=== PATIENT | male | born 1935 | race Caucasian/White ===

== ENCOUNTER 2016-05-30 09:29 | Inpatient (IN) ==
--- NOTE | 2016-05-30 09:39 | Emergency Department Note ---
Disposition Clinical Impression: Elevated troponin Chest pain Qualifiers: Chest pain type: unspecified Qualified Code(s): R07.9 - Chest pain, unspecified Disposition: Admitted As Inpatient Condition: Fair Referrals: NO,PCP [Non-Partnered Physician] - Forms: ED Satisfaction Letter Chest Pain HPI - General Chief Complaint: ED Chest Pain Stated Complaint: supriya/chest pain Time Seen by Provider: 05/30/16 09:34 Source: patient, EMS Mode of arrival: EMS Limitations: no limitations Vital Signs Reviewed: Yes Nursing Notes Reviewed: Yes - History of Present Illness Pt complaint: chest pain Onset (ago): day(s) (1) Duration: intermittent Onset: during rest Pain Location: substernal Severity: moderate Quality: heaviness Improves with: nothing Worsens with: nothing Associated symptoms: Reports: cough. Denies: nausea, vomiting Treatments prior to arrival chest pain: aspirin - Related Data Home Medications Medication Instructions Recorded Confirmed Amlodipine [Norvasc] 5 mg PO DAILY 01/18/16 01/18/16 Aspirin Enteric Coated [Aspirin EC] 81 mg PO DAILY 01/18/16 01/18/16 Atorvastatin [Lipitor] 20 mg PO HS 01/18/16 01/18/16 Cinnamon Bark [Cinnamon] 1,000 mg PO DAILY 01/18/16 01/18/16 Finasteride [Proscar] 5 mg PO DAILY 01/18/16 01/18/16 Furosemide [Lasix] 40 mg PO DAILY 01/18/16 01/18/16 Gabapentin [Neurontin] 800 mg PO TID 01/18/16 01/18/16 Guaifenesin 200 mg PO TID 01/18/16 01/18/16 Hydrochlorothiazide [Microzide] 12.5 mg PO DAILY 01/18/16 01/18/16 Losartan [Cozaar] 25 mg PO DAILY 01/18/16 01/18/16 Omeprazole [PriLOSEC] 40 mg PO DAILY 01/18/16 01/18/16 Potassium Chloride [K-Tab ER] 20 meq PO DAILY 01/18/16 01/18/16 Tamsulosin [Flomax] 0.4 mg PO DAILY 01/18/16 01/18/16 Warfarin [Coumadin] 2.5 mg PO 1800 01/18/16 01/18/16 Allergies Allergy/AdvReac Type Severity Reaction Status Date / Time No Known Allergies Allergy Verified 05/18/15 07:46 All systems ED: reviewed and negative except as stated. Constitutional: Denies: fever, chills, weakness Respiratory: Reports: cough Chest Pain PMH - Past Medical History Medical history: Reports: atrial fibrillation, diabetes, hyperlipidemia, hypertension Surgical history: Reports: LE Bypass, pacemaker/AICD Psychiatric history: Reports: no psych history - Social History Smoking Status: Former smoker Alcohol use: Reports: none Drug use: Reports: none Physical Exam - General Limitations: no limitations General appearance: alert, in no apparent distress - Head Head exam: atraumatic, normocephalic, normal inspection - Eye Eye exam: Present: normal appearance, PERRL, EOMI - Expanded Eye Exam Pupils: Left: reactive - ENT ENT exam: normal exam, normal oropharynx, mucous membranes moist - Expanded ENT Exam External ear exam: Present: normal external inspection Mouth exam: Present: normal external inspection Teeth exam: Present: normal inspection Throat exam: Present: normal inspection - Neck Neck exam: Present: normal inspection, full ROM, trachea midline - Chest Chest inspection: Present: normal inspection, symmetric chest wall rise - Respiratory Respiratory exam: Present: normal lung sounds bilaterally - Cardiovascular Cardiovascular exam: Present: regular rate, irregular rhythm - Abdominal Exam Abdominal exam: Present: soft, Non-Tender. Absent: tenderness, distention, guarding, rebound, rigidity - Extremities Exam Extremities exam: Present: normal inspection, full ROM. Absent: tenderness, pedal edema - Expanded Upper Extremity Exam Shoulder exam: Present: normal inspection, full ROM Arm exam: Present: normal inspection, full ROM Elbow exam: Present: normal inspection, full ROM Forearm/Wrist exam: Present: normal inspection, full ROM Hand exam: Present: normal inspection, full ROM Vascular exam: Normal: capillary refill, radial pulse - Expanded Lower Extremity Exam Hip/Pelvis exam: Present: normal inspection, full ROM Upper leg exam: Present: normal inspection, full ROM Knee exam: Present: normal inspection, full ROM Lower leg exam: Present: normal inspection, full ROM, other (bilat mild pitting edema) Ankle exam: Present: normal inspection, full ROM Foot/toe exam: Present: normal inspection, full ROM Neurovascular/Tendon exam: Absent: motor deficit, sensory deficit, tendon deficit - Back Exam Back exam: Present: normal inspection, full ROM. Absent: tenderness - Neurological Exam Neurological exam: Present: alert, oriented X3 - Expanded Neurological Exam Patient oriented to: Present: person, place, time Coma Scale Eye Opening: Spontaneous Coma Scale Motor Response: Obeys Commands Coma Scale Verbal Response: Oriented Coma Scale Total: 15 - Psychiatric Psychiatric exam: Present: normal affect, normal mood - Skin Skin exam: Present: warm, dry, intact, normal color Course Vital Signs Temperature 99 F 05/30/16 09:30 Pulse Rate 59 05/30/16 09:30 Respiratory Rate 20 05/30/16 09:30 Blood Pressure 131/76 05/30/16 09:30 O2 Sat by Pulse Oximetry 95 05/30/16 09:30 Temperature 99 F 05/30/16 09:30 Pulse Rate 60 05/30/16 11:30 Respiratory Rate 18 05/30/16 11:30 Blood Pressure 140/68 05/30/16 11:30 O2 Sat by Pulse Oximetry 96 05/30/16 11:30 Oxygen Delivery Oxygen Delivery Nasal Cannula Chest Pain - MDM Narrative Medical decision making narrative: dr. rao wants cardiology consulted, dr. treadwell recommends against heparin gtt. - Differential Diagnosis Likely: fracture of rib, stable angina, unstable angina pectoris, atypical chest pain, st elevation myocardial infraction, chest pain - Medical Records Medical records reviewed: Yes I reviewed the patient's medical records. - Lab Data Lab results reviewed: Yes I reviewed the patient's lab results. Result diagrams: 05/30/16 09:46 05/30/16 09:46 Lab Results 05/30/16 05/30/16 05/30/16 Range/Units 09:46 09:46 09:46 WBC (4.3-11.1) K/mcL RBC (4.19-5.50) M/mcL Hgb (12.9-16.9) g/dL Hct (37.5-50.1) % MCV (83.0-100.0) fL MCH (28.0-33.3) pg MCHC (31.6-35.5) g/dL RDW (11.5-14.5) % Plt Count (140-400) K/mcL MPV (9.4-12.4) fL Immature Gran % (0-4) % Seg Neutrophils % % Lymphocytes % % Monocytes % % Eosinophils % % Basophils % % Neutrophils # (1.6-8.9) K/mcL Lymphocytes # (0.6-4.6) K/mcL Monocytes # (0.0-1.3) K/mcL Eosinophils # (0.0-0.6) K/mcL Basophils # (0.0-0.2) K/mcL PT 38.0 H (9.4-12.1) Seconds INR 3.4 APTT 38.2 H (26.0-36.0) Seconds Sodium 134 L (136-145) mEq/L Potassium 3.9 (3.5-4.5) mEq/L Chloride 100 (98-109) mEq/L Carbon Dioxide 25 (19-29) mEq/L BUN 26 (8-26) mg/dL Creatinine 1.54 H (0.72-1.25) mg/dL Est GFR ( Amer) 53 L (> 60) Est GFR (Non-Af Amer) 44 L (> 60) BUN/Creatinine Ratio 17 (6-26) Glucose 121 H (70-99) mg/dL Calculated Osmolality 284 (280-300) Calcium 9.1 (8.6-10.8) mg/dL Total Bilirubin 1.4 H (0.2-1.2) mg/dL Direct Bilirubin 0.5 (0.0-0.5) mg/dL Indirect Bilirubin 0.9 (0.0-1.2) mg/dL AST 18 (5-34) Units/L ALT 18 (0-55) Units/L Alkaline Phosphatase 69 (38-126) Units/L Troponin I (0-0.03) ng/mL B-Natriuretic Peptide 260 H (0-100) pg/mL Serum Total Protein 6.9 (6.0-8.3) g/dL Albumin 3.6 (3.5-5.0) g/dL Globulin 3.3 (2.4-3.5) g/dL Albumin/Globulin Ratio 1.1 (1.1-2.2) 05/30/16 05/30/16 Range/Units 09:46 09:46 WBC 15.7 H (4.3-11.1) K/mcL RBC 4.98 (4.19-5.50) M/mcL Hgb 14.9 (12.9-16.9) g/dL Hct 45.0 (37.5-50.1) % MCV 90.4 (83.0-100.0) fL MCH 29.9 (28.0-33.3) pg MCHC 33.1 (31.6-35.5) g/dL RDW 14.6 H (11.5-14.5) % Plt Count 123 L (140-400) K/mcL MPV 9.3 L (9.4-12.4) fL Immature Gran % 0.4 (0-4) % Seg Neutrophils % 82.4 % Lymphocytes % 9.1 % Monocytes % 7.4 % Eosinophils % 0.4 % Basophils % 0.3 % Neutrophils # 13.0 H (1.6-8.9) K/mcL Lymphocytes # 1.4 (0.6-4.6) K/mcL Monocytes # 1.2 (0.0-1.3) K/mcL Eosinophils # 0.1 (0.0-0.6) K/mcL Basophils # 0.0 (0.0-0.2) K/mcL PT (9.4-12.1) Seconds INR APTT (26.0-36.0) Seconds Sodium (136-145) mEq/L Potassium (3.5-4.5) mEq/L Chloride (98-109) mEq/L Carbon Dioxide (19-29) mEq/L BUN (8-26) mg/dL Creatinine (0.72-1.25) mg/dL Est GFR ( Amer) (> 60) Est GFR (Non-Af Amer) (> 60) BUN/Creatinine Ratio (6-26) Glucose (70-99) mg/dL Calculated Osmolality (280-300) Calcium (8.6-10.8) mg/dL Total Bilirubin (0.2-1.2) mg/dL Direct Bilirubin (0.0-0.5) mg/dL Indirect Bilirubin (0.0-1.2) mg/dL AST (5-34) Units/L ALT (0-55) Units/L Alkaline Phosphatase (38-126) Units/L Troponin I 0.04 H* (0-0.03) ng/mL B-Natriuretic Peptide (0-100) pg/mL Serum Total Protein (6.0-8.3) g/dL Albumin (3.5-5.0) g/dL Globulin (2.4-3.5) g/dL Albumin/Globulin Ratio (1.1-2.2) - Radiology Data Radiology results reviewed: Yes I reviewed the patient's radiology results. - EKG Data EKG attestation: Yes I reviewed and interpreted this EKG. Rate: normal (59) Rhythm: other (ventricular paced)
[2016-05-30 09:53] LABS: Basophils % 0.3 %; Eosinophils # 0.1 K/mcL (0.0-0.6); Eosinophils % 0.4 %; Hemoglobin 14.9 g/dL (12.9-16.9); Immature Granulocytes % 0.4 % (0-4); Lymphocytes # 1.4 K/mcL (0.6-4.6); Lymphocytes % 9.1 %; Mean Corpuscular HGB Conc 33.1 g/dL (31.6-35.5); Mean Corpuscular Hemoglobin 29.9 pg (28.0-33.3); Mean Corpuscular Volume 90.4 fL (83.0-100.0); Mean Platelet Volume 9.3 fL (9.4-12.4); Monocytes # 1.2 K/mcL (0.0-1.3); Monocytes % 7.4 %; Platelet Count 123 K/mcL (140-400); Red Blood Count 4.98 M/mcL (4.19-5.50); Red Cell Distribution Width 14.6 % (11.5-14.5); Segmented Neutrophils % 82.4 %
[2016-05-30 09:59] LABS: INR 3.4
[2016-05-30 10:01] LABS: Activated Partial Thrombo Time 38.2 Seconds (26.0-36.0)
[2016-05-30 10:08] LABS: Albumin 3.6 g/dL (3.5-5.0); Albumin/Globulin Ratio 1.1 (1.1-2.2); Bilirubin,Direct 0.5 mg/dL (0.0-0.5); Bilirubin,Indirect 0.9 mg/dL (0.0-1.2); Bilirubin,Total 1.4 mg/dL (0.2-1.2); Calcium 9.1 mg/dL (8.6-10.8); Globulin 3.3 g/dL (2.4-3.5); Potassium 3.9 mEq/L (3.5-4.5); Total Protein 6.9 g/dL (6.0-8.3)
--- NOTE | 2016-05-30 14:26 | Cardiology Consult Note ---
Date of Encounter: 05/30/16 Time of Encounter: 14:30 Assessment and Plan (1) Chest pain Current Visit: Yes Status: Acute Per Cardiology: I suspect patient has underlying anatomical CAD, however he presents with atypical symptoms. Reproducible today with deep inspiration and coughing. Initial troponin 0.04. Recommend continue to cycle troponins. Check echo. Consider further ischemic evaluation tomorrow based on troponins and echo results. We'll consider cardiac rehabilitation consult if deemed appropriate. Demand ischemia (WBC 15 and MEL?) vs NSTEMI. Qualifiers: Chest pain type: unspecified Qualified Code(s): R07.9 - Chest pain, unspecified (2) Elevated troponin Current Visit: Yes Status: Acute Per Cardiology: Initial trop 0.04. Continue to cycle. (3) MEL (acute kidney injury) Current Visit: Yes Status: Acute Per Cardiology: Appears to have CKD, unsure of this is MEL or CKD. Monitor closely. (4) PAD (peripheral artery disease) Current Visit: Yes Status: Chronic Per Cardiology: History of aorto bifemoral bypass. Also, last carotid duplex September 2015 showed right proximal ICA 60-79% and left proximal ICA 40-59% stenosis. (5) Afib Current Visit: Yes Status: Chronic Per Cardiology: Apparent hx of afib. [facility] Current [facility] 3.4-- hold Coumadin for now in case needs [facility]. Monitor tele. Pace rhythm on ECG. Qualifiers: Atrial fibrillation type: unspecified Qualified Code(s): I48.91 - Unspecified atrial fibrillation (6) Sick sinus syndrome Current Visit: Yes Status: Chronic Per Cardiology: Has Pacer [facility]. (7) Decubitus ulcer of right buttock, stage 3 Current Visit: No Status: Acute Per Cardiology: Follows with Dr. Evangelista. Discussion w patient/family: The assessment and plan as outlined above was discussed with the patient who expressed understanding and agreement. All questions were answered. Thank you for involving us in the care of your patient. Please call with any questions. Discussed and reviewed with Dr. Johnson. History of Present Illness Consult date: 05/30/16 Requesting physician: Nabeel Galarza Consult reason: Elevated Trop Chief complaint: CP History of present illness: Mr. Briceno is a 81 year old male with a relevant past history diabetes mellitus type 2, HLD, HTN, pacemaker-- for apparent sick sinus syndrome, afib on coumadin , peripheral artery disease with aorto bifemoral bypass. Follows with vascular surgery for right buttock ulceration and wound clinic. Patient follows with cardiology at [facility]. He reports came [place] from [place] yesterday morning was sitting down and watch possible games developed midsternal chest pressure with coughing. Reports some mild productive sputum pale yellow. He denies any fever, chills, nausea, vomiting, diarrhea. He does report some intermittent chest pressure prior to this event, however is nonspecific and frequency. Patient is somewhat a poor historian. He believes he is taking Coumadin because of his heart. Denies any known history of DVT or PE. Patient unsure why he has a pacemaker. Denies ever having heart catheterization, however reports he believes he had a stress test [facility] over the past few years. Chest pain reproducible today upon exam with deep inspiration and coughing. Past Med Surg Social Fam HX - Past Medical History Attestation: Yes The following information was validated with the patient. Source: patient, old records reviewed Medical history: atrial fibrillation, diabetes, hyperlipidemia, hypertension, peripheral artery disease Psychiatric history: no psych history - Past Surgical History Surgical History: LE Bypass, pacemaker/AICD - Social History Smoking Status: Former smoker Smokeless Tobacco Status: No Alcohol use: none Drug use: none - Family History Mother Living Status: Hx Family Cardiac Disorders: Yes Medications and Allergies Amlodipine [Norvasc] 5 mg PO DAILY 01/18/16 [History] Aspirin Enteric Coated [Aspirin EC] 81 mg PO DAILY 01/18/16 [History] Atorvastatin [Lipitor] 20 mg PO HS 01/18/16 [History] Cinnamon Bark [Cinnamon] 1,000 mg PO DAILY 01/18/16 [History] Finasteride [Proscar] 5 mg PO DAILY 01/18/16 [History] Furosemide [Lasix] 40 mg PO DAILY 01/18/16 [History] Gabapentin [Neurontin] 800 mg PO TID 01/18/16 [History] Guaifenesin 200 mg PO TID 01/18/16 [History] Hydrochlorothiazide [Microzide] 12.5 mg PO DAILY 01/18/16 [History] Losartan [Cozaar] 25 mg PO DAILY 01/18/16 [History] Omeprazole [PriLOSEC] 40 mg PO DAILY 01/18/16 [History] Potassium Chloride [K-Tab ER] 20 meq PO DAILY 01/18/16 [History] Tamsulosin [Flomax] 0.4 mg PO DAILY 01/18/16 [History] Warfarin [Coumadin] 2.5 mg PO 1800 01/18/16 [History] Allergies No Known Allergies Allergy (Verified 05/18/15 07:46) All Systems Review: A 10-system review of systems was performed and is negative for pertinent findings except as documented above in the HPI. - Constitutional Constitutional: fatigue - Cardiovascular Cardiovascular: as per HPI, chest pain at rest, dyspnea at rest Physical Examination Vital Signs, Last 4 Hours Resp BP 05/30/16 13:32 18 141/73 General: Conversant, No Apparent Distress HEENT: Atraumatic, Normocephaly, Mucus Membranes Moist Neck: No JVD, Normal carotid pulses Cardiac: Reg Rate and Rhythm, Normal S1 and S2, No Murmur Lungs: Normal Breath Sounds, No Wheeze, Rales, Rhonchi, Other (lightly diminshed to basess) Neuro: Alert and responsive, No focal deficits noted Abdomen: Soft, Non-Tender, Other (obese) Skin: No rashes noted on visualized skin Musculoskeletal: No Chest Wall Tenderness Extremities: Other (+ 1 nonpitting bilateral LE edema, dusky colored) Results 05/30/16 09:46 05/30/16 09:46 Laboratory Tests 05/30/16 05/30/16 05/30/16 09:46 09:46 09:46 WBC Hgb Hct Plt Count INR 3.4 Creatinine 1.54 H Est GFR (Non-Af Amer) 44 L AST 18 ALT 18 Troponin I B-Natriuretic Peptide 260 H Albumin 3.6 05/30/16 05/30/16 09:46 09:46 WBC 15.7 H Hgb 14.9 Hct 45.0 Plt Count 123 L INR Creatinine Est GFR (Non-Af Amer) AST ALT Troponin I 0.04 H* B-Natriuretic Peptide Albumin ITS Impressions Chest X-Ray 05/30/16 09:35 IMPRESSION: 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 No acute pneumonia or overt congestive heart failure. D/ / 05/30/2016 12:03:22 Jimbo Rojas MD / janie Interpreting Provider: Jimbo Rojas MD Intake & Output 05/27/16 05/28/16 05/29/16 05/30/16 23:59 23:59 23:59 23:59 Weight 111.13 kg - Imaging and Cardiology Chest Xray: report reviewed Echo: pending - EKG Interpretation EKG results cardiology: personally reviewed, ventricular paced rhythm Consult Discharge Plan - Plan [facility]errals: [facility] [Primary Care Provider] -
--- NOTE | 2016-05-30 14:38 | Internal Med History&Physical ---
Date of Encounter: 05/30/16 Time of Encounter: 14:37 Assessment and Plan (1) Chest pain Current visit: Yes Status: Acute Pressure, associated with coughing. Although this pressure could be secondary to cough with small troponin leak, patient does have significant risk factors for CAD and has not had LHC in the past. Appreciate cardiology recommendations. - Trend troponin - Keep patient chest pain free with nitro/morphine PRN - Monitor on telemetry - ASA daily - INR therapeutic at 3.4, will hold tonight in case LHC planned in AM - Cardiology consult appreciated Qualifiers: Chest pain type: unspecified Qualified Code(s): R07.9 - Chest pain, unspecified (2) Cough Current visit: Yes Status: Acute Likely represents URI, patient denies history of COPD but [facility] indicate [facility] of [facility]. Physical exam without wheezing, not currently coughing. - Duonebs PRN cough/wheezing - Consider steroid if patient with further symptoms - Check influenza swab (3) CKD (chronic kidney disease) Current visit: Yes Status: Acute Unknown baseline creatinine, will attempt to obtain further records from the [place] to determine baseline creatinine - Avoid nephrotoxins - Monitor creatinine Qualifiers: Chronic kidney disease stage: unspecified stage Qualified Code(s): N18.9 - Chronic kidney disease, unspecified (4) Elevated troponin Current visit: Yes Status: Acute Trop 0.04, [facility]. Patient chest pain free. - Trend troponin (5) Afib Current visit: Yes Status: Chronic Rate controlled, mostly paced rhythm on telemetry - INR 3.4 - Continue home meds Qualifiers: Atrial fibrillation type: unspecified Qualified Code(s): I48.91 - Unspecified atrial fibrillation Internal Medicine - H&P: HPI Chief complaint: Shortness of breath, chest pressure Admitted From: Emergency Dept Plans for Post Hospital Care: Home History of present illness: Mr. Briceno is a 81 year old male with history of peripheral artery disease (s/p bilateral fem-pop bypass), CHF, atrial fibrillation and SSS with pacer in place , who presented to the [place] this morning because of chest pressure and cough which developed yesterday. He states that he was resting in his chair yesterday when he developed shortness of breath and cough. He felt as if he needed to cough up phlegm but was unable to. He was wheezing, and while he was coughing he developed chest pressure. The pressure was located substernally and did not radiate. The pain resolved when he stopped coughing. He continued to cough intermittently throughout the night and each time it was associated with the chest pressure. He denies history of known CAD and states he has never had a cardiac catheterization. He currently is chest pain free and his breathing feels approximately at baseline. He does admit to feeling chilled overnight but is unsure if he had a fever. In the ER at the [place] he was found to have troponin of 0.00 with EKG showing ventricular paced rhythm, so he was sent to [facility] for further evaluation. In the [facility] ER he was found to have troponin of 0.04. INR is 3.4. Past Med Surg Social Fam HX - Past Medical History Medical history: atrial fibrillation, CHF, COPD, diabetes, GERD, glaucoma, hyperlipidemia, hypertension, renal disease (CKD), other (Sick sinus syndrome, BPH, SAWYER, gout) Psychiatric history: no psych history - Past Surgical History Surgical History: LE Bypass, pacemaker/AICD - Social History Smoking Status: Former smoker Smokeless Tobacco Status: No Alcohol use: none Drug use: none - Family History Mother Living Status: Hx Family Cardiac Disorders: Yes Internal Medicine - H&P: Meds Aspirin Enteric Coated [Aspirin EC] 81 mg PO DAILY 01/18/16 [History] Finasteride [Proscar] 5 mg PO DAILY 01/18/16 [History] Gabapentin [Neurontin] 800 mg PO TID 01/18/16 [History] Tamsulosin [Flomax] 0.4 mg PO DAILY 01/18/16 [History] Atorvastatin Calcium [Lipitor] 20 mg PO HS 05/30/16 [History] Collagenase Oint [Santyl] 1 appl TP DAILY 05/30/16 [History] Dorzolamide/Timolol [Cosopt] 2 drop BOTH EYES BID 05/30/16 [History] Furosemide [Lasix] 30 mg PO DAILY 05/30/16 [History] Gentamicin Oint [Garamycin] 1 appl TP DAILY 05/30/16 [History] Guaifenesin [Mucus Relief] 400 mg PO TID PRN 05/30/16 [History] HYDROcodone/Acet 5/325 mg [Everton 5-325 mg] 1 tab PO TID PRN 05/30/16 [History] Hydrochlorothiazide 25 mg PO DAILY 05/30/16 [History] Latanoprost [Xalatan] 1 drop BOTH EYES HS 05/30/16 [History] Lidocaine 4% CRM (LMX) [Lmx 4] 1 appl TP TID 05/30/16 [History] Losartan Potassium [Cozaar] 50 mg PO DAILY 05/30/16 [History] Mupirocin [Bactroban Oint] 1 appl TP DAILY 05/30/16 [History] Omeprazole [PriLOSEC] 20 mg PO BIDAC 05/30/16 [History] Potassium Chloride [Klor-Con 10] 10 meq PO DAILY 05/30/16 [History] Warfarin [Coumadin] 2 mg PO SUMOWEFR 05/30/16 [History] Warfarin [Coumadin] 3 mg PO TUTHSA 05/30/16 [History] Allergies etodolac Adverse Reaction (Verified 05/30/16 15:54) See Comments [facility] list pregabalin [From Lyrica] Adverse Reaction (Verified 05/30/16 15:54) See Comments Per [facility] list All Systems PM: A 10-system review of systems was performed and is negative for pertinent findings except as documented above in the HPI. - Constitutional Vitals: Temp Pulse Resp BP Pulse Ox 99 F 60 18 141/73 96 05/30/16 09:30 05/30/16 11:30 05/30/16 13:32 05/30/16 13:32 05/30/16 11:30 General appearance: Present: A&O X 3 Exam: Patient in no acute distress, resting comfortably in bed - Head Head exam: Present: atraumatic - Eye Eye exam: Present: EOMI, sclera anicteric - ENT ENT exam: Present: mucous membranes moist - Neck Neck exam general surgery: Present: supple - Respiratory Respiratory exam: Present: CTAB. Absent: wheezes - Cardiovascular Cardiovascular exam: Present: RRR. Absent: distant heart sounds, gallop, rubs, systolic murmur, tachycardia - GI/Abdominal GI/Abdominal exam: Present: normal bowel sounds, soft. Absent: distended, tenderness - Extremities Exam Extremities exam: Present: pedal edema (trace lower extremity edema bilateral lower extremities) - Neurological Exam Neurological exam: Present: no focal deficits - Skin Skin exam: Absent: rash Internal Med - H&P Results - Labs CBC & Chem 7: 03/20/17 09:46 05/30/16 09:46
[2016-05-30] MEDS ORDERED: Naloxone 0.4 MG/ML INJ IVP PRN (15:13)
[2016-05-30] MEDS ORDERED: Ondansetron 4 MG/2 ML VIAL IVP PRN (15:13)
[2016-05-30] MEDS ORDERED: Nitroglycerin 0.4 MG TAB.SUBL SL PRN (15:16)
[2016-05-30] MEDS ORDERED: Ipratropium/Albuterol Neb 3 ML IH PRN (15:17)
[2016-05-30] MEDS ORDERED: *HR* HYDROcodone/Acet 5/325 mg TABLET PO PRN (17:28)
[2016-05-30] MEDS ORDERED: GuaiFENesin Liq 200 MG/10 ML UDC PO PRN (17:28)
[2016-05-30] MEDS: Gabapentin 400 MG CAPSULE PO SCH (20:39)
[2016-05-30] MEDS: Dorzolamide/Timolol OPTH 10 ML BOTTLE BOTH EYES SCH (20:40)
[2016-05-30] MEDS ORDERED: Latanoprost 2.5 ML BOTTLE BOTH EYES SCH (21:00)
[2016-05-30] MEDS: Lidocaine 4% CREAM (LMX) 5 GM TP SCH (22:21)
[2016-05-31] MEDS: *HR* Morphine 2 MG/ML SYRINGE IVP PRN ×2 (01:30→05:26)
[2016-05-31 04:14] LABS: Basophils % 0.3 %; Eosinophils # 0.2 K/mcL (0.0-0.6); Eosinophils % 2.1 %; Hemoglobin 14.6 g/dL (12.9-16.9); Immature Granulocytes % 0.2 % (0-4); Lymphocytes % 19.7 %; Mean Corpuscular HGB Conc 32.4 g/dL (31.6-35.5); Mean Corpuscular Hemoglobin 29.5 pg (28.0-33.3); Mean Corpuscular Volume 90.9 fL (83.0-100.0); Mean Platelet Volume 10.3 fL (9.4-12.4); Monocytes % 9.7 %; Neutrophils # 6.7 K/mcL (1.6-8.9); Platelet Count 124 K/mcL (140-400); Red Blood Count 4.95 M/mcL (4.19-5.50); Red Cell Distribution Width 14.6 % (11.5-14.5)
[2016-05-31 04:24] LABS: Potassium 3.7 mEq/L (3.5-4.5)
[2016-05-31 04:25] LABS: Calcium 9.1 mg/dL (8.6-10.8); Chol/HDL Ratio 4.2 (0-4.9)
--- NOTE | 2016-05-31 08:09 | Cardiology Progress Note ---
Date of Encounter: 05/31/16 Time of Encounter: 08:10 Assessment and Plan (1) Chest pain Current Visit: Yes Status: Acute Per Cardiology: Atypical symptoms-- reproducible with deep inspiration and coughing. [facility], then 0.04 and then 0.03 x 3. Echo pending. Further recs after echo. Suspect demand ischemia in setting of MEL vs CKD. No cardiac rehab consult warranted for now. Qualifiers: Chest pain type: unspecified Qualified Code(s): R07.9 - Chest pain, unspecified (2) Elevated troponin Current Visit: Yes Status: Acute Per Cardiology: As above. On asa and statin. Will add BB. (3) MEL (acute kidney injury) Current Visit: Yes Status: Acute Per Cardiology: Appears to have CKD, unsure of this is MEL or CKD. Monitor closely-- on HCTZ and ARB. Will stop HCTZ for now, adding BB. (4) PAD (peripheral artery disease) Current Visit: Yes Status: Chronic Per Cardiology: History of aortobifemoral bypass. Also, last carotid duplex September 2015 showed right proximal ICA 60-79% and left proximal ICA 40-59% stenosis. (5) Afib Current Visit: Yes Status: Chronic Per Cardiology: Rate controlled. Hx of afib. On Coumadin managed by [facility]-- currently on hold. Qualifiers: Atrial fibrillation type: unspecified Qualified Code(s): I48.91 - Unspecified atrial fibrillation (6) Sick sinus syndrome Current Visit: Yes Status: Chronic Per Cardiology: [facility] (7) Decubitus ulcer of right buttock, stage 3 Current Visit: No Status: Acute Per Cardiology: Follows with Dr. Evangelista. Discussion w patient/family: The assessment and plan as outlined above was discussed with the patient who expressed understanding and agreement. All questions were answered. Thank you for involving us in the care of your patient. Please call with any questions. Subjective Principal diagnosis: CP Interval history: Patient seen with at bedside. He reports continues to have chest pain with coughing. Denies any other concerns or complaints. Objective Vital Signs, Last 4 Hours Temp Pulse Resp BP Pulse Ox 05/31/16 04:42 97.7 F 77 16 133/79 93 L General: Conversant, No Apparent Distress HEENT: Atraumatic, Normocephaly Cardiac: Reg Rate and Rhythm, Normal S1 and S2, No Murmur Lungs: Normal Breath Sounds, No Wheeze, Rales, Rhonchi Neuro: Alert and responsive, No focal deficits noted Musculoskeletal: Other (Midsternal chest pain with deep inspiration and coughing ) Extremities: Other (+1 nonpitting bilateral LE edema, dusky colored) Results 05/31/16 03:55 05/31/16 03:55 Lab Results Laboratory Tests 05/30/16 05/30/16 05/30/16 09:46 09:46 09:46 AST 18 ALT 18 Troponin I 0.04 H* B-Natriuretic Peptide 260 H LDL Cholesterol, Calc 05/30/16 05/30/16 05/31/16 16:34 22:59 03:55 AST ALT Troponin I 0.03 0.03 0.03 B-Natriuretic Peptide LDL Cholesterol, Calc 05/31/16 03:55 AST ALT Troponin I B-Natriuretic Peptide LDL Cholesterol, Calc 84 Impressions Chest X-Ray 05/30/16 09:35 IMPRESSION: 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 No acute pneumonia or overt congestive heart failure. D/ / 05/30/2016 12:03:22 Jimbo Rojas MD / janie Interpreting Provider: Jimbo Rojas MD Active Medications Acetaminophen/Hydrocodone Bitart ([place] 5-325 Mg) 1 tab PO TID PRN PRN Reason: Pain Stop: 11/29/16 17:29 Last Admin: 05/30/16 22:20 Dose: 1 tab Albuterol/Ipratropium (Duoneb) 3 ml IH [id number] PRN; Protocol PRN Reason: Shortness Of Breath/Wheezing Stop: 11/29/16 15:18 Aspirin (Aspirin Ec) 81 mg PO DAILY [facility]ANCO Stop: 11/30/16 09:01 Atorvastatin Calcium (Lipitor) 20 mg PO HS [facility] Stop: 11/29/16 21:01 Last Admin: 05/30/16 20:40 Dose: 20 mg Collagenase (Santyl) 1 appl TP DAILY [facility] PRN Reason: Protocol Stop: 11/30/16 09:01 Dorzolamide/Timolol (Cosopt) 2 drop BOTH EYES BID [facility] Stop: 11/29/16 21:01 Last Admin: 05/30/16 20:40 Dose: 2 drop Finasteride (Proscar) 5 mg PO DAILY [facility] PRN Reason: Protocol Stop: 11/30/16 09:01 Gabapentin (Neurontin) 800 mg PO TID [facility] Stop: 11/29/16 21:01 Last Admin: 05/30/16 20:39 Dose: 800 mg Gentamicin Sulfate (Garamycin) 1 appl TP DAILY [facility] Stop: 11/30/16 09:01 Guaifenesin (Robitussin Liq) 400 mg PO TID PRN PRN Reason: Congestion Hydrochlorothiazide (Hydrochlorothiazide) 25 mg PO DAILY [facility] PRN Reason: Protocol Stop: 11/30/16 09:01 Latanoprost (Xalatan) 1 drop BOTH EYES HS [facility] PRN Reason: Protocol Stop: 11/29/16 21:01 Last Admin: 05/30/16 20:40 Dose: 1 drop Lidocaine HCl (Lmx 4) 1 gm TP TID [facility] Stop: 11/29/16 21:01 Last Admin: 05/30/16 22:21 Dose: 1 gm Losartan Potassium (Cozaar) 50 mg PO DAILY [facility] Stop: 11/30/16 09:01 Morphine Sulfate (Morphine Sulfate) 2 mg IVP Q4HR PRN PRN Reason: Severe Pain (7-10) Stop: 11/29/16 15:14 Last Admin: 05/31/16 05:26 Dose: 2 mg Mupirocin (Bactroban Oint) 1 appl TP DAILY [facility] Stop: 11/30/16 09:01 Naloxone HCl (Narcan) 0.4 mg IVP Q2MIN PRN PRN Reason: Opioid Reversal Stop: 11/29/16 15:14 Nitroglycerin (Nitroglycerin) 0.4 mg SL Q5MIN PRN PRN Reason: Chest Pain Stop: 11/29/16 15:17 Omeprazole (Prilosec) 20 mg PO BIDAC [facility] PRN Reason: Protocol Stop: 11/30/16 07:31 Last Admin: 05/31/16 05:57 Dose: 20 mg Ondansetron HCl (Zofran) 4 mg IVP Q8HR PRN PRN Reason: Nausea And Vomiting Stop: 11/29/16 15:14 Tamsulosin HCl (Flomax) 0.4 mg PO DAILY [facility] PRN Reason: Protocol Stop: 11/30/16 09:01 - Imaging and Cardiology Chest Xray: report reviewed Echo: pending - EKG Interpretation EKG results cardiology: other (24 hr tele shows avg HR 69, V paced) Consult Discharge Plan - Plan [facility]: [facility] Provider[facility] -
[2016-05-31] MEDS ORDERED: hydroCHLOROthiazide 25 MG TABLET PO SCH (09:00)
[2016-05-31] MEDS ORDERED: Finasteride 5 MG TABLET PO SCH (09:00)
[2016-05-31] MEDS ORDERED: Gentamicin Oint 15 GM TUBE TP SCH (09:00)
[2016-05-31] MEDS ORDERED: Aspirin Enteric Coated 81 MG Tablet PO SCH (09:00)
[2016-05-31] MEDS: Gabapentin 400 MG CAPSULE PO SCH ×2 (09:47→15:36)
[2016-05-31] MEDS: Dorzolamide/Timolol OPTH 10 ML BOTTLE BOTH EYES SCH (09:48)
--- NOTE | 2016-05-31 10:13 | ECHO - Doppler Report ---
Echocardiogram Name: Kenia Briceno Date of Study: 05/31/2016 Date: 1935 Ht: 70.0 in Medical Record#: [id number] Age: 81 Wt: 247.0 lb Gender: Male BSA: 2.28 Order #: [id number] Location: [facility] Room #: 3B12 Reading Physician: Lorelei Melton DO [id number] Administrator: Bekah Mustafa Ordering Physician: Jesus Toussaint CNP Primary Physician: [facility] Indications: Elevated troponin Impressions: LVEF 55%. Normal LV wall motion. Normal left ventricular size and systolic function. Indeterminate left venticular diastolic function Dilated RV with normal function. Mild-moderate mitral regurgitation. Mild tricuspid regurgitation. Mild pulmonary hypertension. Left Ventricular Wall Motion: Rest Echo Findings All wall segments showed normal motion. Findings: Study Quality * Technically adequate exam. ECG Findings * Atrial fibrillation. Occasionally paced. Left Ventricle * Indeterminate diastolic function. * LVEF 55%. * Normal LV size and wall thickness. Mitral Valve * Normal mitral valve structure. * No mitral stenosis. * Mild-moderate mitral regurgitation. Aortic Valve * Aortic valve not well visualized. * Mildly calcified aortic valve leaflets. * No aortic stenosis. * Trace aortic regurgitation. Tricuspid Valve * Tricuspid valve not well visualized. * Mild tricuspid regurgitation. * Estimated RA pressure is 3 mmHg. * Estimated RVSP is 36 mmHg. * Mild pulmonary hypertension. Pulmonic Valve * Pulmonic valve is not well visualized. * No pulmonic stenosis. * No pulmonic regurgitation. Pulmonary Artery * Pulmonary artery not well visualized. Right Ventricle * Dilated RV with normal function. Right Atrium * Mildly dilated right atrium. Left Atrium * Severely dilated left atrium. Interatrial Septum * No evidence of PFO by color Doppler. IVC * Normal IVC dimensions and inspiratory collapse. Pericardium * There is no pericardial effusion present. Aorta * Not well visualized. History Hypertension Diabetes Hypercholesteremia Family History of CAD Congestive Heart Failure Pacer/ICD Implant Measurements: BP: 133/ 79 2D Normal Values IVSd: 1.20 cm 0.6 - 1.0 cm LVIDd: 5.00 cm 3.7 - 5.6 cm LVPWd: 1.00 cm 0.6 - 1.1 cm LVIDs: 2.90 cm 1.5 - 3.6 cm AO: 2.70 cm < 4.0 cm %FS: 42.00 cm >25 % LVOT Diam: 2.00 cm LA volume: Mitral Valve Peak E:.81 m/sec Peak E' Lat Homer:10.5 cm/s Peak E' Med Homer:9.65 cm/s E/E' Lat Ratio:7.7 E/E' Med Ratio:8.3 Aortic Valve AI pressure Half-time: 766.00 msec Tricuspid Valve TV Regurg Peak Grad: 33.00mmHg TV Regurg Peak Homer: 2.87m/sec Updated by Lorelei Melton on 05/31/2016 10:09:51 AM electronically signed on 05/31/2016 10:10:54 AM with status of Final Wall Motion Crump: 1=Normal, 2=Hypokinesis, 3=Akinesis, 4=Dyskinesis, 5=Aneurysmal, 6=Hyperkinetic, X=Not Visualized (Blank)=Missing
[2016-05-31] MEDS: Lidocaine 4% CREAM (LMX) 5 GM TP SCH ×2 (10:26→15:34)
--- NOTE | 2016-05-31 12:20 | Electrocardiograph Report ---
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
[2016-05-31] MEDS ORDERED: Regadenoson 0.4 MG/5 ML SYRINGE IVP ONE (12:54)
--- NOTE | 2016-05-31 15:07 | Nuclear Medicine Stress Report ---
Regadenoson Nuclear Stress Name: Kenia Briceno Date of Study: 05/31/2016 Date: 1935 Ht: 69.0 in Medical Record#: [id number] Age: 81 Wt: 245.0 lb Gender: Male Order #: [id number] Location: [facility] Room: [facility] Supervising Provider: Mitra Martínez CNP Reading Physician: Lorelei Melton DO Ordering Physician: Patricia Hector CNP Primary Care Physician: [facility] Stress Technologist: Efrain Schaeffer, INJECTION MOLDING OPERATOR, CPFT Silk Washing Machine Operator: Clarisa Sylvester Indications: Chest Pain Impression: Perfusion imaging was negative for ischemia or infarct. Pharmacologic ECG was non diagnostic for ischemia due to V-pacing. Occasional single PVCs and PVCs in a bigeminy pattern. Underlying [place] conduction demonstrates atrial fibrillation. Gated EF = 53%. History: Hypertension Diabetes Hypercholesteremia Stress Test Summary: Stress Test Type: Pharmacologic Baseline Information: Initial Heart Rate: 90 Blood Pressure: 124/48 Stress Information: Test Terminated Due to (primary): As per protocol Maximum Blood Pressure: 108/62 Maximum Heart Rate: 64 Percent Maximum Heart Rate Achieved: 48 Double Product: 7236 METS Reached: 1 Symptoms: No chest symptoms Nuclear Summary: SPECT myocardial perfusion imaging using Tc99m Sestamibi given intravenously was performed at rest and following cardiac stress testing. The resting images were obtained following initial dose of 11.5 mCi. Following stress an additional dose of 34.6 mCi was given at peak exercise or 30 seconds post regadenoson infusion. Medication Given: Time Medication Dose Units Route Findings: Stress Note * Baseline ECG demonstrates a V-paced rhythm. Also observed are PVCs in a bigeminy pattern. * There is intermittent [place] conduction with underlying atrial fibrillation. * Patient had no chest pain during stress. * Pharmacologic stress ECG is non diagnostic for ischemia due to baseline paced rhythm. Hemodynamic responses * Normal hemodynamic responses to pharmacologic stress. Study Quality * Study quality was fair with limitation from ectopy and patient motion. Left Ventricle * The left ventricle is not dilated. TID * No evidence of transient ischemic dilatation. Lung Uptake * There is no evidence of increase lung uptake. Gated EF % * Gated EF = 53%. NORMALS * Normal wall motion. PERFUSION * There is bowel wall uptake obscuring the inferior wall. Other areas demonstrate normal rest and stress perfusion. Updated by Lorelei Melton on 05/31/2016 3:01:24 PM electronically signed on 05/31/2016 3:03:05 PM with status of Final
[2016-05-31 15:27] VITALS: BP 128/63
--- NOTE | 2016-05-31 16:15 | Discharge Summary ---
Date of Encounter: 05/31/16 Time of Encounter: 15:30 - Discharge Diagnosis (1) Chest pain Priority: Primary Status: Acute Comments: Patient has denied chest pain or shortness of breath above his norm since admission. Chest x-ray negative. Echocardiogram unremarkable. Stress test negative. Patient tolerated a regular diet while admitted. Qualifiers: Chest pain type: unspecified Qualified Code(s): R07.9 - Chest pain, unspecified (2) Cough Priority: Primary Status: Acute (3) Decubitus ulcer of right buttock, stage 3 Priority: Secondary Status: Chronic Comments: Follow-up outpatient (4) Elevated troponin Priority: Primary Status: Resolved Comments: Initial troponin 0.04, then 0.033. Stress test negative, echocardiogram unremarkable. Cardiology evaluated him and have cleared him for outpatient follow-up (5) MEL (acute kidney injury) Priority: Primary Status: Acute Comments: No prior readings to determine whether or not the patient has chronic kidney disease, remained stable throughout this admission, recommend follow-up outpatient (6) Afib Priority: Secondary Status: Chronic Comments: Rate controlled, INR slightly supratherapeutic at 3.4, patient stating he is going to the [facility] tomorrow for follow-up Qualifiers: Atrial fibrillation type: unspecified Qualified Code(s): I48.91 - Unspecified atrial fibrillation (7) Sick sinus syndrome Priority: Secondary Status: Chronic (8) PAD (peripheral artery disease) Priority: Secondary Status: Chronic - Discharge Medications Home Medications: Aspirin Enteric Coated [Aspirin EC] 81 mg PO DAILY 01/18/16 [History] Finasteride [Proscar] 5 mg PO DAILY 01/18/16 [History] Gabapentin [Neurontin] 800 mg PO TID 01/18/16 [History] Tamsulosin [Flomax] 0.4 mg PO DAILY 01/18/16 [History] Atorvastatin Calcium [Lipitor] 20 mg PO HS 05/30/16 [History] Collagenase Oint [Santyl] 1 appl TP DAILY 05/30/16 [History] Dorzolamide/Timolol [Cosopt] 2 drop BOTH EYES BID 05/30/16 [History] Furosemide [Lasix] 30 mg PO DAILY 05/30/16 [History] Gentamicin Oint [Garamycin] 1 appl TP DAILY 05/30/16 [History] Guaifenesin [Mucus Relief] 400 mg PO TID PRN 05/30/16 [History] HYDROcodone/Acet 5/325 mg [[place] 5-325 mg] 1 tab PO TID PRN 05/30/16 [History] Hydrochlorothiazide 25 mg PO DAILY 05/30/16 [History] Latanoprost [Xalatan] 1 drop BOTH EYES HS 05/30/16 [History] Lidocaine 4% CRM (LMX) [Lmx 4] 1 appl TP TID 05/30/16 [History] Losartan Potassium [Cozaar] 50 mg PO DAILY 05/30/16 [History] Mupirocin [Bactroban Oint] 1 appl TP DAILY 05/30/16 [History] Omeprazole [PriLOSEC] 20 mg PO BIDAC 05/30/16 [History] Potassium Chloride [Klor-Con 10] 10 meq PO DAILY 05/30/16 [History] Warfarin [Coumadin] 2 mg PO SUMOWEFR 05/30/16 [History] Warfarin [Coumadin] 3 mg PO TUTHSA 05/30/16 [History] Allergies/Adverse Reactions: Allergies etodolac Adverse Reaction (Verified 05/30/16 15:54) See Comments [facility] list pregabalin [From Lyrica] Adverse Reaction (Verified 05/30/16 15:54) See Comments Per [facility] list Date of admission: 05/31/16 15:53 Primary care physician: [facility] Consults: 05/30/16 12:00 Consult to Cardiology [CONS] Routine Comment: Consulting Provider: Cardiology Jyothi Reason for Consult: elevated troponin Call Completed: Yes Discharging clinician: Patricia Hector Anticipated date of discharge: 05/31/16 - Patient Status Disposition: Home, Self-Care Condition: Fair Functional capacity at discharge: independent ambulation Overall status at discharge: patient is back to baseline - Discharge Instructions Instructions: Chest Pain (DC) Follow Up With: [facility] [Primary Care Provider] - Additional Instructions: Follow up with your primary care provider tomorrow as scheduled, check INR tomorrow - Diet and Activity Activity: increase activity as tolerated Diet: low fat, low cholesterol, low salt diet Hospital course: Mr. Briceno is a 81 year old male with past medical history is POD status post femoropopliteal bypass, CHF-diastolic on Lasix, atrial fibrillation on Coumadin , SSS with pacemaker in place. Patient presented to the [facility] chief complaint chest pressure and cough developed on the day prior to presentation. Patient stating he was resting in his chair when he began to experience chest pressure and a cough associated with shortness of breath. Patient stating he felt as if he needed to cough up phlegm but was unable to do so. Patient stating that while he was coughing he developed chest pressure in the chest pressure was located substernally and did not radiate. Patient stating the chest pressure and pain resolved when he stopped coughing. Workup in the emergency department notable for borderline elevated troponin of 0.04. Chest x-ray unremarkable. Patient was admitted to the hospitalist service for further evaluation and management. Repeat troponins 3 all negative. Patient had an echocardiogram with ejection fraction of 55%, mild to moderate mitral regurgitation, mild tricuspid regurgitation, and mild pulmonary hypertension. Cardiology was brought on board and proceed with a nuclear stress test that was negative for ischemia or infarct. Acute coronary syndrome ruled out. Patient denied chest pain or shortness of breath above his norm throughout this admission. He tolerated room air while admitted. Mild leukocytosis resolved. He was discharged home in stable condition with close outpatient follow-up with the [facility] the following day after discharge. Of note, his INR was slightly supratherapeutic at 3.4, and he was set to follow-up with his primary care provider at the [facility] the next day after discharge. No signs of active bleeding. His home in stable condition. ITS Impressions Chest X-Ray 05/30/16 09:35 IMPRESSION: 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 No acute pneumonia or overt congestive heart failure. D/ / 05/30/2016 12:03:22 Jimbo Rojas MD / janie Interpreting Provider: Jimbo Rojas MD Echocardiogram impressions: LVEF 55%. Normal LV wall motion. Normal left ventricular size and systolic function. Indeterminate left ventricular diastolic function. Dilated RV with normal function. Mild-moderate mitral regurgitation. Mild tricuspid regurgitation. Mild pulmonary hypertension. Regadenoson nuclear stress test impression: Perfusion imaging was negative for ischemia or infarct. Pharmacologic ECG was nondiagnostic for ischemia due to V- pacing. Occasional single PVCs and PVCs in a bigeminy pattern. Underlying [place] conduction demonstrates atrial fibrillation. Gated ejection fraction equal 53%. - Time Spent with Patient Total time spent providing and/or coordinating discharge services: - Constitutional Vitals: Temp Pulse Resp BP Pulse Ox 97.7 F 60 17 128/63 94 L 05/31/16 15:27 05/31/16 15:27 05/31/16 15:27 05/31/16 15:27 05/31/16 15:27 General appearance: Present: A&O X 3, pleasant, no acute distress, answers questions appropriately - Head Head exam: Present: atraumatic, normocephalic - Eye Eye exam: Present: PERRL, conjuntiva pink, sclera anicteric Pupils: Present: PERRL - Neck Neck exam general surgery: Present: supple, trachea midline. Absent: lymphadenopathy - Respiratory Respiratory exam: Present: CTAB. Absent: accessory muscle use, decreased breath sounds, rales, respiratory distress, rhonchi, wheezes - Cardiovascular Cardiovascular exam: Present: RRR, +S1, +S2. Absent: diastolic murmur, gallop, rubs, systolic murmur - GI/Abdominal GI/Abdominal exam: Present: normal bowel sounds, soft, no peritoneal signs. Absent: distended, tenderness - Extremities Exam Extremities exam: Present: warm, radial pulses palpable and symetrical. Absent : calf tenderness, cyanotic, pedal edema - Neurological Exam Neurological exam: Present: alert, CN II-XII intact, normal gait, oriented X3, no focal deficits, strengths equal and symetr throughout. Absent: pronater drift, facial droop, speech deficit - Skin Skin exam: Present: dry, intact, normal color, warm
[2016-05-31] MEDS ORDERED: *HR* Heparin 5,000 UNIT/ML VIAL SQ SCH (18:00)
[2016-05-31] MEDS ORDERED: Warfarin perPT PO PRN (18:00)
== END 2016-05-31 16:57 | disposition home or self-care (01) | DRG 313 ==
LOC: EMEROO 09:29 → 3BNU 09:29 → SUATTDRO 13:20 → 3BNU 13:38
PROVIDERS: ADMIT Registered Nurse; ATTEND Nurse Practitioner Family

== ENCOUNTER 2017-06-06 16:26 | Inpatient (IN) ==
--- NOTE | 2017-06-06 16:43 | Emergency Department Note ---
Disposition Clinical Impression: Exertional dyspnea, Cardiac enzymes elevated Disposition: Admitted As Inpatient Condition: Fair [facility] Provider[facility] - Forms: ED Satisfaction Letter Time of Disposition: 16:46 General Adult HPI - General Chief complaint: ED Recheck/Abnormal Lab/Rx Stated complaint: Trop 1.1 sent [address] [facility] to be admitted Time Seen by Provider: 06/06/17 16:33 Source: patient Mode of arrival: wheelchair Limitations: no limitations Nursing Notes Reviewed: Yes Vital Signs Reviewed: Yes - History of Present Illness HPI Narrative: 82-year-old male who smelled couple weeks ago for chest pain. Has had exertional dyspnea since that time it seems to be getting worse. Seen by cardiology and labs were done he was found to have a troponin of 1.1. He was sent here for admission. Pt Subjective Complaint: Dyspnea Onset (ago): day(s) Pain Scale: 0 Consistency: intermittent Improves with: nothing Worsens with: other (Exertion) - Related Data Home Medications Medication Instructions Recorded Confirmed Aspirin Enteric Coated [Aspirin EC] 81 mg PO DAILY 01/18/16 07/18/16 Finasteride [Proscar] 5 mg PO DAILY 01/18/16 07/18/16 Gabapentin [Neurontin] 800 mg PO TID 01/18/16 07/18/16 Tamsulosin [Flomax] 0.4 mg PO DAILY 01/18/16 07/18/16 Atorvastatin Calcium [Lipitor] 20 mg PO HS 05/30/16 07/18/16 Dorzolamide/Timolol [Cosopt] 2 drop BOTH EYES BID 05/30/16 07/18/16 Furosemide [Lasix] 30 mg PO DAILY 05/30/16 07/18/16 Gentamicin Oint [Garamycin] 1 appl TP DAILY 05/30/16 07/18/16 Guaifenesin [Mucus Relief] 400 mg PO TID PRN 05/30/16 07/18/16 HYDROcodone/Acet 5/325 mg [[place] 1 tab PO TID PRN 05/30/16 07/18/16 5-325 mg] Latanoprost [Xalatan] 1 drop BOTH EYES HS 05/30/16 07/18/16 Losartan Potassium [Cozaar] 50 mg PO DAILY 05/30/16 07/18/16 Omeprazole [PriLOSEC] 20 mg PO BIDAC 05/30/16 07/18/16 Potassium Chloride [Klor-Con 10] 10 meq PO DAILY 05/30/16 07/18/16 Warfarin [Coumadin] 2 mg PO SUMOWEFR 05/30/16 07/18/16 Warfarin [Coumadin] 3 mg PO TUTHSA 05/30/16 07/18/16 hydroCHLOROthiazide 25 mg PO DAILY 05/30/16 07/18/16 [Hydrochlorothiazide] Allergies Allergy/AdvReac Type Severity Reaction Status Date / Time etodolac AdvReac See Verified 06/06/17 16:32 Comments pregabalin [From Lyrica] AdvReac See Verified 06/06/17 16:32 Comments All systems ED: reviewed and negative except as stated. Constitutional: Denies: fever, chills, weakness, weight change Eyes: Denies: eye pain, eye discharge, vision change ENT ED: Denies: ear pain, throat pain, dental pain, hearing loss, epistaxis, congestion, dysphagia Cardiovascular: Reports: dyspnea on exertion. Denies: chest pain, palpitations , edema, syncope Respiratory: Reports: dyspnea. Denies: cough, wheezes, hemoptysis, stridor Gastrointestinal: Denies: abdominal pain, nausea, vomiting, diarrhea, constipation, hematemesis, melena, hematochezia Genitourinary: Denies: urgency, dysuria, frequency, hematuria Musculoskeletal: Denies: back pain, neck pain, arthralgia, myalgia Integumentary: Denies: rash, abrasion, lesions Neurological: Denies: headache, weakness, numbness, paresthesias, confusion, abnormal gait, vertigo Psychiatric: Denies: anxiety, depression, suicidal thoughts, homicidal thoughts , auditory hallucinations, visual hallucinations Endocrine: Denies: fatigue Hematological/Lymphatic: Denies: easy bleeding, easy bruising Allergic/Immunologic: Denies: facial swelling, urticaria Past Medical History - Past Medical History Medical history: Reports: atrial fibrillation, CHF, COPD, diabetes, GERD, glaucoma, hyperlipidemia, hypertension, renal disease, other Surgical history: Reports: LE Bypass, pacemaker/AICD Psychiatric history: Reports: no psych history - Social History Smoking Status: Former smoker Smokeless Tobacco Status: No Alcohol use: Reports: none Drug use: Reports: none Physical Exam - General General appearance: alert, in no apparent distress - Head Head exam: atraumatic, normocephalic, normal inspection - Eye Eye exam: Present: normal appearance, PERRL, EOMI - ENT ENT exam: normal exam, normal oropharynx, mucous membranes moist - Neck Neck exam: Present: normal inspection, full ROM, trachea midline - Chest Chest inspection: Present: normal inspection, symmetric chest wall rise - Respiratory Respiratory exam: Present: normal lung sounds bilaterally - Cardiovascular Cardiovascular exam: Present: regular rate, normal rhythm, normal heart sounds - Extremities Exam Extremities exam: Present: normal inspection, full ROM. Absent: tenderness, pedal edema - Expanded Lower Extremity Exam Neurovascular/Tendon exam: Absent: motor deficit, sensory deficit, tendon deficit Gait: observed and normal - Back Exam Back exam: Present: normal inspection, full ROM. Absent: tenderness - Neurological Exam Neurological exam: Present: alert, oriented X3 - Psychiatric Psychiatric exam: Present: normal affect, normal mood - Skin Skin exam: Present: warm, dry, intact, normal color Course - Reevaluation(s) Reevaluation #1: 82-year-old male with a history of heart disease he has had increasingly worse exertional dyspnea saw his box strapper today to the lab work found to have an elevated troponin 1.1. He does have some renal insufficiency however the box strapper WAS more than can be accounted for by the renal insufficiency. Time: 16:45 - Consultations Consultation #1: Discussed with Dr. Giron, admit. Time: 17:40 Vital Signs Temperature 98.1 F 06/06/17 16:29 Pulse Rate 61 06/06/17 16:29 Respiratory Rate 16 06/06/17 16:29 Blood Pressure 150/81 06/06/17 16:29 O2 Sat by Pulse Oximetry 96 06/06/17 16:29 Temperature 98.1 F 06/06/17 16:29 Pulse Rate 57 06/06/17 16:41 Respiratory Rate 12 06/06/17 16:41 Blood Pressure 150/86 06/06/17 16:41 O2 Sat by Pulse Oximetry 98 06/06/17 16:41 Oxygen Delivery Oxygen Delivery Room Air Medical Decision Making - Lab Data Result diagrams: 06/06/17 16:48 06/06/17 16:48 Lab Results 06/06/17 06/06/17 06/06/17 Range/Units 16:48 16:48 17:03 WBC 8.6 (4.3-11.1) K/mcL RBC 5.25 (4.19-5.50) M/mcL Hgb 16.0 (12.9-16.9) g/dL Hct 47.4 (37.5-50.1) % MCV 90.3 (83.0-100.0) fL MCH 30.5 (28.0-33.3) pg MCHC 33.8 (31.6-35.5) g/dL RDW 14.6 H (11.5-14.5) % Plt Count 157 (140-400) K/mcL MPV 10.0 (9.4-12.4) fL Immature Gran % 0.1 (0-4) % Seg Neutrophils % 63.5 % Lymphocytes % 23.6 % Monocytes % 9.3 % Eosinophils % 2.9 % Basophils % 0.6 % Neutrophils # 5.5 (1.6-8.9) K/mcL Lymphocytes # 2.0 (0.6-4.6) K/mcL Monocytes # 0.8 (0.0-1.3) K/mcL Eosinophils # 0.3 (0.0-0.6) K/mcL Basophils # 0.1 (0.0-0.2) K/mcL Sodium 138 (136-145) mEq/L Potassium 3.4 L (3.5-5.1) mEq/L Chloride 100 (98-107) mEq/L Carbon Dioxide 28 (23-29) mEq/L BUN 45 H (8-23) mg/dL Creatinine 1.85 H (0.70-1.30) mg/dL Est GFR ( Amer) 43 L (> 60) Est GFR (Non-Af Amer) 35 L (> 60) BUN/Creatinine Ratio 24 (6-26) Glucose 144 H (70-105) mg/dL Calculated Osmolality 300 (280-300) Calcium 10.1 (8.6-10.3) mg/dL Troponin I 0.05 H* (< 0.04) ng/mL B-Natriuretic Peptide 107 H (Less than 100) pg/mL - EKG Data EKG #1 EKG results narrative: Electronic ventricular pacemaker.
[2017-06-06 17:15] LABS: Basophils # 0.1 K/mcL (0.0-0.2); Basophils % 0.6 %; Eosinophils # 0.3 K/mcL (0.0-0.6); Eosinophils % 2.9 %; Hematocrit 47.4 % (37.5-50.1); Immature Granulocytes % 0.1 % (0-4); Lymphocytes % 23.6 %; Mean Corpuscular HGB Conc 33.8 g/dL (31.6-35.5); Mean Corpuscular Hemoglobin 30.5 pg (28.0-33.3); Mean Corpuscular Volume 90.3 fL (83.0-100.0); Monocytes # 0.8 K/mcL (0.0-1.3); Monocytes % 9.3 %; Neutrophils # 5.5 K/mcL (1.6-8.9); Platelet Count 157 K/mcL (140-400); Red Blood Count 5.25 M/mcL (4.19-5.50); Red Cell Distribution Width 14.6 % (11.5-14.5); Segmented Neutrophils % 63.5 %
[2017-06-06 17:34] LABS: Calcium 10.1 mg/dL (8.6-10.3); Potassium 3.4 mEq/L (3.5-5.1)
[2017-06-06 17:40] LABS: Troponin I 0.05 ng/mL (< 0.04)
[2017-06-06] MEDS ORDERED: Naloxone 0.4 MG/ML INJ IVP PRN (18:27)
--- NOTE | 2017-06-06 18:47 | Internal Med History&Physical ---
Date of Encounter: 06/06/17 Time of Encounter: 17:30 Assessment and Plan (1) Elevated troponin Current visit: Yes Status: Acute Acutely elevated troponin of 1.1 in replanting machine crewman's office and 0.05 on second draw. Pt. reports CP 2-3 weeks ago that was intermittent and worsened w/ exertion. Denies CP currently. Reports SOB/dyspnea and weakness/fatigue for past 2-3 weeks as well. Will continue to trend troponin. Continuous cardiac telemetry. Nitro PRN. Aspirin. Cardiology consult ordered in ED and I appreciate the consult. Will keep pt. NPO at midnight for possible cardiology intervention tomorrow based on troponins and echocardiogram results. Pt. discussed w/Dr. Giron who agrees w/plan of care. Pt. is high risk for further cardiac event and further morbidity d/t currently elevated troponin, CP within past 2-3 weeks, hx of bypass, pacemaker/AICD and hx of atrial fibrillation on Coumadin, hx, and risk factors. Observation. (2) Exertional dyspnea Current visit: Yes Status: Acute Acute dyspnea and SOB w/exertion. Pt. has hx of COPD and CHF, both currently stable. SOB for past 2-3 weeks coinciding w/CP. Denies current CP but troponin 1.1 in cardiology office and 0.05 on second draw in ED. Echocardiogram ordered. Supplemental O2 w/titration and SpO2 monitoring. Falls/safety precautions. (3) Hypokalemia Current visit: Yes Status: Acute Acute hypokalemia w/potassium of 3.4 on admission. Will add PO potassium 20 mEq now and re-check potassium at 0400. (4) Unsteadiness on feet Current visit: Yes Status: Acute Acute on chronic unsteadiness on feet. Pt. reports dizziness and unsteadiness w/ ambulation or positional changes. PT/OT consults ordered to assess ambulation. Orthostatic BPs and VS. Falls/safety precautions, up with assist, bed rest w/ bathroom privileges w/assist only. Bilateral carotid Dopplers ordered. (5) On antiviral therapy Current visit: Yes Status: Acute Pt. placed on Valcyclovir 500 mg BID on [facility]/17 by [facility] but pt. is unsure why. Pt. denies current shingles, herpes, or other known viral dx. Will hold Valcyclovir overnight until reasoning behind medication administration can be confirmed by [facility]. (6) CKD (chronic kidney disease) Current visit: Yes Status: Chronic Hx of CKD. Creatinine 1.85 and GFR 35 on admission. Will use IV fluids judiciously and avoid nephrotoxins. Monitor I&O and daily weight. Qualifiers: Chronic kidney disease stage: stage 3 (moderate) Qualified Code(s): N18.3 - Chronic kidney disease, stage 3 (moderate) (7) Afib Current visit: Yes Status: Chronic Hx of chronic atrial fibrillation. Continuous cardiac telemetry. Continue pts. Coumadin w/pharmacy dosing. Qualifiers: Atrial fibrillation type: paroxysmal Qualified Code(s): I48.0 - Paroxysmal atrial fibrillation (8) PAD (peripheral artery disease) Current visit: Yes Status: Chronic Hx of chronic PAD. Monitor. (9) CHF (congestive heart failure) Current visit: Yes Status: Chronic Hx of chronic CHF. Stable. Continue pts. Lasix and hydrochlorothiazide. Monitor I&O and daily weight. Qualifiers: Heart failure type: diastolic Heart failure chronicity: chronic Qualified Code(s): I50.32 - Chronic diastolic (congestive) heart failure (10) COPD (chronic obstructive pulmonary disease) Current visit: Yes Status: Chronic Hx of chronic COPD. Stable. Supplemental O2 w/titration and SpO2 monitoring. Qualifiers: COPD type: unspecified COPD Qualified Code(s): J44.9 - Chronic obstructive pulmonary disease, unspecified (11) Diabetes Current visit: Yes Status: Chronic Hx of chronic diabetes that pt. reports he controls w/diet. BG 144 on admission. BG checks ACHS. A1c in a.m. labs. Will monitor pts. BG for hyperglycemia. 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 Zofran IVP 4 mg. Q6HR PRN. Continue pts. Prilosec. Qualifiers: Esophagitis presence: esophagitis presence not specified Qualified Code(s) : K21.9 - Gastro-esophageal reflux disease without esophagitis (13) HLD (hyperlipidemia) Current visit: Yes Status: Chronic Hx of chronic HLD. Lipid panel in a.m. labs. Continue pts. Lipitor. Qualifiers: Hyperlipidemia type: pure hypercholesterolemia Qualified Code(s): E78.00 - Pure hypercholesterolemia, unspecified; E78.0 - Pure hypercholesterolemia (14) HTN (hypertension) Current visit: Yes Status: Chronic Hx of chronic HTN. Monitor pt. and VS. Continue pts. Cozaar, Imdur, and Metoprolol. Qualifiers: Hypertension type: essential hypertension Qualified Code(s): I10 - Essential (primary) hypertension (15) Urinary retention due to benign prostatic hyperplasia Current visit: Yes Status: Chronic Hx of chronic urinary retention d/t BPH. Continue pts. Proscar and Flomax. (16) DVT prophylaxis Current visit: Yes Status: Acute Continue pts. Coumadin w/pharmacy dosing for DVT prophylaxis. Monitor pt. for signs of bleeding. Internal Medicine - H&P: HPI Chief complaint: Elevated troponin Admitted From: Emergency Dept Plans for Post Hospital Care: Home History of present illness: Mr. Briceno is a 82 year old male w/PMH of atrial fibrillation, CHF, COPD, diabetes, GERD, PAD, glaucoma, HLD, HTN, and CKD presents from the ED with chief complaint of elevated troponin of 1.1 at replanting machine crewman's office today. Patient reports chest pain 2-3 weeks ago that was intermittent but denies chest pain today. Patient does report generalized weakness and fatigue for the past 2 -3 weeks which is worsening as well as SOB with exertion. Sx improve w/rest. Sx worsen w/exertion. Patient reports occasional edema in LEs, constipation, dizziness, and unsteadiness on his feet but denies recent illness, fever, chills , nausea, vomiting, headache, changes in vision, unusual bleeding, chest pain, palpitations, abdominal pain, diarrhea, numbness, tingling, pre-syncope, or syncope. Past Med Surg Social Fam HX - Past Medical History Source: patient, old records reviewed Medical history: atrial fibrillation, CHF, COPD, diabetes, GERD, glaucoma, hyperlipidemia, hypertension, renal disease, other Psychiatric history: no psych history - Past Surgical History Surgical History: LE Bypass, pacemaker/AICD - Social History Smoking Status: Former smoker Packs per day: 1 PPD - Reports quitting years ago Smokeless Tobacco Status: No Alcohol use: none Drug use: none Current living situation: Home, With Family Activity Level: Uses cane/walker Recent Out of Country Travel Within the Last 8 Weeks: No Exposure or Possible Exposure to Illness During Travel: No - Family History Mother Race: Family Member Ethnicity: Non- Living Status: Age at : 70 Cause of : HF Hx Family Cardiac Disorders: Yes (HD, HF, HLD, HTN) Father Race: Family Member Ethnicity: Non- Living Status: Age at : 70 Cause of : CVA Hx Family Cardiac Disorders: Yes (CVA) Hx Family Neurologic Disorders: Yes (CVA) Brother History Unknown: Yes Race: Family Member Ethnicity: Non- Living Status: Age at : 81 Cause of : Unknown Sister Race: Family Member Ethnicity: Non- Living Status: Age at : 80 Cause of : Old age Hx Family Medical Disorders: No Internal Medicine - H&P: Meds Aspirin Enteric Coated [Aspirin EC] 81 mg PO DAILY 01/18/16 [History] Finasteride [Proscar] 5 mg PO QPM 01/18/16 [History] Gabapentin [Neurontin] 800 mg PO BID 01/18/16 [History] Tamsulosin [Flomax] 0.4 mg PO DAILY 01/18/16 [History] Atorvastatin Calcium [Lipitor] 20 mg PO HS 05/30/16 [History] Dorzolamide/Timolol [Cosopt] 2 drop BOTH EYES BID 05/30/16 [History] Furosemide [Lasix] 30 mg PO DAILY 05/30/16 [History] Guaifenesin [Mucus Relief] 400 mg PO TID PRN 05/30/16 [History] HYDROcodone/Acet 5/325 mg [[place] 5-325 mg] 1 tab PO QID PRN 05/30/16 [History] Latanoprost [Xalatan] 1 drop BOTH EYES HS 05/30/16 [History] Losartan Potassium [Cozaar] 50 mg PO DAILY 05/30/16 [History] Omeprazole [PriLOSEC] 20 mg PO BIDAC 05/30/16 [History] Potassium Chloride [Klor-Con 10] 10 meq PO DAILY 05/30/16 [History] Warfarin [Coumadin] 2 mg PO SUMOWEFR 05/30/16 [History] Warfarin [Coumadin] 3 mg PO TUTHSA 05/30/16 [History] hydroCHLOROthiazide [Hydrochlorothiazide] 25 mg PO DAILY 05/30/16 [History] Isosorbide MONOnitrate (24 HR) [Imdur] 30 mg PO DAILY 06/06/17 [History] Lidocaine 4% CRM (LMX) [Lmx 4] 1 appl TP TID 06/06/17 [History] Metoprolol XL (24 HR) Succ [Toprol XL] 12.5 mg PO DAILY 06/06/17 [History] Polyvinyl Alcohol [Artificial Tears] 1 drop BOTH EYES QID PRN 06/06/17 [History] valACYclovir [Valtrex] 500 mg PO BID 06/06/17 [History] 3 Allergy/AdvReac Type Severity Reaction Status Date / Time etodolac AdvReac See Verified 06/06/17 16:32 Comments pregabalin [From Lyrica] AdvReac See Verified 06/06/17 16:32 Comments All Systems PM: A 10-system review of systems was performed and is negative for pertinent findings except as documented above in the HPI. - Constitutional Constitutional: as per HPI, fatigue, weakness, no chills, no fever(s), no night sweats - EENT Eyes: no change in vision, no discharge, no pain, no photophobia Ears: no ear discharge, no ear pain, no tinnitus Nose, mouth and throat: no dysphagia, no nasal discharge, no neck pain, no sore throat - Breasts Breasts: as per HPI - Cardiovascular Cardiovascular ROS IM: as per HPI, dyspnea, dyspnea on exertion, lightheadedness , no chest pain, no diaphoresis, no palpitations, no syncope - Respiratory Respiratory: as per HPI, dyspnea, dyspnea on exertion, no cough, no wheezing, no excessive phlegm production - Gastrointestinal Gastrointestinal: as per HPI, constipation, no abdominal pain, no diarrhea, no hematemesis, no hematochezia, no melena, no nausea, no vomiting - Genitourinary Genitourinary ROS male: as per HPI - Musculoskeletal Musculoskeletal ROS IM: no numbness, no tingling - Integumentary Integumentary IM: no rash, no unusual bruising - Neurological Neurological ROS: as per HPI, disequilibrium, dizziness, weakness, no confusion , no convulsions, no focal weakness, no numbness, no tingling, no tremor(s) - Psychiatric Psychiatric: as per HPI - Endocrine Endocrine IM: as per HPI - Hematologic/Lymphatic Hematologic/Lymphatic: no easy bruising - Allergic/Immunologic Allergic/Immunologic: as per HPI - Constitutional Vitals: Temp Pulse Resp BP Pulse Ox 98.1 F 62 16 141/80 96 06/06/17 16:29 06/06/17 18:16 06/06/17 18:16 06/06/17 18:16 06/06/17 18:16 General appearance: Present: cooperative, A&O X 3, pleasant, obese, answers questions appropriately - Head Head exam: Present: atraumatic, normocephalic - Eye Eye exam: Present: PERRL, conjuntiva pink, sclera anicteric Pupils: Present: PERRL - ENT ENT exam: Present: normal exam - Neck Neck exam general surgery: Present: normal inspection, supple, trachea midline. Absent: lymphadenopathy - Respiratory Respiratory exam: Present: CTAB. Absent: accessory muscle use, rales, rhonchi, wheezes - Cardiovascular Cardiovascular exam: Present: irregular rhythm (Electronic ventricular pacemaker ) - GI/Abdominal GI/Abdominal exam: Present: normal bowel sounds, soft, no peritoneal signs. Absent: distended, tenderness - Rectal Rectal exam: Present: deferred - Additional comments: exam deferred. - Extremities Exam Extremities exam: Present: pedal edema (Non-pitting bilaterally w/darkened skin d/t PAD), warm, radial pulses palpable and symmetrical. Absent: calf tenderness , cyanotic - Back Exam Back exam: Present: normal inspection - Neurological Exam Neurological exam: Present: CN II-XII intact, oriented X3, no focal deficits. Absent: pronater drift, facial droop, speech deficit - Psychiatric Psychiatric exam: Present: normal affect, normal mood - Skin Skin exam: Present: dry, erythema (Bilateral LEs d/t PAD), intact Internal Med - H&P Results - Labs CBC & Chem 7: 06/06/17 16:48 06/06/17 16:48 Labs: Short CBC 06/06/17 Range/Units 16:48 WBC 8.6 (4.3-11.1) K/mcL Hgb 16.0 (12.9-16.9) g/dL Hct 47.4 (37.5-50.1) % Plt Count 157 (140-400) K/mcL Neutrophils # 5.5 (1.6-8.9) K/mcL BMP 06/06/17 16:48 Sodium 138 Potassium 3.4 L Chloride 100 Carbon Dioxide 28 BUN 45 H Creatinine 1.85 H Glucose 144 H Calcium 10.1 Cardiac Enzymes 06/06/17 Range/Units 16:48 Troponin I 0.05 H* (< 0.04) ng/mL - EKG Data Prior EKG available for review: yes EKG comments: 06/06/17 18:57 EKG dated 05/30/16 shows electronic ventricular pacemaker and abnormal rhythm ECG. EKG dated 06/06/17 shows electronic ventricular pacemaker and abnormal rhythm ECG. - Impressions ITS Impressions Chest X-Ray 06/06/17 16:32 IMPRESSION: No evidence of acute disease. D/ / Irlanda Armstrong MD / Irlanda Armstrong MD Interpreting Provider: Irlanda Armstrong MD - Diagnostic Studies Chest x-ray Additional comments: Impressions Chest X-Ray 06/06/17 16:32
[2017-06-06] MEDS ORDERED: Ondansetron 4 MG/2 ML VIAL IVP PRN (19:13)
[2017-06-06] MEDS ORDERED: Artificial Tears SOLN 15 ML BOTTLE BOTH EYES PRN (19:35)
[2017-06-06] MEDS ORDERED: GuaiFENesin Liq 200 MG/10 ML UDC PO PRN (19:35)
[2017-06-06] MEDS ORDERED: Nitroglycerin 0.4 MG TAB.SUBL SL PRN (19:37)
[2017-06-06 19:40] LABS: INR 2.1; Prothrombin Time 22.8 Seconds (9.4-12.1)
[2017-06-06] MEDS ORDERED: *HR* Warfarin 3 MG TABLET PO ONE (21:21)
[2017-06-06] MEDS: Levalbuterol Neb 1.25 MG/3 ML IH SCH (21:57)
[2017-06-06] MEDS: *HR* HYDROcodone/Acet 5/325 mg TABLET PO PRN (23:39)
[2017-06-06] MEDS: Latanoprost 2.5 ML BOTTLE BOTH EYES SCH (23:40)
[2017-06-06] MEDS: Lidocaine 4% CREAM (LMX) 5 GM TP SCH (23:40)
[2017-06-06] MEDS: Dorzolamide/Timolol OPTH 10 ML BOTTLE BOTH EYES SCH (23:41)
[2017-06-06] MEDS: Gabapentin 400 MG CAPSULE PO SCH (23:41)
[2017-06-07] MEDS: Levalbuterol Neb 1.25 MG/3 ML IH SCH ×2 (04:06→10:50)
[2017-06-07] MEDS: *HR* HYDROcodone/Acet 5/325 mg TABLET PO PRN ×4 (05:36→22:21)
[2017-06-07 06:05] LABS: Basophils # 0.1 K/mcL (0.0-0.2); Basophils % 0.6 %; Eosinophils # 0.3 K/mcL (0.0-0.6); Eosinophils % 3.1 %; Hematocrit 43.7 % (37.5-50.1); Hemoglobin 14.9 g/dL (12.9-16.9); Immature Granulocytes % 0.2 % (0-4); Lymphocytes # 2.2 K/mcL (0.6-4.6); Lymphocytes % 27.3 %; Mean Corpuscular HGB Conc 34.1 g/dL (31.6-35.5); Mean Corpuscular Hemoglobin 30.8 pg (28.0-33.3); Mean Corpuscular Volume 90.3 fL (83.0-100.0); Mean Platelet Volume 9.7 fL (9.4-12.4); Monocytes # 0.9 K/mcL (0.0-1.3); Monocytes % 11.2 %; Neutrophils # 4.7 K/mcL (1.6-8.9); Platelet Count 136 K/mcL (140-400); Red Blood Count 4.84 M/mcL (4.19-5.50); Red Cell Distribution Width 14.6 % (11.5-14.5); Segmented Neutrophils % 57.6 %
[2017-06-07 06:19] LABS: INR 2.3; Prothrombin Time 25.7 Seconds (9.4-12.1)
[2017-06-07 06:31] LABS: Albumin 3.9 g/dL (3.5-5.7); Albumin/Globulin Ratio 1.4 (1.1-2.2); Bilirubin,Total 0.6 mg/dL (0.3-1.0); Calcium 9.6 mg/dL (8.6-10.3); Chol/HDL Ratio 5.1 (0-4.9); Globulin 2.7 g/dL (2.4-3.5); Magnesium 2.1 mg/dL (1.6-2.6); Potassium 3.5 mEq/L (3.5-5.1); Total Protein 6.6 g/dL (6.4-8.9)
--- NOTE | 2017-06-07 08:16 | Internal Med Progress Note ---
<Zackary Cooper - Last Filed: 06/07/17 11:45> Date of Encounter: 06/07/17 Time of Encounter: 11:45 - Assessment and plan (1) Elevated troponin Current Visit: Yes Status: Acute Assessment and plan: Elevated troponin in office, 1.1 Remained elevated throughout stay, however 0.06 and adynamic The patient is no longer having active chest pain Vitals remain stable otherwise Cardiology consult is pending, awaiting recommendation Prior CV testing: TTE 06/07/17: LVEF 55%. Mild MR, mild AR, mild-moderate TR, mild phtn. TTE 05/10/17 at [place]: EF 30-35%. Moderate global hypokinesis. Mild MR. TTE 05/31/16: EF 55%, dilated RV with normal function. Mild-moderate MR, mild TR , mild phtn. Nuclear stress test 05/31/16: Perfusion imaging negative for ischemia or infarct. (2) MEL (acute kidney injury) Current Visit: No Status: Resolved Assessment and plan: MEL on arrival, resolved to [facility] Patient does have CKD for which he is seen by nephrology We will avoid nephrotoxic agents, defer to cardiology for contrast associated with LHC if pursued (3) Afib Current Visit: Yes Status: Chronic Assessment and plan: Rate controlled, on Warfarin Qualifiers: Atrial fibrillation type: paroxysmal Qualified Code(s): I48.0 - Paroxysmal atrial fibrillation (4) Sick sinus syndrome Current Visit: No Status: Chronic Assessment and plan: s/p pacemaker (5) PAD (peripheral artery disease) Current Visit: Yes Status: Chronic Assessment and plan: Chronic, stable (6) DVT prophylaxis Current Visit: Yes Status: Acute Assessment and plan: Patient is on warfarin (7) Diabetes Current Visit: Yes Status: Chronic Assessment and plan: Discontinue oral meds Insulin sliding scale Qualifiers: Diabetes mellitus type: type 2 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 He does say that the shortness of breath of has resolved and he is no longer having any chest pains. He does say that he wants to consult with his city superintendent of schools prior to undergoing any test that may require the use of IV dye because he does not want his kidneys to fail. He has no other acute complaints. - Constitutional Vitals: Temp Pulse Resp BP Pulse Ox 98.1 F 68 16 153/77 97 06/07/17 07:40 06/07/17 07:40 06/07/17 07:40 06/07/17 07:40 06/07/17 07:40 General appearance: Present: cooperative, A&O X 3, pleasant, obese, answers questions appropriately Exam: Gen: Vitals noted. No acute distress. AAOx3 HEENT: PERRL/EOMI, oropharynx clear, Normocephalic, atraumatic Neck: Supple. No adenopathy. Cardiac: RRR, no murmur, +S1/S2 Pulmonary: CTA bilaterally, no wheezes, rales or rhonchi, equal chest expansion Abdomen: soft, nontender, BS noted, no guarding Back: Nontender throughout. MSK: ROM intact, no joint swelling noted Extremities: no BLE edema, nontender calf, no cyanosis or clubbing. There is evidence of venous stasis with keratinized skin and healing wounds Neuro: A&Ox3, moves all extremities, no focal deficits Psych: Appropriate mood and behavior Internal Medicine: Result - Labs CBC & Chem 7: 06/07/17 05:50 06/07/17 05:50 Labs: Short CBC 06/07/17 Range/Units 05:50 WBC 8.1 (4.3-11.1) K/mcL Hgb 14.9 (12.9-16.9) g/dL Hct 43.7 (37.5-50.1) % Plt Count 136 L (140-400) K/mcL Neutrophils # 4.7 (1.6-8.9) K/mcL BMP 06/07/17 05:50 Sodium 141 Potassium 3.5 Chloride 104 Carbon Dioxide 29 BUN 40 H Creatinine 1.68 H Glucose 118 H Calcium 9.6 Cardiac Enzymes 06/07/17 06/07/17 Range/Units 00:11 05:50 Troponin I 0.06 H* 0.06 H* (< 0.04) ng/mL Liver Function 06/07/17 Range/Units 05:50 Total Bilirubin 0.6 (0.3-1.0) mg/dL AST 18 (13-39) Units/L ALT 15 (7-52) Units/L Alkaline Phosphatase 57 (34-104) Units/L Albumin 3.9 (3.5-5.7) g/dL - ABG Interpretation ABG results: PT/INR, D-dimer PT 25.7 Seconds (9.4-12.1) H 06/07/17 05:50 Consult Discharge Plan - Plan [facility]errals: [facility] Care Provider[facility] - <Chepe Armenta H - Last Filed: 06/07/17 14:43> Date of Encounter: 06/07/17 - Constitutional Vitals: Temp Pulse Resp BP Pulse Ox 97.5 F L 63 16 155/78 96 06/07/17 11:15 06/07/17 11:15 06/07/17 11:15 06/07/17 11:15 06/07/17 11:15 Internal Medicine: Result - Labs CBC & Chem 7: 06/07/17 05:50 06/07/17 05:50 Labs: Short CBC 06/07/17 Range/Units 05:50 WBC 8.1 (4.3-11.1) K/mcL Hgb 14.9 (12.9-16.9) g/dL Hct 43.7 (37.5-50.1) % Plt Count 136 L (140-400) K/mcL Neutrophils # 4.7 (1.6-8.9) K/mcL BMP 06/07/17 05:50 Sodium 141 Potassium 3.5 Chloride 104 Carbon Dioxide 29 BUN 40 H Creatinine 1.68 H Glucose 118 H Calcium 9.6 Cardiac Enzymes 06/07/17 06/07/17 Range/Units 00:11 05:50 Troponin I 0.06 H* 0.06 H* (< 0.04) ng/mL Liver Function 06/07/17 Range/Units 05:50 Total Bilirubin 0.6 (0.3-1.0) mg/dL AST 18 (13-39) Units/L ALT 15 (7-52) Units/L Alkaline Phosphatase 57 (34-104) Units/L Albumin 3.9 (3.5-5.7) g/dL - ABG Interpretation ABG results: PT/INR, D-dimer PT 25.7 Seconds (9.4-12.1) H 06/07/17 05:50 - Impressions Impressions Echocardiogram 06/07/17 18:34 Impressions: LVEF 55%. Indeterminate diastolic function. Normal right ventricular structure and function. Mild mitral regurgitation. Mild aortic regurgitation. Mild-moderate tricuspid regurgitation. Mild pulmonary hypertension. Left Ventricular Wall Motion: Rest Echo Findings All wall segments showed normal motion. Findings: Study Quality * Technically adequate exam. ECG Findings * Paced rhythm. Left Ventricle * LVEF 55%. * Normal LV chamber size, wall thickness and function. * Indeterminate diastolic function. Right Ventricle * Normal right ventricular structure and function. Left Atrium * Severely dilated left atrium. Right Atrium * Mildly dilated right atrium. Mitral Valve * Normal mitral valve structure. * No mitral stenosis. * Mild mitral regurgitation. Aortic Valve * Trileaflet aortic valve. * Mild-moderately thickened aortic valve leaflets. * No aortic stenosis. * Mild aortic regurgitation. Tricuspid Valve * Tricuspid valve not well visualized. * Mild-moderate tricuspid regurgitation. * Estimated RA pressure is 8 mmHg. * Estimated RVSP is 37 mmHg. * Mild pulmonary hypertension. Pulmonic Valve * Pulmonic valve is not well visualized. * No pulmonic stenosis. * No pulmonic regurgitation. Pulmonary Artery * Pulmonary artery not well visualized. Aorta * Normally sized aortic root. Pericardium * There is no pericardial effusion present. Device lead * A device lead was visualized in the right atrium and right ventricle. Interatrial Septum * No evidence of PFO by color Doppler. IVC * The IVC is dilated. * > 50% respiratory change - Attending Attestation Cardiology considering [facility] Nephrology consulted per cardiology I examined this patient and my medical decision-making was reviewed with the Resident Physician. I agree with the documented findings, disposition and treatment plan as described except to the extent set forth below.
[2017-06-07 08:26] LABS: Estimated Average Glucose 143 mg/dl; Hemoglobin A1C 6.6 %
[2017-06-07] MEDS: hydroCHLOROthiazide 25 MG TABLET PO SCH (10:26)
[2017-06-07] MEDS: Gabapentin 400 MG CAPSULE PO SCH ×2 (10:26→21:30)
[2017-06-07] MEDS: Isosorbide MONOnitrate (24 HR) 30 MG TAB.ER.24H PO SCH (10:26)
[2017-06-07] MEDS: Aspirin Enteric Coated 81 MG Tablet PO SCH (10:26)
[2017-06-07] MEDS: Furosemide 20 MG TABLET PO SCH (10:27)
[2017-06-07] MEDS: Metoprolol XL (24 HR) Succ 25 MG TAB.ER.24H PO SCH (10:27)
[2017-06-07] MEDS: Dorzolamide/Timolol OPTH 10 ML BOTTLE BOTH EYES SCH ×2 (10:28→21:29)
[2017-06-07] MEDS: Lidocaine 4% CREAM (LMX) 5 GM TP SCH ×3 (10:28→21:31)
--- NOTE | 2017-06-07 11:29 | Cardiology Consult Note ---
Date of Encounter: 06/07/17 Time of Encounter: 11:24 Assessment and Plan (1) Elevated troponin Current Visit: Yes Status: Acute Reported troponin 0.11 at [place], only borderline 0.05 and 0.06 x 2 here at [facility] in setting of CKD. Demand ischemia vs NSTEMI. INR therapeutic 2.2. Not on heparin given therapeutic INR. TTE at [place] 04/2017 EF newly reduced 30-35%. Repeated here this AM and EF has normalized 55%. Pt does endorse significant worsening in fatigue in recent weeks, one episode of chest pain, intermittent dyspnea. Currently chest pain free and resting comfortably. Negative stress test 05/31/16. Risk factors for CAD include HTN, HLD, DM, PAD and carotid disease. Reports never having a LHC. Discussed option of LHC given symptoms and troponins. R/B/A discussed. Pt is hesitant given his CKD and risk of contrast induced nephropathy. Continue medical management for now--ASA, Statin, BB. Consult nephrology for their input as well. (2) Afib Current Visit: Yes Status: Chronic Known hx of A-Fib. Currently paced. Continue BB. Anticoagulated on Coumadin, INR 2.2. Hold Coumadin in event that pt elects to proceed with LHC. Start heparin gtt once INR <2. Qualifiers: Atrial fibrillation type: paroxysmal Qualified Code(s): I48.0 - Paroxysmal atrial fibrillation (3) CKD (chronic kidney disease) Current Visit: Yes Status: Chronic Unclear baseline, creatinine 1.68 today. Last prior record in our system was 2016 and creatinine was ~1.5 at that time. Follows with Dr. David as outpt. Will consult. Qualifiers: Chronic kidney disease stage: stage 3 (moderate) Qualified Code(s): N18.3 - Chronic kidney disease, stage 3 (moderate) (4) HTN (hypertension) Current Visit: Yes Status: Chronic Continue current antihypertensives and adjust as necessary. Qualifiers: Hypertension type: essential hypertension Qualified Code(s): I10 - Essential (primary) hypertension Discussion w patient/family: The assessment and plan as outlined above was discussed with the patient and/or family members who expressed understanding and agreement. All questions were answered. Thank you for involving us in the care of your patient. Please call with any questions. I will discuss all the above with Dr. Easton and make changes as necessary. History of Present Illness Consult date: 06/07/17 Requesting physician: Colby Carter Consult reason: elevated troponin, CHF Chief complaint: fatigue History of present illness: Mr. Briceno is a 82 year old male w/PMH of atrial fibrillation on Coumadin, newly diagnosed systolic CHF/CMP, COPD, diabetes, GERD, PAD, glaucoma, HLD, HTN , SSS s/p PPM, and CKD presented to ED yesterday after an outpt troponin came back at 0.11. Pt was seen by outpt cardiology yesterday, EF on TTE 05/08/17 was found to be reduced 30-35% (previously 55% 05/2016). Pt reports he had one episode of chest pain 2-3 weeks ago and he was hospitalized overnight at the [place] per pt. Outpt troponin and stress test was ordered by Dr. Montgomery yesterday. Advised to come to ED once troponin was found to be positive. Patient does report generalized weakness and fatigue for the past 2-3 weeks which is worsening as well as intermittent dypsnea. Currently chest pain free. Troponins at [facility] 0.05, 0.06 x 2. Cardiology consulted for further recommendations. Echo was repeated-EF normalized. LVEF 55%. Mild MR, mild AR, mild-moderate TR, mild phtn. Prior CV testing: TTE 06/07/17: LVEF 55%. Mild MR, mild AR, mild-moderate TR, mild phtn. TTE 05/10/17 at [place]: EF 30-35%. Moderate global hypokinesis. Mild MR. TTE 05/31/16: EF 55%, dilated RV with normal function. Mild-moderate MR, mild TR , mild phtn. Nuclear stress test 05/31/16: Perfusion imaging negative for ischemia or infarct. Past Med Surg Social Fam HX - Past Medical History Medical history: atrial fibrillation, CHF, COPD, diabetes, GERD, glaucoma, hyperlipidemia, hypertension, renal disease Psychiatric history: no psych history - Past Surgical History Surgical History: angioplasty/stent, LE Bypass, pacemaker/AICD - Social History Smoking Status: Former smoker Packs per day: 1 PPD - Reports quitting years ago Smokeless Tobacco Status: No Alcohol use: none Drug use: none - Family History Father Race: Family Member Ethnicity: Non- Living Status: Age at : 70 Cause of : CVA Hx Family Cardiac Disorders: Yes (CVA) Hx Family Neurologic Disorders: Yes (CVA) Brother History Unknown: Yes Race: Family Member Ethnicity: Non- Living Status: Age at : 81 Cause of : Unknown Sister Race: Family Member Ethnicity: Non- Living Status: Age at : 80 Cause of : Old age Hx Family Medical Disorders: No Mother Race: Family Member Ethnicity: Non- Living Status: Age at : 70 Cause of : HF Hx Family Cardiac Disorders: Yes (HD, HF, HLD, HTN) Medications and Allergies Aspirin Enteric Coated [Aspirin EC] 81 mg PO DAILY 01/18/16 [History] Finasteride [Proscar] 5 mg PO QPM 01/18/16 [History] Gabapentin [Neurontin] 800 mg PO BID 01/18/16 [History] Tamsulosin [Flomax] 0.4 mg PO DAILY 01/18/16 [History] Atorvastatin Calcium [Lipitor] 20 mg PO HS 05/30/16 [History] Dorzolamide/Timolol [Cosopt] 2 drop BOTH EYES BID 05/30/16 [History] Furosemide [Lasix] 30 mg PO DAILY 05/30/16 [History] Guaifenesin [Mucus Relief] 400 mg PO TID PRN 05/30/16 [History] HYDROcodone/Acet 5/325 mg [Midway 5-325 mg] 1 tab PO QID PRN 05/30/16 [History] Latanoprost [Xalatan] 1 drop BOTH EYES HS 05/30/16 [History] Losartan Potassium [Cozaar] 50 mg PO DAILY 05/30/16 [History] Omeprazole [PriLOSEC] 20 mg PO BIDAC 05/30/16 [History] Potassium Chloride [Klor-Con 10] 10 meq PO DAILY 05/30/16 [History] Warfarin [Coumadin] 2 mg PO SUMOWEFR 05/30/16 [History] Warfarin [Coumadin] 3 mg PO TUTHSA 05/30/16 [History] hydroCHLOROthiazide [Hydrochlorothiazide] 25 mg PO DAILY 05/30/16 [History] Isosorbide MONOnitrate (24 HR) [Imdur] 30 mg PO DAILY 06/06/17 [History] Lidocaine 4% CRM (LMX) [Lmx 4] 1 appl TP TID 06/06/17 [History] Metoprolol XL (24 HR) Succ [Toprol XL] 12.5 mg PO DAILY 06/06/17 [History] Polyvinyl Alcohol [Artificial Tears] 1 drop BOTH EYES QID PRN 06/06/17 [History] valACYclovir [Valtrex] 500 mg PO BID 06/06/17 [History] 3 Allergy/AdvReac Type Severity Reaction Status Date / Time etodolac AdvReac See Verified 06/06/17 16:32 Comments pregabalin [From Lyrica] AdvReac See Verified 06/06/17 16:32 Comments All Systems Review: The remainder of the systems were reviewed and are negative - Constitutional Constitutional: fatigue, weakness - Cardiovascular Cardiovascular: as per HPI, chest pain at rest, dyspnea on exertion - Respiratory Respiratory: dyspnea Physical Examination Vital Signs, Last 4 Hours Temp Pulse Resp BP Pulse Ox 06/07/17 11:15 97.5 F L 63 16 171/100 96 06/07/17 10:50 16 94 06/07/17 07:40 98.1 F 68 16 153/77 97 Vital Signs Temp Pulse Resp BP Pulse Ox 06/07/17 11:15 97.5 F L 63 16 171/100 96 06/07/17 10:50 16 94 06/07/17 07:40 98.1 F 68 16 153/77 97 06/07/17 00:14 97.7 F 73 18 157/82 94 06/06/17 21:57 18 97 06/06/17 21:00 97.7 F 60 18 153/91 96 06/06/17 20:38 20 119/87 06/06/17 20:00 62 110/72 95 06/06/17 19:19 60 16 137/65 95 06/06/17 18:16 62 16 141/80 96 06/06/17 16:41 57 12 150/86 98 06/06/17 16:29 98.1 F 61 16 150/81 96 Intake and Output 06/06/17 06/07/17 06/07/17 23:59 07:59 15:59 Intake Total 360 / 360 0 / 0 Balance 360 / 360 0 / 0 Intake: Oral 360 / 360 0 / 0 Other: # Voids 1 0 1 Weight 113.9 kg Blood Glucose* 148 121 164 General: Conversant, No Apparent Distress HEENT: Atraumatic, Normocephaly, Mucus Membranes Moist Neck: Normal carotid pulses Cardiac: Other (irregularly irregular) Lungs: Other (diminished) Neuro: Alert and responsive, No focal deficits noted Abdomen: Soft, Non-Tender Skin: No rashes noted on visualized skin Musculoskeletal: No Chest Wall Tenderness Extremities: No Clubbing, No Cyanosis, No Edema, Normal Pulses Results 06/07/17 05:50 06/07/17 05:50 Lab Results 06/07/17 06/07/17 06/07/17 00:11 05:50 05:50 WBC 8.1 Hgb 14.9 Hct 43.7 Plt Count 136 L INR Sodium 141 Potassium 3.5 Chloride 104 Carbon Dioxide 29 BUN 40 H Creatinine 1.68 H Glucose 118 H Calcium 9.6 Magnesium 2.1 Total Bilirubin 0.6 AST 18 ALT 15 Alkaline Phosphatase 57 Troponin I 0.06 H* 06/07/17 06/07/17 05:50 05:50 WBC Hgb Hct Plt Count INR 2.3 Sodium Potassium Chloride Carbon Dioxide BUN Creatinine Glucose Calcium Magnesium Total Bilirubin AST ALT Alkaline Phosphatase Troponin I 0.06 H* Short CBC 06/07/17 06/06/17 Range/Units 05:50 16:48 WBC 8.1 8.6 (4.3-11.1) K/mcL Hgb 14.9 16.0 (12.9-16.9) g/dL Hct 43.7 47.4 (37.5-50.1) % Plt Count 136 L 157 (140-400) K/mcL Neutrophils # 4.7 5.5 (1.6-8.9) K/mcL BMP 06/07/17 06/06/17 Range/Units 05:50 16:48 Sodium 141 138 (136-145) mEq/L Potassium 3.5 3.4 L (3.5-5.1) mEq/L Chloride 104 100 (98-107) mEq/L Carbon Dioxide 29 28 (23-29) mEq/L BUN 40 H 45 H (8-23) mg/dL Creatinine 1.68 H 1.85 H (0.70-1.30) mg/dL Glucose 118 H 144 H (70-105) mg/dL Calcium 9.6 10.1 (8.6-10.3) mg/dL Cardiac Enzymes 06/07/17 06/07/17 06/06/17 Range/Units 05:50 00:11 16:48 Troponin I 0.06 H* 0.06 H* 0.05 H* (< 0.04) ng/mL Liver Function 06/07/17 Range/Units 05:50 Total Bilirubin 0.6 (0.3-1.0) mg/dL AST 18 (13-39) Units/L ALT 15 (7-52) Units/L Alkaline Phosphatase 57 (34-104) Units/L Albumin 3.9 (3.5-5.7) g/dL Impressions Chest X-Ray 06/06/17 16:32 IMPRESSION: No evidence of acute disease. D/ / Irlanda Armstrong MD / Irlanda Armstrong MD Interpreting Provider: Irlanda Armstrong MD Echocardiogram 06/07/17 18:34 Impressions: LVEF 55%. Indeterminate diastolic function. Normal right ventricular structure and function. Mild mitral regurgitation. Mild aortic regurgitation. Mild-moderate tricuspid regurgitation. Mild pulmonary hypertension. Left Ventricular Wall Motion: Rest Echo Findings All wall segments showed normal motion. Findings: Study Quality * Technically adequate exam. ECG Findings * Paced rhythm. Left Ventricle * LVEF 55%. * Normal LV chamber size, wall thickness and function. * Indeterminate diastolic function. Right Ventricle * Normal right ventricular structure and function. Left Atrium * Severely dilated left atrium. Right Atrium * Mildly dilated right atrium. Mitral Valve * Normal mitral valve structure. * No mitral stenosis. * Mild mitral regurgitation. Aortic Valve * Trileaflet aortic valve. * Mild-moderately thickened aortic valve leaflets. * No aortic stenosis. * Mild aortic regurgitation. Tricuspid Valve * Tricuspid valve not well visualized. * Mild-moderate tricuspid regurgitation. * Estimated RA pressure is 8 mmHg. * Estimated RVSP is 37 mmHg. * Mild pulmonary hypertension. Pulmonic Valve * Pulmonic valve is not well visualized. * No pulmonic stenosis. * No pulmonic regurgitation. Pulmonary Artery * Pulmonary artery not well visualized. Aorta * Normally sized aortic root. Pericardium * There is no pericardial effusion present. Device lead * A device lead was visualized in the right atrium and right ventricle. Interatrial Septum * No evidence of PFO by color Doppler. IVC * The IVC is dilated. * > 50% respiratory change Active Medications Acetaminophen (Tylenol) 650 mg PO Q6HR PRN PRN Reason: Mild Pain/Fever Stop: 12/06/17 18:28 Hydrocodone Bitart/Acetaminophen (Midway 5-325 Mg) 1 tab PO QID PRN PRN Reason: Severe Pain Stop: 12/06/17 19:36 Last Admin: 06/07/17 05:36 Dose: 1 tab Artificial Tears (Akwa Tears) 1 drop BOTH EYES QID PRN; Protocol PRN Reason: Dry Eyes Stop: 12/06/17 19:36 Aspirin (Aspirin Ec) 81 mg PO DAILY [facility] Stop: 12/07/17 09:01 Last Admin: 06/07/17 10:26 Dose: 81 mg Atorvastatin Calcium (Lipitor) 20 mg PO HS [facility] Stop: 12/06/17 21:01 Last Admin: 06/06/17 23:40 Dose: 20 mg Docusate Sodium (Colace) 100 mg PO BID [facility] PRN Reason: Protocol Stop: 12/07/17 09:01 Last Admin: 06/07/17 10:27 Dose: 100 mg Dorzolamide/Timolol (Cosopt) 2 drop BOTH EYES BID [facility] Stop: 12/06/17 21:01 Last Admin: 06/07/17 10:28 Dose: 2 drop Finasteride (Proscar) 5 mg PO QPM [facility] PRN Reason: Protocol Stop: 12/07/17 18:01 Furosemide (Lasix) 30 mg PO DAILY [facility] Stop: 12/07/17 09:01 Last Admin: 06/07/17 10:27 Dose: 30 mg Gabapentin (Neurontin) 800 mg PO BID [facility] Stop: 12/06/17 21:01 Last Admin: 06/07/17 10:26 Dose: 800 mg Guaifenesin (Robitussin Liq) 400 mg PO TID PRN PRN Reason: Congestion Hydrochlorothiazide (Hydrochlorothiazide) 25 mg PO DAILY [facility] PRN Reason: Protocol Stop: 12/07/17 09:01 Last Admin: 06/07/17 10:26 Dose: 25 mg Isosorbide Mononitrate (Imdur) 30 mg PO DAILY [facility] Stop: 12/07/17 09:01 Last Admin: 06/07/17 10:26 Dose: 30 mg Latanoprost (Xalatan) 1 drop BOTH EYES HS [facility] PRN Reason: Protocol Stop: 12/06/17 21:01 Last Admin: 06/06/17 23:40 Dose: 1 drop Levalbuterol HCl (Xopenex) 1.25 mg IH [id number] [facility] Stop: 12/06/17 22:01 Last Admin: 06/07/17 10:50 Dose: 1.25 mg Lidocaine HCl (Lmx 4) 1 gm TP TID [facility] Stop: 12/06/17 21:01 Last Admin: 06/07/17 10:28 Dose: 1 gm Losartan Potassium (Cozaar) 50 mg PO DAILY [facility] Stop: 12/07/17 09:01 Last Admin: 06/07/17 10:27 Dose: 50 mg Metoprolol Succinate (Toprol Xl) 12.5 mg PO DAILY [facility] Stop: 12/07/17 09:01 Last Admin: 06/07/17 10:27 Dose: 12.5 mg Naloxone HCl (Narcan) 0.4 mg IVP Q2MIN PRN PRN Reason: SEE COMMENTS Stop: 12/06/17 18:28 Nitroglycerin (Nitroglycerin) 0.4 mg SL Q5MIN PRN PRN Reason: Chest Pain Stop: 12/06/17 19:38 Omeprazole (Prilosec) 20 mg PO BIDAC [facility] PRN Reason: Protocol Stop: 12/07/17 07:31 Last Admin: 06/07/17 10:26 Dose: 20 mg Ondansetron HCl (Zofran) 4 mg IVP Q6HR PRN; Protocol PRN Reason: Nausea And Vomiting Stop: 12/06/17 19:14 Potassium Chloride (Potassium Chloride) 10 meq PO DAILY [facility] Stop: 12/07/17 09:01 Last Admin: 06/07/17 10:26 Dose: 10 meq Tamsulosin HCl (Flomax) 0.4 mg PO DAILY [facility] PRN Reason: Protocol Stop: 12/07/17 09:01 Last Admin: 06/07/17 10:28 Dose: 0.4 mg Valacyclovir HCl (Valtrex) 500 mg PO BID [facility] Stop: 12/06/17 21:01 Warfarin Sodium (Coumadin Perpt) 1 each PO DAILY@1800 PRN PRN Reason: SEE COMMENTS Stop: 12/07/17 18:01 - Imaging and Cardiology Echo: report reviewed - EKG Interpretation EKG results cardiology: personally reviewed (Paced), other (12 hr tele AVG HR 61 , paced) Consult Discharge Plan - Plan [facility]errals: [facility] [Primary Care Provider] -
[2017-06-07] MEDS ORDERED: Levalbuterol Neb 1.25 MG/3 ML IH PRN (14:30)
[2017-06-07] MEDS: Finasteride 5 MG TABLET PO SCH (17:18)
[2017-06-07] MEDS ORDERED: Warfarin perPT PO PRN (18:00)
[2017-06-07] MEDS ORDERED: *HR* Warfarin 2 MG TABLET PO ONE (18:00)
[2017-06-07] MEDS: Latanoprost 2.5 ML BOTTLE BOTH EYES SCH (21:31)
[2017-06-08 06:07] LABS: Basophils % 0.4 %; Eosinophils # 0.2 K/mcL (0.0-0.6); Eosinophils % 2.8 %; Hematocrit 44.4 % (37.5-50.1); Hemoglobin 14.9 g/dL (12.9-16.9); Immature Granulocytes % 0.4 % (0-4); Lymphocytes # 2.1 K/mcL (0.6-4.6); Lymphocytes % 26.4 %; Mean Corpuscular HGB Conc 33.6 g/dL (31.6-35.5); Mean Corpuscular Volume 89.3 fL (83.0-100.0); Mean Platelet Volume 9.9 fL (9.4-12.4); Monocytes # 0.8 K/mcL (0.0-1.3); Monocytes % 10.5 %; Neutrophils # 4.7 K/mcL (1.6-8.9); Platelet Count 135 K/mcL (140-400); Red Blood Count 4.97 M/mcL (4.19-5.50); Red Cell Distribution Width 14.9 % (11.5-14.5); Segmented Neutrophils % 59.5 %
[2017-06-08 06:17] LABS: INR 2.2; Prothrombin Time 24.4 Seconds (9.4-12.1)
[2017-06-08 06:25] LABS: Albumin/Globulin Ratio 1.4 (1.1-2.2); Bilirubin,Total 0.8 mg/dL (0.3-1.0); Calcium 9.8 mg/dL (8.6-10.3); Globulin 2.8 g/dL (2.4-3.5); Potassium 3.4 mEq/L (3.5-5.1); Total Protein 6.8 g/dL (6.4-8.9)
--- NOTE | 2017-06-08 06:31 | Electrocardiograph Report ---
[address] [address] Test Date: 2017-06-06 Pat Name: Kenia Briceno Department: 103 Room: [facility] Gender: M [employer] Equipment [employer]: AM : 1935 Requested By: Primitivo Gaston Order Number: [id number] Reading MD: Mumtaz Finley Measurements Intervals [place] Rate: 60 P: AL: 0 QRS: -71 QRSD: 137 T: 90 QT: 435 QTc: 435 Interpretive Statements ELECTRONIC VENTRICULAR PACEMAKER ABNORMAL RHYTHM ECG Electronically Signed On 06-08-2017 6:29:45 EDT by Mumtaz Finley
[2017-06-08] MEDS: Gabapentin 400 MG CAPSULE PO SCH ×2 (07:57→22:20)
[2017-06-08] MEDS: Metoprolol XL (24 HR) Succ 25 MG TAB.ER.24H PO SCH (07:57)
[2017-06-08] MEDS: Aspirin Enteric Coated 81 MG Tablet PO SCH (07:57)
[2017-06-08] MEDS: hydroCHLOROthiazide 25 MG TABLET PO SCH (07:57)
[2017-06-08] MEDS: Furosemide 20 MG TABLET PO SCH (07:57)
[2017-06-08] MEDS: valACYclovir 500 MG TABLET PO SCH ×2 (07:57→22:20)
[2017-06-08] MEDS: Isosorbide MONOnitrate (24 HR) 30 MG TAB.ER.24H PO SCH (07:57)
[2017-06-08] MEDS: Lidocaine 4% CREAM (LMX) 5 GM TP SCH ×3 (08:02→22:42)
[2017-06-08] MEDS: Dorzolamide/Timolol OPTH 10 ML BOTTLE BOTH EYES SCH ×2 (08:02→22:19)
--- NOTE | 2017-06-08 09:33 | Internal Med Progress Note ---
<Zackary Cooper - Last Filed: 06/08/17 14:44> Date of Encounter: 06/08/17 Time of Encounter: 09:45 - Assessment and plan (1) Elevated troponin Current Visit: Yes Status: Acute Assessment and plan: Elevated troponin in office, 1.1 Remained elevated throughout stay, however 0.06 and adynamic The patient is no longer having active chest pain Vitals remain stable otherwise Cardiology consult is pending, awaiting recommendation Prior CV testing: TTE 06/07/17: LVEF 55%. Mild MR, mild AR, mild-moderate TR, mild phtn. TTE 05/10/17 at [place]: EF 30-35%. Moderate global hypokinesis. Mild MR. TTE 05/31/16: EF 55%, dilated RV with normal function. Mild-moderate MR, mild TR , mild phtn. Nuclear stress test 05/31/16: Perfusion imaging negative for ischemia or infarct. 06/08 [facility] Scheduled for tomorrow per cardiology and nephrology (2) CKD (chronic kidney disease) Current Visit: Yes Status: Chronic Assessment and plan: CKD stage 3, stable Patient will require contrast with [facility] Nephrology is on board, recommends IV fluids and mucamyst for 24 hours Qualifiers: Chronic kidney disease stage: stage 3 (moderate) Qualified Code(s): N18.3 - Chronic kidney disease, stage 3 (moderate) (3) Afib Current Visit: Yes Status: Chronic Assessment and plan: Rate controlled, on Warfarin Hold warfarin for [facility] tomorrow Qualifiers: Atrial fibrillation type: paroxysmal Qualified Code(s): I48.0 - Paroxysmal atrial fibrillation (4) Sick sinus syndrome Current Visit: No Status: Chronic Assessment and plan: s/p pacemaker (5) PAD (peripheral artery disease) Current Visit: Yes Status: Chronic Assessment and plan: Chronic, stable (6) DVT prophylaxis Current Visit: Yes Status: Acute Assessment and plan: Patient is on warfarin (7) Diabetes Current Visit: Yes Status: Chronic Assessment and plan: Discontinue oral meds Insulin sliding scale Qualifiers: Diabetes mellitus type: type 2 Diabetes mellitus senior care insulin use: without buttermaker continuous churn use Diabetes mellitus complication status: with neurologic complications Diabetes mellitus complication detail: with unspecified neuropathy Qualified Code(s): E11.40 - Type 2 diabetes mellitus with diabetic neuropathy, unspecified (8) HTN (hypertension) Current Visit: Yes Status: Chronic Assessment and plan: Controlled Qualifiers: Hypertension type: essential hypertension Qualified Code(s): I10 - Essential (primary) hypertension (9) MEL (acute kidney injury) Current Visit: No Status: Resolved - Subjective Interval history: The patient is resting at bedside at time of examination. He says that overall he is feeling very well, he denies any continued chest pain at this time. He did not have any trouble breathing overnight. He is nervous about returning to the [place] for treatment. - Constitutional Vitals: Temp Pulse Resp BP Pulse Ox 97.3 F L 60 17 128/71 99 06/08/17 07:36 06/08/17 07:36 06/08/17 07:36 06/08/17 07:36 06/08/17 07:36 General appearance: Present: cooperative, A&O X 3, pleasant, obese, answers questions appropriately Exam: Gen: Vitals noted. No acute distress. AAOx3 HEENT: PERRL/EOMI, oropharynx clear, Normocephalic, atraumatic Neck: Supple. No adenopathy. Cardiac: RRR, no murmur, +S1/S2 Pulmonary: CTA bilaterally, no wheezes, rales or rhonchi, equal chest expansion Abdomen: soft, nontender, BS noted, no guarding Back: Nontender throughout. MSK: ROM intact, no joint swelling noted Extremities: no BLE edema, nontender calf, no cyanosis or clubbing. There is evidence of venous stasis with keratinized skin and healing wounds Neuro: A&Ox3, moves all extremities, no focal deficits Psych: Appropriate mood and behavior Internal Medicine: Result - Labs CBC & Chem 7: 06/08/17 05:42 06/08/17 05:42 Labs: Short CBC 06/08/17 Range/Units 05:42 WBC 7.9 (4.3-11.1) K/mcL Hgb 14.9 (12.9-16.9) g/dL Hct 44.4 (37.5-50.1) % Plt Count 135 L (140-400) K/mcL Neutrophils # 4.7 (1.6-8.9) K/mcL BMP 06/08/17 05:42 Sodium 139 Potassium 3.4 L Chloride 102 Carbon Dioxide 30 H BUN 34 H Creatinine 1.61 H Glucose 116 H Calcium 9.8 Liver Function 06/08/17 Range/Units 05:42 Total Bilirubin 0.8 (0.3-1.0) mg/dL AST 22 (13-39) Units/L ALT 17 (7-52) Units/L Alkaline Phosphatase 60 (34-104) Units/L Albumin 4.0 (3.5-5.7) g/dL - ABG Interpretation ABG results: PT/INR, D-dimer PT 24.4 Seconds (9.4-12.1) H 06/08/17 05:42 - Impressions Impressions Echocardiogram 06/07/17 18:34 Impressions: LVEF 55%. Indeterminate diastolic function. Normal right ventricular structure and function. Mild mitral regurgitation. Mild aortic regurgitation. Mild-moderate tricuspid regurgitation. Mild pulmonary hypertension. Left Ventricular Wall Motion: Rest Echo Findings All wall segments showed normal motion. Findings: Study Quality * Technically adequate exam. ECG Findings * Paced rhythm. Left Ventricle * LVEF 55%. * Normal LV chamber size, wall thickness and function. * Indeterminate diastolic function. Right Ventricle * Normal right ventricular structure and function. Left Atrium * Severely dilated left atrium. Right Atrium * Mildly dilated right atrium. Mitral Valve * Normal mitral valve structure. * No mitral stenosis. * Mild mitral regurgitation. Aortic Valve * Trileaflet aortic valve. * Mild-moderately thickened aortic valve leaflets. * No aortic stenosis. * Mild aortic regurgitation. Tricuspid Valve * Tricuspid valve not well visualized. * Mild-moderate tricuspid regurgitation. * Estimated RA pressure is 8 mmHg. * Estimated RVSP is 37 mmHg. * Mild pulmonary hypertension. Pulmonic Valve * Pulmonic valve is not well visualized. * No pulmonic stenosis. * No pulmonic regurgitation. Pulmonary Artery * Pulmonary artery not well visualized. Aorta * Normally sized aortic root. Pericardium * There is no pericardial effusion present. Device lead * A device lead was visualized in the right atrium and right ventricle. Interatrial Septum * No evidence of PFO by color Doppler. IVC * The IVC is dilated. * > 50% respiratory change Consult Discharge Plan - Plan [facility]errals: [facility] [Primary Care Provider[facility] - <Chepe Armenta H - Last Filed: 06/08/17 15:17> Date of Encounter: 06/08/17 - Constitutional Vitals: Temp Pulse Resp BP Pulse Ox 97.3 F L 60 17 128/71 99 03/29/18 07:36 06/08/17 07:36 06/08/17 07:36 06/08/17 07:36 06/08/17 07:36 Internal Medicine: Result - Labs CBC & Chem 7: 06/08/17 05:42 06/08/17 05:42 Labs: Short CBC 06/08/17 Range/Units 05:42 WBC 7.9 (4.3-11.1) K/mcL Hgb 14.9 (12.9-16.9) g/dL Hct 44.4 (37.5-50.1) % Plt Count 135 L (140-400) K/mcL Neutrophils # 4.7 (1.6-8.9) K/mcL BMP 06/08/17 05:42 Sodium 139 Potassium 3.4 L Chloride 102 Carbon Dioxide 30 H BUN 34 H Creatinine 1.61 H Glucose 116 H Calcium 9.8 Liver Function 06/08/17 Range/Units 05:42 Total Bilirubin 0.8 (0.3-1.0) mg/dL AST 22 (13-39) Units/L ALT 17 (7-52) Units/L Alkaline Phosphatase 60 (34-104) Units/L Albumin 4.0 (3.5-5.7) g/dL - ABG Interpretation ABG results: PT/INR, D-dimer PT 24.4 Seconds (9.4-12.1) H 06/08/17 05:42 - Attending Attestation Cardiology recommending [facility] Nephrology consulted per cardiology, IVF and mucomyst given I examined this patient and my medical decision-making was reviewed with the Resident Physician. I agree with the documented findings, disposition and treatment plan as described except to the extent set forth below.
--- NOTE | 2017-06-08 09:56 | Nephrology Consult Note ---
Date of Encounter: 06/08/17 Time of Encounter: 09:10 Assessment and Plan (1) MEL (acute kidney injury) Current Visit: No Status: Resolved MEL superimposed on CKD most likely in setting of diuretics r/t CHF. Renal fct at patients baseline today. Recommend Pre LHC IV hydration and Mucomyst 400mg BID x 4 doses. Avoid nephrotoxins, I&O. Will continue to monitor. History of Present Illness - Reason for Consult Acute Kidney Injury - History of Present Illness Mr. Briceno is an 82 year old male, known to practice with CKD 3 in setting of diabetic nephropathy. Baseline creat 1.5-1.7. Other PMH-hx of CHF, COPD, CABG, pacemaker/AICD and atrial fibrillation on Coumadin. He presented on June 06 from cardiologists office with dyspnea, weakness and fatigue for the past 2-3 weeks. Troponin 1.1. CXR-no acute process. Creat on admission above baseline 1.85, gfr 35. Home meds list Lasix and HCTZ. Today renal fct at baseline, creat 1.61, gfr 41. ECHO-LVEF 55%, indeterminate DD. Cardiology consult would like to do LHC given patients recurrent symptoms. Risks, benefits discussed. Patient wanted nephrology input. Again risks discussed even with pre treatment of IV hydration and Mucomyst prior to LHC. Patient states will most likely have LHC done. Past Med Surg Social Fam HX - Past Medical History Medical history: atrial fibrillation, CHF, COPD, diabetes, GERD, glaucoma, hyperlipidemia, hypertension, renal disease Psychiatric history: no psych history - Past Surgical History Surgical History: angioplasty/stent, LE Bypass, pacemaker/AICD - Social History Smoking Status: Former smoker Packs per day: 1 PPD - Reports quitting years ago Smokeless Tobacco Status: No Alcohol use: none Drug use: none - Family History Father Race: Family Member Ethnicity: Non- Living Status: Age at : 70 Cause of : CVA Hx Family Cardiac Disorders: Yes (CVA) Hx Family Neurologic Disorders: Yes (CVA) Brother History Unknown: Yes Race: Family Member Ethnicity: Non- Living Status: Age at : 81 Cause of : Unknown Sister Race: Family Member Ethnicity: Non- Living Status: Age at : 80 Cause of : Old age Hx Family Medical Disorders: No Mother Race: Family Member Ethnicity: Non- Living Status: Age at : 70 Cause of : HF Hx Family Cardiac Disorders: Yes (HD, HF, HLD, HTN) Medications and Allergies Aspirin Enteric Coated [Aspirin EC] 81 mg PO DAILY 01/18/16 [History] Finasteride [Proscar] 5 mg PO QPM 01/18/16 [History] Gabapentin [Neurontin] 800 mg PO BID 01/18/16 [History] Tamsulosin [Flomax] 0.4 mg PO DAILY 01/18/16 [History] Atorvastatin Calcium [Lipitor] 20 mg PO HS 05/30/16 [History] Dorzolamide/Timolol [Cosopt] 2 drop BOTH EYES BID 05/30/16 [History] Furosemide [Lasix] 30 mg PO DAILY 05/30/16 [History] Guaifenesin [Mucus Relief] 400 mg PO TID PRN 05/30/16 [History] HYDROcodone/Acet 5/325 mg [[place] 5-325 mg] 1 tab PO QID PRN 05/30/16 [History] Latanoprost [Xalatan] 1 drop BOTH EYES HS 05/30/16 [History] Losartan Potassium [Cozaar] 50 mg PO DAILY 05/30/16 [History] Omeprazole [PriLOSEC] 20 mg PO BIDAC 05/30/16 [History] Potassium Chloride [Klor-Con 10] 10 meq PO DAILY 05/30/16 [History] Warfarin [Coumadin] 2 mg PO SUMOWEFR 05/30/16 [History] Warfarin [Coumadin] 3 mg PO TUTHSA 05/30/16 [History] hydroCHLOROthiazide [Hydrochlorothiazide] 25 mg PO DAILY 05/30/16 [History] Isosorbide MONOnitrate (24 HR) [Imdur] 30 mg PO DAILY 06/06/17 [History] Lidocaine 4% CRM (LMX) [Lmx 4] 1 appl TP TID 06/06/17 [History] Metoprolol XL (24 HR) Succ [Toprol XL] 12.5 mg PO DAILY 06/06/17 [History] Polyvinyl Alcohol [Artificial Tears] 1 drop BOTH EYES QID PRN 06/06/17 [History] valACYclovir [Valtrex] 500 mg PO BID 06/06/17 [History] 3 Allergy/AdvReac Type Severity Reaction Status Date / Time etodolac AdvReac See Verified 06/06/17 16:32 Comments pregabalin [From Lyrica] AdvReac See Verified 06/06/17 16:32 Comments Review of Systems All Systems: reviewed and no additional remarkable complaints except as stated Exam - Vital Signs Vital signs: Initial Vital Signs Temp Pulse Resp BP Pulse Ox 98.1 F 61 16 150/81 96 06/06/17 16:29 06/06/17 16:29 06/06/17 16:29 06/06/17 16:29 06/06/17 16:29 Vital Signs - Last 8 Hours Temp Pulse Resp BP Pulse Ox 06/08/17 07:36 97.3 F L 60 17 128/71 99 06/08/17 05:14 97.7 F 86 18 152/87 93 Intake and Output 06/07/17 06/08/17 06/08/17 23:59 07:59 15:59 Intake Total 0 / 0 0 / 0 Output Total 0 / 0 Balance 0 / 0 0 / 0 Intake: Oral 0 / 0 0 / 0 Output: Urine 0 / 0 Other: # Voids 1 1 Weight 109.5 kg Blood Glucose* 183 122 Patient Weight 06/08/17 23:59 Weight 109.5 kg - General Appearance General appearance: well-developed, well-nourished, appears started age EENT: mucous membranes moist Neck: no JVD, no carotid bruit Respiratory: clear Cardiology: edema, regular rate, regular rhythm Additional Comments: mild pitting LE, chronic vascular skin changes Gastrointestinal: normoactive bowel sounds, no tenderness Integumentary: warm and dry Neurologic: alert and oriented x3 Results - Lab Results 06/08/17 05:42 06/08/17 05:42 Most recent lab results Calcium 9.8 mg/dL (8.6-10.3) 06/08/17 05:42 Magnesium 2.1 mg/dL (1.6-2.6) 06/07/17 05:50 Consult Discharge Plan - Plan [facility]errals: [facility] [Primary Care Provider] -
--- NOTE | 2017-06-08 10:37 | Cardiology Progress Note ---
Date of Encounter: 06/08/17 Time of Encounter: 10:30 Assessment and Plan (1) Elevated troponin Current Visit: Yes Status: Acute Reported troponin 0.11 at [place], only borderline 0.05 and 0.06 x 2 here at [facility] in setting of CKD. Demand ischemia vs NSTEMI. INR therapeutic 2.2. Not on heparin given therapeutic INR. TTE at [place] 04/2017 EF newly reduced 30-35%. Repeated here this AM and EF has normalized 55%. Pt does endorse significant worsening in fatigue in recent weeks, one episode of chest pain, intermittent dyspnea. Currently chest pain free and resting comfortably. Negative stress test 05/31/16. Risk factors for CAD include HTN, HLD, DM, PAD and carotid disease. Reports never having a LHC. Discussed option of LHC given symptoms and troponins. R/B/A discussed. Seen by nephrology--renal function currently at baseline. Pt would like to procced with LHC. Aware of risk of JORGE. Per nephrology recommendations, will start mucomyst and pre hydrate with IV fluids. LHC tomorrow if INR allows. Continue to hold Coumadin. (2) Afib Current Visit: Yes Status: Chronic Known hx of A-Fib. Currently paced. Continue BB. Anticoagulated on Coumadin, INR 2.2. Hold Coumadin in anticipation of LHC. Start heparin gtt once INR <2. Qualifiers: Atrial fibrillation type: paroxysmal Qualified Code(s): I48.0 - Paroxysmal atrial fibrillation (3) CKD (chronic kidney disease) Current Visit: Yes Status: Chronic Nephrology following. At baseline. Will pre hydrate and start mucomyst in anticipation for LHC. Qualifiers: Chronic kidney disease stage: stage 3 (moderate) Qualified Code(s): N18.3 - Chronic kidney disease, stage 3 (moderate) (4) HTN (hypertension) Current Visit: Yes Status: Chronic Continue current antihypertensives and adjust as necessary. Qualifiers: Hypertension type: essential hypertension Qualified Code(s): I10 - Essential (primary) hypertension Discussion w patient/family: The assessment and plan as outlined above was discussed with the patient and/or family members who expressed understanding and agreement. All questions were answered. Thank you for involving us in the care of your patient. Please call with any questions. I will discuss all the above with Dr. Melton and make changes as necessary. Subjective Principal diagnosis: fatigue, elevated troponin Interval history: Pt denies chest pain overnight. Dyspnea at baseline. Evaluated by nephrology-- creatinine currently at baseline. Objective Vital Signs, Last 4 Hours Temp Pulse Resp BP Pulse Ox 06/08/17 07:36 97.3 F L 60 17 128/71 99 Vital Signs Temp Pulse Resp BP Pulse Ox 06/08/17 07:36 97.3 F L 60 17 128/71 99 06/08/17 05:14 97.7 F 86 18 152/87 93 06/07/17 19:39 97.3 F L 66 18 130/70 92 06/07/17 15:38 97.8 F 61 16 126/65 93 06/07/17 11:15 97.5 F L 63 16 155/78 96 06/07/17 10:50 16 94 Intake and Output 06/07/17 06/08/17 06/08/17 23:59 07:59 15:59 Intake Total 0 / 0 0 / 0 Output Total 0 / 0 Balance 0 / 0 0 / 0 Intake: Oral 0 / 0 0 / 0 Output: Urine 0 / 0 Other: # Voids 1 1 Weight 109.5 kg Blood Glucose* 183 122 Patient Weight 06/08/17 23:59 Weight 109.5 kg General: Conversant, No Apparent Distress HEENT: Atraumatic, Normocephaly, Mucus Membranes Moist Neck: No JVD, Normal carotid pulses Cardiac: Other (paced) Lungs: Other (diminished) Neuro: Alert and responsive, No focal deficits noted Abdomen: Soft, Non-Tender Skin: No rashes noted on visualized skin Musculoskeletal: No Chest Wall Tenderness Extremities: Other (venous stasis) Results 06/08/17 05:42 06/08/17 05:42 Lab Results 06/08/17 06/08/17 06/08/17 05:42 05:42 05:42 WBC 7.9 Hgb 14.9 Hct 44.4 Plt Count 135 L INR 2.2 Sodium 139 Potassium 3.4 L Chloride 102 Carbon Dioxide 30 H BUN 34 H Creatinine 1.61 H Glucose 116 H Calcium 9.8 Total Bilirubin 0.8 AST 22 ALT 17 Alkaline Phosphatase 60 Short CBC 06/08/17 Range/Units 05:42 WBC 7.9 (4.3-11.1) K/mcL Hgb 14.9 (12.9-16.9) g/dL Hct 44.4 (37.5-50.1) % Plt Count 135 L (140-400) K/mcL Neutrophils # 4.7 (1.6-8.9) K/mcL BMP 06/08/17 Range/Units 05:42 Sodium 139 (136-145) mEq/L Potassium 3.4 L (3.5-5.1) mEq/L Chloride 102 (98-107) mEq/L Carbon Dioxide 30 H (23-29) mEq/L BUN 34 H (8-23) mg/dL Creatinine 1.61 H (0.70-1.30) mg/dL Glucose 116 H (70-105) mg/dL Calcium 9.8 (8.6-10.3) mg/dL Liver Function 06/08/17 Range/Units 05:42 Total Bilirubin 0.8 (0.3-1.0) mg/dL AST 22 (13-39) Units/L ALT 17 (7-52) Units/L Alkaline Phosphatase 60 (34-104) Units/L Albumin 4.0 (3.5-5.7) g/dL Impressions Echocardiogram 06/07/17 18:34 Impressions: LVEF 55%. Indeterminate diastolic function. Normal right ventricular structure and function. Mild mitral regurgitation. Mild aortic regurgitation. Mild-moderate tricuspid regurgitation. Mild pulmonary hypertension. Left Ventricular Wall Motion: Rest Echo Findings All wall segments showed normal motion. Findings: Study Quality * Technically adequate exam. ECG Findings * Paced rhythm. Left Ventricle * LVEF 55%. * Normal LV chamber size, wall thickness and function. * Indeterminate diastolic function. Right Ventricle * Normal right ventricular structure and function. Left Atrium * Severely dilated left atrium. Right Atrium * Mildly dilated right atrium. Mitral Valve * Normal mitral valve structure. * No mitral stenosis. * Mild mitral regurgitation. Aortic Valve * Trileaflet aortic valve. * Mild-moderately thickened aortic valve leaflets. * No aortic stenosis. * Mild aortic regurgitation. Tricuspid Valve * Tricuspid valve not well visualized. * Mild-moderate tricuspid regurgitation. * Estimated RA pressure is 8 mmHg. * Estimated RVSP is 37 mmHg. * Mild pulmonary hypertension. Pulmonic Valve * Pulmonic valve is not well visualized. * No pulmonic stenosis. * No pulmonic regurgitation. Pulmonary Artery * Pulmonary artery not well visualized. Aorta * Normally sized aortic root. Pericardium * There is no pericardial effusion present. Device lead * A device lead was visualized in the right atrium and right ventricle. Interatrial Septum * No evidence of PFO by color Doppler. IVC * The IVC is dilated. * > 50% respiratory change Active Medications Acetaminophen (Tylenol) 650 mg PO Q6HR PRN PRN Reason: Mild Pain/Fever Stop: 12/06/17 18:28 Hydrocodone Bitart/Acetaminophen ([place] 5-325 Mg) 1 tab PO QID PRN PRN Reason: Severe Pain Stop: 12/06/17 19:36 Last Admin: 06/07/17 22:21 Dose: 1 tab Artificial Tears ([place] Tears) 1 drop BOTH EYES QID PRN; Protocol PRN Reason: Dry Eyes Stop: 12/06/17 19:36 Aspirin (Aspirin Ec) 81 mg PO DAILY [facility] [place] Stop: 12/07/17 09:01 Last Admin: 06/08/17 07:57 Dose: 81 mg Atorvastatin Calcium (Lipitor) 20 mg PO HS [facility] Stop: 12/06/17 21:01 Last Admin: 06/07/17 21:31 Dose: 20 mg Docusate Sodium (Colace) 100 mg PO BID [place] PRN Reason: Protocol Stop: 12/07/17 09:01 Last Admin: 06/08/17 07:57 Dose: 100 mg Dorzolamide/Timolol (Cosopt) 2 drop BOTH EYES BID [place] Stop: 12/06/17 21:01 Last Admin: 06/08/17 08:02 Dose: 2 drop Finasteride (Proscar) 5 mg PO QPM [place] PRN Reason: Protocol Stop: 12/07/17 18:01 Last Admin: 06/07/17 17:18 Dose: 5 mg Furosemide (Lasix) 30 mg PO DAILY [facility] Stop: 12/07/17 09:01 Last Admin: 06/08/17 07:57 Dose: 30 mg Gabapentin (Neurontin) 800 mg PO BID [facility] Stop: 12/06/17 21:01 Last Admin: 06/08/17 07:57 Dose: 800 mg Guaifenesin (Robitussin Liq) 400 mg PO TID PRN PRN Reason: Congestion Hydrochlorothiazide (Hydrochlorothiazide) 25 mg PO DAILY [place] PRN Reason: Protocol Stop: 12/07/17 09:01 Last Admin: 06/08/17 07:57 Dose: 25 mg Isosorbide Mononitrate (Imdur) 30 mg PO DAILY [facility] [place] Stop: 12/07/17 09:01 Last Admin: 06/08/17 07:57 Dose: 30 mg Latanoprost (Xalatan) 1 drop BOTH EYES HS [place] PRN Reason: Protocol Stop: 12/06/17 21:01 Last Admin: 06/07/17 21:31 Dose: 1 drop Levalbuterol HCl (Xopenex) 1.25 mg IH [id number] PRN PRN Reason: SHORTNESS OF BREATH Stop: 12/06/17 22:01 Lidocaine HCl (Lmx 4) 1 gm TP TID [facility] Stop: 12/06/17 21:01 Last Admin: 06/08/17 08:02 Dose: 1 gm Losartan Potassium (Cozaar) 50 mg PO DAILY [facility] Stop: 12/07/17 09:01 Last Admin: 06/08/17 07:57 Dose: 50 mg Metoprolol Succinate (Toprol Xl) 12.5 mg PO DAILY [facility] [place] Stop: 12/07/17 09:01 Last Admin: 06/08/17 07:57 Dose: 12.5 mg Naloxone HCl (Narcan) 0.4 mg IVP Q2MIN PRN PRN Reason: SEE COMMENTS Stop: 12/06/17 18:28 Nitroglycerin (Nitroglycerin) 0.4 mg SL Q5MIN PRN PRN Reason: Chest Pain Stop: 12/06/17 19:38 Omeprazole (Prilosec) 20 mg PO BIDAC [place] PRN Reason: Protocol Stop: 12/07/17 07:31 Last Admin: 06/08/17 07:56 Dose: 20 mg Ondansetron HCl (Zofran) 4 mg IVP Q6HR PRN; Protocol PRN Reason: Nausea And Vomiting Stop: 12/06/17 19:14 Potassium Chloride (Potassium Chloride) 10 meq PO DAILY [facility] Stop: 12/07/17 09:01 Last Admin: 06/08/17 07:57 Dose: 10 meq Tamsulosin HCl (Flomax) 0.4 mg PO DAILY [facility] PRN Reason: Protocol Stop: 12/07/17 09:01 Last Admin: 06/08/17 07:57 Dose: 0.4 mg Valacyclovir HCl (Valtrex) 500 mg PO BID [facility] Stop: 12/06/17 21:01 Last Admin: 06/08/17 07:57 Dose: 500 mg - Imaging and Cardiology Echo: report reviewed - EKG Interpretation EKG results cardiology: other (12 hr tele AVG HR 62, paced) Consult Discharge Plan - Plan [facility]errals: [facility] [Primary Care Provider] -
[2017-06-08] MEDS: *HR* Acetylcysteine 20% 600 MG/3 ML ORAL SYRINGE PO SCH ×2 (11:22→22:21)
[2017-06-08] MEDS: *HR* HYDROcodone/Acet 5/325 mg TABLET PO PRN ×3 (13:44→22:21)
[2017-06-08] MEDS: Finasteride 5 MG TABLET PO SCH (16:44)
[2017-06-08] MEDS: Latanoprost 2.5 ML BOTTLE BOTH EYES SCH (22:20)
[2017-06-09 05:48] LABS: Basophils % 0.5 %; Eosinophils # 0.2 K/mcL (0.0-0.6); Eosinophils % 3.1 %; Hematocrit 42.4 % (37.5-50.1); Hemoglobin 14.3 g/dL (12.9-16.9); Immature Granulocytes % 0.1 % (0-4); Lymphocytes # 2.1 K/mcL (0.6-4.6); Lymphocytes % 27.2 %; Mean Corpuscular HGB Conc 33.7 g/dL (31.6-35.5); Mean Corpuscular Hemoglobin 30.1 pg (28.0-33.3); Mean Corpuscular Volume 89.3 fL (83.0-100.0); Mean Platelet Volume 10.2 fL (9.4-12.4); Monocytes # 0.9 K/mcL (0.0-1.3); Monocytes % 11.3 %; Neutrophils # 4.5 K/mcL (1.6-8.9); Platelet Count 124 K/mcL (140-400); Red Blood Count 4.75 M/mcL (4.19-5.50); Red Cell Distribution Width 14.9 % (11.5-14.5); Segmented Neutrophils % 57.8 %
[2017-06-09 05:51] LABS: Prothrombin Time 21.3 Seconds (9.4-12.1)
[2017-06-09 06:48] LABS: Calcium 9.3 mg/dL (8.6-10.3); Potassium 3.5 mEq/L (3.5-5.1)
--- NOTE | 2017-06-09 07:08 | Internal Med Progress Note ---
<Zackary Cooper - Last Filed: 06/09/17 11:11> Date of Encounter: 06/09/17 Time of Encounter: 10:30 - Assessment and plan (1) Elevated troponin Current Visit: Yes Status: Acute Assessment and plan: Elevated troponin in office, 1.1 Remained elevated throughout stay, however 0.06 and adynamic The patient is no longer having active chest pain Vitals remain stable otherwise Cardiology consult is pending, awaiting recommendation Prior CV testing: TTE 06/07/17: LVEF 55%. Mild MR, mild AR, mild-moderate TR, mild phtn. TTE 05/10/17 at [place]: EF 30-35%. Moderate global hypokinesis. Mild MR. TTE 05/31/16: EF 55%, dilated RV with normal function. Mild-moderate MR, mild TR , mild phtn. Nuclear stress test 05/31/16: Perfusion imaging negative for ischemia or infarct. 06/08 [facility] Scheduled for tomorrow per cardiology and nephrology 06/09 [facility] Scheduled for today (2) CKD (chronic kidney disease) Current Visit: Yes Status: Chronic Assessment and plan: CKD stage 3, stable Patient will require contrast with [facility] Nephrology is on board, recommends IV fluids and mucamyst for 24 hours 06/09 Patient received mucamyst, did not receive IV fluids Renal status is at baseline Start IVF prior to [facility] Qualifiers: Chronic kidney disease stage: stage 4 (severe) Qualified Code(s): N18.4 - Chronic kidney disease, stage 4 (severe) (3) Afib Current Visit: Yes Status: Chronic Assessment and plan: Rate controlled, on Warfarin Hold warfarin for [facility] today Qualifiers: Atrial fibrillation type: paroxysmal Qualified Code(s): I48.0 - Paroxysmal atrial fibrillation (4) Sick sinus syndrome Current Visit: No Status: Chronic Assessment and plan: s/p pacemaker (5) PAD (peripheral artery disease) Current Visit: Yes Status: Chronic Assessment and plan: Chronic, stable (6) DVT prophylaxis Current Visit: Yes Status: Acute Assessment and plan: Patient is on warfarin (7) Diabetes Current Visit: Yes Status: Chronic Assessment and plan: Discontinue oral meds Insulin sliding scale Qualifiers: Diabetes mellitus type: type 2 Diabetes mellitus finish remover insulin use: without shelter use Diabetes mellitus complication status: with neurologic complications Diabetes mellitus complication detail: with unspecified neuropathy Qualified Code(s): E11.40 - Type 2 diabetes mellitus with diabetic neuropathy, unspecified (8) HTN (hypertension) Current Visit: Yes Status: Chronic Assessment and plan: Controlled Qualifiers: Hypertension type: essential hypertension Qualified Code(s): I10 - Essential (primary) hypertension (9) MEL (acute kidney injury) Current Visit: No Status: Resolved - Subjective Interval history: The patient is resting at bedside at time of examination. He says that overall he is feeling very well, he denies any continued chest pain at this time. He did not have any trouble breathing overnight. He has no acute complaints at this time. - Constitutional Vitals: Temp Pulse Resp BP Pulse Ox 97.3 F L 67 18 151/81 94 06/09/17 05:41 06/09/17 05:41 06/09/17 05:41 06/09/17 05:41 06/09/17 05:41 General appearance: Present: cooperative, A&O X 3, pleasant, obese, answers questions appropriately Exam: Gen: Vitals noted. No acute distress. AAOx3 HEENT: PERRL/EOMI, oropharynx clear, Normocephalic, atraumatic Neck: Supple. No adenopathy. Cardiac: RRR, no murmur, +S1/S2 Pulmonary: CTA bilaterally, no wheezes, rales or rhonchi, equal chest expansion Abdomen: soft, nontender, BS noted, no guarding Back: Nontender throughout. MSK: ROM intact, no joint swelling noted Extremities: no BLE edema, nontender calf, no cyanosis or clubbing. There is evidence of venous stasis with keratinized skin and healing wounds Neuro: A&Ox3, moves all extremities, no focal deficits Psych: Appropriate mood and behavior Internal Medicine: Result - Labs CBC & Chem 7: 06/09/17 05:08 06/09/17 05:08 Labs: Short CBC 06/09/17 Range/Units 05:08 WBC 7.8 (4.3-11.1) K/mcL Hgb 14.3 (12.9-16.9) g/dL Hct 42.4 (37.5-50.1) % Plt Count 124 L (140-400) K/mcL Neutrophils # 4.5 (1.6-8.9) K/mcL BMP 06/09/17 05:08 Sodium 141 Potassium 3.5 Chloride 104 Carbon Dioxide 26 BUN 34 H Creatinine 1.70 H Glucose 111 H Calcium 9.3 - ABG Interpretation ABG results: PT/INR, D-dimer PT 21.3 Seconds (9.4-12.1) H 06/09/17 05:08 Consult Discharge Plan - Plan [facility]errals: [facility] [Primary Care Provider] - <Chepe Armenta H - Last Filed: 06/09/17 16:03> Date of Encounter: 06/09/17 - Constitutional Vitals: Temp Pulse Resp BP Pulse Ox 97.8 F 61 17 120/68 96 06/09/17 11:00 06/09/17 11:00 06/09/17 11:00 06/09/17 11:00 06/09/17 11:00 Internal Medicine: Result - Labs CBC & Chem 7: 06/09/17 05:08 06/09/17 05:08 Labs: Short CBC 06/09/17 Range/Units 05:08 WBC 7.8 (4.3-11.1) K/mcL Hgb 14.3 (12.9-16.9) g/dL Hct 42.4 (37.5-50.1) % Plt Count 124 L (140-400) K/mcL Neutrophils # 4.5 (1.6-8.9) K/mcL [facility] 06/09/17 05:08 Sodium 141 Potassium 3.5 Chloride 104 Carbon Dioxide 26 BUN 34 H Creatinine 1.70 H Glucose 111 H Calcium 9.3 - ABG Interpretation ABG results: PT/INR, D-dimer PT 21.3 Seconds (9.4-12.1) H 06/09/17 05:08 - Attending Attestation Cardiology recommending LHC , may happen in am Nephrology consulted per cardiology, IVF and mucomyst recommended I examined this patient and my medical decision-making was reviewed with the Resident Physician. I agree with the documented findings, disposition and treatment plan as described except to the extent set forth below.
[2017-06-09] MEDS: Aspirin Enteric Coated 81 MG Tablet PO SCH (07:39)
[2017-06-09] MEDS: valACYclovir 500 MG TABLET PO SCH ×2 (07:39→21:09)
[2017-06-09] MEDS: Metoprolol XL (24 HR) Succ 25 MG TAB.ER.24H PO SCH (07:39)
[2017-06-09] MEDS: hydroCHLOROthiazide 25 MG TABLET PO SCH (07:39)
[2017-06-09] MEDS: Furosemide 20 MG TABLET PO SCH (07:41)
[2017-06-09] MEDS: Isosorbide MONOnitrate (24 HR) 30 MG TAB.ER.24H PO SCH (07:41)
[2017-06-09] MEDS: Dorzolamide/Timolol OPTH 10 ML BOTTLE BOTH EYES SCH ×2 (07:42→21:11)
[2017-06-09] MEDS: Lidocaine 4% CREAM (LMX) 5 GM TP SCH ×4 (07:42→22:41)
[2017-06-09] MEDS: *HR* Acetylcysteine 20% 600 MG/3 ML ORAL SYRINGE PO SCH ×2 (07:42→22:28)
[2017-06-09] MEDS: Gabapentin 400 MG CAPSULE PO SCH ×2 (07:42→21:09)
--- NOTE | 2017-06-09 10:33 | Nephrology Progress Note ---
Date of Encounter: 06/09/17 Time of Encounter: 10:05 - Assessment and Plan (1) CKD (chronic kidney disease) Current Visit: Yes Status: Chronic Pre [facility] IV hydration, Mucomyst. Renal fct stable. Creat 1.79. Avoid nephrotoxins. I&O's. Will continue to monitor. Qualifiers: Chronic kidney disease stage: stage 4 (severe) Qualified Code(s): N18.4 - Chronic kidney disease, stage 4 (severe) Subjective Principal diagnosis: fatigue, elevated troponin Interval history: Sitting up in chair. at bedside. NPO for [facility] today. Risks/benifits discussed. Verbalized understanding. Objective - Vital Signs Vital signs: Vital Signs Temp Pulse Resp BP Pulse Ox 06/09/17 07:00 98.1 F 63 18 128/66 98 06/09/17 05:41 97.3 F L 67 18 151/81 94 06/08/17 21:11 98.5 F 67 18 118/70 97 06/08/17 15:32 97.9 F 60 17 106/64 95 Intake and Output 06/08/17 06/09/17 06/09/17 23:59 07:59 15:59 Intake Total 240 / 240 0 / 0 Balance 240 / 240 0 / 0 Intake: Oral 240 / 240 0 / 0 Other: Meal Dinner Percent of Meal Consumed 95% # Voids 0 0 Weight 108.3 kg Blood Glucose* 146 126 Patient Weight 06/09/17 23:59 Weight 108.3 kg - General Appearance General appearance: Present: well-developed, well-nourished, appears started age EENT: Present: mucous membranes moist Neck: Present: no JVD Respiratory: Present: clear Cardiology: Present: edema, regular rate, regular rhythm Additional Comments: mild Gastrointestinal: Present: normoactive bowel sounds, no tenderness Integumentary: Present: warm and dry Neurologic: Present: alert and oriented x3 - Lab 06/09/17 05:08 06/09/17 05:08 Most recent lab results Calcium 9.3 mg/dL (8.6-10.3) 06/09/17 05:08 Magnesium 2.1 mg/dL (1.6-2.6) 06/07/17 05:50 Consult Discharge Plan - Plan [facility]errals: [facility] [Primary Care Provider] -
[2017-06-09] MEDS: 0.9 % Sodium Chloride 1,000 ML IVC SCH (11:09)
--- NOTE | 2017-06-09 13:01 | Cardiology Progress Note ---
Date of Encounter: 06/09/17 Time of Encounter: 12:59 Assessment and Plan (1) Elevated troponin Current Visit: Yes Status: Acute Reported troponin 0.11 at [place], only borderline 0.05 and 0.06 x 2 here at [facility] in setting of CKD. Demand ischemia vs NSTEMI. INR therapeutic 2.0. Not on heparin given therapeutic INR. TTE at [facility] 04/2017 EF newly reduced 30-35%. Repeated here this AM and EF has normalized 55%. Pt does endorse significant worsening in fatigue in recent weeks, one episode of chest pain, intermittent dyspnea. Currently chest pain free and resting comfortably. Negative stress test 05/31/16. Risk factors for CAD include HTN, HLD, DM, PAD and carotid disease. Reports never having a LHC. Discussed option of LHC given symptoms and troponins. R/B/A discussed. Seen by nephrology--renal function currently at baseline. Pt would like to procced with LHC. Aware of risk of OJRGE. INR is still too high for LHC, and have not received approval from [facility] to proceed with LHC. Discussed with utilization review, who will contact [facility]. Possible LHC tomorrow or Monday pending INR, renal function, and approval from [facility]. (2) Afib Current Visit: Yes Status: Chronic Known hx of A-Fib. Currently paced. Continue BB. Anticoagulated on Coumadin, INR 2.0. Hold Coumadin in anticipation of LHC. Start heparin gtt once INR <2. Qualifiers: Atrial fibrillation type: paroxysmal Qualified Code(s): I48.0 - Paroxysmal atrial fibrillation (3) CKD (chronic kidney disease) Current Visit: Yes Status: Chronic Nephrology following. Near baseline. Gave mucomyst in anticipation for LHC. INR 2.0 today, unable to proceed with LHC today as above. Qualifiers: Chronic kidney disease stage: stage 4 (severe) Qualified Code(s): N18.4 - Chronic kidney disease, stage 4 (severe) (4) HTN (hypertension) Current Visit: Yes Status: Chronic Continue current antihypertensives and adjust as necessary. Qualifiers: Hypertension type: essential hypertension Qualified Code(s): I10 - Essential (primary) hypertension Discussion w patient/family: The assessment and plan as outlined above was discussed with the patient and/or family members who expressed understanding and agreement. All questions were answered. Thank you for involving us in the care of your patient. Please call with any questions. I will discuss all the above with Dr. Melton and make changes as necessary. Subjective Principal diagnosis: fatigue, elevated troponin Interval history: Pt denies chest pain overnight. Dyspnea at baseline. INR 2.0 this AM. Objective Vital Signs, Last 4 Hours Temp Pulse Resp BP Pulse Ox 06/09/17 11:00 97.8 F 61 17 120/68 96 Vital Signs Temp Pulse Resp BP Pulse Ox 06/09/17 11:00 97.8 F 61 17 120/68 96 06/09/17 07:00 98.1 F 63 18 128/66 98 06/09/17 05:41 97.3 F L 67 18 151/81 94 06/08/17 21:11 98.5 F 67 18 118/70 97 06/08/17 15:32 97.9 F 60 17 106/64 95 Intake and Output 06/08/17 06/09/17 06/09/17 23:59 07:59 15:59 Intake Total 240 / 240 0 / 0 Balance 240 / 240 0 / 0 Intake: Oral 240 / 240 0 / 0 Other: Meal Dinner Percent of Meal Consumed 95% # Voids 0 0 Weight 108.3 kg Blood Glucose* 146 126 120 Patient Weight 06/09/17 23:59 Weight 108.3 kg General: Conversant, No Apparent Distress HEENT: Atraumatic, Normocephaly, Mucus Membranes Moist Neck: No JVD, Normal carotid pulses Cardiac: Other (paced) Lungs: Normal Breath Sounds, No Wheeze, Rales, Rhonchi Neuro: Alert and responsive, No focal deficits noted Abdomen: Soft, Non-Tender Skin: No rashes noted on visualized skin Musculoskeletal: No Chest Wall Tenderness Extremities: Other (mild LE edema) Results 06/09/17 05:08 06/09/17 05:08 Lab Results 06/09/17 06/09/17 06/09/17 05:08 05:08 05:08 WBC 7.8 Hgb 14.3 Hct 42.4 Plt Count 124 L INR 2.0 Sodium 141 Potassium 3.5 Chloride 104 Carbon Dioxide 26 BUN 34 H Creatinine 1.70 H Glucose 111 H Calcium 9.3 Short CBC 06/09/17 Range/Units 05:08 WBC 7.8 (4.3-11.1) K/mcL Hgb 14.3 (12.9-16.9) g/dL Hct 42.4 (37.5-50.1) % Plt Count 124 L (140-400) K/mcL Neutrophils # 4.5 (1.6-8.9) K/mcL BMP 06/09/17 Range/Units 05:08 Sodium 141 (136-145) mEq/L Potassium 3.5 (3.5-5.1) mEq/L Chloride 104 (98-107) mEq/L Carbon Dioxide 26 (23-29) mEq/L BUN 34 H (8-23) mg/dL Creatinine 1.70 H (0.70-1.30) mg/dL Glucose 111 H (70-105) mg/dL Calcium 9.3 (8.6-10.3) mg/dL Active Medications Acetaminophen (Tylenol) 650 mg PO Q6HR PRN PRN Reason: Mild Pain/Fever Stop: 12/06/17 18:28 Hydrocodone Bitart/Acetaminophen (Ruby 5-325 Mg) 1 tab PO QID PRN PRN Reason: Severe Pain Stop: 12/06/17 19:36 Last Admin: 06/08/17 22:21 Dose: 1 tab Acetylcysteine (Acetylcysteine 20%) 600 mg PO BID [facility]CO Stop: 06/09/17 21:01 Last Admin: 06/09/17 07:42 Dose: 600 mg Artificial Tears (Akwa Tears) 1 drop BOTH EYES QID PRN; Protocol PRN Reason: Dry Eyes Stop: 12/06/17 19:36 Aspirin (Aspirin Ec) 81 mg PO DAILY [facility] Stop: 12/07/17 09:01 Last Admin: 06/09/17 07:39 Dose: 81 mg Atorvastatin Calcium (Lipitor) 20 mg PO HS [facility] Stop: 12/06/17 21:01 Last Admin: 06/08/17 22:19 Dose: 20 mg Docusate Sodium (Colace) 100 mg PO BID [facility] PRN Reason: Protocol Stop: 12/07/17 09:01 Last Admin: 06/09/17 07:41 Dose: 100 mg Dorzolamide/Timolol (Cosopt) 2 drop BOTH EYES BID [facility] Stop: 12/06/17 21:01 Last Admin: 06/09/17 07:42 Dose: 2 drop Finasteride (Proscar) 5 mg PO QPM [facility] PRN Reason: Protocol Stop: 12/07/17 18:01 Last Admin: 06/08/17 16:44 Dose: 5 mg Furosemide (Lasix) 30 mg PO DAILY [facility] Stop: 12/07/17 09:01 Last Admin: 06/09/17 07:41 Dose: 30 mg Gabapentin (Neurontin) 800 mg PO BID [facility] Stop: 12/06/17 21:01 Last Admin: 06/09/17 07:42 Dose: 800 mg Guaifenesin (Robitussin Liq) 400 mg PO TID PRN PRN Reason: Congestion Hydrochlorothiazide (Hydrochlorothiazide) 25 mg PO DAILY [facility] PRN Reason: Protocol Stop: 12/07/17 09:01 Last Admin: 06/09/17 07:39 Dose: 25 mg Sodium Chloride (0.9 % Sodium Chloride) 1,000 mls @ 75 mls/hr IVC .[id number] [facility] Stop: 12/09/17 10:16 Last Admin: 06/09/17 11:09 Dose: 75 mls/hr Isosorbide Mononitrate (Imdur) 30 mg PO DAILY [facility] Stop: 12/07/17 09:01 Last Admin: 06/09/17 07:41 Dose: 30 mg Latanoprost (Xalatan) 1 drop BOTH EYES HS [facility] PRN Reason: Protocol Stop: 12/06/17 21:01 Last Admin: 06/08/17 22:20 Dose: 1 drop Levalbuterol HCl (Xopenex) 1.25 mg IH [id number] PRN PRN Reason: SHORTNESS OF BREATH Stop: 12/06/17 22:01 Lidocaine HCl (Lmx 4) 1 gm TP TID [facility] Stop: 12/06/17 21:01 Last Admin: 06/09/17 07:42 Dose: 1 gm Losartan Potassium (Cozaar) 50 mg PO DAILY [facility] Stop: 12/07/17 09:01 Last Admin: 06/09/17 07:39 Dose: 50 mg Metoprolol Succinate (Toprol Xl) 12.5 mg PO DAILY [facility] Stop: 12/07/17 09:01 Last Admin: 06/09/17 07:39 Dose: 12.5 mg Naloxone HCl (Narcan) 0.4 mg IVP Q2MIN PRN PRN Reason: SEE COMMENTS Stop: 12/06/17 18:28 Nitroglycerin (Nitroglycerin) 0.4 mg SL Q5MIN PRN PRN Reason: Chest Pain Stop: 12/06/17 19:38 Omeprazole (Prilosec) 20 mg PO BIDAC [facility] PRN Reason: Protocol Stop: 12/07/17 07:31 Last Admin: 06/09/17 07:39 Dose: 20 mg Ondansetron HCl (Zofran) 4 mg IVP Q6HR PRN; Protocol PRN Reason: Nausea And Vomiting Stop: 12/06/17 19:14 Potassium Chloride (Potassium Chloride) 10 meq PO DAILY [facility] Stop: 12/07/17 09:01 Last Admin: 06/09/17 07:39 Dose: 10 meq Tamsulosin HCl (Flomax) 0.4 mg PO DAILY [facility] PRN Reason: Protocol Stop: 12/07/17 09:01 Last Admin: 06/09/17 07:41 Dose: 0.4 mg Valacyclovir HCl (Valtrex) 500 mg PO BID [facility] Stop: 12/06/17 21:01 Last Admin: 06/09/17 07:39 Dose: 500 mg - Imaging and Cardiology Echo: report reviewed - EKG Interpretation EKG results cardiology: other (12 hr tele AVG HR 62, paced) Consult Discharge Plan - Plan [facility]errals: [facility] [Primary Care Provider] -
--- NOTE | 2017-06-09 15:07 | Event Note ---
Date of Encounter: 06/09/17 Time of Encounter: 15:06 - Cardiology Event Note [facility] approval [facility]. Plan for LHC tomorrow. Check INR and BMP in AM. NPO after midnight. R/B/A discussed.
[2017-06-09] MEDS ORDERED: *HR* Phytonadione 5 MG TABLET PO ONE (16:04)
[2017-06-09] MEDS: Finasteride 5 MG TABLET PO SCH (17:32)
[2017-06-09 20:57] LABS: Hematocrit 44.9 % (37.5-50.1); Hemoglobin 15.1 g/dL (12.9-16.9); Mean Corpuscular HGB Conc 33.6 g/dL (31.6-35.5); Mean Corpuscular Hemoglobin 30.3 pg (28.0-33.3); Platelet Count 147 K/mcL (140-400); Red Blood Count 4.99 M/mcL (4.19-5.50); Red Cell Distribution Width 14.7 % (11.5-14.5)
[2017-06-09] MEDS ORDERED: *HR* Heparin 5,000 UNIT/ML VIAL IVP ONE (21:00)
[2017-06-09] MEDS ORDERED: *HR* Heparin 5,000 UNIT/ML VIAL IVP PRN ×2 (21:00)
[2017-06-09 21:03] LABS: INR 1.7; Prothrombin Time 18.2 Seconds (9.4-12.1)
[2017-06-09 21:05] LABS: Activated Partial Thrombo Time 30.9 Seconds (26.0-36.0)
[2017-06-09] MEDS: Latanoprost 2.5 ML BOTTLE BOTH EYES SCH (21:11)
[2017-06-09] MEDS: *HR* HYDROcodone/Acet 5/325 mg TABLET PO PRN (22:27)
[2017-06-09] MEDS: Heparin 25,000 UNIT/500 ML D5W 25,000 UNIT/500 ML BAG IVC SCH (22:29)
[2017-06-10] MEDS: Acetaminophen 325 MG TABLET PO PRN (00:44)
[2017-06-10 04:13] LABS: Basophils # 0.1 K/mcL (0.0-0.2); Basophils % 0.6 %; Eosinophils # 0.3 K/mcL (0.0-0.6); Eosinophils % 2.9 %; Hematocrit 41.3 % (37.5-50.1); Hemoglobin 13.8 g/dL (12.9-16.9); Immature Granulocytes % 0.2 % (0-4); Lymphocytes % 30.7 %; Mean Corpuscular HGB Conc 33.4 g/dL (31.6-35.5); Mean Corpuscular Hemoglobin 30.3 pg (28.0-33.3); Mean Corpuscular Volume 90.6 fL (83.0-100.0); Mean Platelet Volume 9.9 fL (9.4-12.4); Monocytes % 9.9 %; Neutrophils # 5.4 K/mcL (1.6-8.9); Platelet Count 122 K/mcL (140-400); Red Blood Count 4.56 M/mcL (4.19-5.50); Red Cell Distribution Width 14.8 % (11.5-14.5); Segmented Neutrophils % 55.7 %
[2017-06-10 04:20] LABS: Calcium 9.2 mg/dL (8.6-10.3); Potassium 3.2 mEq/L (3.5-5.1)
[2017-06-10 04:34] LABS: Activated Partial Thrombo Time > 360.0 Seconds (26.0-36.0)
[2017-06-10 04:43] LABS: Heparin anti-factor XA UFH 1.38 IU/mL (0.30-0.70)
[2017-06-10] MEDS: 0.9 % Sodium Chloride 1,000 ML IVC SCH ×2 (06:39→18:44)
[2017-06-10] MEDS ORDERED: Potassium Chloride 40 MEQ, Lidocaine 1% 2 ML in D5% in Water 500 ML IVPB ONE (06:46)
[2017-06-10] MEDS: Heparin 25,000 UNIT/500 ML D5W 25,000 UNIT/500 ML BAG IVC SCH (07:49)
[2017-06-10] MEDS: Dorzolamide/Timolol OPTH 10 ML BOTTLE BOTH EYES SCH ×2 (07:59→20:43)
[2017-06-10] MEDS: Isosorbide MONOnitrate (24 HR) 30 MG TAB.ER.24H PO SCH (08:00)
[2017-06-10] MEDS: Aspirin Enteric Coated 81 MG Tablet PO SCH (08:00)
[2017-06-10] MEDS: Gabapentin 400 MG CAPSULE PO SCH ×2 (08:00→20:42)
[2017-06-10] MEDS: valACYclovir 500 MG TABLET PO SCH ×2 (08:01→20:42)
[2017-06-10] MEDS: Metoprolol XL (24 HR) Succ 25 MG TAB.ER.24H PO SCH (08:01)
[2017-06-10] MEDS: hydroCHLOROthiazide 25 MG TABLET PO SCH (08:02)
[2017-06-10] MEDS: Lidocaine 4% CREAM (LMX) 5 GM TP SCH ×3 (08:03→20:43)
[2017-06-10] MEDS: Furosemide 20 MG TABLET PO SCH (08:03)
--- NOTE | 2017-06-10 08:40 | Nephrology Progress Note ---
Date of Encounter: 06/10/17 Time of Encounter: 08:15 - Assessment and Plan (1) CKD (chronic kidney disease) Current Visit: Yes Status: Chronic Pre [facility] IV hydration, Mucomyst. Renal fct stable. Creat 1.76. K+ 3.2, ordered K rider. Avoid nephrotoxins. I&O's. Will continue to monitor. Qualifiers: Chronic kidney disease stage: stage 4 (severe) Qualified Code(s): N18.4 - Chronic kidney disease, stage 4 (severe) Subjective Principal diagnosis: fatigue, elevated troponin Interval history: Sitting up in chair. at bedside. NPO for [facility] today. Risks/benifits discussed. Verbalized understanding. Objective - Vital Signs Vital signs: Vital Signs Temp Pulse Resp BP Pulse Ox 06/10/17 07:18 97.4 F L 60 16 149/84 95 06/10/17 04:00 97.9 F 73 16 133/89 97 06/10/17 00:14 97.8 F 68 16 123/70 96 06/09/17 19:00 97.4 F L 59 16 140/76 93 06/09/17 16:15 63 20 111/64 98 Intake and Output 06/09/17 06/10/17 06/10/17 23:59 07:59 15:59 Intake Total 600 / 600 600 / 600 Output Total 200 / 200 Balance 600 / 600 400 / 400 Intake: IV Fluids 600 / 600 0.9 % Sodium Chloride 1,000 ML 100 / 100 @ 75 mls/hr IVC .[id number] [facility] Rx #:[id number] Heparin 25,000 UNIT/500 ML D5W 500 / 500 25,000 unit In 500 ml @ 14 UNIT /KG/HR 30.324 mls/hr IVC . [id number] [facility] Rx#:[id number] Oral 600 / 600 0 / 0 Output: Urine 200 / 200 Other: Meal Breakfast Percent of Meal Consumed 100% # Voids 1 1 Weight 108.5 kg Blood Glucose* 99 121 Patient Weight 06/10/17 23:59 Weight 108.5 kg - General Appearance General appearance: Present: well-developed, well-nourished, appears started age EENT: Present: mucous membranes moist Neck: Present: no JVD Respiratory: Present: clear Cardiology: Present: regular rate, regular rhythm Additional Comments: mild Gastrointestinal: Present: normoactive bowel sounds, no tenderness Integumentary: Present: warm and dry Neurologic: Present: alert and oriented x3 - Lab 06/10/17 03:51 06/10/17 03:51 Most recent lab results Calcium 9.2 mg/dL (8.6-10.3) 06/10/17 03:51 Magnesium 2.1 mg/dL (1.6-2.6) 06/07/17 05:50 Consult Discharge Plan - Plan [facility]errals: [facility] [Primary Care Provider] -
[2017-06-10] MEDS ORDERED: 0.9 % Sodium Chloride 1,000 ML ONE (11:15)
[2017-06-10] MEDS ORDERED: Nitroglycerin 1,000 MCG/10 ML VIAL IV ONE (11:15)
[2017-06-10] MEDS ORDERED: *HR* Heparin 10,000 UNIT/10 ML VIAL ONE (11:15)
[2017-06-10] MEDS ORDERED: ISOVUE-370 200 ML INFUS..BTL IV ONE (11:15)
[2017-06-10] MEDS ORDERED: Heparin 1,000 UNITS/500 mL 500 ML ONE (11:15)
[2017-06-10 13:17] LABS: INR 1.5; Prothrombin Time 16.6 Seconds (9.4-12.1)
--- NOTE | 2017-06-10 13:51 | Internal Med Progress Note ---
Date of Encounter: 06/10/17 Time of Encounter: 13:49 - Assessment and plan (1) Elevated troponin Current Visit: Yes Status: Acute Assessment and plan: Elevated troponin in office, 1.1 Remained mildly elevated throughout stay 0.06 and adynamic no longer having active chest pain Cardiology consulted, awaiting recommendation Prior CV testing: TTE 06/07/17: LVEF 55%. Mild MR, mild AR, mild-moderate TR, mild phtn. TTE 05/10/17 at [place]: EF 30-35%. Moderate global hypokinesis. Mild MR. TTE 05/31/16: EF 55%, dilated RV with normal function. Mild-moderate MR, mild TR , mild phtn. Nuclear stress test 05/31/16: Perfusion imaging negative for ischemia or infarct. [facility] possibly Scheduled for today (2) CKD (chronic kidney disease) Current Visit: Yes Status: Chronic Assessment and plan: CKD stage 3, stable Patient will require contrast with [facility] Nephrology is on board, recommended IV fluids and mucamyst for 24 hours received mucomyst, did not receive IV fluids Renal status is at baseline IVF prior to [facility] Qualifiers: Chronic kidney disease stage: stage 4 (severe) Qualified Code(s): N18.4 - Chronic kidney disease, stage 4 (severe) (3) Afib Current Visit: Yes Status: Chronic Assessment and plan: Rate controlled, on Warfarin Hold warfarin for [facility] Qualifiers: Atrial fibrillation type: paroxysmal Qualified Code(s): I48.0 - Paroxysmal atrial fibrillation (4) Sick sinus syndrome Current Visit: No Status: Chronic Assessment and plan: s/p pacemaker (5) PAD (peripheral artery disease) Current Visit: Yes Status: Chronic Assessment and plan: Chronic, stable (6) DVT prophylaxis Current Visit: Yes Status: Acute Assessment and plan: Patient is on warfarin (7) Diabetes Current Visit: Yes Status: Chronic Assessment and plan: Discontinue oral meds Insulin sliding scale Qualifiers: Diabetes mellitus type: type 2 Diabetes mellitus terminal gauger supervisor insulin use: without terminal gauger supervisor use Diabetes mellitus complication status: with neurologic complications Diabetes mellitus complication detail: with unspecified neuropathy Qualified Code(s): E11.40 - Type 2 diabetes mellitus with diabetic neuropathy, unspecified (8) HTN (hypertension) Current Visit: Yes Status: Chronic Assessment and plan: Controlled Qualifiers: Hypertension type: essential hypertension Qualified Code(s): I10 - Essential (primary) hypertension (9) MEL (acute kidney injury) Current Visit: No Status: Resolved - Subjective Interval history: Denies any shortness of breath, no chest pain, no abdominal pain, no dysuria, no diarrhea, no fevers - Constitutional Vitals: Temp Pulse Resp BP Pulse Ox 97.6 F 60 16 127/81 94 06/10/17 11:30 06/10/17 11:30 06/10/17 11:30 06/10/17 11:30 06/10/17 11:30 General appearance: Present: cooperative, A&O X 3, pleasant, obese, answers questions appropriately - Head Head exam: Present: atraumatic, normocephalic - Eye Eye exam: Present: PERRL, conjuntiva pink, sclera anicteric Pupils: Present: PERRL - Neck Neck exam general surgery: Present: supple, trachea midline. Absent: lymphadenopathy - Respiratory Respiratory exam: Present: CTAB. Absent: accessory muscle use, rales, rhonchi, wheezes - Cardiovascular Cardiovascular exam: Present: RRR, +S1, +S2. Absent: diastolic murmur, gallop, rubs, systolic murmur - GI/Abdominal GI/Abdominal exam: Present: normal bowel sounds, soft, no peritoneal signs. Absent: distended, tenderness - Extremities Exam Extremities exam: Present: warm, radial pulses palpable and symmetrical. Absent : calf tenderness, cyanotic, pedal edema - Neurological Exam Neurological exam: Present: CN II-XII intact, oriented X3, no focal deficits. Absent: pronater drift, facial droop, speech deficit - Skin Skin exam: Present: dry, intact Internal Medicine: Result - Labs CBC & Chem 7: 06/10/17 03:51 06/10/17 03:51 Labs: Short CBC 06/09/17 06/10/17 Range/Units 20:42 03:51 WBC 9.2 9.7 (4.3-11.1) K/mcL Hgb 15.1 13.8 (12.9-16.9) g/dL Hct 44.9 41.3 (37.5-50.1) % Plt Count 147 122 L (140-400) K/mcL Neutrophils # 5.4 (1.6-8.9) K/mcL BMP 06/10/17 03:51 Sodium 138 Potassium 3.2 L Chloride 102 Carbon Dioxide 27 BUN 36 H Creatinine 1.76 H Glucose 132 H Calcium 9.2 - ABG Interpretation ABG results: PT/INR, D-dimer PT 16.6 Seconds (9.4-12.1) H 06/10/17 12:56 Consult Discharge Plan - Plan [facility]errals: [facility] [Primary Care Provider] -
[2017-06-10] MEDS ORDERED: *HR* Midazolam HCl 2 MG/2 ML VIAL ONE (16:47)
--- NOTE | 2017-06-10 16:58 | Pre-Sedation Evaluation ---
Pre-sedation evaluation - Pre-sedation checklist Date of procedure: 06/10/17 Procedure: [facility] Recent Vitals: Last Vital Signs Temp 97.4 F L 06/10/17 15:21 Pulse 61 06/10/17 15:21 Resp 16 06/10/17 15:21 BP 162/79 06/10/17 15:21 Pulse Ox 98 06/10/17 15:21 H&P (including ROS) documented in medical record: Yes Previous reaction to sedatives/anesthetics: No Dietary Status: NPO after Midnight Airway Assessment: Patient can open mouth completely, TMJ function normal Dentition: No loose teeth or bridges, poor dentition Possible difficult airway: No ASA Classification *see protocol: CLASS III-Severe systemic disease Plan of Care: Pt appropriate candidate for procedure/moderate/conscious sedation , Risks/benefits of procedure/sedation discussed w/ patient/family, If not NPO; Risk of intake outweiged by necessity to perform procedure
--- NOTE | 2017-06-10 18:08 | Invasive Diagnostic Lab Proc ---
Name: Kenia Briceno Date of Study: 06/10/2017 Date: 1935 Ht: 70.9in Medical Record#: [id number] Age: 82 Wt: 238.10lb Gender: Male BSA: 2.27 Order #: [id number] BMI: 33.33 Physicians Procedure Physician: Jose Angel Rutherford DO Referring MD: [facility] Referring MD: Staff Name Position Time In Sites, [facility] RT (R) Monitor 05:03 PM Rachel Barros RT Scrub 05:03 PM Kenny Swanson RN Ballet Master/Mistress 05:03 PM Ton Weinberg RN Monitor 05:03 PM Indications Indication Non-Stemi Procedures Performed Procedure L HRT ARTERY/VENTRICLE ANGIO Pre-Procedure Checklist Informed consent is complete signed and on chart. H&P is on chart. ID band is on and ID verified with patient. Patient NPO for procedure The procedure was described for the patient and questions were answered. Blood Pressure: 128/66 ECG is on chart. Rhythm: NSR Plan of Care Patient will tolerate the procedure without complications. Adequate level of comfort will be maintained. Hemodynamics will remain stable Patient will recover from procedure without complications. Respiratory function will be maintained. Cardiac rhythm will remain stable. Patient temperature will be maintained. Patient and/or family have verbalized understanding of the procedure. Patient Education Intravenous Access Time IV Size Location DC'd Fluid/Drip Rate Units RN 04:20 PM 20g 1 1/" Patent On Arrival Rt Wrist 0.9NaCl 25 ml/hr Kenny Swanson RN Allergies etodolac pregabalin Vital Signs Time BP (mmHg) HR (bpm) O2 Sat. RR (bpm) LOC 04:20 PM 128 / 66 63 98 % 18 5 = Fully awake and oriented or at pre-proc level 05:17 PM 144 / 78 59 94 % 05:22 PM 146 / 81 60 95 % 05:29 PM 158 / 106 62 92 % 04:48 PM 168 / 84 66 97 % 04:52 PM 143 / 73 60 96 % 04:57 PM 136 / 74 60 96 % 05:02 PM 137 / 77 60 95 % 05:07 PM 142 / 84 66 94 % 05:12 PM 144 / 81 60 97 % Procedural Medications Time Medication Dose Units Method Given By 04:53 PM Versed 2 mg Intravenous Kenny Swanson RN 05:04 PM Oxygen 2 L/min nasal cannula Kenny Swanson RN 05:04 PM Versed 2 mg Intravenous Kenny Swanson RN 05:07 PM Lidocaine 2% 10 ml Subcutaneous Jose Angel Rutherford DO ASA Classification: CLASS II- Mild systemic disease (i.e. well-controlled diabetes, hypertension, asthma, cigarette smoking) Mare Score Preprocedure Postprocedure Activity 2- Moves 4 extremities sustained head lift Activity 2- Moves 4 extremities sustained head lift Circulation 2- SBP +/= 20 points of pre-anesthetic level Circulation 2- SBP +/= 20 points of pre-anesthetic level Consciousness 2- Awake and alert oriented x 3 Consciousness 2- Awake and alert oriented x 3 O2 Saturation 2- Able to maintain O2 satruation of 92% on room air O2 Saturation 2- Able to maintain O2 satruation of 92% on room air Respiratory 2- Able to deep breathe and cough well Respiratory 2- Able to deep breathe and cough well Total Score 10 Total Score 10 Contrast Agent: Isovue Fluoro Dose: 732 mGy Procedure Log Time Note Enter By 04:17 PM CathStat 04:24 PM Rachel Barros RT Position: Scrub Time in: 16:24 tsites 04:24 PM Kenny Swanson RN Position: Ballet Master/Mistress Time in: 16:24 tsites 04:24 PM Ton Weinberg RN Position: Monitor Time in: 16:24 tsites 04:24 PM Pt arrived to clinical laboratory manager 2 at 16:24 csmith 04:24 PM Lara Webb RT (R) Position: Monitor Time in: 16:24 tsites 04:24 PM Time: 16:53 Versed 2 mg Intravenous [facility] 04[facility]25 PM Physician arrived 16:24 tsites 04:25 PM Yobani and morelia completed tsites 04:25 PM Sign in performed according to hospital policy. tsites 04:25 PM Procedure start 16:25 tsites 04:30 PM Patient charges- Angio tray pack, Navilyst 3mm J, Pulse Oximetry and ACIST tubing and transducer tsites 04:46 PM Case Start 04:46 PM Vitals capture started with the following parameters, Patient=Adult, Interval=5 min, Initial Dbrawnxu=251 mmHg, Deflation Rate=3 mmHg, Cuff placed on Right Arm 04:48 PM HR=66 bpm, CNWE=786/84 mmhg, SpO2=97.0 %, Comment=paced 04:52 PM HR=60 bpm, NJMS=835/73 mmhg, SpO2=96.0 % 04:57 PM HR=60 bpm, BDGJ=627/74 mmhg, SpO2=96 % 05:02 PM HR=60 bpm, NAQL=172/77 mmhg, SpO2=95 % 05:04 PM Time: 17:04 Oxygen on at 2 L/min per nasal cannula by Kenny Swanson RN tsites 05:04 PM Time: 17:04 Versed 2 mg Intravenous Given by Kenny Swanson RN tsites 05:04 PM Clinical Presentation: Non-STEMI tsites 05:04 PM Hair removed from procedure site in holding area using clippers. Bilateral groin prepped with Chloraprep by Lara Webb (Atif), then patient was draped. Skin intact. tsites 05:05 PM Time out performed according to hospital policy tsites 05:07 PM Time: 17:07 10 ml Lidocaine 2% to right groin Subcutaneous Given by Jose Angel Rutherford DO tsites 05:07 PM Micro-Introducer Kit utilized for sheath placement tsites 05:07 PM Unsuccessful access attempt # 1 into the right Femoral artery. Manual pressure applied to achieve hemostasis.. tsites 05:07 PM HR=66 bpm, NWDT=032/84 mmhg, SpO2=94.0 % 05:12 PM HR=60 bpm, VILU=212/81 mmhg, SpO2=97 % 05:13 PM Access obtained by percutaneous puncture. 6Fr 10cm Terumo Curran sheath placed in right Femoral artery. [id number] tsites 05:14 PM Recorded ECG: HR=60 Condition=Condition 1 05:14 PM Pressure channel 2 zeroed. 05:14 PM 5Fr FR 4 catheter inserted over the wire [facility] tsites 05:14 PM Catheter selectively placed in left ventricle tsites 05:14 PM Bolus angiogram of left Ventricle complete: hand injection tsites 05:17 PM Recorded Pressure: LV, HR=70, Condition=Condition 1 (Left Ventricle) LV 104/2/3 05:17 PM Recorded Pressure: LV, Ao, HR=65, Condition=Condition 1 (Left Ventricle) LV 133/11/3, (Aorta) Ao 138/37/87 05:17 PM HR=59 bpm, TRJW=199/78 mmhg, SpO2=94 % 05:18 PM Recorded Pressure: Ao, HR=60, Condition=Condition 1 (Aorta) Ao 135/60/90 05:19 PM RCA angiography performed in multiple views. tsites 05:21 PM wire reinserted catheter removed tsites 05:22 PM 5Fr FL 4 catheter inserted over the wire DN tsites 05:22 PM HR=60 bpm, RRKV=812/81 mmhg, SpO2=95.0 % 05:23 PM Recorded Pressure: Ao, HR=62, Condition=Condition 1 (Aorta) Ao 131/58/86 05:24 PM LCA angiography performed in multiple views. tsites 05:25 PM 6Fr JR 4 Runway guide catheter was used to cannulate the PCI vessel successfully. reused? No tsites 05:26 PM RCA angiography performed in multiple views. tsites 05:26 PM Recorded Pressure: Ao, HR=60, Condition=Condition 1 (Aorta) Ao 123/64/86 05:27 PM Catheter removed tsites 05:27 PM Bolus angiogram of right Femoral complete: hand injecton tsites 05:29 PM HR=62 bpm, ALRB=783/106 mmhg, SpO2=92.0 % 05:30 PM ACT drawn tsites 05:31 PM Coronary Dominance: right tsites 05:31 PM Lesion found in Mid RCA. Pre Stenosis: 99 Pre CARLOTTA Flow: tsites 05:31 PM Lesion found in LMCA. Pre Stenosis: 60 Pre CARLOTTA Flow: tsites 05:31 PM Lesion found in Proximal LAD. Pre Stenosis: 70 Pre CARLOTTA Flow: tsites 05:31 PM Lesion found in Proximal Circumflex. Pre Stenosis: 80 Pre CARLOTTA Flow: tsites 05:32 PM Left Main Coronary Artery with 60% stenosis tsites 05:32 PM Proximal Left Anterior Descending Coronary Artery with 70% stenosis. If graft is supplying this territory, 0 % stenosis. tsites 05:32 PM Mid/Distal Left Anterior Descending Coronary Artery and diagonal branches with 0% stenosis. If graft is supplying this area, 0 % stenosis tsites 05:32 PM Circumflex, Obtuse Marginal, Left Posterior Descending, and Left Posterolateral Coronary Arteries with 80% stenosis. If graft is supplying this area, 0 % stenosis tsites 05:32 PM Right Coronary, Right Posterior Descending Arteries with Right Posterolateral and Acute Marginal branches with 99 % stenosis. If graft is supplying this area, 0 % stenosis tsites 05:32 PM Procedure completed at 17:32 tsites 05:32 PM Did you address CARLOTTA flow and Dominance? Yes tsites 05:32 PM Sign out completed: Radiation Dose 732 mGy Fluoro Time: 6.0 Isovue 370 - 200ml 100 contrast ml given by JoseA ngel Rutherford DO. Complications: NoneCardiac Rehab Consult needed: Confirmed administered medications: tsites 05:33 PM Isovue 370 - 200ml,1 Bottle(s) used. tsites 05:33 PM Arterial sheath pulled using manual compression and V+ Pad for 15 minutes by Kenny Swanson RN tsites 05:33 PM Estimated Blood Loss: minimal tsites 05:33 PM Post ECG NSR tsites 05:33 PM Post Blood Pressure 155/88 tsites 05:34 PM 17:33 Post Pulses Bilateral DP & PT 1+ tsites 05:34 PM Information taught Cardiac Cath and V+ Pad tsites 05:34 PM Education needs Procedure, Plan of Care, and Responsibilities of Patient in Care tsites 05:34 PM Learning barriers :None tsites 05:34 PM Education Methods Verbal tsites 05:34 PM Education evaluation Able to repeat information tsites 05:51 PM Site status No bleeding/hematoma - Rt Groin as reported by Kenny Swanson RN at 17:51 tsites 05:52 PM Opsite applied tsites 05:52 PM Delay to floor No tsites 05:52 PM Patient out of room: 17:52 tsites 05:52 PM Family placed in consult room. tsites 05:56 PM Report given to adwoa CEJA Pt taken to 2NE Room #31. 17:56 tsites Complications Complication None Hemodynamics Pressures Site Systolic/A Wave Diastolic/V Wave Mean LV 104 2 3 LV 133 11 3 AO 138 37 87 AO 135 60 90 AO 131 58 86 AO 123 64 86 Post Procedure Information Blood Pressure: 155/88 mmHg Rhythm: NSR Post procedural instructions were given Closure Device Time Device Success/Fail 06/10/2017 5:56:00 PM Manual Compression Successful Site Checks Time Location Status Staff Sheath In? Note 05:51 PM Rt Groin No bleeding/hematoma Kenny Swanson RN Pulses Time Site Pre-Procedure Post-Procedure Note 06/10/2017 4:20:00 PM Bilateral DP 2+ 5:33:00 PM Bilateral DP & PT 1+ Updated by Lara Webb RT (R) on 06/10/2017 5:58:35 PM Lara Webb RT electronically signed on 06/10/2017 6:00:17 PM with status of Final
[2017-06-10] MEDS: Finasteride 5 MG TABLET PO SCH (18:43)
[2017-06-10] MEDS: *HR* HYDROcodone/Acet 5/325 mg TABLET PO PRN (20:42)
[2017-06-10] MEDS: Latanoprost 2.5 ML BOTTLE BOTH EYES SCH (20:43)
[2017-06-11] MEDS: Heparin 25,000 UNIT/500 ML D5W 25,000 UNIT/500 ML BAG IVC SCH ×2 (00:24→17:15)
[2017-06-11] MEDS: Acetaminophen 325 MG TABLET PO PRN (00:26)
[2017-06-11] MEDS: 0.9 % Sodium Chloride 1,000 ML IVC SCH ×2 (06:55→14:10)
[2017-06-11 08:28] LABS: Activated Partial Thrombo Time 114.4 Seconds (26.0-36.0)
[2017-06-11 08:38] LABS: Heparin anti-factor XA UFH 0.81 IU/mL (0.30-0.70)
[2017-06-11 08:49] LABS: Basophils # 0.1 K/mcL (0.0-0.2); Basophils % 0.7 %; Eosinophils # 0.2 K/mcL (0.0-0.6); Eosinophils % 3.4 %; Hematocrit 45.1 % (37.5-50.1); Hemoglobin 14.9 g/dL (12.9-16.9); Immature Granulocytes % 0.1 % (0-4); Lymphocytes # 1.7 K/mcL (0.6-4.6); Lymphocytes % 24.2 %; Mean Corpuscular Hemoglobin 30.3 pg (28.0-33.3); Mean Corpuscular Volume 91.9 fL (83.0-100.0); Mean Platelet Volume 10.4 fL (9.4-12.4); Monocytes # 0.6 K/mcL (0.0-1.3); Monocytes % 8.5 %; Neutrophils # 4.5 K/mcL (1.6-8.9); Platelet Count 136 K/mcL (140-400); Red Blood Count 4.91 M/mcL (4.19-5.50); Red Cell Distribution Width 14.9 % (11.5-14.5); Segmented Neutrophils % 63.1 %
[2017-06-11 08:58] LABS: Calcium 9.3 mg/dL (8.6-10.3); Potassium 3.9 mEq/L (3.5-5.1)
--- NOTE | 2017-06-11 08:58 | Nephrology Progress Note ---
Date of Encounter: 06/11/17 Time of Encounter: 08:45 - Assessment and Plan (1) CKD (chronic kidney disease) Current Visit: Yes Status: Chronic S/P LHC. Morning labs pending. Avoid nephrotoxins. I&O's. Will continue to monitor. Qualifiers: Chronic kidney disease stage: stage 4 (severe) Qualified Code(s): N18.4 - Chronic kidney disease, stage 4 (severe) Subjective Principal diagnosis: fatigue, elevated troponin Interval history: Sitting up in chair. at bedside. S/P LHC-per patient triple vessel disease , told surgical candidate. Denies chest pain or shortness of breath. Objective - Vital Signs Vital signs: Vital Signs Temp Pulse Resp BP Pulse Ox 06/11/17 08:00 97.8 F 60 17 157/72 06/11/17 05:00 97.7 F 60 16 95 06/11/17 04:30 158/78 06/11/17 01:02 97.8 F 60 18 128/64 98 06/10/17 20:58 97.4 F L 63 18 126/75 94 06/10/17 20:38 63 126/78 06/10/17 15:21 97.4 F L 61 16 162/79 98 06/10/17 11:30 97.6 F 60 16 127/81 94 Intake and Output 06/10/17 06/11/17 06/11/17 23:59 07:59 15:59 Intake Total 0 / 0 1500 / 1500 0 / 0 Output Total 200 / 200 200 / 200 Balance -200 / -200 1300 / 1300 0 / 0 Intake: IV Fluids 1500 / 1500 0 / 0 0.9 % Sodium Chloride 1,000 ML 1000 / 1000 @ 100 mls/hr IVC .Q10H [facility] Rx#: [id number] Heparin 25,000 UNIT/500 ML D5W 500 / 500 0 / 0 25,000 unit In 500 ml @ 14 UNIT /KG/HR 30.324 mls/hr IVC . [id number] [facility]CO Rx#:[id number] Oral 0 / 0 0 / 0 Output: Urine 200 / 200 200 / 200 Other: # Voids 1 Weight 107.8 kg Blood Glucose* 107 115 Patient Weight 06/11/17 23:59 Weight 107.8 kg - General Appearance General appearance: Present: well-developed, well-nourished, appears started age EENT: Present: mucous membranes moist Neck: Present: no JVD Respiratory: Present: clear Cardiology: Present: edema, regular rate, regular rhythm Additional Comments: mild Gastrointestinal: Present: normoactive bowel sounds, no tenderness Integumentary: Present: warm and dry Neurologic: Present: alert and oriented x3 - Lab 06/11/17 07:40 06/10/17 03:51 Most recent lab results Calcium 9.2 mg/dL (8.6-10.3) 06/10/17 03:51 Magnesium 2.1 mg/dL (1.6-2.6) 06/07/17 05:50 Consult Discharge Plan - Plan [facility]: [facility] [Primary Care Provider] -
--- NOTE | 2017-06-11 09:02 | Internal Med Progress Note ---
Date of Encounter: 06/11/17 Time of Encounter: 08:59 - Assessment and plan (1) 3-vessel coronary artery disease Current Visit: Yes Status: Acute Assessment and plan: Cardiac catheterization showed severe 3 vessel CAD Continue heparin drip, awaiting cardiothoracic surgery recommendations Elevated troponin in office, 1.1 Remained mildly elevated throughout stay 0.06 and adynamic no longer having active chest pain Cardiology following the case Prior CV testing: TTE 06/07/17: LVEF 55%. Mild MR, mild AR, mild-moderate TR, mild phtn. TTE 05/10/17 at [facility]: EF 30-35%. Moderate global hypokinesis. Mild MR. TTE 05/31/16: EF 55%, dilated RV with normal function. Mild-moderate MR, mild TR , mild phtn. Nuclear stress test 05/31/16: Perfusion imaging negative for ischemia or infarct. (2) CKD (chronic kidney disease) Current Visit: Yes Status: Chronic Assessment and plan: CKD stage 3, stable Patient will require contrast with [facility] Nephrology is on board, recommended IV fluids and mucamyst for 24 hours received mucomyst, did not receive IV fluids Renal status is at baseline IVF Qualifiers: Chronic kidney disease stage: stage 4 (severe) Qualified Code(s): N18.4 - Chronic kidney disease, stage 4 (severe) (3) Afib Current Visit: Yes Status: Chronic Assessment and plan: Rate controlled, on Warfarin Hold warfarin Qualifiers: Atrial fibrillation type: paroxysmal Qualified Code(s): I48.0 - Paroxysmal atrial fibrillation (4) Sick sinus syndrome Current Visit: No Status: Chronic Assessment and plan: s/p pacemaker (5) PAD (peripheral artery disease) Current Visit: Yes Status: Chronic Assessment and plan: Chronic, stable (6) DVT prophylaxis Current Visit: Yes Status: Acute Assessment and plan: Patient is on warfarin (7) Diabetes Current Visit: Yes Status: Chronic Assessment and plan: Discontinue oral meds Insulin sliding scale Qualifiers: Diabetes mellitus type: type 2 Diabetes mellitus detention insulin use: without long term care administrator use Diabetes mellitus complication status: with neurologic complications Diabetes mellitus complication detail: with unspecified neuropathy Qualified Code(s): E11.40 - Type 2 diabetes mellitus with diabetic neuropathy, unspecified (8) HTN (hypertension) Current Visit: Yes Status: Chronic Assessment and plan: Controlled Qualifiers: Hypertension type: essential hypertension Qualified Code(s): I10 - Essential (primary) hypertension (9) MEL (acute kidney injury) Current Visit: No Status: Resolved - Subjective Interval history: No new complaints Denies any shortness of breath, no chest pain, no abdominal pain, no dysuria, no diarrhea, no fevers - Constitutional Vitals: Temp Pulse Resp BP Pulse Ox 97.8 F 60 17 157/72 95 06/11/17 08:00 06/11/17 08:00 06/11/17 08:00 06/11/17 08:00 06/11/17 05:00 General appearance: Present: cooperative, A&O X 3, pleasant, obese, answers questions appropriately Exam: - Head Head exam: Present: atraumatic, normocephalic - Eye Eye exam: Present: PERRL, conjuntiva pink, sclera anicteric Pupils: Present: PERRL - Neck Neck exam general surgery: Present: supple, trachea midline. Absent: lymphadenopathy - Respiratory Respiratory exam: Present: CTAB. Absent: accessory muscle use, rales, rhonchi, wheezes - Cardiovascular Cardiovascular exam: Present: RRR, +S1, +S2. Absent: diastolic murmur, gallop, rubs, systolic murmur - GI/Abdominal GI/Abdominal exam: Present: normal bowel sounds, soft, no peritoneal signs. Absent: distended, tenderness - Extremities Exam Extremities exam: Present: warm, radial pulses palpable and symmetrical. Right inguinal wound without signs of infection or hematoma. Absent: calf tenderness , cyanotic, pedal edema - Neurological Exam Neurological exam: Present: CN II-XII intact, oriented X3, no focal deficits. Absent: pronater drift, facial droop, speech deficit - Skin Skin exam: Present: dry, intact Internal Medicine: Result - Labs CBC & Chem 7: 06/11/17 07:40 06/11/17 07:40 Labs: Short CBC 06/11/17 Range/Units 07:40 WBC 7.2 (4.3-11.1) K/mcL Hgb 14.9 (12.9-16.9) g/dL Hct 45.1 (37.5-50.1) % Plt Count 136 L (140-400) K/mcL Neutrophils # 4.5 (1.6-8.9) K/mcL BMP 06/11/17 07:40 Sodium 139 Potassium 3.9 Chloride 106 Carbon Dioxide 26 BUN 24 H Creatinine 1.41 H Glucose 113 H Calcium 9.3 - ABG Interpretation ABG results: PT/INR, D-dimer PT 16.6 Seconds (9.4-12.1) H 06/10/17 12:56 Consult Discharge Plan - Plan [facility]errals: [facility] [Primary Care Provider] -
[2017-06-11] MEDS: Metoprolol XL (24 HR) Succ 25 MG TAB.ER.24H PO SCH (10:05)
[2017-06-11] MEDS: Isosorbide MONOnitrate (24 HR) 30 MG TAB.ER.24H PO SCH (10:05)
[2017-06-11] MEDS: Gabapentin 400 MG CAPSULE PO SCH ×2 (10:05→22:38)
[2017-06-11] MEDS: valACYclovir 500 MG TABLET PO SCH ×2 (10:05→22:38)
[2017-06-11] MEDS: Furosemide 20 MG TABLET PO SCH (10:08)
[2017-06-11] MEDS: Aspirin Enteric Coated 81 MG Tablet PO SCH (10:09)
[2017-06-11] MEDS: Dorzolamide/Timolol OPTH 10 ML BOTTLE BOTH EYES SCH ×2 (10:09→22:40)
[2017-06-11] MEDS: hydroCHLOROthiazide 25 MG TABLET PO SCH (10:09)
[2017-06-11] MEDS: Lidocaine 4% CREAM (LMX) 5 GM TP SCH ×3 (10:10→22:39)
[2017-06-11] MEDS: *HR* HYDROcodone/Acet 5/325 mg TABLET PO PRN ×2 (10:11→22:39)
--- NOTE | 2017-06-11 10:57 | Cardiothoracic Consult Note ---
Date of Encounter: 06/11/17 Time of Encounter: 10:52 Assessment and Plan (1) Elevated troponin Current Visit: Yes Status: Acute The assessment and plan as outlined above was discussed with the patient and/or family members who expressed understanding and agreement. All questions were answered. The patient has triple-vessel disease with left main disease. These are bypassable vessels. Ventricular function is somewhat decreased. I discussed possible open heart surgery with him and his family. He is at increased risk given his age of 82 and numerous medical problems. He wishes to explore the option of high risk PTCA with stent placement. He is a and wishes to remain [place] and not be transferred to the [facility] system. At this point they have no questions. - History of Present Illness History of present illness: Mr. Briceno is a 82 year old male The patient is an 82-year-old gentleman who was admitted with a troponin of 0.05. He has been on Coumadin for chronic atrial fibrillation and does have a pacemaker. Echocardiogram at the [facility] revealed ejection fraction of 30-35%. He also has mild to moderate tricuspid regurgitation. Cardiac catheterization revealed an ejection fraction of 30-35%. He had a 60% left main lesion. A 70% LAD lesion. An 80% circumflex lesion. And a 99% right coronary artery lesion. Past medical history is notable for hypertension, diabetes on oral agents and hypercholesterolemia. He does have chronic kidney disease. He was admitted with a creatinine of 1.7. However, now it is down to 1.41. He has a history of congestive heart failure and COPD and does use CPAP at night for sleep apnea. He has a history of carotid artery disease, although he has been told that his carotid duplex is not severe enough to warrant surgery. He is status post aortobifemoral bypass grafting in the past. Social history. He is a who is presently retired. He used to work at the [employer]. He used to smoke , but quit many years ago. Rarely drinks beer. Family history is positive for coronary artery disease. Review of systems is negative for stroke or TIA. Negative for saphenous vein varicosities or strippings. Past Med Surg Social Fam HX - Past Medical History Medical history: atrial fibrillation, CHF, COPD, diabetes, GERD, glaucoma, hyperlipidemia, hypertension, renal disease Psychiatric history: no psych history - Past Surgical History Surgical History: angioplasty/stent, LE Bypass, pacemaker/AICD - Social History Smoking Status: Former smoker Packs per day: 1 PPD - Reports quitting years ago Smokeless Tobacco Status: No Alcohol use: none Drug use: none - Family History Father Race: Family Member Ethnicity: Non- Living Status: Age at : 70 Cause of : CVA Hx Family Cardiac Disorders: Yes (CVA) Hx Family Neurologic Disorders: Yes (CVA) Brother History Unknown: Yes Race: Family Member Ethnicity: Non- Living Status: Age at : 81 Cause of : Unknown Sister Race: Family Member Ethnicity: Non- Living Status: Age at : 80 Cause of : Old age Hx Family Medical Disorders: No Mother Race: Family Member Ethnicity: Non- Living Status: Age at : 70 Cause of : HF Hx Family Cardiac Disorders: Yes (HD, HF, HLD, HTN) Medications and Allergies Aspirin Enteric Coated [Aspirin EC] 81 mg PO DAILY 01/18/16 [History] Finasteride [Proscar] 5 mg PO QPM 01/18/16 [History] Gabapentin [Neurontin] 800 mg PO BID 01/18/16 [History] Tamsulosin [Flomax] 0.4 mg PO DAILY 01/18/16 [History] Atorvastatin Calcium [Lipitor] 20 mg PO HS 05/30/16 [History] Dorzolamide/Timolol [Cosopt] 2 drop BOTH EYES BID 05/30/16 [History] Furosemide [Lasix] 30 mg PO DAILY 05/30/16 [History] Guaifenesin [Mucus Relief] 400 mg PO TID PRN 05/30/16 [History] HYDROcodone/Acet 5/325 mg [[place] 5-325 mg] 1 tab PO QID PRN 05/30/16 [History] Latanoprost [Xalatan] 1 drop BOTH EYES HS 05/30/16 [History] Losartan Potassium [Cozaar] 50 mg PO DAILY 05/30/16 [History] Omeprazole [PriLOSEC] 20 mg PO BIDAC 05/30/16 [History] Potassium Chloride [Klor-Con 10] 10 meq PO DAILY 05/30/16 [History] Warfarin [Coumadin] 2 mg PO SUMOWEFR 05/30/16 [History] Warfarin [Coumadin] 3 mg PO TUTHSA 05/30/16 [History] hydroCHLOROthiazide [Hydrochlorothiazide] 25 mg PO DAILY 05/30/16 [History] Isosorbide MONOnitrate (24 HR) [Imdur] 30 mg PO DAILY 06/06/17 [History] Lidocaine 4% CRM (LMX) [Lmx 4] 1 appl TP TID 06/06/17 [History] Metoprolol XL (24 HR) Succ [Toprol XL] 12.5 mg PO DAILY 06/06/17 [History] Polyvinyl Alcohol [Artificial Tears] 1 drop BOTH EYES QID PRN 06/06/17 [History] valACYclovir [Valtrex] 500 mg PO BID 06/06/17 [History] 3 Allergy/AdvReac Type Severity Reaction Status Date / Time etodolac AdvReac See Verified 06/06/17 16:32 Comments pregabalin [From Lyrica] AdvReac See Verified 06/06/17 16:32 Comments All Systems Review: The remainder of the systems were reviewed and are negative Physical Examination Vital Signs, Last 4 Hours Temp Pulse Resp BP 06/11/17 08:00 97.8 F 60 17 157/72 Pupils are equal, round and reactive to light and accommodation. No oral lesions. Neck is supple. Trachea in the midline. No thyromegaly or carotid bruits. Lungs are clear to percussion and auscultation. Heart is in an atrial fibrillation. No murmurs, gallops or rubs. Abdomen is benign. He has a large midline scar from aortobifemoral bypass grafting. No tenderness, rebound or guarding. Extremities have bilateral signs of severe venous insufficiency. Cranial nerves, motor and sensory intact. Results 06/11/17 07:40 06/11/17 07:40 Lab Results, Last 24 hours 06/10/17 06/11/17 06/11/17 12:56 00:49 07:40 WBC Hgb Hct Plt Count INR 1.5 APTT 64.4 H D 114.4 H* D Sodium Potassium Chloride Carbon Dioxide BUN Creatinine Glucose Calcium 06/11/17 06/11/17 07:40 07:40 WBC 7.2 Hgb 14.9 Hct 45.1 Plt Count 136 L INR APTT Sodium 139 Potassium 3.9 Chloride 106 Carbon Dioxide 26 BUN 24 H Creatinine 1.41 H Glucose 113 H Calcium 9.3 Consult Discharge Plan - Plan [facility]errals: [facility] [Primary Care Provider] -
[2017-06-11] MEDS: Finasteride 5 MG TABLET PO SCH (17:17)
[2017-06-11] MEDS: Latanoprost 2.5 ML BOTTLE BOTH EYES SCH (22:41)
[2017-06-12] MEDS: 0.9 % Sodium Chloride 1,000 ML IVC SCH (01:04)
[2017-06-12 04:44] LABS: Basophils % 0.3 %; Eosinophils # 0.3 K/mcL (0.0-0.6); Eosinophils % 3.7 %; Hematocrit 39.7 % (37.5-50.1); Immature Granulocytes % 0.4 % (0-4); Lymphocytes # 2.3 K/mcL (0.6-4.6); Lymphocytes % 30.3 %; Mean Corpuscular HGB Conc 32.7 g/dL (31.6-35.5); Mean Corpuscular Hemoglobin 30.3 pg (28.0-33.3); Mean Corpuscular Volume 92.5 fL (83.0-100.0); Mean Platelet Volume 9.8 fL (9.4-12.4); Monocytes # 0.8 K/mcL (0.0-1.3); Monocytes % 10.6 %; Neutrophils # 4.2 K/mcL (1.6-8.9); Nucleated Red Blood Cells 0.8 /100 WBC (0); Platelet Count 125 K/mcL (140-400); Red Blood Count 4.29 M/mcL (4.19-5.50); Red Cell Distribution Width 14.8 % (11.5-14.5); Segmented Neutrophils % 54.7 %
[2017-06-12 05:00] LABS: Albumin 3.5 g/dL (3.5-5.7); Albumin/Globulin Ratio 1.5 (1.1-2.2); Bilirubin,Total 0.5 mg/dL (0.3-1.0); Calcium 8.7 mg/dL (8.6-10.3); Globulin 2.3 g/dL (2.4-3.5); Potassium 3.5 mEq/L (3.5-5.1); Total Protein 5.8 g/dL (6.4-8.9)
[2017-06-12] MEDS: valACYclovir 500 MG TABLET PO SCH ×2 (08:34→22:06)
[2017-06-12] MEDS: Furosemide 20 MG TABLET PO SCH (08:34)
[2017-06-12] MEDS: Metoprolol XL (24 HR) Succ 25 MG TAB.ER.24H PO SCH (08:34)
[2017-06-12] MEDS: Aspirin Enteric Coated 81 MG Tablet PO SCH (08:34)
[2017-06-12] MEDS: Gabapentin 400 MG CAPSULE PO SCH ×2 (08:34→22:06)
[2017-06-12] MEDS: Dorzolamide/Timolol OPTH 10 ML BOTTLE BOTH EYES SCH ×2 (08:35→22:07)
[2017-06-12] MEDS: hydroCHLOROthiazide 25 MG TABLET PO SCH (08:35)
[2017-06-12] MEDS: Isosorbide MONOnitrate (24 HR) 30 MG TAB.ER.24H PO SCH (08:35)
[2017-06-12] MEDS: Lidocaine 4% CREAM (LMX) 5 GM TP SCH ×3 (08:36→22:07)
--- NOTE | 2017-06-12 08:39 | Nephrology Progress Note ---
Date of Encounter: 06/12/17 Time of Encounter: 08:37 - Assessment and Plan (1) CKD (chronic kidney disease) stage 3, GFR 30-59 ml/min Current Visit: Yes Status: Acute The patient remained stable from a renal perspective. He is not developed any acute kidney injury following his recent cardiac catheterization. We will discontinue his IV fluids. We will continue to monitor him while he is here in the hospital. (2) 3-vessel coronary artery disease Current Visit: Yes Status: Acute (3) Benign hypertension with chronic kidney disease, stage III Current Visit: Yes Status: Acute Subjective Principal diagnosis: fatigue, elevated troponin Interval history: Patient currently denies any complaints. He is not experiencing any chest pain or shortness of breath. His renal function remained stable. He is interested in pursuing high risk coronary angioplasty as a treatment option. Objective - Vital Signs Vital signs: Vital Signs Temp Pulse Resp BP Pulse Ox 06/12/17 07:08 98.2 F 50 16 147/79 99 06/12/17 05:00 98 F 60 18 156/84 98 06/11/17 19:00 98.2 F 78 18 151/85 98 06/11/17 15:39 97.4 F L 62 18 129/80 96 06/11/17 11:00 63 18 137/83 06/11/17 10:05 95 Intake and Output 06/11/17 06/12/17 06/12/17 23:59 07:59 15:59 Intake Total 860 / 860 1350 / 1350 Balance 860 / 860 1350 / 1350 Intake: IV Fluids 500 / 500 1230 / 1230 0.9 % Sodium Chloride 1,000 ML 1000 / 1000 @ 100 mls/hr IVC .Q10H FRANCO Rx#: [id number] Heparin 25,000 UNIT/500 ML D5W 500 / 500 230 / 230 25,000 unit In 500 ml @ 14 UNIT /KG/HR 30.324 mls/hr IVC . [id number] FRANCO Rx#:[id number] Oral 360 / 360 120 / 120 Other: Meal Dinner Percent of Meal Consumed 100% # Voids 1 1 Weight 107.4 kg Blood Glucose* 151 118 Patient Weight 06/12/17 23:59 Weight 107.4 kg - General Appearance Exam: Patient is alert and oriented. He is in no acute distress. Lungs diminished breath sounds otherwise clear. Heart regular rate and rhythm. Abdomen is benign. There is some mild lower extremity swelling. - Lab 06/12/17 04:28 06/12/17 04:28 Most recent lab results Calcium 8.7 mg/dL (8.6-10.3) 06/12/17 04:28 Magnesium 2.1 mg/dL (1.6-2.6) 06/07/17 05:50 Consult Discharge Plan - Plan [facility]errals: [facility] [Primary Care Provider] -
[2017-06-12] MEDS ORDERED: *HR* Heparin 10,000 UNIT/10 ML VIAL IV ONE (08:58)
[2017-06-12] MEDS ORDERED: Lidocaine 2% Syringe 100 MG/5 ML IV ONE (08:58)
[2017-06-12] MEDS ORDERED: Mannitol 25% vial 12.5 GM/50 ML VIAL IVP ONE (08:58)
[2017-06-12] MEDS ORDERED: *HR* Magnesium Sulfate 2 GM/50 ML PIGGYBACK IVPB ONE (08:58)
[2017-06-12] MEDS ORDERED: *HR* Phenylephrine 10 MG/ML VIAL IVC ONE (08:58)
[2017-06-12] MEDS ORDERED: Sodium Bicarbonate 50 MEQ/50 ML VIAL IVC ONE (08:58)
[2017-06-12] MEDS ORDERED: Albumin Human 25% 25 GM/100 ML IV.SOLN IV ONE (08:58)
--- NOTE | 2017-06-12 09:56 | Internal Med Progress Note ---
<Zackary Cooper - Last Filed: 06/12/17 11:30> Date of Encounter: 06/12/17 Time of Encounter: 09:54 - Assessment and plan (1) Elevated troponin Current Visit: Yes Status: Acute Assessment and plan: Elevated troponin in office, 1.1 Remained elevated throughout stay, however 0.06 and adynamic The patient is no longer having active chest pain Vitals remain stable otherwise Cardiology consult is pending, awaiting recommendation Prior CV testing: TTE 06/07/17: LVEF 55%. Mild MR, mild AR, mild-moderate TR, mild phtn. TTE 05/10/17 at [place]: EF 30-35%. Moderate global hypokinesis. Mild MR. TTE 05/31/16: EF 55%, dilated RV with normal function. Mild-moderate MR, mild TR , mild phtn. Nuclear stress test 05/31/16: Perfusion imaging negative for ischemia or infarct. 06/[address] [facility] shows severe 3 vessel disease including Left main Patient is discussing options with cardiology + CT surgery Prefers high risk PCI to CABG at this time, however is undecided (2) CKD (chronic kidney disease) Current Visit: Yes Status: Chronic Assessment and plan: CKD stage 3, stable Patient will require contrast with [facility] Nephrology is on board, recommends IV fluids and mucamyst for 24 hours Renal status is at baseline Qualifiers: Chronic kidney disease stage: stage 4 (severe) Qualified Code(s): N18.4 - Chronic kidney disease, stage 4 (severe) (3) Afib Current Visit: Yes Status: Chronic Assessment and plan: Rate controlled, on heparin drip at the moment Qualifiers: Atrial fibrillation type: paroxysmal Qualified Code(s): I48.0 - Paroxysmal atrial fibrillation (4) Sick sinus syndrome Current Visit: No Status: Chronic Assessment and plan: s/p pacemaker (5) PAD (peripheral artery disease) Current Visit: Yes Status: Chronic Assessment and plan: Chronic, stable (6) DVT prophylaxis Current Visit: Yes Status: Acute Assessment and plan: Patient is on warfarin at home, however currently on heparin drip (7) Diabetes Current Visit: Yes Status: Chronic Assessment and plan: Discontinue oral meds Insulin sliding scale Well controlled now Qualifiers: Diabetes mellitus type: type 2 Diabetes mellitus group home insulin use: without long term care pharmacist use Diabetes mellitus complication status: with neurologic complications Diabetes mellitus complication detail: with unspecified neuropathy Qualified Code(s): E11.40 - Type 2 diabetes mellitus with diabetic neuropathy, unspecified (8) HTN (hypertension) Current Visit: Yes Status: Chronic Assessment and plan: Controlled, appreciate cardiology recommendations Qualifiers: Hypertension type: essential hypertension Qualified Code(s): I10 - Essential (primary) hypertension - Subjective Interval history: The patient is resting at bedside at time of examination. He says that overall he is feeling very well, he denies any continued chest pain at this time. He did not have any trouble breathing overnight. He has no acute complaints at this time. - Constitutional Vitals: Temp Pulse Resp BP Pulse Ox 98.2 F 50 16 147/79 99 06/12/17 07:08 06/12/17 07:08 06/12/17 07:08 06/12/17 07:08 06/12/17 07:08 General appearance: Present: cooperative, A&O X 3, pleasant, obese, answers questions appropriately Exam: Gen: Vitals noted. No acute distress. AAOx3 HEENT: PERRL/EOMI, oropharynx clear, Normocephalic, atraumatic Neck: Supple. No adenopathy. Cardiac: RRR, no murmur, +S1/S2 Pulmonary: CTA bilaterally, no wheezes, rales or rhonchi, equal chest expansion Abdomen: soft, nontender, BS noted, no guarding Back: Nontender throughout. MSK: ROM intact, no joint swelling noted Extremities: no BLE edema, nontender calf, no cyanosis or clubbing. There is evidence of venous stasis with keratinized skin and healing wounds Neuro: A&Ox3, moves all extremities, no focal deficits Psych: Appropriate mood and behavior Internal Medicine: Result - Labs CBC & Chem 7: 06/12/17 04:28 06/12/17 04:28 Labs: Short CBC 06/12/17 Range/Units 04:28 WBC 7.7 (4.3-11.1) K/mcL Hgb 13.0 D (12.9-16.9) g/dL Hct 39.7 (37.5-50.1) % Plt Count 125 L (140-400) K/mcL Neutrophils # 4.2 (1.6-8.9) K/mcL BMP 06/12/17 04:28 Sodium 139 Potassium 3.5 Chloride 108 H Carbon Dioxide 25 BUN 21 Creatinine 1.56 H Glucose 119 H Calcium 8.7 Liver Function 06/12/17 Range/Units 04:28 Total Bilirubin 0.5 (0.3-1.0) mg/dL AST 22 (13-39) Units/L ALT 18 (7-52) Units/L Alkaline Phosphatase 52 (34-104) Units/L Albumin 3.5 (3.5-5.7) g/dL - ABG Interpretation ABG results: PT/INR, D-dimer PT 16.6 Seconds (9.4-12.1) H 06/10/17 12:56 Consult Discharge Plan - Plan [facility]errals: [facility] [Primary Care Provider] - <Chepe Armenta H - Last Filed: 06/12/17 12:47> Date of Encounter: 06/12/17 - Assessment and plan (1) 3-vessel coronary artery disease Current Visit: Yes Status: Acute - Constitutional Vitals: Temp Pulse Resp BP Pulse Ox 98 F 63 16 131/68 98 06/12/17 11:30 06/12/17 11:30 06/12/17 11:30 06/12/17 11:30 06/12/17 10:15 Internal Medicine: Result - Labs CBC & Chem 7: 06/12/17 04:28 06/12/17 04:28 Labs: Short CBC 06/12/17 Range/Units 04:28 WBC 7.7 (4.3-11.1) K/mcL Hgb 13.0 D (12.9-16.9) g/dL Hct 39.7 (37.5-50.1) % Plt Count 125 L (140-400) K/mcL Neutrophils # 4.2 (1.6-8.9) K/mcL BMP 06/12/17 04:28 Sodium 139 Potassium 3.5 Chloride 108 H Carbon Dioxide 25 BUN 21 Creatinine 1.56 H Glucose 119 H Calcium 8.7 Liver Function 06/12/17 Range/Units 04:28 Total Bilirubin 0.5 (0.3-1.0) mg/dL AST 22 (13-39) Units/L ALT 18 (7-52) Units/L Alkaline Phosphatase 52 (34-104) Units/L Albumin 3.5 (3.5-5.7) g/dL - ABG Interpretation ABG results: PT/INR, D-dimer PT 16.6 Seconds (9.4-12.1) H 06/10/17 12:56 - Attending Attestation Severe CAD Cardiothoracic surgery planning CABG in the morning I examined this patient and my medical decision-making was reviewed with the Resident Physician. I agree with the documented findings, disposition and treatment plan as described except to the extent set forth below.
--- NOTE | 2017-06-12 10:29 | Cardiothoracic Progress Note ---
Date of Encounter: 06/12/17 Time of Encounter: 08:53 - Assessment and plan (1) CAD (coronary artery disease) Current Visit: Yes Status: Acute The patient is an 82-year-old man with multiple medical problems who was admitted to [facility] with substernal chest pain. He was found to have elevated troponin I levels consistent with an acute NSTEMI. He underwent cardiac catheterization yesterday was found to have severe 3 vessel CAD and it LVEF 30-35%. He has been recommended for high risk CABG given his low ejection fraction and confounding medical conditions. The STS risk calculator reveals an operative mortality risk 5.88%, deep sternal wound infection risk 1.76%, permanent stroke risk 2.54%, renal failure risk 22.83%, and reoperation risk 10.12%. With his low ejection fraction, I would be concerned about the patient's need for possible left ventricular assist after the bypass run. This would include either intra-aortic balloon pump placement or ECMO. My concern is that placing an intra-aortic balloon pump may be difficult with the patient's previous aortobifemoral bypass graft. ECMO is not performed routinely at [facility] and if used, the patient would need to be transferred to a tertiary Medical Center. The patient is not an ideal candidate for PCI given his left main lesion, and I believe he should be transferred to a tertiary Medical Center with ECMO availability. I discussed this decision with Dr. Jose Angel Rutherford, the patient's contingents supervisor. The assessment and plan as outlined above was discussed with the patient and/or family members who expressed understanding and agreement. All questions were answered. Qualifiers: Coronary Disease-Associated Artery/Lesion type: [place] artery [place] vs. transplanted heart: [place] heart Associated angina: with stable angina Qualified Code(s): I25.118 - Atherosclerotic heart disease of [place] coronary artery with other forms of angina pectoris - Subjective Interval history: The patient is resting comfortably in his hospital bed. He has no complaints of substernal chest pain. Vital Signs, Last 4 Hours Temp Pulse Resp BP Pulse Ox 06/12/17 10:15 98 06/12/17 07:08 98.2 F 50 16 147/79 99 Oxgyen Flow Rate Oxygen Flow Rate (LPM) 2 Weight 06/10/17 06/11/17 06/12/17 23:59 23:59 23:59 Weight 108.5 kg 107.8 kg 107.4 kg - Physical Examination General: Conversant, No Apparent Distress Neck: No JVD, Normal carotid pulses Cardiac: Normal S1 and S2, No Murmur, Other (Irregular rate and rhythm (atrial fibrillation)) Lungs: Normal Breath Sounds, No Wheeze, Rales, Rhonchi Neuro: Alert and responsive, No focal deficits noted Vascular: Normal capillary refill Extremities: No Clubbing, No Cyanosis, No Edema - Labs 06/12/17 04:28 06/12/17 04:28 Lab Results, Last 24 hours 06/11/17 06/11/17 06/12/17 15:46 23:16 04:28 WBC 7.7 Hgb 13.0 D Hct 39.7 Plt Count 125 L APTT 54.7 H D 100.9 H D Sodium Potassium Chloride Carbon Dioxide BUN Creatinine Glucose Calcium Total Bilirubin AST ALT Alkaline Phosphatase 06/12/17 06/12/17 04:28 07:37 WBC Hgb Hct Plt Count APTT 67.6 H Sodium 139 Potassium 3.5 Chloride 108 H Carbon Dioxide 25 BUN 21 Creatinine 1.56 H Glucose 119 H Calcium 8.7 Total Bilirubin 0.5 AST 22 ALT 18 Alkaline Phosphatase 52 Consult Discharge Plan - Plan [facility]errals: [facility] [Primary Care Provider] -
[2017-06-12] MEDS ORDERED: CeFAZolin Syr 2,000MG/20 ML 2,000 MG/20 ML SYRINGE IVPB ONE (11:52)
--- NOTE | 2017-06-12 12:00 | Event Note ---
Date of Encounter: 06/12/17 Time of Encounter: 11:56 I spoke with the patient's geothermal production manager, Dr. Jose Angel Rutherford, and we both decided that the patient would be a poor candidate for PCI and stent placement. His cardiac catheterization and echocardiogram were reviewed and the LVEF was thought to be 45-50%. This makes the likelihood of a postoperative intra- aortic balloon pump less, and I believe that the patient's CABG could be performed at [facility]. His STS calculator risk scores reveal an operative mortality risk 4.98%, deep sternal wound infection 1.58%, permanent stroke risk 2.24%, renal failure risk 21.53%, and reoperation risk 9.19%. I spoke with the patient's pocket setter lockstitch, Dr. Yunior Samayoa, and he believes that the patient's operation completed performed tomorrow. The patient is scheduled for CABG times 3 in the morning. The patient understands the procedure, benefits, alternatives, and risks, and gives his informed consent.
--- NOTE | 2017-06-12 12:29 | Cardiology Progress Note ---
Date of Encounter: 06/12/17 Time of Encounter: 10:00 Assessment and Plan (1) Elevated troponin Current Visit: Yes Status: Acute Per cardiology: -Reported troponin 0.11 at [place], only borderline 0.05 and 0.06 x 2 here at [facility] in setting of CKD. Demand ischemia vs NSTEMI. -TTE at [place] 04/2017 EF newly reduced 30-35%. Repeated here this AM and EF has normalized 55%. -S/P C with 60% left main, 70% proximal LAD, 80% proximal circumflex, 99% mid RCA. -INitially, per review of records patient had requested high risk PCI and declined CABG. -I discussed and reviewed with patient and family at length regarding extremely high risk of stenting un-protected left main. Per discussion with , would recommend stenting at tertiary care facility. -ON asa, statin, beta [place], and heparin drip. -Chest pain free. -After re-evaluation, patient has elected for CABG here at [facility]. PLan for procedure tomorrow. -TTE re-reviewed with , who states LVEF 50%. -CArdiology will sign off and will follow in outpatient setting. Follow up set. (2) Afib Current Visit: Yes Status: Chronic Per cardiology: -Known hx of A-Fib. Currently paced. -Continue BB. -On coumadin in outpatient setting. Currently on heparin drip. Qualifiers: Atrial fibrillation type: paroxysmal Qualified Code(s): I48.0 - Paroxysmal atrial fibrillation Discussion w patient/family: The assessment and plan as outlined above was discussed with the patient and/or family members who expressed understanding and agreement. All questions were answered. Thank you for involving us in the care of your patient. Please call with any questions. Discussed and reviewed with . Subjective Principal diagnosis: fatigue, elevated troponin Interval history: Denies chest pain. Denies shortness of breath. Objective Vital Signs, Last 4 Hours Temp Pulse Resp BP Pulse Ox 06/12/17 11:30 98 F 63 16 131/68 06/12/17 10:15 98 General: Conversant, No Apparent Distress HEENT: Atraumatic, Normocephaly, Mucus Membranes Moist Neck: No JVD, Normal carotid pulses Cardiac: Reg Rate and Rhythm, Normal S1 and S2, No Murmur Lungs: Normal Breath Sounds, No Wheeze, Rales, Rhonchi Neuro: Alert and responsive, No focal deficits noted Abdomen: Soft, Non-Tender Skin: No rashes noted on visualized skin Musculoskeletal: No Chest Wall Tenderness Extremities: No Clubbing, No Cyanosis, No Edema, Normal Pulses Results 06/12/17 04:28 06/12/17 04:28 Lab Results Active Medications Acetaminophen (Tylenol) 650 mg PO Q6HR PRN PRN Reason: Mild Pain/Fever Stop: 12/06/17 18:28 Last Admin: 06/11/17 00:26 Dose: 650 mg Hydrocodone Bitart/Acetaminophen ([place] 5-325 Mg) 1 tab PO QID PRN PRN Reason: Severe Pain Stop: 12/06/17 19:36 Last Admin: 06/11/17 22:39 Dose: 1 tab Artificial Tears ([place] Tears) 1 drop BOTH EYES QID PRN; Protocol PRN Reason: Dry Eyes Stop: 12/06/17 19:36 Aspirin (Aspirin Ec) 81 mg PO DAILY FRANCO Stop: 12/07/17 09:01 Last Admin: 06/12/17 08:34 Dose: 81 mg Atorvastatin Calcium (Lipitor) 20 mg PO HS FRANCO Stop: 12/06/17 21:01 Last Admin: 06/11/17 22:38 Dose: 20 mg Chlorhexidine Gluconate (Chlorhexidine Rinse) 15 ml MM BID FRANCO Stop: 06/13/17 09:01 Docusate Sodium (Colace) 100 mg PO BID FRANCO PRN Reason: Protocol Stop: 12/07/17 09:01 Last Admin: 06/12/17 08:35 Dose: 100 mg Dorzolamide/Timolol (Cosopt) 2 drop BOTH EYES BID FRANCO Stop: 12/06/17 21:01 Last Admin: 06/12/17 08:35 Dose: 2 drop Finasteride (Proscar) 5 mg PO QPM FRANCO PRN Reason: Protocol Stop: 12/07/17 18:01 Last Admin: 06/11/17 17:17 Dose: 5 mg Furosemide (Lasix) 30 mg PO DAILY FRANCO Stop: 12/07/17 09:01 Last Admin: 06/12/17 08:34 Dose: 30 mg Gabapentin (Neurontin) 800 mg PO BID FRANCO Stop: 12/06/17 21:01 Last Admin: 06/12/17 08:34 Dose: 800 mg Guaifenesin (Robitussin Liq) 400 mg PO TID PRN PRN Reason: Congestion Heparin Sodium (Porcine) (Heparin) 7,600 unit 70 unit/kg (7600 unit) IVP Q6HR PRN PRN Reason: SEE COMMENTS Stop: 12/09/17 21:01 Heparin Sodium (Porcine) (Heparin) 3,800 unit 35 unit/kg (3800 unit) IVP Q6H PRN PRN Reason: SEE COMMENTS Stop: 12/09/17 21:01 Last Admin: 06/11/17 17:16 Dose: 3,800 unit Hydrochlorothiazide (Hydrochlorothiazide) 25 mg PO DAILY FRANCO PRN Reason: Protocol Stop: 12/07/17 09:01 Last Admin: 06/12/17 08:35 Dose: 25 mg Heparin Sodium/Dextrose (Heparin 25,000 Unit/500 Ml D5w) 25,000 unit in 500 mls @ 30.324 mls/hr IVC .[id number] FRANCO; 14 UNIT/KG/HR PRN Reason: Protocol Stop: 12/09/17 21:01 Last Titration: 06/12/17 09:34 Dose: 7.98 unit/kg/hr, 17.285 mls/hr Sodium Chloride (0.9 % Sodium Chloride) 1,000 mls @ 50 mls/hr IVC .Q20H FRANCO Stop: 12/12/17 18:01 Isosorbide Mononitrate (Imdur) 30 mg PO DAILY FRANCO Stop: 12/07/17 09:01 Last Admin: 06/12/17 08:35 Dose: 30 mg Latanoprost (Xalatan) 1 drop BOTH EYES HS FRANCO PRN Reason: Protocol Stop: 12/06/17 21:01 Last Admin: 06/11/17 22:41 Dose: 1 drop Levalbuterol HCl (Xopenex) 1.25 mg IH [id number] PRN PRN Reason: SHORTNESS OF BREATH Stop: 12/06/17 22:01 Lidocaine HCl (Lmx 4) 1 gm TP TID FRANCO Stop: 12/06/17 21:01 Last Admin: 06/12/17 08:36 Dose: 1 gm Losartan Potassium (Cozaar) 50 mg PO DAILY FRANCO Stop: 12/07/17 09:01 Last Admin: 06/12/17 08:35 Dose: 50 mg Metoprolol Succinate (Toprol Xl) 12.5 mg PO DAILY [facility] Stop: 12/07/17 09:01 Last Admin: 06/12/17 08:34 Dose: 12.5 mg Naloxone HCl (Narcan) 0.4 mg IVP Q2MIN PRN PRN Reason: SEE COMMENTS Stop: 12/06/17 18:28 Nitroglycerin (Nitroglycerin) 0.4 mg SL Q5MIN PRN PRN Reason: Chest Pain Stop: 12/06/17 19:38 Omeprazole (Prilosec) 20 mg PO BIDAC FRANCO PRN Reason: Protocol Stop: 12/07/17 07:31 Last Admin: 06/12/17 08:34 Dose: 20 mg Ondansetron HCl (Zofran) 4 mg IVP Q6HR PRN; Protocol PRN Reason: Nausea And Vomiting Stop: 12/06/17 19:14 Potassium Chloride (Potassium Chloride) 10 meq PO DAILY FRANCO Stop: 12/07/17 09:01 Last Admin: 06/12/17 08:35 Dose: 10 meq Tamsulosin HCl (Flomax) 0.4 mg PO DAILY FRANCO PRN Reason: Protocol Stop: 12/07/17 09:01 Last Admin: 06/12/17 08:34 Dose: 0.4 mg Valacyclovir HCl (Valtrex) 500 mg PO BID FRANCO Stop: 12/06/17 21:01 Last Admin: 06/12/17 08:34 Dose: 500 mg Laboratory Tests 06/12/17 06/12/17 04:28 04:28 Hgb 13.0 D Creatinine 1.56 H - Imaging and Cardiology Chest Xray: report reviewed Echo: report reviewed Cardiac cath: report reviewed - EKG Interpretation EKG results cardiology: other (Telemetry reviewed with average HR previous 12 hours noted to be 66, paced rhythm.) Consult Discharge Plan - Plan [facility]errals: [facility] [Primary Care Provider] -
--- NOTE | 2017-06-12 15:05 | Anesthesia Evaluation PreOp ---
Date of Encounter: 06/13/17 Time of Encounter: 07:27 - Past History Planned Operation: CABG Cardiac History: AK (acute NSTEMI), CHF, Angina, HTN, Hyperlipidemia, Arrhythmia (A-Fib), Cardiac Stent, Pacemaker/ICD, Other (PAD with carotid stenosis, also S/P Aorto-Bifem) Pulmonary History: Former smoker (quit years ago), COPD, SAWYER Dx (on CPAP) MOGUL OPERATOR History: Denies Any Significant HX Other Medical History: Renal (CKD 3), Diabetes Type II Anesthesia History: No Prior Anesthetic Complications, Past Anesthesia (Aorto- Bifem BPG) Alcohol Use: none Drug use: none Medications and Allergies Aspirin Enteric Coated [Aspirin EC] 81 mg PO DAILY 01/18/16 [History] Finasteride [Proscar] 5 mg PO QPM 01/18/16 [History] Gabapentin [Neurontin] 800 mg PO BID 01/18/16 [History] Tamsulosin [Flomax] 0.4 mg PO DAILY 01/18/16 [History] Atorvastatin Calcium [Lipitor] 20 mg PO HS 05/30/16 [History] Dorzolamide/Timolol [Cosopt] 2 drop BOTH EYES BID 05/30/16 [History] Furosemide [Lasix] 30 mg PO DAILY 05/30/16 [History] Guaifenesin [Mucus Relief] 400 mg PO TID PRN 05/30/16 [History] HYDROcodone/Acet 5/325 mg [[place] 5-325 mg] 1 tab PO QID PRN 05/30/16 [History] Latanoprost [Xalatan] 1 drop BOTH EYES HS 05/30/16 [History] Losartan Potassium [Cozaar] 50 mg PO DAILY 05/30/16 [History] Omeprazole [PriLOSEC] 20 mg PO BIDAC 05/30/16 [History] Potassium Chloride [Klor-Con 10] 10 meq PO DAILY 05/30/16 [History] Warfarin [Coumadin] 2 mg PO SUMOWEFR 05/30/16 [History] Warfarin [Coumadin] 3 mg PO TUTHSA 05/30/16 [History] hydroCHLOROthiazide [Hydrochlorothiazide] 25 mg PO DAILY 05/30/16 [History] Isosorbide MONOnitrate (24 HR) [Imdur] 30 mg PO DAILY 06/06/17 [History] Lidocaine 4% CRM (LMX) [Lmx 4] 1 appl TP TID 06/06/17 [History] Metoprolol XL (24 HR) Succ [Toprol XL] 12.5 mg PO DAILY 06/06/17 [History] Polyvinyl Alcohol [Artificial Tears] 1 drop BOTH EYES QID PRN 06/06/17 [History] valACYclovir [Valtrex] 500 mg PO BID 06/06/17 [History] 3 Allergy/AdvReac Type Severity Reaction Status Date / Time etodolac AdvReac See Verified 06/06/17 16:32 Comments pregabalin [From Lyrica] AdvReac See Verified 06/06/17 16:32 Comments - Meds/Allergy Pre-op Review Medications Reviewed: Yes Allergies Reviewed: Yes Beta Blockers on Current Med List: Yes Anesthesia Results - Labs 06/12/17 04:28 06/13/17 05:09 - Imaging Additional studies: Echo: Impressions: LVEF 55%. Indeterminate diastolic function. Normal right ventricular structure and function. Mild mitral regurgitation. Mild aortic regurgitation. Mild-moderate tricuspid regurgitation. Mild pulmonary hypertension. Carotid study: Impressions: Findings: Right mid ICA has a severe, 60-79% stenosis. Findings: Left proximal ICA has a moderate, 40-59% stenosis. Cath: Impressions: There is severe three vessel coronary artery disease. There is severe LV Dysfunction EF 35% Lesion Findings/Interventions * Left Main Coronary Artery There is a 60% stenosis in the LMCA. * Left Anterior Descending There is a 70% stenosis in the Proximal LAD. * Circumflex There is a 80% stenosis in the Proximal Circumflex. * Right Coronary Artery There is a 99% stenosis in the Mid RCA. Anesthesia Exam Selected Entries 06/12/17 10:15 06/12/17 11:30 Temperature 98 F Pulse Rate 63 Respiratory Rate 16 Blood Pressure 131/68 O2 Sat by Pulse Oximetry 98 Oxygen Flow Rate (LPM) 2 Oxygen Delivery Method Nasal Cannula Weight: 107kg NPO (# of Hours): 8 - HEENT Pupil (Motor): EOMI Mallampati: III Teeth: Missing, Poor dentition Oral Opening: Greater than 3 - MOGUL OPERATOR LOC: Oriented MOGUL OPERATOR Motor: Normal RUE, Normal LUE, Normal RLE, Normal LLE, Normal Face MOGUL OPERATOR Sensory: Normal: RUE, LUE, RLE, LLE, Face - Cardiac Rhythm: Irregular Murmur: None - Pulmonary Breath Sounds: bilateral Clear Respiratory Effort: Symmetrical Anesthesia Assess/Plan ASA Score: 4 Modified [place] Scale for Level of Consciousness: Cooperative, oriented, and tranquil Anesthetic Plan: General Monitoring Plan: Standard Monitors, A-Line, PAC, TYLER Recovery Plan: ICU (Discussed risks of GA, lines, TYLER and blood products. Agrees to proceed)
[2017-06-12] MEDS: Heparin 25,000 UNIT/500 ML D5W 25,000 UNIT/500 ML BAG IVC SCH (15:27)
[2017-06-12] MEDS: Finasteride 5 MG TABLET PO SCH (17:46)
[2017-06-12] MEDS ORDERED: 0.9 % Sodium Chloride 1,000 ML IVC SCH (18:00)
[2017-06-12] MEDS: Latanoprost 2.5 ML BOTTLE BOTH EYES SCH (22:07)
[2017-06-12] MEDS: Chlorhexidine Rinse 15 ML MOUTHWASH MM SCH (22:07)
[2017-06-13] MEDS: *HR* HYDROcodone/Acet 5/325 mg TABLET PO PRN (00:16)
[2017-06-13] MEDS ORDERED: CeFAZolin Syr 2,000MG/20 ML 2,000 MG/20 ML SYRINGE IVPB ONE (04:00)
[2017-06-13] MEDS: Aspirin Enteric Coated 81 MG Tablet PO SCH (05:05)
[2017-06-13] MEDS: Metoprolol XL (24 HR) Succ 25 MG TAB.ER.24H PO SCH (05:05)
[2017-06-13] MEDS: Chlorhexidine Rinse 15 ML MOUTHWASH MM SCH ×2 (05:06→19:50)
[2017-06-13 05:55] LABS: Calcium 9.2 mg/dL (8.6-10.3); Potassium 3.3 mEq/L (3.5-5.1)
[2017-06-13] MEDS ORDERED: *HR* PHENYLEPHRINE 1,000 MCG/10 ML SYRINGE IVP ONE (06:41)
[2017-06-13] MEDS ORDERED: *HR* Rocuronium Bromide 50 MG/5 ML VIAL ONE (06:41)
[2017-06-13] MEDS ORDERED: Protamine Sulfate 250 MG/25 ML VIAL IVP ONE (06:42)
[2017-06-13] MEDS ORDERED: Famotidine 20 MG/2 ML VIAL ONE (06:42)
[2017-06-13] MEDS ORDERED: Tranexamic Acid 1,000 MG/10 ML VIAL ONE ×2 (06:42→09:12)
[2017-06-13] MEDS ORDERED: *HR* Etomidate 20 MG/10 ML AMPUL IVP ONE (06:42)
[2017-06-13] MEDS ORDERED: *HR* Midazolam HCl 5 MG/5 ML VIAL IVP ONE (06:47)
[2017-06-13] MEDS ORDERED: *HR* FentaNYL (PF) 1,000 MCG/20 ML VIAL ONE (06:47)
[2017-06-13] MEDS ORDERED: Nitroglycerin 25 MG/250 ML INFUS..BTL IVC ONE ×2 (06:51→09:00)
[2017-06-13] MEDS ORDERED: NiCARdipine 2.5 MG/10 ML Syringe IVPB ONE (06:51)
[2017-06-13] MEDS ORDERED: Norepinephrine 4 MG in D5% in Water 250 ML IVC PRN (07:45)
[2017-06-13] MEDS ORDERED: Insulin Human Regular 100 UNIT in 0.9 % Sodium Chloride 100 ML IV PRN (07:45)
[2017-06-13] MEDS ORDERED: Dextrose 50 % in Water (Vial) 30 ML, Sodium Bicarbonate 20 MEQ, Potassium Chloride 15 M... TH ONE (07:45)
[2017-06-13] MEDS ORDERED: Dextrose 50 % in Water (Vial) 30 ML, Sodium Bicarbonate 20 MEQ, Lidocaine 1% 5 ML, Insu... TH SCH (07:45)
[2017-06-13 08:18] LABS: ABG Base Excess -1 mEq/L (-2 to 3); ABG Chloride 107 mEq/L (98-107); ABG Glucose 110 mg/dL (60-95); ABG HCO3 25 mEq/L (21-27); ABG Ionized Calcium 1.15 mmol/L (1.15-1.35); ABG Oxygen Saturation 96 % (95-98); ABG PCO2 46 mmHg (35-45); ABG PH 7.35 pH Units (7.32-7.45); ABG PO2 88 mmHg (85-104); ABG TCO2 27 mEq/L (20-26)
[2017-06-13] MEDS ORDERED: Potassium Chloride 40 MEQ, Lidocaine 1% 2 ML in D5% in Water 500 ML IVPB ONE (08:35)
[2017-06-13 08:57] LABS: Estimated Average Glucose 140 mg/dl; Hemoglobin A1C 6.5 %
[2017-06-13] MEDS ORDERED: niCARdipine 40 MG/200 ML MLS IVC ONE (09:00)
[2017-06-13] MEDS ORDERED: Albumin Human 5% 50.0 GM/1,000 ML VIAL ONE (09:01)
[2017-06-13] MEDS ORDERED: 0.9 % Sodium Chloride w KCl 20 MEQ/1,000 ML MLS IVC ONE (09:01)
--- NOTE | 2017-06-13 10:13 | Anesthesia Procedures ---
Date of Encounter: 06/13/17 Time of Encounter: 08:05 Procedures: Anesthesia - Arterial Line Consent obtained: written consent Time out performed: Yes Sedation: Versed (mg): 1 Sedation: Fentanyl (mcg): 50 Supplemental Oxygen via Nasal Cannula (L/min): 2 Local Anesthetic: Lidocaine 1% Amount of Anesthetic used (mls): 1 Size (Gauge): 20 Length (inches): 5 Technique Used: sterile prep, guide wire technique, direct puncture technique Post-Procedure: line taped into place, dry sterile dressing placed Patient tolerated procedure: well, no complications Complications: none Site: Radial L (attempt x 1, easy) - Central Line Placement Right IJ Consent obtained: written consent Time out performed: Yes Patient placed on monitor/pulse ox: Yes prep: mask, gown, gloves Central line prep: Chlorhexidine scrub Ultrasound used for placement: Yes Technique: Seldinger Lumen Inserted: Introducer Post procedure: sutured in place, good blood return, all ports aspirated, flushed, capped, sterile dressing applied Patient tolerated procedure: well, no complications Complications: none Comments: attempt x 1 for both introducer and swan placement. Cushing placed without new arrythmias, wedge approx 58cm
[2017-06-13 10:27] LABS: ABG Base Excess 1 mEq/L (-2 to 3); ABG Chloride 102 mEq/L (98-107); ABG Glucose 188 mg/dL (60-95); ABG HCO3 26 mEq/L (21-27); ABG Ionized Calcium 1.02 mmol/L (1.15-1.35); ABG PCO2 39 mmHg (35-45); ABG PH 7.43 pH Units (7.32-7.45); ABG PO2 > 630 mmHg (85-104); ABG TCO2 27 mEq/L (20-26)
[2017-06-13 10:41] LABS: ABG Base Excess 0 mEq/L (-2 to 3); ABG HCO3 25 mEq/L (21-27); ABG PCO2 38 mmHg (35-45); ABG PH 7.42 pH Units (7.32-7.45); ABG PO2 > 630 mmHg (85-104); ABG TCO2 26 mEq/L (20-26)
[2017-06-13 11:05] LABS: ABG Base Excess -2 mEq/L (-2 to 3); ABG Chloride 105 mEq/L (98-107); ABG Glucose 162 mg/dL (60-95); ABG HCO3 22 mEq/L (21-27); ABG Ionized Calcium 1.07 mmol/L (1.15-1.35); ABG Oxygen Saturation 100 % (95-98); ABG PCO2 32 mmHg (35-45); ABG PH 7.45 pH Units (7.32-7.45); ABG PO2 497 mmHg (85-104); ABG TCO2 23 mEq/L (20-26)
[2017-06-13 11:55] LABS: ABG Base Excess 3 mEq/L (-2 to 3); ABG Chloride 104 mEq/L (98-107); ABG Glucose 117 mg/dL (60-95); ABG HCO3 27 mEq/L (21-27); ABG Ionized Calcium 1.21 mmol/L (1.15-1.35); ABG Oxygen Saturation 100 % (95-98); ABG PCO2 42 mmHg (35-45); ABG PH 7.42 pH Units (7.32-7.45); ABG PO2 546 mmHg (85-104); ABG TCO2 29 mEq/L (20-26)
[2017-06-13] MEDS ORDERED: Protamine Sulfate 50 MG/5 ML VIAL IVP ONE (12:06)
[2017-06-13 12:13] LABS: ABG Base Excess -1 mEq/L (-2 to 3); ABG Chloride 108 mEq/L (98-107); ABG Glucose 105 mg/dL (60-95); ABG HCO3 24 mEq/L (21-27); ABG Ionized Calcium 1.32 mmol/L (1.15-1.35); ABG Oxygen Saturation 94 % (95-98); ABG PCO2 42 mmHg (35-45); ABG PH 7.37 pH Units (7.32-7.45); ABG PO2 72 mmHg (85-104); ABG TCO2 25 mEq/L (20-26)
[2017-06-13] MEDS ORDERED: 0.9 % Sodium Chloride 500 ML ONE (12:20)
[2017-06-13] MEDS: Heparin 25,000 UNIT/500 ML D5W 25,000 UNIT/500 ML BAG IVC SCH (12:39)
[2017-06-13] MEDS: Heparin 15,000 UNIT in 0.9 % Sodium Chloride 500 ML IV SCH (12:40)
--- NOTE | 2017-06-13 13:05 | Operative Note ---
Date of procedure: 06/13/17 Pre-op diagnosis: CAD Post-op diagnosis: same Procedure: 1. CABG3 (SOLORZANO to LAD, SVG to OM1, SVG to PDA). 2. Endoscopic vein harvesting, greater saphenous vein from right lower extremity. Implants: None. Complications: None. Anesthesia: GETA Surgeon: Savanah Blue Was there an junior assistant manager present: Yes Chief Technician: Nas Gomez Estimated blood loss (cc): 500 Specimen: None. Condition: stable Disposition: ICU Procedure in Detail: INDICATIONS FOR OPERATION: The patient is an 82-year-old type II diabetic, hypertensive man with chronic atrial fibrillation, hypercholesterolemia, and COPD. The patient has been followed and the [facility] and was recently found to have cardiomyopathy with a decreased LVEF 30-35%. He had an episode of substernal chest pain 2-3 weeks prior to his admission and was hospitalized overnight at the [facility]. The patient was evaluated at the [facility] cardiology department and outpatient nonexercise nuclear stress test was ordered. This revealed no evidence of ischemia or infarction. However , given the patient's resenting symptoms, is new development of cardiomyopathy, and his cardiac risk profile he underwent cardiac catheterization. The cardiac catheterization was performed on 06/10/2017 and revealed severe 3 vessel CAD and it LVEF 30-35%. In particular, the patient was found to have a 60% distal left main lesion, a 70% proximal LAD lesion, an 80% proximal LCx lesion, and a 99% mid RCA lesion. The patient had been recommended for high risk CABG and was recommended for transfer to a tertiary Medical Center given his severely decreased LVEF. The echocardiogram and cardiac catheterization studies were reviewed by additional market research consultant and the consensus was that the patient has an LVEF approximately 45%. This decreased the patient's postoperative locality risk based on the STS risk calculator to approximately 4.5%. This was discussed with the patient and his and they both requested that the operation be performed at [facility]. FINDINGS AT OPERATION: The aorta was of normal caliber and had calcifications both laterally and posteriorly in the ascending portion and anteriorly at the arch vessels of the transverse aorta. The coronary arteries measure approximately 2-3 mm in diameter and had mild distal disease. The greater saphenous vein was harvested endoscopically from the right lower extremity from the knee to the groin and was of good quality. Total bypass time was 102 minutes, cross-clamp time 57 minutes, intentional hypothermia of 34.6 degrees centigrade. The proximal anastomoses were performed under single aortic cross-clamp due to the severe calcification. DESCRIPTION OF OPERATION: After obtaining informed consent the patient, he was taken to the operating room where a satisfactory general endotracheal anesthetic was induced. Appropriate monitor lines were placed, the patient's chest, abdomen, and lower extremities were prepped and draped in a sterile fashion. The greater saphenous vein was harvested endoscopically from the right lower extremity from the knee to the groin. The vein was removed, distended, and found to be of good quality. The simultaneous tissue and skin edges were reapproximated using running Vicryl sutures. Simultaneously, a standard median sternotomy incision was made and the sternum divided. The SOLORZANO was taken down from its bed and side branches divided between hemoclips. The sternum was and the patient prepared for cannulation by placing purse string sutures of the distal ascending aorta, mid- ascending aorta, and right atrial appendage. The patient was found to have extensive calcification laterally and posteriorly in the ascending aorta and at the arch vessels and the transverse aorta. The patient was heparinized when the ACT was greater than 200 seconds, the distal ascending aorta was cannulated followed by placement of a dual stage venous cannula through the right atrial appendage and into the inferior vena cava. A stab-in antegrade metabolic cannula was placed in a soft portion of the ascending aorta. The patient was placed on bypass and the temperature allowed to drift to 34.6 degrees centigrade. The distal targets were identified and the aorta was crossclamped. The patient received 7 mL of cold antegrade Crisler cartilage up and the patient's heart obtained rapid diastolic arrest. The PDA was opened be blade and the vein was anastomosed in end-to-side fashion using running 7-0 Prolene suture. The anastomosis found to be hemostatic. This processes and repeated for the OM1 branch. After completion of this anastomosis the patient received a notice of cold antegrade crystalloid cardioplegia through the aortic root. The LAD was opened be blade and the SOLORZANO was anastomosed in end to side fashion to the LAD using running 7-0 Prolene suture. The anastomosis found to be hemostatic and the mammary pedicle was tacked to the epicardium using interrupted 5-0 silk suture. At this point it was decided to perform the proximal anastomoses under single aortic cross-clamp. The aorta was distended and the vein grafts were measured and cut appropriate lengths. The antegrade cardiac lesion cannula was left in place for a vent and an additional aortotomy site was made proximal to the vent site in the ascending aorta. The aortotomy site was enlarged performing were punch and the vein graft to the PDA was anastomosed in end to side fashion using running 5-0 Prolene suture. The antegrade metabolic cannula was removed; however, the ascending aorta was calcified near this aortotomy site. Palpation of the remaining ascending aorta proximal to the aortic cannulation site was also found to be somewhat calcified and it was decided to place the vein graft to the OM1 branch to the vein graft to the PDA branch, thus creating a Y graft. The aortotomy site of the metabolic cannula was closed using a pledgeted 5-0 Prolene suture. The patient was placed in Trendelenburg and the aortic cross- clamp was removed. The vein to the OM1 branch was anastomosed in an end-to- side fashion to the vein graft to the PDA using a running 7-0 Prolene suture. The vein grafts were occluded with bulldog clamps and de-aired the 25-gauge needle. The proximal distal anastomosis found to be hemostatic and the proximal anastomosis was marked with radiopaque loop. Two right ventricular temporary cardiac pacing lesion placed and 3 chest tubes were placed, 2 in the mediastinum and one into the left pleural space. During rewarming the patient resumed his paced rhythm from his permanent pacemaker. When the patient's systemic temperature reached 36 degrees centigrade, he was ventilated and received volume. He was weaned from bypass required no inotropic support. Protamine was administered and the aortic and venous cannulae were removed. The pursestring sutures were secured. The venous cannulation site was reinforced a running 4-0 Prolene suture. The pericardium was loosely approximated in midline using interrupted 0 silk suture. The sternum was reapproximated using doubled wires. The pectoralis major fascia, rectus abdominis fascia, simultaneous tissue, and skin edges were reapproximated a running Vicryl sutures. A negative pressure sterile dressing was placed on the sternotomy incision. The patient was transferred to the ICU in satisfactory postoperative condition. There were no intraoperative complications, and the isthmic, needle, and sponge count were corrected and of operation. - Open Heart Detail ADRIANA (Internal Mammary Artery) Usage: Yes Cardiopulmonary Bypass Time (mins): 102 Aortic Cross Clamp Time (mins): 57 Intentional Hypothermia Temperature (C.): 34.6
[2017-06-13] MEDS: 0.9 % Sodium Chloride w KCl 20 MEQ/1,000 ML MLS IVC SCH (13:15)
[2017-06-13 13:28] LABS: ABG Base Excess -2 mEq/L (-2 to 3); ABG HCO3 25 mEq/L (21-27); ABG Oxygen Saturation 100 % (95-98); ABG PCO2 51 mmHg (35-45); ABG PO2 261 mmHg (85-104); ABG TCO2 27 mEq/L (20-26); Blood Gas Modality ASSIST CONTROL; Blood Gas PEEP 5 cm H2O; Blood Gas Respiration Rate 12; Blood Gas VT 500 cc
[2017-06-13] MEDS ORDERED: Acetaminophen 650 MG RECTAL SUPP RC PRN (13:29)
[2017-06-13] MEDS ORDERED: Calcium Chloride 1,000 MG in 0.9 % Sodium Chloride 100 ML IVPB PRN (13:29)
[2017-06-13] MEDS ORDERED: *HR* Dextrose 50 % in Water (Syg) 50 ML SYRINGE IVP PRN (13:29)
[2017-06-13] MEDS ORDERED: Potassium Chloride 40 MEQ/200 ML BAG IVPB PRN (13:29)
[2017-06-13] MEDS ORDERED: Insulin Regular, Human 100 UNIT/ML IV PRN (13:29)
[2017-06-13] MEDS ORDERED: Insulin Human Regular 100 UNIT in 0.9 % Sodium Chloride 100 ML IVC SCH (13:30)
[2017-06-13] MEDS: Lidocaine 4% CREAM (LMX) 5 GM TP SCH ×3 (13:49→19:52)
[2017-06-13] MEDS: hydroCHLOROthiazide 25 MG TABLET PO SCH (13:49)
[2017-06-13] MEDS: Dorzolamide/Timolol OPTH 10 ML BOTTLE BOTH EYES SCH ×2 (13:49→19:51)
[2017-06-13] MEDS: valACYclovir 500 MG TABLET PO SCH ×2 (13:49→19:50)
[2017-06-13] MEDS: Gabapentin 400 MG CAPSULE PO SCH ×2 (13:49→19:50)
[2017-06-13 13:58] LABS: Eosinophils % 1.7 %
[2017-06-13] MEDS: Pantoprazole 40 MG VIAL IVP SCH (13:58)
[2017-06-13 14:00] LABS: Basophils # 0.1 K/mcL (0.0-0.2); Basophils % 0.4 %; Eosinophils # 0.3 K/mcL (0.0-0.6); Hematocrit 36.6 % (37.5-50.1); Hemoglobin 12.1 g/dL (12.9-16.9); Immature Granulocytes % 1.3 % (0-4); Immature Platelets 1.9 % (1.1-6.1); Lymphocytes # 2.5 K/mcL (0.6-4.6); Lymphocytes % 14.2 %; Mean Corpuscular HGB Conc 33.1 g/dL (31.6-35.5); Mean Corpuscular Hemoglobin 30.4 pg (28.0-33.3); Mean Platelet Volume 10.1 fL (9.4-12.4); Monocytes # 0.7 K/mcL (0.0-1.3); Monocytes % 4.1 %; Neutrophils # 13.9 K/mcL (1.6-8.9); Nucleated Red Blood Cells 0.2 /100 WBC (0); Red Blood Count 3.98 M/mcL (4.19-5.50); Red Cell Distribution Width 14.8 % (11.5-14.5); Segmented Neutrophils % 78.3 %
[2017-06-13 14:08] LABS: BUN/Creatinine Ratio 12 (6-26); Blood Urea Nitrogen 13 mg/dL (8-23); Calcium 8.8 mg/dL (8.6-10.3); Carbon Dioxide 25 mEq/L (23-29); Chloride 110 mEq/L (98-107); Glucose 119 mg/dL (70-105); Magnesium 2.2 mg/dL (1.6-2.6); Osmolality,Calculated 291 (280-300); Potassium 3.5 mEq/L (3.5-5.1); Sodium 140 mEq/L (136-145); eGFR For African Americans > 60 (> 60); eGFR For Non-African Americans > 60 (> 60)
[2017-06-13 14:09] LABS: INR 1.6; Prothrombin Time 17.1 Seconds (9.4-12.1)
[2017-06-13] MEDS ORDERED: *HR* FentaNYL (PF) 100 MCG/2 ML VIAL ONE (14:12)
[2017-06-13] MEDS: *HR* FentaNYL (PF) 100 MCG/2 ML VIAL IVP PRN ×2 (14:12→18:43)
[2017-06-13 14:14] LABS: Activated Partial Thrombo Time 27.9 Seconds (26.0-36.0)
[2017-06-13 14:18] LABS: Platelet Count 76 K/mcL (140-400)
[2017-06-13 14:22] LABS: Platelet Estimate Decreased (Normal); Polychromasia 1+ (Not Present)
[2017-06-13 14:23] LABS: Macrocytosis Present (Not Present)
[2017-06-13 14:39] LABS: Mixed Venous Blood pCO2 60 mmHg (44-46); Mixed Venous Blood pH 7.25 pH Units (7.34-7.36); Mixed Venous Blood pO2 50 mmHg (35-45)
[2017-06-13] MEDS: Nitroglycerin 25 MG/250 ML INFUS..BTL IVC SCH ×2 (15:18→20:48)
[2017-06-13] MEDS ORDERED: CeFAZolin Premix DUPLEX 2,000 MG/50 ML BAG IVPB SCH (16:00)
[2017-06-13] MEDS: *HR* OxyCODONE/APAP 5/325 TABLET PO PRN ×2 (16:18→22:30)
[2017-06-13] MEDS: ceFAZolin 2,000 MG in D5% in Water 100 ML IVPB SCH ×2 (17:11→23:38)
[2017-06-13 17:45] LABS: ABG Base Excess -4 mEq/L (-2 to 3); ABG HCO3 21 mEq/L (21-27); ABG Oxygen Saturation 95 % (95-98); ABG PCO2 35 mmHg (35-45); ABG PH 7.38 pH Units (7.32-7.45); ABG PO2 76 mmHg (85-104); ABG TCO2 22 mEq/L (20-26); Blood Gas Modality ASSIST CONTROL; Blood Gas PEEP 5 cm H2O; Blood Gas Respiration Rate 12; Blood Gas VT 600 cc
[2017-06-13] MEDS: Finasteride 5 MG TABLET PO SCH (17:46)
[2017-06-13] MEDS: Metoclopramide 10 MG/2 ML VIAL IVP SCH ×2 (17:51→23:40)
[2017-06-13] MEDS: niCARdipine 40 MG/200 ML MLS IVC SCH (18:06)
[2017-06-13 18:35] LABS: ABG Base Excess -3 mEq/L (-2 to 3); ABG HCO3 23 mEq/L (21-27); ABG Oxygen Saturation 92 % (95-98); ABG PCO2 43 mmHg (35-45); ABG PH 7.33 pH Units (7.32-7.45); ABG PO2 69 mmHg (85-104); ABG TCO2 24 mEq/L (20-26); Blood Gas Modality CPAP/PS; Blood Gas PEEP 5 cm H2O; Blood Gas Pressure Support 10 cm H2O
--- NOTE | 2017-06-13 19:48 | Electrocardiograph Report ---
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
[2017-06-13] MEDS: Latanoprost 2.5 ML BOTTLE BOTH EYES SCH (19:51)
[2017-06-14] MEDS: Norepinephrine 4 MG in D5% in Water 250 ML IVC SCH ×2 (00:09→19:26)
[2017-06-14] MEDS: niCARdipine 40 MG/200 ML MLS IVC SCH ×4 (00:09→20:16)
[2017-06-14 03:59] LABS: Basophils % 0.3 %; Eosinophils % 0.1 %
[2017-06-14 04:01] LABS: Hematocrit 29.2 % (37.5-50.1); Hemoglobin 9.9 g/dL (12.9-16.9); Immature Granulocytes % 0.6 % (0-4); Immature Platelets 1.7 % (1.1-6.1); Lymphocytes # 1.4 K/mcL (0.6-4.6); Lymphocytes % 11.4 %; Mean Corpuscular HGB Conc 33.9 g/dL (31.6-35.5); Mean Corpuscular Hemoglobin 31.2 pg (28.0-33.3); Mean Corpuscular Volume 92.1 fL (83.0-100.0); Monocytes % 8.2 %; Neutrophils # 9.5 K/mcL (1.6-8.9); Red Blood Count 3.17 M/mcL (4.19-5.50); Red Cell Distribution Width 15.1 % (11.5-14.5); Segmented Neutrophils % 79.4 %
[2017-06-14 04:03] LABS: Platelet Count 81 K/mcL (140-400)
[2017-06-14 04:04] LABS: INR 1.3; Prothrombin Time 13.9 Seconds (9.4-12.1)
[2017-06-14 04:07] LABS: Activated Partial Thrombo Time 27.6 Seconds (26.0-36.0)
[2017-06-14 04:13] LABS: Calcium 8.4 mg/dL (8.6-10.3); Magnesium 2.4 mg/dL (1.6-2.6)
[2017-06-14] MEDS: Metoclopramide 10 MG/2 ML VIAL IVP SCH ×4 (05:02→23:06)
[2017-06-14] MEDS: *HR* OxyCODONE/APAP 5/325 TABLET PO PRN ×5 (05:02→23:06)
[2017-06-14] MEDS: *HR* FentaNYL (PF) 100 MCG/2 ML VIAL IVP PRN (06:00)
[2017-06-14] MEDS: Nitroglycerin 25 MG/250 ML INFUS..BTL IVC SCH ×2 (06:29→23:24)
--- NOTE | 2017-06-14 08:22 | Cardiothoracic Progress Note ---
Date of Encounter: 06/14/17 Time of Encounter: 08:20 - Assessment and plan (1) CAD (coronary artery disease) Current Visit: Yes Status: Acute The patient remained hemodynamic stable overnight. He is currently extubated and breathing comfortably. The Eldena-Pritesh catheter will be removed today however the arterial line and Stout catheter will remain in place for close monitoring of the systolic blood pressure and urine output. He will be monitored in the ICU today. The assessment and plan as outlined above was discussed with the patient and/or family members who expressed understanding and agreement. All questions were answered. Qualifiers: Coronary Disease-Associated Artery/Lesion type: [place] artery [place] vs. transplanted heart: [place] heart Associated angina: with stable angina Qualified Code(s): I25.118 - Atherosclerotic heart disease of [place] coronary artery with other forms of angina pectoris - Subjective Procedure(s) Performed: POD#1 S/P CABG3 Interval history: The patient remained hemodynamically stable overnight. He is extubated and breathing comfortably. He has no complaints. Vital Signs, Last 4 Hours Temp Pulse Resp BP Pulse Ox 06/14/17 07:51 97.9 F 06/14/17 07:32 20 98 06/14/17 06:00 91 37 142/67 93 06/14/17 05:11 21 127/55 95 06/14/17 05:00 96 23 161/61 95 Oxgyen Flow Rate Oxygen Flow Rate (LPM) 5 Clinical Data, last 8 Hours Output, Chest Tube Drainage 26 Amount [Mediastinal #1] Output, Chest Tube Drainage 90 Amount [Mediastinal #1] Output, Chest Tube Drainage 18 Amount [Mediastinal #1] Output, Chest Tube Drainage 4 Amount [Mediastinal #1] Output, Chest Tube Drainage 5 Amount [Mediastinal #1] Output, Chest Tube Drainage 10 Amount [Mediastinal #1] Output, Chest Tube Drainage 15 Amount [Mediastinal #2] Output, Chest Tube Drainage 35 Amount [Mediastinal #2] Output, Chest Tube Drainage 14 Amount [Mediastinal #2] Output, Chest Tube Drainage 20 Amount [Mediastinal #2] Output, Chest Tube Drainage 16 Amount [Mediastinal #2] Output, Chest Tube Drainage 14 Amount [Mediastinal #2] Weight 06/12/17 06/13/17 06/14/17 23:59 23:59 23:59 Weight 107.4 kg 112.1 kg - Physical Examination General: Conversant, No Apparent Distress Neck: No JVD, Normal carotid pulses Cardiac: Normal S1 and S2, No Murmur, Other (Irregular paced rate and rhythm ( atrial fibrillation)) Incision: No signs of infection, Dry/intact dressing Sternum: Stable Chest tubes: Minimal drainage, Other (No air leak) Lungs: Normal Breath Sounds, No Wheeze, Rales, Rhonchi Neuro: Alert and responsive, No focal deficits noted Vascular: Normal capillary refill Musculoskeletal: No Chest Wall Tenderness Extremities: No Clubbing, No Cyanosis, No Edema - Labs 06/14/17 03:35 06/14/17 03:35 Lab Results, Last 24 hours 06/13/17 06/13/17 06/13/17 13:21 13:21 13:21 WBC 17.8 H D Hgb 12.1 L Hct 36.6 L Plt Count 76 L INR 1.6 APTT 27.9 D Sodium 140 Potassium 3.5 Chloride 110 H Carbon Dioxide 25 BUN 13 Creatinine 1.13 Glucose 119 H Calcium 8.8 Magnesium 2.2 06/13/17 06/14/17 06/14/17 22:00 03:35 03:35 WBC 11.9 H Hgb 9.9 L D Hct 29.2 L Plt Count 81 L INR 1.3 APTT 27.6 Sodium Potassium 4.2 Chloride Carbon Dioxide BUN Creatinine Glucose Calcium Magnesium 06/14/17 03:35 WBC Hgb Hct Plt Count INR APTT Sodium 138 Potassium 4.0 Chloride 109 H Carbon Dioxide 25 BUN 15 Creatinine 1.46 H Glucose 149 H Calcium 8.4 L Magnesium 2.4 - Imaging Chest Xray: image reviewed (No pneumothorax. Minimal atelectasis/infiltrates.) - VTE Documentation of Mechanical Device: Graduated compression elastic hosiery Consult Discharge Plan - Plan [facility]Primary Care Provider[facility] -
--- NOTE | 2017-06-14 08:43 | Nephrology Progress Note ---
Date of Encounter: 06/14/17 Time of Encounter: 08:42 - Assessment and Plan (1) CKD (chronic kidney disease) stage 3, GFR 30-59 ml/min Current Visit: Yes Status: Acute Patient status post CABG. His renal function remained stable. He is hemodynamically stable. We will continue to monitor his renal function. (2) 3-vessel coronary artery disease Current Visit: Yes Status: Acute (3) Benign hypertension with chronic kidney disease, stage III Current Visit: Yes Status: Acute Subjective Principal diagnosis: fatigue, elevated troponin Interval history: Patient is status post CABG yesterday. He is extubated. He is alert and oriented. He appears to be clinically stable. Creatinine is stable at 1.46. Patient is complaining of some postoperative pain but otherwise appears to be doing well. Objective - Vital Signs Vital signs: Vital Signs Temp Pulse Resp BP Pulse Ox 06/14/17 07:51 97.9 F 06/14/17 07:32 20 98 06/14/17 06:00 91 37 142/67 93 06/14/17 05:11 21 127/55 95 06/14/17 05:00 96 23 161/61 95 06/14/17 04:00 98.6 F 86 15 129/56 96 06/14/17 03:55 89 06/14/17 03:00 81 12 139/59 95 06/14/17 02:00 68 14 134/45 99 06/14/17 01:11 16 98 06/14/17 01:00 76 28 120/47 98 06/14/17 00:00 98.6 F 64 16 142/54 99 06/13/17 23:00 89 15 123/54 96 06/13/17 22:00 67 14 132/48 99 06/13/17 21:03 20 98 06/13/17 21:00 67 18 112/46 99 06/13/17 20:00 99.8 F H 66 24 106/47 98 06/13/17 18:32 17 138/51 91 06/13/17 17:36 15 140/63 97 06/13/17 16:14 14 114/52 98 06/13/17 16:00 65 06/13/17 13:10 12 121/48 97 Intake and Output 06/13/17 06/14/17 06/14/17 23:59 07:59 15:59 Intake Total 1338.4 / 1338.4 946.5 / 946.5 Output Total 1196 / 1196 471 / 471 Balance 142.4 / 142.4 475.5 / 475.5 Intake: IV Fluids 998.4 / 998.4 836.5 / 836.5 HumuLIN R 100 UNIT In 0.9 % 21.4 / 21.4 Sodium Chloride 100 ML @ As Directed IV ONCE PRN Rx#: [id number] KCl 20 mEq in 0.9% Sodium 395 / 395 300 / 300 Chloride 20 meq In 1,000 ml @ 50 mls/hr IVC .Q20H FRANCO Rx#: [id number] Nitroglycerin Premix 25 MG/250 322 / 322 178 / 178 ML 25 mg In 250 ml @ 0.5 MCG/KG /MIN 33.63 mls/hr IVC .Q7H27M FRANCO Rx#:[id number] Cardene Premix 40mg/200ml 40 mg 10 / 10 In 200 ml @ 5 MG/HR 25 mls/hr IVC .Q8H FRANCO Rx#:[id number] ALBURX 5% 12.5 gm In 250 ml @ 250 / 250 999 mls/hr IVPB AD PRN Rx#: [id number] Magnesium Sulfate Premix 2gm/ 50 / 50 50mL 2 gm In 50 ml @ 50 mls/hr IVPB Q5H PRN Rx#:[id number] Potassium Chloride 20 mEq/100 100 / 100 mL 20 meq In 100 ml @ 100 mls/ hr IVPB Q1H PRN Rx#:[id number] Ancef 2,000 MG In Dextrose 5% 100 / 100 100 / 100 100 ML @ 200 mls/hr IVPB Q8H FRANCO Rx#:[id number] Oral 150 / 150 110 / 110 Intake, Autotransfusion Amount 190 / 190 Output: Catheter 825 / 825 178 / 178 Chest Tube Drainage 371 / 371 293 / 293 Mediastinal #1 91 / 91 164 / 164 Mediastinal #2 280 / 280 129 / 129 Other: Blood Glucose* 133 144 - General Appearance Exam: Patient is alert and oriented. He is in no acute distress. Lung sounds otherwise clear. Heart regular rate and rhythm. Abdomen was benign. There is some swelling of the right lower extremity with the leg being wrapped as well. There is minimal swelling of the left lower extremity. Chest tubes are in place. - Lab 06/14/17 03:35 06/14/17 03:35 Most recent lab results ABG pH 7.33 pH Units (7.32-7.45) 06/13/17 18:27 ABG pCO2 43 mmHg (35-45) 06/13/17 18:27 ABG pO2 69 mmHg (85-104) L 06/13/17 18:27 ABG HCO3 23 mEq/L (21-27) 06/13/17 18:27 ABG O2 Saturation 92 % (95-98) L 06/13/17 18:27 Calcium 8.4 mg/dL (8.6-10.3) L 06/14/17 03:35 Magnesium 2.4 mg/dL (1.6-2.6) 06/14/17 03:35 - VTE Documentation of Mechanical Device: Graduated compression elastic hosiery Consult Discharge Plan - Plan [facility]errals: [facility] [Primary Care Provider] -
[2017-06-14] MEDS ORDERED: Furosemide 20 MG/2 ML VIAL IVP SCH (09:00)
[2017-06-14] MEDS ORDERED: Heparin 1,000 UNITS/500 mL 500 ML ONE (09:11)
[2017-06-14] MEDS: Gabapentin 400 MG CAPSULE PO SCH ×2 (09:17→20:13)
[2017-06-14] MEDS: valACYclovir 500 MG TABLET PO SCH ×2 (09:17→20:13)
[2017-06-14] MEDS: Aspirin Enteric Coated 81 MG Tablet PO SCH (09:18)
[2017-06-14] MEDS: Pantoprazole 40 MG VIAL IVP SCH (09:18)
[2017-06-14] MEDS: Chlorhexidine Rinse 15 ML MOUTHWASH MM SCH ×2 (09:18→20:12)
[2017-06-14] MEDS: Dorzolamide/Timolol OPTH 10 ML BOTTLE BOTH EYES SCH ×2 (09:19→20:14)
[2017-06-14] MEDS: Lidocaine 4% CREAM (LMX) 5 GM TP SCH ×3 (09:19→20:15)
--- NOTE | 2017-06-14 11:02 | Anesthesia Evaluation Post Op ---
Date of Encounter: 06/14/17 Time of Encounter: 11:00 - Vital Signs Vital Signs: Selected Entries 06/14/17 09:00 06/14/17 10:00 Temperature 98.0 F Pulse Rate 68 Respiratory Rate 20 Blood Pressure 114/49 O2 Sat by Pulse Oximetry 98 Oxygen Flow Rate (LPM) 5 Oxygen Delivery Method Nasal Cannula - Lungs Lungs: Clear Ascult./Percussion - Airway Airway: Non-obstructed - Cardiovascular Irregular Rate, Baseline Rhythm - Mental Status Mental Status: Alert & Oriented, Answers Appropriately - Pain Pain Scale: 4 Pain Scale used: Numeric (1 - 10) - Nausea Vomiting Nausea Vomiting: Not Present - Hydration Hydration: Tolerates oral liquids, Stout catheter Notes: 06/14/17 11:01 Patient POD #1 CABG. No apparent anesthesia complications. Overall doing well at this time. Management per CT surgery.
[2017-06-14] MEDS: 0.9 % Sodium Chloride w KCl 20 MEQ/1,000 ML MLS IVC SCH (13:08)
[2017-06-14] MEDS ORDERED: Dextrose Gel 15 GM/37.5 ML TUBE PO PRN ×2 (13:32)
[2017-06-14] MEDS ORDERED: D5% in Water 1,000 ML IVC PRN (13:32)
[2017-06-14] MEDS ORDERED: *HR* Dextrose 50 % in Water (Syg) 50 ML SYRINGE IVP PRN (13:32)
[2017-06-14] MEDS: *HR* Heparin 5,000 UNIT/ML VIAL SQ SCH (16:43)
[2017-06-14] MEDS: Finasteride 5 MG TABLET PO SCH (16:43)
[2017-06-14] MEDS: Insulin LISPRO 300 UNITS/3 ML VIAL SQ SCH (16:44)
[2017-06-14] MEDS: Heparin 15,000 UNIT in 0.9 % Sodium Chloride 500 ML IV SCH (19:26)
[2017-06-14] MEDS: Acetaminophen 325 MG TABLET PO PRN (20:13)
[2017-06-14] MEDS: Latanoprost 2.5 ML BOTTLE BOTH EYES SCH (20:14)
[2017-06-14] MEDS ORDERED: Insulin LISPRO 300 UNITS/3 ML VIAL SQ SCH (21:00)
[2017-06-15] MEDS: *HR* OxyCODONE/APAP 5/325 TABLET PO PRN ×2 (04:24→10:51)
[2017-06-15] MEDS: Metoclopramide 10 MG/2 ML VIAL IVP SCH ×3 (04:24→20:02)
[2017-06-15 04:35] LABS: Hematocrit 28.7 % (37.5-50.1); Monocytes % 11.3 %; Red Cell Distribution Width 15.6 % (11.5-14.5)
[2017-06-15 04:37] LABS: Basophils % 0.4 %; Eosinophils # 0.2 K/mcL (0.0-0.6); Hemoglobin 9.7 g/dL (12.9-16.9); Immature Granulocytes % 0.5 % (0-4); Immature Platelets 2.3 % (1.1-6.1); Lymphocytes # 1.6 K/mcL (0.6-4.6); Lymphocytes % 14.5 %; Mean Corpuscular HGB Conc 33.8 g/dL (31.6-35.5); Mean Corpuscular Hemoglobin 31.5 pg (28.0-33.3); Mean Corpuscular Volume 93.2 fL (83.0-100.0); Mean Platelet Volume 10.3 fL (9.4-12.4); Monocytes # 1.2 K/mcL (0.0-1.3); Red Blood Count 3.08 M/mcL (4.19-5.50); Segmented Neutrophils % 71.3 %
[2017-06-15 04:51] LABS: Neutrophils # 7.6 K/mcL (1.6-8.9); Platelet Count 79 K/mcL (140-400)
[2017-06-15 04:57] LABS: BUN/Creatinine Ratio 12 (6-26); Blood Urea Nitrogen 16 mg/dL (8-23); Calcium 8.2 mg/dL (8.6-10.3); Carbon Dioxide 24 mEq/L (23-29); Chloride 110 mEq/L (98-107); Glucose 131 mg/dL (70-105); Osmolality,Calculated 289 (280-300); Sodium 138 mEq/L (136-145); eGFR For African Americans > 60 (> 60); eGFR For Non-African Americans 53 (> 60)
[2017-06-15] MEDS: *HR* Heparin 5,000 UNIT/ML VIAL SQ SCH ×2 (05:13→20:02)
[2017-06-15] MEDS: niCARdipine 40 MG/200 ML MLS IVC SCH (07:27)
[2017-06-15] MEDS: Insulin LISPRO 300 UNITS/3 ML VIAL SQ SCH ×4 (07:27→21:53)
[2017-06-15] MEDS: 0.9 % Sodium Chloride w KCl 20 MEQ/1,000 ML MLS IVC SCH (07:37)
[2017-06-15] MEDS: Nitroglycerin 25 MG/250 ML INFUS..BTL IVC SCH ×3 (07:37→08:50)
--- NOTE | 2017-06-15 07:44 | Cardiothoracic Progress Note ---
Date of Encounter: 06/15/17 Time of Encounter: 07:42 - Assessment and plan (1) CAD (coronary artery disease) Current Visit: Yes Status: Acute The patient remained hemodynamic stable overnight. He remains extubated and is breathing comfortably. The chest tubes were removed. The arterial line and Stout catheter will be removed. The patient will be transferred to the stepdown unit when a bed is available. The assessment and plan as outlined above was discussed with the patient and/or family members who expressed understanding and agreement. All questions were answered. Qualifiers: Coronary Disease-Associated Artery/Lesion type: [place] artery [place] vs. transplanted heart: [place] heart Associated angina: with stable angina Qualified Code(s): I25.118 - Atherosclerotic heart disease of [place] coronary artery with other forms of angina pectoris - Subjective Procedure(s) Performed: POD#2 S/P CABG3 Interval history: The patient remained hemodynamically stable overnight. He is extubated and breathing comfortably. He has no complaints. Vital Signs, Last 4 Hours Pulse Resp BP Pulse Ox 06/15/17 07:00 80 16 142/76 95 06/15/17 06:00 83 15 124/74 95 06/15/17 05:15 74 14 121/76 96 06/15/17 04:40 17 95 06/15/17 04:15 67 16 149/62 96 Oxgyen Flow Rate Oxygen Flow Rate (LPM) 5 Clinical Data, last 8 Hours Output, Chest Tube Drainage 0 Amount [Mediastinal #1] Output, Chest Tube Drainage 40 Amount [Mediastinal #2] Weight 06/13/17 06/14/17 06/15/17 23:59 23:59 23:59 Weight 112.1 kg 109.1 kg - Physical Examination General: Conversant, No Apparent Distress Neck: No JVD, Normal carotid pulses Cardiac: Reg Rate and Rhythm (Permanent paced rhythm (VVI)), Normal S1 and S2, No Murmur Incision: No signs of infection, Dry/intact dressing Sternum: Stable Chest tubes: Minimal drainage, Other (No air leak) Lungs: Normal Breath Sounds, No Wheeze, Rales, Rhonchi Neuro: Alert and responsive, No focal deficits noted Vascular: Normal capillary refill Extremities: No Clubbing, No Cyanosis, No Edema - Labs 06/15/17 04:15 06/15/17 04:00 Lab Results, Last 24 hours 06/15/17 06/15/17 04:00 04:15 WBC 10.7 Hgb 9.7 L Hct 28.7 L Plt Count 79 L Sodium 138 Potassium 4.0 Chloride 110 H Carbon Dioxide 24 BUN 16 Creatinine 1.30 Glucose 131 H Calcium 8.2 L - Imaging Chest Xray: image reviewed (Stable cardiomegaly. No pneumothorax. Small bilateral pleural effusions.) - VTE Documentation of Mechanical Device: Graduated compression elastic hosiery Consult Discharge Plan - Plan [facility]errals: [facility] [Primary Care Provider] -
[2017-06-15] MEDS: Pantoprazole 40 MG VIAL IVP SCH (08:49)
[2017-06-15] MEDS: Aspirin Enteric Coated 81 MG Tablet PO SCH (08:49)
[2017-06-15] MEDS: Chlorhexidine Rinse 15 ML MOUTHWASH MM SCH ×2 (08:49→20:03)
[2017-06-15] MEDS: valACYclovir 500 MG TABLET PO SCH ×2 (08:50→20:04)
[2017-06-15] MEDS: Gabapentin 400 MG CAPSULE PO SCH ×2 (08:50→20:03)
[2017-06-15] MEDS: Dorzolamide/Timolol OPTH 10 ML BOTTLE BOTH EYES SCH ×2 (08:53→20:03)
[2017-06-15] MEDS: Lidocaine 4% CREAM (LMX) 5 GM TP SCH ×3 (08:53→20:04)
[2017-06-15] MEDS ORDERED: Dextrose Gel 15 GM/37.5 ML TUBE PO PRN ×2 (09:14)
[2017-06-15] MEDS ORDERED: Naloxone 0.4 MG/ML INJ IVP PRN (09:14)
[2017-06-15] MEDS ORDERED: Acetaminophen 325 MG TABLET PO PRN (09:14)
[2017-06-15] MEDS ORDERED: GuaiFENesin Liq 200 MG/10 ML UDC PO PRN (09:14)
[2017-06-15] MEDS ORDERED: Levalbuterol Neb 1.25 MG/3 ML IH PRN (09:14)
[2017-06-15] MEDS ORDERED: *HR* FentaNYL (PF) 100 MCG/2 ML VIAL IVP PRN (09:14)
[2017-06-15] MEDS ORDERED: D5% in Water 1,000 ML IVC PRN (09:14)
[2017-06-15] MEDS ORDERED: *HR* Dextrose 50 % in Water (Syg) 50 ML SYRINGE IVP PRN (09:14)
[2017-06-15] MEDS ORDERED: Ondansetron 4 MG/2 ML VIAL IVP PRN (09:14)
[2017-06-15] MEDS ORDERED: Insulin Regular, Human 100 UNIT/ML IV PRN (09:14)
[2017-06-15] MEDS ORDERED: niCARdipine 40 MG/200 ML MLS IVC SCH (09:14)
[2017-06-15] MEDS ORDERED: Nitroglycerin 0.4 MG TAB.SUBL SL PRN (09:14)
[2017-06-15] MEDS ORDERED: Artificial Tears SOLN 15 ML BOTTLE BOTH EYES PRN (09:14)
--- NOTE | 2017-06-15 12:02 | Nephrology Progress Note ---
Date of Encounter: 06/15/17 Time of Encounter: 11:15 - Assessment and Plan (1) CKD (chronic kidney disease) Current Visit: Yes Status: Chronic S/P CABG. Renal fct at baseline. Avoid nephrotoxins. Will continue to monitor. Qualifiers: Chronic kidney disease stage: stage 4 (severe) Qualified Code(s): N18.4 - Chronic kidney disease, stage 4 (severe) Subjective Principal diagnosis: fatigue, elevated troponin Interval history: S/P CABG. Resting quietly in bed. No new complaints. Objective - Vital Signs Vital signs: Vital Signs Temp Pulse Resp BP Pulse Ox 06/15/17 11:59 16 96 06/15/17 11:27 74 06/15/17 11:00 97.5 F L 71 16 138/73 96 06/15/17 09:00 78 17 108/56 96 06/15/17 08:30 16 95 06/15/17 07:49 72 06/15/17 07:45 97.8 F 06/15/17 07:00 80 16 142/76 95 06/15/17 06:00 83 15 124/74 95 06/15/17 05:15 74 14 121/76 96 06/15/17 04:40 17 95 06/15/17 04:15 67 16 149/62 96 06/15/17 03:30 97.6 F 06/15/17 03:00 81 23 149/64 94 06/15/17 02:00 61 16 116/46 96 06/15/17 01:00 70 18 123/55 96 06/15/17 00:24 16 96 06/15/17 00:00 70 18 119/51 96 06/14/17 23:42 98.0 F 06/14/17 23:17 60 06/14/17 23:00 60 19 117/53 96 06/14/17 22:06 60 19 121/54 98 06/14/17 21:00 76 21 113/51 96 06/14/17 20:46 18 95 06/14/17 20:20 76 24 135/63 95 06/14/17 19:00 78 16 164/74 95 06/14/17 18:54 97.7 F 06/14/17 18:00 86 20 148/62 96 06/14/17 17:00 86 20 149/67 96 06/14/17 16:16 20 96 04/04/18 16:00 97.7 F 64 20 128/54 96 06/14/17 15:00 67 20 104/45 98 06/14/17 14:00 65 20 118/52 98 06/14/17 13:00 86 20 134/59 98 Intake and Output 06/14/17 06/15/17 06/15/17 23:59 07:59 15:59 Intake Total 930 / 930 144 / 144 1586 / 1586 Output Total 745 / 745 315 / 315 Balance 185 / 185 -171 / -171 1586 / 1586 Intake: IV Fluids 250 / 250 144 / 144 1106 / 1106 KCl 20 mEq in 0.9% Sodium 1000 / 1000 Chloride 20 meq In 1,000 ml @ 50 mls/hr IVC .Q20H FRANCO Rx#: [id number] Nitroglycerin Premix 25 MG/250 250 / 250 144 / 144 106 / 106 ML 25 mg In 250 ml @ 0.5 MCG/KG /MIN 33.63 mls/hr IVC .Q7H27M FRANCO Rx#:[id number] Oral 680 / 680 480 / 480 Output: Catheter 375 / 375 275 / 275 Chest Tube Drainage 370 / 370 40 / 40 Mediastinal #1 130 / 130 0 / 0 Mediastinal #2 240 / 240 40 / 40 Other: Meal Dinner Breakfast Percent of Meal Consumed 0% 50% Weight 109.1 kg Blood Glucose* 123 127 181 Patient Weight 06/15/17 23:59 Weight 109.1 kg - General Appearance General appearance: Present: well-developed, well-nourished, appears started age EENT: Present: mucous membranes moist Neck: Present: no JVD Respiratory: Present: clear Cardiology: Present: no edema, irregular rhythm Gastrointestinal: Present: normoactive bowel sounds, no tenderness Integumentary: Present: warm and dry Neurologic: Present: alert and oriented x3 - Lab 06/15/17 04:15 06/15/17 04:00 Most recent lab results ABG pH 7.33 pH Units (7.32-7.45) 06/13/17 18:27 ABG pCO2 43 mmHg (35-45) 06/13/17 18:27 ABG pO2 69 mmHg (85-104) L 06/13/17 18:27 ABG HCO3 23 mEq/L (21-27) 06/13/17 18:27 ABG O2 Saturation 92 % (95-98) L 06/13/17 18:27 Calcium 8.2 mg/dL (8.6-10.3) L 06/15/17 04:00 Magnesium 2.4 mg/dL (1.6-2.6) 06/14/17 03:35 - VTE Documentation of Mechanical Device: Graduated compression elastic hosiery Consult Discharge Plan - Plan [facility]errals: [facility] [Primary Care Provider] -
[2017-06-15] MEDS ORDERED: Nitroglycerin 25 MG/250 ML INFUS..BTL IVC SCH (14:45)
[2017-06-15] MEDS: Finasteride 5 MG TABLET PO SCH (20:03)
[2017-06-15] MEDS: Latanoprost 2.5 ML BOTTLE BOTH EYES SCH (20:03)
[2017-06-16] MEDS: Metoclopramide 10 MG/2 ML VIAL IVP SCH ×4 (00:17→16:47)
[2017-06-16] MEDS: *HR* OxyCODONE/APAP 5/325 TABLET PO PRN ×3 (00:21→23:31)
[2017-06-16 03:34] LABS: Basophils % 0.3 %
[2017-06-16 03:36] LABS: Eosinophils # 0.2 K/mcL (0.0-0.6); Eosinophils % 1.9 %; Hematocrit 32.5 % (37.5-50.1); Hemoglobin 10.7 g/dL (12.9-16.9); Immature Granulocytes % 0.6 % (0-4); Immature Platelets 2.4 % (1.1-6.1); Lymphocytes # 1.8 K/mcL (0.6-4.6); Lymphocytes % 15.4 %; Mean Corpuscular HGB Conc 32.9 g/dL (31.6-35.5); Mean Corpuscular Hemoglobin 30.9 pg (28.0-33.3); Mean Corpuscular Volume 93.9 fL (83.0-100.0); Mean Platelet Volume 10.5 fL (9.4-12.4); Monocytes # 1.3 K/mcL (0.0-1.3); Monocytes % 11.4 %; Neutrophils # 8.2 K/mcL (1.6-8.9); Red Blood Count 3.46 M/mcL (4.19-5.50); Red Cell Distribution Width 15.8 % (11.5-14.5); Segmented Neutrophils % 70.4 %
[2017-06-16 03:39] LABS: Platelet Count 97 K/mcL (140-400)
[2017-06-16 03:48] LABS: BUN/Creatinine Ratio 12 (6-26); Blood Urea Nitrogen 16 mg/dL (8-23); Calcium 8.5 mg/dL (8.6-10.3); Carbon Dioxide 26 mEq/L (23-29); Chloride 109 mEq/L (98-107); Glucose 137 mg/dL (70-105); Osmolality,Calculated 295 (280-300); Sodium 141 mEq/L (136-145); eGFR For African Americans > 60 (> 60); eGFR For Non-African Americans 53 (> 60)
[2017-06-16] MEDS: *HR* Heparin 5,000 UNIT/ML VIAL SQ SCH ×2 (06:28→16:47)
[2017-06-16] MEDS: Insulin LISPRO 300 UNITS/3 ML VIAL SQ SCH ×4 (08:20→21:10)
--- NOTE | 2017-06-16 08:25 | Cardiothoracic Progress Note ---
Date of Encounter: 06/16/17 Time of Encounter: 08:23 - Assessment and plan (1) CAD (coronary artery disease) Current Visit: Yes Status: Acute The patient remained hemodynamic stable overnight. He is breathing comfortably. He will begin ambulating in the room and then the hallways later today. The assessment and plan as outlined above was discussed with the patient and/or family members who expressed understanding and agreement. All questions were answered. Qualifiers: Coronary Disease-Associated Artery/Lesion type: [place] artery [place] vs. transplanted heart: [place] heart Associated angina: with stable angina Qualified Code(s): I25.118 - Atherosclerotic heart disease of [place] coronary artery with other forms of angina pectoris - Subjective Procedure(s) Performed: POD#3 S/P CABG3 Interval history: The patient remained hemodynamically stable overnight. He is sitting in a chair eating breakfast this morning. He is breathing comfortably. He has no complaints. Vital Signs, Last 4 Hours Temp Pulse Resp BP Pulse Ox 06/16/17 07:36 17 98 06/16/17 07:28 97.9 F 74 18 158/81 96 Oxgyen Flow Rate Oxygen Flow Rate (LPM) 3 Clinical Data, last 8 Hours Output, Urine Amount 150 Weight 06/14/17 06/15/17 06/16/17 23:59 23:59 23:59 Weight 109.1 kg - Physical Examination General: Conversant, No Apparent Distress Neck: No JVD, Normal carotid pulses Cardiac: Normal S1 and S2, No Murmur, Other (Irregular rate and rhythm (paced)) Incision: No signs of infection, Dry/intact dressing Sternum: Stable Lungs: Normal Breath Sounds, No Wheeze, Rales, Rhonchi Neuro: Alert and responsive, No focal deficits noted Vascular: Normal capillary refill Musculoskeletal: No Chest Wall Tenderness Extremities: No Clubbing, No Cyanosis, No Edema - Labs 06/16/17 03:20 06/16/17 03:20 Lab Results, Last 24 hours 06/16/17 06/16/17 03:20 03:20 WBC 11.7 H Hgb 10.7 L Hct 32.5 L Plt Count 97 L Sodium 141 Potassium 4.0 Chloride 109 H Carbon Dioxide 26 BUN 16 Creatinine 1.29 Glucose 137 H Calcium 8.5 L - VTE Documentation of Mechanical Device: Graduated compression elastic hosiery Consult Discharge Plan - Plan [facility]: [facility] Care Provider[facility] -
[2017-06-16] MEDS: Aspirin Enteric Coated 81 MG Tablet PO SCH (08:27)
[2017-06-16] MEDS: Gabapentin 400 MG CAPSULE PO SCH ×2 (08:27→21:23)
[2017-06-16] MEDS: valACYclovir 500 MG TABLET PO SCH ×2 (08:27→21:24)
[2017-06-16] MEDS: Pantoprazole 40 MG VIAL IVP SCH (08:28)
[2017-06-16] MEDS: Chlorhexidine Rinse 15 ML MOUTHWASH MM SCH ×2 (08:28→21:21)
[2017-06-16] MEDS: Dorzolamide/Timolol OPTH 10 ML BOTTLE BOTH EYES SCH ×2 (08:29→21:20)
[2017-06-16] MEDS: Lidocaine 4% CREAM (LMX) 5 GM TP SCH ×3 (08:29→21:23)
--- NOTE | 2017-06-16 11:08 | Nephrology Progress Note ---
Date of Encounter: 06/16/17 Time of Encounter: 10:40 - Assessment and Plan (1) CKD (chronic kidney disease) Current Visit: Yes Status: Chronic S/P CABG. Renal fct at/below baseline. Avoid nephrotoxins. Will continue to monitor. Qualifiers: Chronic kidney disease stage: stage 4 (severe) Qualified Code(s): N18.4 - Chronic kidney disease, stage 4 (severe) Subjective Principal diagnosis: fatigue, elevated troponin Interval history: S/P CABG. Up in chair. No new complaints. Objective - Vital Signs Vital signs: Vital Signs Temp Pulse Resp BP Pulse Ox 06/16/17 07:36 17 98 06/16/17 07:28 97.9 F 74 18 158/81 96 06/16/17 03:23 18 96 06/16/17 03:05 98.6 F 82 20 148/86 95 06/15/17 23:23 98.8 F 72 22 144/87 91 06/15/17 23:18 18 90 06/15/17 20:00 89 06/15/17 19:32 20 94 06/15/17 18:29 98.5 F 84 19 142/68 94 06/15/17 15:50 67 16 98 06/15/17 14:35 98.0 F 80 17 141/81 06/15/17 12:15 97.7 F 06/15/17 11:59 16 96 06/15/17 11:27 74 Intake and Output 06/15/17 06/16/17 06/16/17 23:59 07:59 15:59 Intake Total 240 / 240 200 / 200 240 / 240 Output Total 270 / 270 150 / 150 Balance -30 / -30 50 / 50 240 / 240 Intake: Oral 240 / 240 200 / 200 240 / 240 Output: Urine 270 / 270 150 / 150 Other: Meal Dinner Breakfast Percent of Meal Consumed 35% 100% Blood Glucose* 145 127 - General Appearance General appearance: Present: well-developed, well-nourished, appears started age EENT: Present: mucous membranes moist Neck: Present: no JVD Respiratory: Present: clear Cardiology: Present: edema, regular rate, regular rhythm Additional Comments: mild Gastrointestinal: Present: normoactive bowel sounds, no tenderness Integumentary: Present: warm and dry Neurologic: Present: alert and oriented x3 - Lab 06/16/17 03:20 06/16/17 03:20 Most recent lab results ABG pH 7.33 pH Units (7.32-7.45) 06/13/17 18:27 ABG pCO2 43 mmHg (35-45) 06/13/17 18:27 ABG pO2 69 mmHg (85-104) L 06/13/17 18:27 ABG HCO3 23 mEq/L (21-27) 06/13/17 18:27 ABG O2 Saturation 92 % (95-98) L 06/13/17 18:27 Calcium 8.5 mg/dL (8.6-10.3) L 06/16/17 03:20 Magnesium 2.4 mg/dL (1.6-2.6) 06/14/17 03:35 - VTE Documentation of Mechanical Device: Graduated compression elastic hosiery Consult Discharge Plan - Plan Referrals: [facility],PCP [Primary Care Provider] - 06/23/17 12:30 pm
[2017-06-16] MEDS: Finasteride 5 MG TABLET PO SCH (16:47)
[2017-06-16] MEDS: Latanoprost 2.5 ML BOTTLE BOTH EYES SCH (21:20)
[2017-06-17] MEDS: *HR* Heparin 5,000 UNIT/ML VIAL SQ SCH ×2 (05:58→18:23)
[2017-06-17] MEDS: Insulin LISPRO 300 UNITS/3 ML VIAL SQ SCH ×4 (07:47→21:39)
[2017-06-17] MEDS: Pantoprazole 40 MG VIAL IVP SCH (07:58)
[2017-06-17] MEDS: Gabapentin 400 MG CAPSULE PO SCH ×2 (07:58→21:38)
[2017-06-17] MEDS: Chlorhexidine Rinse 15 ML MOUTHWASH MM SCH ×2 (07:58→21:38)
[2017-06-17] MEDS: valACYclovir 500 MG TABLET PO SCH ×2 (07:58→21:38)
[2017-06-17] MEDS: *HR* OxyCODONE/APAP 5/325 TABLET PO PRN ×4 (07:58→22:25)
[2017-06-17] MEDS: Aspirin Enteric Coated 81 MG Tablet PO SCH (07:58)
[2017-06-17] MEDS: Dorzolamide/Timolol OPTH 10 ML BOTTLE BOTH EYES SCH ×2 (07:59→21:37)
[2017-06-17] MEDS: Lidocaine 4% CREAM (LMX) 5 GM TP SCH ×3 (07:59→21:39)
--- NOTE | 2017-06-17 09:44 | Nephrology Progress Note ---
Date of Encounter: 06/17/17 Time of Encounter: 09:05 - Assessment and Plan (1) CKD (chronic kidney disease) Current Visit: Yes Status: Chronic S/P CABG. Today labs pending. SBP 160-170, will start on Amlodipine 5 mg BID. Avoid nephrotoxins. Will continue to monitor. Qualifiers: Chronic kidney disease stage: stage 4 (severe) Qualified Code(s): N18.4 - Chronic kidney disease, stage 4 (severe) Subjective Principal diagnosis: fatigue, elevated troponin Interval history: S/P CABG. Up in chair. No new complaints. Thinks going to [place] for rehab. Objective - Vital Signs Vital signs: Vital Signs Temp Pulse Resp BP Pulse Ox 06/17/17 07:48 20 97 06/17/17 07:41 81 06/17/17 07:38 81 20 97 06/17/17 07:02 98.2 F 80 18 172/98 96 06/17/17 04:37 98.3 F 76 18 161/84 96 06/17/17 03:34 16 96 06/17/17 00:15 98.4 F 66 18 145/82 97 06/16/17 23:50 16 97 06/16/17 20:26 16 96 06/16/17 18:34 98.4 F 80 18 164/86 95 06/16/17 15:55 98.9 F 76 18 162/70 98 06/16/17 11:46 16 98 06/16/17 11:31 97.9 F 68 18 162/73 97 Intake and Output 06/16/17 06/17/17 06/17/17 23:59 07:59 15:59 Intake Total 250 / 250 300 / 300 Output Total 500 / 500 100 / 100 200 / 200 Balance -250 / -250 -100 / -100 100 / 100 Intake: Oral 300 / 300 Free Water 250 / 250 Output: Urine 500 / 500 100 / 100 200 / 200 Other: Meal Breakfast Percent of Meal Consumed 95% Weight 108.8 kg Blood Glucose* 117 128 Patient Weight 06/17/17 23:59 Weight 108.8 kg - General Appearance General appearance: Present: well-developed, well-nourished, appears started age EENT: Present: mucous membranes moist Neck: Present: no JVD Respiratory: Present: clear Cardiology: Present: edema, irregular rhythm Additional Comments: mild Gastrointestinal: Present: normoactive bowel sounds, no tenderness Integumentary: Present: warm and dry Neurologic: Present: alert and oriented x3 - Lab 06/16/17 03:20 06/16/17 03:20 Most recent lab results ABG pH 7.33 pH Units (7.32-7.45) 06/13/17 18:27 ABG pCO2 43 mmHg (35-45) 06/13/17 18:27 ABG pO2 69 mmHg (85-104) L 06/13/17 18:27 ABG HCO3 23 mEq/L (21-27) 06/13/17 18:27 ABG O2 Saturation 92 % (95-98) L 06/13/17 18:27 Calcium 8.5 mg/dL (8.6-10.3) L 06/16/17 03:20 Magnesium 2.4 mg/dL (1.6-2.6) 06/14/17 03:35 - VTE Documentation of Mechanical Device: Graduated compression elastic hosiery Consult Discharge Plan - Plan Referrals: [facility],PCP [Primary Care Provider] - 06/23/17 12:30 pm
--- NOTE | 2017-06-17 11:51 | Cardiothoracic Progress Note ---
Date of Encounter: 06/17/17 Time of Encounter: 11:48 Discussion with patient/family: Advancing as expected clinically. Requiring assistance with ambulation. Planning to resume Coumadin today for atrial fibrillation. Daily INR. Plan discussed with nursing staff patient and family member of bedside. - Subjective Procedure(s) Performed: Patient seen and examined. Nursing staff of bedside. Patient has reportedly has been up and out of bed. Currently lying in bed. Denies any new symptoms of pain or shortness of breath. Reviewed plans to start Coumadin today 3 mg daily with daily INR with nursing staff. Emphasize increased activity, use of incentive spirometer and coughing and deep breathing Vital Signs, Last 4 Hours Temp Pulse Resp BP Pulse Ox 06/17/17 11:35 18 96 06/17/17 11:21 97.9 F 66 19 124/65 95 06/17/17 10:18 75 20 127/64 96 Oxgyen Flow Rate Oxygen Flow Rate (LPM) 3 Clinical Data, last 8 Hours Output, Urine Amount 200 Output, Urine Amount 100 Weight 06/15/17 06/16/17 06/17/17 23:59 23:59 23:59 Weight 109.1 kg 108.8 kg - Physical Examination Incision: Other (Sternal wound dressing in place, leg wounds wrapped) Sternum: Other (Dressing in place, sternum stable without no evidence of sternal click or instability) Pacing Wires: Removed - Labs 06/16/17 03:20 06/16/17 03:20 - VTE Documentation of Mechanical Device: Graduated compression elastic hosiery Consult Discharge Plan - Plan [facility]: [facility] [Primary Care Provider[facility] - 06/23/17 12:30 pm
[2017-06-17 11:54] LABS: BUN/Creatinine Ratio 17 (6-26); Blood Urea Nitrogen 20 mg/dL (8-23); Calcium 8.5 mg/dL (8.6-10.3); Carbon Dioxide 25 mEq/L (23-29); Chloride 109 mEq/L (98-107); Glucose 195 mg/dL (70-105); Osmolality,Calculated 298 (280-300); Potassium 3.8 mEq/L (3.5-5.1); Sodium 140 mEq/L (136-145); eGFR For African Americans > 60 (> 60); eGFR For Non-African Americans > 60 (> 60)
[2017-06-17] MEDS: *HR* Warfarin 3 MG TABLET PO SCH (18:23)
[2017-06-17] MEDS: Finasteride 5 MG TABLET PO SCH (18:23)
[2017-06-17] MEDS: Latanoprost 2.5 ML BOTTLE BOTH EYES SCH (21:37)
[2017-06-18] MEDS: *HR* OxyCODONE/APAP 5/325 TABLET PO PRN ×2 (05:42→21:05)
[2017-06-18] MEDS: *HR* Heparin 5,000 UNIT/ML VIAL SQ SCH ×2 (05:42→17:45)
[2017-06-18] MEDS: Insulin LISPRO 300 UNITS/3 ML VIAL SQ SCH ×4 (08:03→21:11)
[2017-06-18] MEDS: Chlorhexidine Rinse 15 ML MOUTHWASH MM SCH ×2 (08:11→21:06)
[2017-06-18] MEDS: Gabapentin 400 MG CAPSULE PO SCH ×2 (08:11→21:06)
[2017-06-18] MEDS: Pantoprazole 40 MG VIAL IVP SCH (08:12)
[2017-06-18] MEDS: valACYclovir 500 MG TABLET PO SCH ×2 (08:12→21:05)
[2017-06-18] MEDS: Aspirin Enteric Coated 81 MG Tablet PO SCH (08:12)
[2017-06-18] MEDS: Dorzolamide/Timolol OPTH 10 ML BOTTLE BOTH EYES SCH ×2 (08:24→21:07)
[2017-06-18] MEDS: Lidocaine 4% CREAM (LMX) 5 GM TP SCH ×3 (08:25→21:06)
--- NOTE | 2017-06-18 09:06 | Nephrology Progress Note ---
Date of Encounter: 06/18/17 Time of Encounter: 08:45 - Assessment and Plan (1) CKD (chronic kidney disease) Current Visit: Yes Status: Chronic S/P CABG. Today labs pending. SBP 130-150 improved, Losartan increased yesterday. Avoid nephrotoxins. Will continue to monitor. Qualifiers: Chronic kidney disease stage: stage 4 (severe) Qualified Code(s): N18.4 - Chronic kidney disease, stage 4 (severe) Subjective Principal diagnosis: fatigue, elevated troponin Interval history: S/P CABG. Up in chair. No new complaints. Thinks going to [place] for rehab. Objective - Vital Signs Vital signs: Vital Signs Temp Pulse Resp BP Pulse Ox 06/18/17 08:33 74 06/18/17 08:27 80 20 98 06/18/17 07:32 18 100 06/18/17 07:14 98.3 F 65 18 150/79 98 06/18/17 04:41 16 100 06/18/17 03:47 98.3 F 67 18 143/75 100 06/17/17 23:54 98 F 70 18 133/71 100 06/17/17 23:32 16 96 06/17/17 19:45 98.1 F 68 18 142/69 97 06/17/17 19:42 16 91 06/17/17 18:35 84 20 99 06/17/17 16:12 98.0 F 69 18 144/69 98 06/17/17 16:00 16 97 06/17/17 15:05 62 18 97 06/17/17 12:58 61 20 95 06/17/17 12:56 66 06/17/17 11:35 18 96 06/17/17 11:21 97.9 F 66 19 124/65 95 06/17/17 10:18 75 20 127/64 96 Intake and Output 06/17/17 06/18/17 06/18/17 23:59 07:59 15:59 Intake Total 120 / 120 200 / 200 240 / 240 Output Total 150 / 150 Balance -30 / -30 200 / 200 240 / 240 Intake: Oral 120 / 120 200 / 200 240 / 240 Output: Urine 150 / 150 Other: Meal Dinner Breakfast Percent of Meal Consumed 100% 100% Weight 115.666 kg Blood Glucose* 179 124 Patient Weight 06/18/17 23:59 Weight 115.666 kg - General Appearance General appearance: Present: well-developed, well-nourished, appears started age EENT: Present: mucous membranes moist Neck: Present: no JVD Respiratory: Present: clear Cardiology: Present: edema, regular rate, regular rhythm Additional Comments: mild Gastrointestinal: Present: normoactive bowel sounds, no tenderness Integumentary: Present: warm and dry Neurologic: Present: alert and oriented x3 - Lab 06/16/17 03:20 06/17/17 09:42 Most recent lab results ABG pH 7.33 pH Units (7.32-7.45) 06/13/17 18:27 ABG pCO2 43 mmHg (35-45) 06/13/17 18:27 ABG pO2 69 mmHg (85-104) L 06/13/17 18:27 ABG HCO3 23 mEq/L (21-27) 06/13/17 18:27 ABG O2 Saturation 92 % (95-98) L 06/13/17 18:27 Calcium 8.5 mg/dL (8.6-10.3) L 06/17/17 09:42 Magnesium 2.4 mg/dL (1.6-2.6) 06/14/17 03:35 - VTE Documentation of Mechanical Device: Graduated compression elastic hosiery Consult Discharge Plan - Plan Referrals: [facility],PCP [Primary Care Provider] - 06/23/17 12:30 pm
[2017-06-18 12:02] LABS: Basophils % 0.4 %; Eosinophils # 0.4 K/mcL (0.0-0.6); Eosinophils % 4.1 %; Hemoglobin 10.7 g/dL (12.9-16.9); Immature Granulocytes % 0.5 % (0-4); Lymphocytes # 1.4 K/mcL (0.6-4.6); Lymphocytes % 13.8 %; Mean Corpuscular HGB Conc 32.4 g/dL (31.6-35.5); Mean Corpuscular Hemoglobin 30.9 pg (28.0-33.3); Mean Corpuscular Volume 95.4 fL (83.0-100.0); Mean Platelet Volume 10.2 fL (9.4-12.4); Monocytes % 10.1 %; Platelet Count 139 K/mcL (140-400); Red Blood Count 3.46 M/mcL (4.19-5.50); Red Cell Distribution Width 16.4 % (11.5-14.5); Segmented Neutrophils % 71.1 %
[2017-06-18 12:10] LABS: Alanine Aminotransferase 14 Units/L (7-52); Albumin 3.2 g/dL (3.5-5.7); Albumin/Globulin Ratio 1.4 (1.1-2.2); Alkaline Phosphatase 47 Units/L (34-104); Aspartate Amino Transferase 18 Units/L (13-39); BUN/Creatinine Ratio 17 (6-26); Bilirubin,Total 0.7 mg/dL (0.3-1.0); Blood Urea Nitrogen 22 mg/dL (8-23); Calcium 8.6 mg/dL (8.6-10.3); Carbon Dioxide 26 mEq/L (23-29); Chloride 111 mEq/L (98-107); Globulin 2.3 g/dL (2.4-3.5); Glucose 176 mg/dL (70-105); Osmolality,Calculated 300 (280-300); Sodium 141 mEq/L (136-145); Total Protein 5.5 g/dL (6.4-8.9); eGFR For African Americans > 60 (> 60); eGFR For Non-African Americans 53 (> 60)
--- NOTE | 2017-06-18 12:50 | Cardiothoracic Progress Note ---
Date of Encounter: 06/18/17 Time of Encounter: 12:48 - Subjective Procedure(s) Performed: Patient seen and examined. Currently sitting up in chair eating lunch. Family at bedside. No new complaints. Continues to ambulate with assistance. Discussed increased activity Coumadin 3 mg daily resumed yesterday with daily INR. Tentative plans for discharge in next 24-48 hours discussed with patient and family. Vital Signs, Last 4 Hours Pulse Resp BP Pulse Ox 06/18/17 11:43 61 06/18/17 11:41 66 18 97 06/18/17 11:29 60 18 137/76 100 06/18/17 11:18 18 100 06/18/17 10:34 60 18 100 Oxgyen Flow Rate Oxygen Flow Rate (LPM) 2 Weight 06/16/17 06/17/17 06/18/17 23:59 23:59 23:59 Weight 108.8 kg 115.666 kg - Physical Examination General: Other (Sitting up in chair, no acute distress, furling cooperative,) Incision: Dry/intact dressing Sternum: Stable Pacing Wires: Removed - Labs 06/18/17 07:38 06/18/17 07:38 Lab Results, Last 24 hours 06/18/17 06/18/17 07:38 07:38 WBC 9.8 Hgb 10.7 L Hct 33.0 L Plt Count 139 L Sodium 141 Potassium 4.0 Chloride 111 H Carbon Dioxide 26 BUN 22 Creatinine 1.29 Glucose 176 H Calcium 8.6 Total Bilirubin 0.7 AST 18 ALT 14 Alkaline Phosphatase 47 - VTE Documentation of Mechanical Device: Graduated compression elastic hosiery Consult Discharge Plan - Plan [facility]: [facility] [Primary Care Provider[facility] - 06/23/17 12:30 pm
[2017-06-18] MEDS: Finasteride 5 MG TABLET PO SCH (17:46)
[2017-06-18] MEDS: *HR* Warfarin 3 MG TABLET PO SCH (17:46)
[2017-06-18] MEDS: Latanoprost 2.5 ML BOTTLE BOTH EYES SCH (21:07)
[2017-06-19] MEDS: *HR* Heparin 5,000 UNIT/ML VIAL SQ SCH ×2 (04:49→17:16)
[2017-06-19] MEDS: *HR* OxyCODONE/APAP 5/325 TABLET PO PRN ×2 (04:49→21:48)
--- NOTE | 2017-06-19 06:50 | Cardiothoracic Progress Note ---
Date of Encounter: 06/19/17 Time of Encounter: 06:47 - Assessment and plan (1) CAD (coronary artery disease) Current Visit: Yes Status: Acute The patient remained hemodynamic stable overnight. He is breathing comfortably. He will continuing ambulating in the room and then the hallways later today. He is requesting transfer to the [facility] inpatient rehabilitation unit as a bridge to home. The assessment and plan as outlined above was discussed with the patient and/or family members who expressed understanding and agreement. All questions were answered. Qualifiers: Coronary Disease-Associated Artery/Lesion type: [place] artery [place] vs. transplanted heart: [place] heart Associated angina: with stable angina Qualified Code(s): I25.118 - Atherosclerotic heart disease of [place] coronary artery with other forms of angina pectoris - Subjective Procedure(s) Performed: POD#6 S/P CABG3 Interval history: The patient remained hemodynamically stable overnight. He is sitting in a chair this morning. He is breathing comfortably. He has no complaints. Vital Signs, Last 4 Hours Temp Pulse Resp BP Pulse Ox 06/19/17 04:46 97.7 F 71 18 161/79 97 06/19/17 04:36 16 96 Oxgyen Flow Rate Oxygen Flow Rate (LPM) 4 Weight 06/17/17 06/18/17 06/19/17 23:59 23:59 23:59 Weight 108.8 kg 115.666 kg - Physical Examination General: Conversant, No Apparent Distress Neck: No JVD, Normal carotid pulses Cardiac: Normal S1 and S2, No Murmur, Other (Irregular rate and rhythm (atrial fibrillation)) Incision: No signs of infection, Dry/intact dressing Sternum: Stable Lungs: Normal Breath Sounds, No Wheeze, Rales, Rhonchi Neuro: Alert and responsive, No focal deficits noted Vascular: Normal capillary refill Extremities: No Clubbing, No Cyanosis, No Edema - Labs 06/18/17 07:38 06/18/17 07:38 Lab Results, Last 24 hours 06/18/17 06/18/17 07:38 07:38 WBC 9.8 Hgb 10.7 L Hct 33.0 L Plt Count 139 L Sodium 141 Potassium 4.0 Chloride 111 H Carbon Dioxide 26 BUN 22 Creatinine 1.29 Glucose 176 H Calcium 8.6 Total Bilirubin 0.7 AST 18 ALT 14 Alkaline Phosphatase 47 - VTE Documentation of Mechanical Device: Graduated compression elastic hosiery Consult Discharge Plan - Plan Referrals: [facility],PCP [Primary Care Provider] - 06/23/17 12:30 pm
[2017-06-19] MEDS: Aspirin Enteric Coated 81 MG Tablet PO SCH (08:03)
[2017-06-19] MEDS: Chlorhexidine Rinse 15 ML MOUTHWASH MM SCH ×2 (08:03→20:35)
[2017-06-19] MEDS: Pantoprazole 40 MG VIAL IVP SCH (08:03)
[2017-06-19] MEDS: Lidocaine 4% CREAM (LMX) 5 GM TP SCH ×3 (08:03→20:41)
[2017-06-19] MEDS: valACYclovir 500 MG TABLET PO SCH ×2 (08:03→20:36)
[2017-06-19] MEDS: Gabapentin 400 MG CAPSULE PO SCH ×2 (08:03→20:35)
[2017-06-19] MEDS: Dorzolamide/Timolol OPTH 10 ML BOTTLE BOTH EYES SCH ×2 (08:04→20:38)
[2017-06-19] MEDS: Insulin LISPRO 300 UNITS/3 ML VIAL SQ SCH ×4 (08:04→21:00)
--- NOTE | 2017-06-19 08:35 | Event Note ---
Date of Encounter: 06/19/17 Time of Encounter: 08:34 The patient's renal function remains stable. Nephrology will sign off. Please call again if needed.
[2017-06-19] MEDS: Finasteride 5 MG TABLET PO SCH (17:16)
[2017-06-19] MEDS: *HR* Warfarin 3 MG TABLET PO SCH (17:16)
[2017-06-19] MEDS: Latanoprost 2.5 ML BOTTLE BOTH EYES SCH (20:35)
[2017-06-20 05:11] LABS: INR 1.2; Prothrombin Time 13.3 Seconds (9.4-12.1)
[2017-06-20] MEDS: *HR* Heparin 5,000 UNIT/ML VIAL SQ SCH (06:24)
[2017-06-20 07:09] VITALS: BP 187/99
--- NOTE | 2017-06-20 07:39 | Discharge Summary ---
Orders not resulted at time of discharge: Pending orders 06/12/17 12:13 Red Blood Cells [BBK] Routine Type and Screen [BBK] Routine Date of Encounter: 06/20/17 Time of Encounter: 07:33 - Discharge Diagnosis (1) CAD (coronary artery disease) Priority: Primary Status: Acute Qualifiers: Coronary Disease-Associated Artery/Lesion type: [place] artery [place] vs. transplanted heart: [place] heart Associated angina: with stable angina Qualified Code(s): I25.118 - Atherosclerotic heart disease of [place] coronary artery with other forms of angina pectoris - Hospital Course Hospital course: Mr. Briceno is an 82 year old type II diabetic, hypertensive man with chronic atrial fibrillation, hypercholesterolemia, and COPD. The patient has been followed and the [facility] and was recently found to have cardiomyopathy with a decreased LVEF 30-35%. He had an episode of substernal chest pain 2-3 weeks prior to his admission and was hospitalized overnight at the [facility]. The patient was evaluated at the [facility] cardiology department and outpatient nonexercise nuclear stress test was ordered. This revealed no evidence of ischemia or infarction. However , given the patient's resenting symptoms, is new development of cardiomyopathy, and his cardiac risk profile he underwent cardiac catheterization. The cardiac catheterization was performed on 06/10/2017 and revealed severe 3 vessel CAD and it LVEF 30-35%. In particular, the patient was found to have a 60% distal left main lesion, a 70% proximal LAD lesion, an 80% proximal LCx lesion, and a 99% mid RCA lesion. The patient had been recommended for high risk CABG and was recommended for transfer to a tertiary Medical Center given his severely decreased LVEF. The echocardiogram and cardiac catheterization studies were reviewed by additional piece work checker and the consensus was that the patient has an LVEF approximately 45%. This decreased the patient's postoperative locality risk based on the STS risk calculator to approximately 4.5%. This was discussed with the patient and his and they both requested that the operation be performed at [facility]. The CABG3 performed on 06/13/2017. His postoperative course was uncomplicated and he was transferred to the stepdown unit on POD #3. The patient was ambulating; however, had difficulty with prolonged activity due to his advanced age and physical deconditioning. He was discharged to the [facility] inpatient rehabilitation unit on POD #7. - Time Spent with Patient Total time spent providing and/or coordinating discharge services: - Discharge Medications Prescriptions: Metoprolol [Lopressor] 50 mg PO BID #60 tablet Home Medications: Aspirin Enteric Coated [Aspirin EC] 81 mg PO DAILY 01/18/16 [History] Finasteride [Proscar] 5 mg PO QPM 01/18/16 [History] Gabapentin [Neurontin] 800 mg PO BID 01/18/16 [History] Tamsulosin [Flomax] 0.4 mg PO DAILY 01/18/16 [History] Atorvastatin Calcium [Lipitor] 20 mg PO HS 05/30/16 [History] Dorzolamide/Timolol [Cosopt] 2 drop BOTH EYES BID 05/30/16 [History] Furosemide [Lasix] 30 mg PO DAILY 05/30/16 [History] Guaifenesin [Mucus Relief] 400 mg PO TID PRN 05/30/16 [History] HYDROcodone/Acet 5/325 mg [[place] 5-325 mg] 1 tab PO QID PRN 05/30/16 [History] Latanoprost [Xalatan] 1 drop BOTH EYES HS 05/30/16 [History] Losartan Potassium [Cozaar] 50 mg PO DAILY 05/30/16 [History] Omeprazole [PriLOSEC] 20 mg PO BIDAC 05/30/16 [History] Potassium Chloride [Klor-Con 10] 10 meq PO DAILY 05/30/16 [History] Warfarin [Coumadin] 2 mg PO SUMOWEFR 05/30/16 [History] Warfarin [Coumadin] 3 mg PO TUTHSA 05/30/16 [History] hydroCHLOROthiazide [Hydrochlorothiazide] 25 mg PO DAILY 05/30/16 [History] Lidocaine 4% CRM (LMX) [Lmx 4] 1 appl TP TID 06/06/17 [History] Polyvinyl Alcohol [Artificial Tears] 1 drop BOTH EYES QID PRN 06/06/17 [History] valACYclovir [Valtrex] 500 mg PO BID 06/06/17 [History] Metoprolol [Lopressor] 50 mg PO BID #60 tablet 06/20/17 [Rx] Allergies/Adverse Reactions: 3 Allergy/AdvReac Type Severity Reaction Status Date / Time etodolac AdvReac See Verified 06/06/17 16:32 Comments pregabalin [From Lyrica] AdvReac See Verified 06/06/17 16:32 Comments Date of admission: 06/09/17 16:03 [facility] physician[facility] Consults: 06/10/17 17:57 Consult to Cardiothoracic Surgery [CONS] Routine Consulting Provider: Cardiothoracic Surgery Jyothi Reason for Consult: possible CABG Time Notified: 17:15 Call Completed: Yes 06/13/17 13:30 Consult to Cardiac Rehabilitation-Phase1 [CONS] Routine Comment: Reason for Consult: Post open heart Call Completed: Yes 06/19/17 07:36 Consult to Occupational Therapy [CONS] Stat Comment: Evaluate, develop and implement POC Reason for Consult: Patient has not been reevaluated since his CABG on 06/13 Does patient have active BEDREST order?: No Is patient medically & hemodynamically stable?: Yes Patient assessed for mobility or mobilized this visit?: Yes Consult to Physical Therapy [CONS] Stat Comment: Evaluate, develop and implement POC Reason for Consult: Patient has not been reevaluated since his CABG on 06/13 Does patient have active BEDREST order?: No Is patient medically & hemodynamically stable?: Yes Patient assessed for mobility or mobilized this visit?: Yes Procedure(s) Performed: 1. Cardiac catheterization performed 06/10/2017. 2. CABG3 (SOLORZANO to LAD, SVG to OM1, SVG to PDA) performed 06/13/2017. 3. Endoscopic vein harvesting, greater saphenous vein from right lower extremity performed 06/13/2017. Discharging clinician: Savanah Blue Anticipated date of discharge: 06/20/17 Physical Examination Vital Signs, Last 4 Hours Temp Pulse Resp BP Pulse Ox 06/20/17 07:05 97.6 F 74 17 187/99 92 06/20/17 04:32 97.9 F 61 18 145/74 90 General: Conversant, No Apparent Distress HEENT: Atraumatic, Normocephaly, Trachea midline Neck: No JVD, Normal carotid pulses Cardiac: Normal S1 and S2, No Murmur, Other (Irregular rate and rhythm (atrial fibrillation)) Lungs: Normal Breath Sounds, No Wheeze, Rales, Rhonchi Neuro: Alert and responsive, No focal deficits noted Vascular: Normal capillary refill Skin: No rashes noted on visualized skin Musculoskeletal: No Chest Wall Tenderness Extremities: No Clubbing, No Cyanosis, No Edema - Patient Status Disposition: Transfer Inpatient Rehab Fac Condition: Fair Functional capacity at discharge: independent ambulation Overall status at discharge: patient is progressing back to baseline - Discharge Instructions Follow Up With: ORI,PCP [Primary Care Provider] - 06/23/17 12:30 pm - Diet and Activity Activity: sternal precautions, no driving for four weeks, no lifting greater than 10 pounds for eight weeks Diet: diabetic diet [facility] Aspirin Cont/Prescribed at DC: Yes Beta Mary Cont/Prescribed at DC: Yes Statin Cont/Prescribed at DC: Yes ALYSSA/ARB Cont/Prescribed at DC: Yes - VTE Documentation of Mechanical Device: Graduated compression elastic hosiery
--- NOTE | 2017-06-20 07:44 | Physician Discharge Referral ---
ExtendedCare Referral Info Transfer To: [facility] inpatient rehabilitation unit Provider in Charge: genoveva Provider in Charge after Transfer: PCP Institutional Level of Care: Skilled - Diagnosis (1) CAD (coronary artery disease) Priority: Primary Status: Acute - Transfer Medications Prescriptions: Metoprolol [Lopressor] 50 mg PO BID #60 tablet Home Medications: Aspirin Enteric Coated [Aspirin EC] 81 mg PO DAILY 01/18/16 [History] Finasteride [Proscar] 5 mg PO QPM 01/18/16 [History] Gabapentin [Neurontin] 800 mg PO BID 01/18/16 [History] Tamsulosin [Flomax] 0.4 mg PO DAILY 01/18/16 [History] Atorvastatin Calcium [Lipitor] 20 mg PO HS 05/30/16 [History] Dorzolamide/Timolol [Cosopt] 2 drop BOTH EYES BID 05/30/16 [History] Furosemide [Lasix] 30 mg PO DAILY 05/30/16 [History] Guaifenesin [Mucus Relief] 400 mg PO TID PRN 05/30/16 [History] HYDROcodone/Acet 5/325 mg [[place] 5-325 mg] 1 tab PO QID PRN 05/30/16 [History] Latanoprost [Xalatan] 1 drop BOTH EYES HS 05/30/16 [History] Losartan Potassium [Cozaar] 50 mg PO DAILY 05/30/16 [History] Omeprazole [PriLOSEC] 20 mg PO BIDAC 05/30/16 [History] Potassium Chloride [Klor-Con 10] 10 meq PO DAILY 05/30/16 [History] Warfarin [Coumadin] 2 mg PO SUMOWEFR 05/30/16 [History] Warfarin [Coumadin] 3 mg PO TUTHSA 05/30/16 [History] hydroCHLOROthiazide [Hydrochlorothiazide] 25 mg PO DAILY 05/30/16 [History] Lidocaine 4% CRM (LMX) [Lmx 4] 1 appl TP TID 06/06/17 [History] Polyvinyl Alcohol [Artificial Tears] 1 drop BOTH EYES QID PRN 06/06/17 [History] valACYclovir [Valtrex] 500 mg PO BID 06/06/17 [History] Metoprolol [Lopressor] 50 mg PO BID #60 tablet 06/20/17 [Rx] Allergies/Adverse Reactions: 3 Allergy/AdvReac Type Severity Reaction Status Date / Time etodolac AdvReac See Verified 06/06/17 16:32 Comments pregabalin [From Lyrica] AdvReac See Verified 06/06/17 16:32 Comments - Respiratory Orders Smoking Cessation: Smoking cessation has been advised. For more information, call the [place] Tobacco Quit Line at 8-672-TSJO-NOW. - Lab Orders Lab Orders: Other (include drug levels w/frequency) (PT-INR every Monday and ) - Ancillary Orders May use pressure relief devices daily prn, May consult with Dentist, Senior Court Office Assistant, Manager Pathology PRN - Advance Directives Code Status: Full Code - Mobility Orders Ambulate - Rehabiliation Orders Rehab Potential: Fair Rehab Orders: Sternal Precautions, ROM Exercises, Evaluation for Physical Therapy, Evaluation for Occupational Therapy - Treatments Skin tear care topically daily PRN per policy, May check for fecal impaction rectally daily PRN, Fleet enema rectally every other day PRN cleansing purposes - Diet Orders Regular CERTIFICATION: I certify that the transfer of the above named patient to an Extended Care Facility is necessary for the continuing treatment of the diagnosis listed. The above information is true and accurate reflection of patient's current condition. Confidential - Redisclosure prohibited without a patient's written consent.
[2017-06-20] MEDS: valACYclovir 500 MG TABLET PO SCH (08:13)
[2017-06-20] MEDS: Pantoprazole 40 MG VIAL IVP SCH (08:13)
[2017-06-20] MEDS: Aspirin Enteric Coated 81 MG Tablet PO SCH (08:13)
[2017-06-20] MEDS: Chlorhexidine Rinse 15 ML MOUTHWASH MM SCH (08:14)
[2017-06-20] MEDS: Insulin LISPRO 300 UNITS/3 ML VIAL SQ SCH (08:14)
[2017-06-20] MEDS: Gabapentin 400 MG CAPSULE PO SCH (08:14)
[2017-06-20] MEDS: *HR* OxyCODONE/APAP 5/325 TABLET PO PRN (08:16)
[2017-06-20] MEDS: Dorzolamide/Timolol OPTH 10 ML BOTTLE BOTH EYES SCH (08:17)
== END 2017-06-20 09:56 | DRG 234 ==
LOC: EMEROO 16:26 → 2NENU 16:26 → SUATTDRO 06-09 16:03 → ICNU 06-13 10:58 → 2NNU 06-15 14:02
PROVIDERS: ADMIT Internal Medicine; ATTEND Internal Medicine

== ENCOUNTER 2017-08-08 11:54 | Inpatient (IN) ==
[2017-08-08 12:28] LABS: Basophils # 0.1 K/mcL (0.0-0.2); Basophils % 0.6 %; Eosinophils # 0.3 K/mcL (0.0-0.6); Eosinophils % 3.5 %; Hematocrit 39.1 % (37.5-50.1); Hemoglobin 12.7 g/dL (12.9-16.9); Immature Granulocytes % 0.3 % (0-4); Lymphocytes # 1.9 K/mcL (0.6-4.6); Lymphocytes % 19.6 %; Mean Corpuscular HGB Conc 32.5 g/dL (31.6-35.5); Mean Corpuscular Hemoglobin 29.8 pg (28.0-33.3); Mean Corpuscular Volume 91.8 fL (83.0-100.0); Mean Platelet Volume 9.4 fL (9.4-12.4); Monocytes # 0.8 K/mcL (0.0-1.3); Monocytes % 8.8 %; Neutrophils # 6.4 K/mcL (1.6-8.9); Nucleated Red Blood Cells 0.2 /100 WBC (0); Platelet Count 181 K/mcL (140-400); Red Blood Count 4.26 M/mcL (4.19-5.50); Red Cell Distribution Width 16.7 % (11.5-14.5); Segmented Neutrophils % 67.2 %
[2017-08-08 12:33] LABS: INR 2.6; Prothrombin Time 28.4 Seconds (9.4-12.1)
--- NOTE | 2017-08-08 12:57 | Emergency Department Note ---
Disposition Clinical Impression: Elevated troponin CAD (coronary artery disease) Qualifiers: Coronary Disease-Associated Artery/Lesion type: unspecified vessel or lesion type [place] vs. transplanted heart: [place] heart Associated angina: angina presence unspecified Qualified Code(s): I25.10 - Atherosclerotic heart disease of [place] coronary artery without angina pectoris Disposition: Admitted As Inpatient Condition: Good [facility]: [facility] Care Provider[facility] - Forms: ED Satisfaction Letter Time of Disposition: 14:24 General Adult HPI - General Chief complaint: ED Recheck/Abnormal Lab/Rx Stated complaint: elevated trop Time Seen by Provider: 08/08/17 11:59 Source: patient, EMS Limitations: no limitations, other (vague historian) Nursing Notes Reviewed: Yes Vital Signs Reviewed: Yes - History of Present Illness HPI Narrative: This is an 82 year-old male with history of HTN, HLD, type II diabetes, chronic AF, cardiomyopathy , COPD, and CAB s/p CABG 06/23/17, who was [facility] with elevated troponin. Patient presented to the [facility] this morning with concern for "funny noises" in his chest. He was concerned there might be fluid around his heart or lungs. A CT of the chest performed at the [facility] showed no pericardial effusion and only a a small pleural effusion. Troponin was elevated. Patient reports "soreness" in the center of his chest since his surgery; he denies any acute chest pain or dyspnea. Pt Subjective Complaint: Chest Congestion? Onset (ago): unknown Pain Scale: 8 - Related Data Home Medications Medication Instructions Recorded Confirmed Aspirin Enteric Coated [Aspirin EC] 81 mg PO DAILY 01/18/16 06/06/17 Finasteride [Proscar] 5 mg PO QPM 01/18/16 06/06/17 Gabapentin [Neurontin] 800 mg PO BID 01/18/16 06/06/17 Tamsulosin [Flomax] 0.4 mg PO DAILY 01/18/16 06/06/17 Atorvastatin Calcium [Lipitor] 20 mg PO HS 05/30/16 06/06/17 Dorzolamide/Timolol [Cosopt] 2 drop BOTH EYES BID 05/30/16 06/06/17 Furosemide [Lasix] 30 mg PO DAILY 05/30/16 06/06/17 Guaifenesin [Mucus Relief] 400 mg PO TID PRN 05/30/16 06/06/17 HYDROcodone/Acet 5/325 mg [[place] 1 tab PO QID PRN 05/30/16 06/06/17 5-325 mg] Latanoprost [Xalatan] 1 drop BOTH EYES HS 05/30/16 06/06/17 Losartan Potassium [Cozaar] 50 mg PO DAILY 05/30/16 06/06/17 Omeprazole [PriLOSEC] 20 mg PO BIDAC 05/30/16 06/06/17 Potassium Chloride [Klor-Con 10] 10 meq PO DAILY 05/30/16 06/06/17 Warfarin [Coumadin] 2 mg PO SUMOWEFR 05/30/16 06/06/17 Warfarin [Coumadin] 3 mg PO TUTHSA 05/30/16 06/06/17 hydroCHLOROthiazide 25 mg PO DAILY 05/30/16 06/06/17 [Hydrochlorothiazide] Lidocaine 4% CRM (LMX) [Lmx 4] 1 appl TP TID 06/06/17 06/06/17 Polyvinyl Alcohol [Artificial 1 drop BOTH EYES QID PRN 06/06/17 06/06/17 Tears] Previous Rx's Medication Instructions Recorded Metoprolol [Lopressor] 50 mg PO BID #60 tablet 06/20/17 Allergies Allergy/AdvReac Type Severity Reaction Status Date / Time etodolac AdvReac See Verified 06/06/17 16:32 Comments pregabalin [From Lyrica] AdvReac See Verified 06/06/17 16:32 Comments All systems ED: reviewed and negative except as stated. Constitutional: Denies: fever Cardiovascular: Reports: as per HPI Respiratory: Reports: cough (occasional, minimally productive). Denies: dyspnea Gastrointestinal: Denies: abdominal pain, vomiting Neurological: Denies: headache, weakness, numbness Past Medical History - Past Medical History Medical history: Reports: atrial fibrillation, CHF, COPD, diabetes, GERD, glaucoma, hyperlipidemia, hypertension, renal disease Surgical history: Reports: angioplasty/stent, LE Bypass, pacemaker/AICD Psychiatric history: Reports: no psych history - Social History Smoking Status: Former smoker Smokeless Tobacco Status: No Alcohol use: Reports: none Drug use: Reports: none Physical Exam - General Limitations: no limitations General appearance: alert - Head Head exam: atraumatic, normocephalic - Eye Eye exam: Present: normal appearance - Neck Neck exam: Present: normal inspection - Respiratory Respiratory exam: Present: normal lung sounds bilaterally. Absent: respiratory distress, wheezes - Cardiovascular Cardiovascular exam: Present: regular rate, normal rhythm, normal heart sounds. Absent: systolic murmur, diastolic murmur, rubs, gallop - Abdominal Exam Abdominal exam: Present: soft, Non-Tender. Absent: distention - Extremities Exam Extremities exam: Present: pedal edema, other (mild swelling and erythema of right leg) - Neurological Exam Neurological exam: Present: alert, CN II-XII intact. Absent: motor sensory deficit - Psychiatric Psychiatric exam: Present: normal affect, normal mood - Skin Skin exam: Present: warm, dry, intact, erythema (right leg, as noted above) Course - Reevaluation(s) Reevaluation #1: Patient resting comfortably. Updated him on test results. He is in agreement with admission. Time: 14:33 - Consultations Consultation #1: Discussed case with Dr. Awan, and patient accepted for admission. Time: 14:33 Vital Signs Temperature 97.7 F 08/08/17 11:56 Pulse Rate 65 08/08/17 11:56 Respiratory Rate 18 08/08/17 11:56 Blood Pressure 143/116 08/08/17 11:56 O2 Sat by Pulse Oximetry 95 08/08/17 11:56 Temperature 97.7 F 08/08/17 11:56 Pulse Rate 65 08/08/17 11:56 Respiratory Rate 18 08/08/17 11:56 Blood Pressure 143/116 08/08/17 11:56 O2 Sat by Pulse Oximetry 95 08/08/17 11:56 Oxygen Delivery Oxygen Delivery Nasal Cannula Medical Decision Making - Lab Data Result diagrams: 08/08/17 12:19 08/08/17 12:19 Lab Results 08/08/17 08/08/17 08/08/17 Range/Units 12:19 12:19 12:19 WBC 9.5 (4.3-11.1) K/mcL RBC 4.26 (4.19-5.50) M/mcL Hgb 12.7 L (12.9-16.9) g/dL Hct 39.1 (37.5-50.1) % MCV 91.8 (83.0-100.0) fL MCH 29.8 (28.0-33.3) pg MCHC 32.5 (31.6-35.5) g/dL RDW 16.7 H (11.5-14.5) % Plt Count 181 (140-400) K/mcL MPV 9.4 (9.4-12.4) fL Immature Gran % 0.3 (0-4) % Seg Neutrophils % 67.2 % Lymphocytes % 19.6 % Monocytes % 8.8 % Eosinophils % 3.5 % Basophils % 0.6 % Neutrophils # 6.4 (1.6-8.9) K/mcL Lymphocytes # 1.9 (0.6-4.6) K/mcL Monocytes # 0.8 (0.0-1.3) K/mcL Eosinophils # 0.3 (0.0-0.6) K/mcL Basophils # 0.1 (0.0-0.2) K/mcL Nucleated RBCs/100 WBC 0.2 H (0) /100 WBC PT 28.4 H (9.4-12.1) Seconds INR 2.6 APTT 39.0 H (26.0-36.0) Seconds Sodium (136-145) mEq/L Potassium (3.5-5.1) mEq/L Chloride (98-107) mEq/L Carbon Dioxide (23-29) mEq/L BUN (8-23) mg/dL Creatinine (0.70-1.30) mg/dL Est GFR ( Amer) (> 60) Est GFR (Non-Af Amer) (> 60) BUN/Creatinine Ratio (6-26) Glucose (70-105) mg/dL Calculated Osmolality (280-300) Calcium (8.6-10.3) mg/dL Troponin I (< 0.04) ng/mL B-Natriuretic Peptide 189 H (Less than 100) pg/mL 08/08/17 Range/Units 12:19 WBC (4.3-11.1) K/mcL RBC (4.19-5.50) M/mcL Hgb (12.9-16.9) g/dL Hct (37.5-50.1) % MCV (83.0-100.0) fL MCH (28.0-33.3) pg MCHC (31.6-35.5) g/dL RDW (11.5-14.5) % Plt Count (140-400) K/mcL MPV (9.4-12.4) fL Immature Gran % (0-4) % Seg Neutrophils % % Lymphocytes % % Monocytes % % Eosinophils % % Basophils % % Neutrophils # (1.6-8.9) K/mcL Lymphocytes # (0.6-4.6) K/mcL Monocytes # (0.0-1.3) K/mcL Eosinophils # (0.0-0.6) K/mcL Basophils # (0.0-0.2) K/mcL Nucleated RBCs/100 WBC (0) /100 WBC PT (9.4-12.1) Seconds INR APTT (26.0-36.0) Seconds Sodium 137 (136-145) mEq/L Potassium 3.6 (3.5-5.1) mEq/L Chloride 100 (98-107) mEq/L Carbon Dioxide 28 (23-29) mEq/L BUN 30 H (8-23) mg/dL Creatinine 1.51 H (0.70-1.30) mg/dL Est GFR ( Amer) 54 L (> 60) Est GFR (Non-Af Amer) 44 L (> 60) BUN/Creatinine Ratio 20 (6-26) Glucose 121 H (70-105) mg/dL Calculated Osmolality 291 (280-300) Calcium 9.7 (8.6-10.3) mg/dL Troponin I 0.06 H* (< 0.04) ng/mL B-Natriuretic Peptide (Less than 100) pg/mL
[2017-08-08 13:10] LABS: Calcium 9.7 mg/dL (8.6-10.3); Potassium 3.6 mEq/L (3.5-5.1)
[2017-08-08 13:11] LABS: Troponin I 0.06 ng/mL (< 0.04)
[2017-08-08] MEDS ORDERED: Furosemide 20 MG/2 ML VIAL IVP ONE (14:30)
[2017-08-08] MEDS ORDERED: Ipratropium/Albuterol Neb 3 ML IH PRN (15:01)
[2017-08-08] MEDS ORDERED: Acetaminophen 325 MG TABLET PO PRN (15:01)
[2017-08-08] MEDS ORDERED: Naloxone 0.4 MG/ML INJ IVP PRN (15:02)
[2017-08-08] MEDS ORDERED: Dextrose Gel 15 GM/37.5 ML TUBE PO PRN ×2 (15:02)
[2017-08-08] MEDS ORDERED: *HR* Dextrose 50 % in Water (Syg) 50 ML SYRINGE IVP PRN (15:02)
[2017-08-08] MEDS ORDERED: D5% in Water 1,000 ML IVC PRN (15:02)
--- NOTE | 2017-08-08 15:07 | Internal Med History&Physical ---
Date of Encounter: 08/08/17 Time of Encounter: 15:05 Internal Medicine - H&P: HPI Chief complaint: Fluid on his chest Admitted From: Emergency Dept History of present illness: Mr. Briceno is a 82 year old male with a past medical history of chronic atrial fibrillation warfarin, COPD not oxygen dependent, peripheral artery disease, systolic and diastolic CHF, recently had a CABG back in 06/13/2017. Came from the [place] complaining of "fluid in his chest", his troponin was 0.06, chest x-ray shows bilateral pleural effusions which are small, he has been having a dry cough with no chest discomfort. Feels mildly short of breath. Denies any fevers, no phlegm coming up. INR is 2.6. Denies any other complaints. Takes apparently Lasix 30 mg daily and hydrochlorothiazide, was given 1 dose of 20 g of IV Lasix at the ER. Past Med Surg Social Fam HX - Past Medical History Medical history: atrial fibrillation (Chronic A. fib on Coumadin and metoprolol) , CHF (Systolic CHF ejection fraction improved up to 50% on July 19 from the prior value of 30-35% prior to CABG, has mild tricuspid regurgitation as well), COPD (Not oxygen dependent), diabetes (Not insulin-dependent), GERD, glaucoma, hyperlipidemia, hypertension, renal disease (Chronic kidney disease stage III), other (BPH, GERD, hyperlipidemia, PAD) Psychiatric history: no psych history - Past Surgical History Surgical History: angioplasty/stent, coronary bypass (CABG), LE Bypass, pacemaker/AICD, other (Aorto bifemoral bypass) - Social History Smoking Status: Former smoker Smokeless Tobacco Status: No Alcohol use: none Drug use: none - Family History Father Family Member Ethnicity: Non- Living Status: Hx Family Cardiac Disorders: Yes (CVA) Hx Family Neurologic Disorders: Yes (CVA) Brother Family Member Ethnicity: Non- Living Status: Sister Family Member Ethnicity: Non- Living Status: Mother Family Member Ethnicity: Non- Living Status: Hx Family Cardiac Disorders: Yes (HD, HF, HLD, HTN) - Additional Family History Additional family history: Mom with CHF Internal Medicine - H&P: Meds Aspirin Enteric Coated [Aspirin EC] 81 mg PO DAILY 01/18/16 [History] Finasteride [Proscar] 5 mg PO QPM 01/18/16 [History] Gabapentin [Neurontin] 800 mg PO BID 01/18/16 [History] Atorvastatin Calcium [Lipitor] 20 mg PO HS 05/30/16 [History] Dorzolamide/Timolol [Cosopt] 2 drop BOTH EYES BID 05/30/16 [History] Furosemide [Lasix] 30 mg PO DAILY 05/30/16 [History] HYDROcodone/Acet 5/325 mg [[place] 5-325 mg] 1 tab PO QID PRN 05/30/16 [History] Latanoprost [Xalatan] 1 drop BOTH EYES HS 05/30/16 [History] Losartan Potassium [Cozaar] 25 mg PO DAILY 05/30/16 [History] Omeprazole [PriLOSEC] 20 mg PO BIDAC 05/30/16 [History] Potassium Chloride [Klor-Con 10] 10 meq PO DAILY 05/30/16 [History] Warfarin [Coumadin] 3 mg PO DAILY 05/30/16 [History] hydroCHLOROthiazide [Hydrochlorothiazide] 25 mg PO DAILY 05/30/16 [History] Lidocaine 4% CRM (LMX) [Lmx 4] 1 appl TP TID 06/06/17 [History] Metoprolol [Lopressor] 50 mg PO BID #60 tablet 06/20/17 [Rx] Minocycline [Minocin] 50 mg PO DAILY 08/08/17 [History] Polyethylene Glycol 3350 [MiraLAX bowel prep] 17 g PO DAILY 08/08/17 [History] Polyvinyl Alcohol [Artificial Tears] 1 drop OP QID PRN 08/08/17 [History] Tamsulosin HCl [Flomax] 0.4 mg PO DAILY 08/08/17 [History] 3 Allergy/AdvReac Type Severity Reaction Status Date / Time etodolac AdvReac See Verified 06/06/17 16:32 Comments pregabalin [From Lyrica] AdvReac See Verified 06/06/17 16:32 Comments All Systems PM: A 10-system review of systems was performed and is negative for pertinent findings except as documented above in the HPI. Review of systems: Shortness of breath, other systems out of the 10 reviewed were negative - Constitutional Vitals: Temp Pulse Resp BP Pulse Ox 97.7 F 65 18 143/116 95 08/08/17 11:56 08/08/17 11:56 08/08/17 11:56 08/08/17 11:56 08/08/17 11:56 General appearance: Present: A&O X 3 - Head Head exam: Present: atraumatic, normocephalic - Eye Eye exam: Present: PERRL, conjuntiva pink, sclera anicteric Pupils: Present: PERRL - Neck Neck exam general surgery: Present: supple, trachea midline. Absent: lymphadenopathy - Respiratory Respiratory exam: Present: CTAB, rales (Bibasilar crackles worse in the right). Absent: accessory muscle use, rhonchi, wheezes - Cardiovascular Cardiovascular exam: Present: RRR, +S1, +S2. Absent: diastolic murmur, gallop, rubs, systolic murmur - GI/Abdominal GI/Abdominal exam: Present: normal bowel sounds, soft, no peritoneal signs. Absent: distended, tenderness - Extremities Exam Extremities exam: Present: pedal edema (+1 pitting edema in both lower extremities with chronic ischemic changes on the skin), warm, radial pulses palpable and symmetrical. Absent: calf tenderness, cyanotic - Neurological Exam Neurological exam: Present: CN II-XII intact, oriented X3, no focal deficits. Absent: pronater drift, facial droop, speech deficit - Skin Skin exam: Present: dry, intact Internal Med - H&P Results - Labs CBC & Chem 7: 08/08/17 12:19 08/08/17 12:19 - Assessment and plan (1) CHF (congestive heart failure) Current Visit: No Status: Chronic Assessment and plan: Acute systolic and diastolic CHF exacerbation with bilateral small pleural effusions Start IV Lasix, hold hydrochlorothiazide Strict I's and O's and daily weight Warfarin for DVT prophylaxis and omeprazole for GI prophylaxis. Patient will be admitted for observation. Full code. Time spent on this admission 40 minutes Qualifiers: Heart failure type: combined systolic and diastolic Heart failure chronicity: chronic Qualified Code(s): I50.42 - Chronic combined systolic ( congestive) and diastolic (congestive) heart failure (2) CAD (coronary artery disease) Current Visit: Yes Status: Acute Assessment and plan: History of recent CABG, continue aspirin, Lipitor and metoprolol Qualifiers: Coronary Disease-Associated Artery/Lesion type: unspecified vessel or lesion type [place] vs. transplanted heart: [place] heart Associated angina: angina presence unspecified Qualified Code(s): I25.10 - Atherosclerotic heart disease of [place] coronary artery without angina pectoris (3) Elevated troponin Current Visit: Yes Status: Acute Assessment and plan: Chronically elevated elevated troponins with no chest discomfort, likely secondary to demand ischemia EKG shows paced rhythm (4) CKD (chronic kidney disease) stage 3, GFR 30-59 ml/min Current Visit: No Status: Acute Assessment and plan: Stable (5) Exertional dyspnea Current Visit: No Status: Acute (6) Afib Current Visit: No Status: Chronic Assessment and plan: Continue warfarin Qualifiers: Atrial fibrillation type: chronic Qualified Code(s): I48.2 - Chronic atrial fibrillation (7) COPD (chronic obstructive pulmonary disease) Current Visit: No Status: Chronic Assessment and plan: No exacerbation Qualifiers: COPD type: unspecified COPD Qualified Code(s): J44.9 - Chronic obstructive pulmonary disease, unspecified (8) Diabetes Current Visit: No Status: Chronic Assessment and plan: Insulin sliding scale Qualifiers: Diabetes mellitus type: type 2 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
[2017-08-08] MEDS: Insulin LISPRO 300 UNITS/3 ML VIAL SQ SCH (16:53)
[2017-08-08] MEDS: Furosemide 40 MG/4 ML VIAL IVP SCH (17:24)
[2017-08-08] MEDS ORDERED: Finasteride 5 MG TABLET PO SCH (18:00)
[2017-08-08] MEDS ORDERED: *HR* Warfarin 3 MG TABLET PO ONE (18:00)
[2017-08-08] MEDS ORDERED: Warfarin perPT PO PRN (18:00)
[2017-08-08] MEDS ORDERED: Furosemide 20 MG/2 ML VIAL IVP SCH (21:00)
[2017-08-08] MEDS ORDERED: Insulin LISPRO 300 UNITS/3 ML VIAL SQ SCH (21:00)
[2017-08-08] MEDS: Dorzolamide/Timolol OPTH 10 ML BOTTLE BOTH EYES SCH (21:38)
[2017-08-08] MEDS: Gabapentin 400 MG CAPSULE PO SCH (21:39)
[2017-08-08] MEDS: *HR* HYDROcodone/Acet 5/325 mg TABLET PO PRN (21:43)
[2017-08-08] MEDS: Lidocaine 4% CREAM (LMX) 5 GM TP SCH (23:25)
[2017-08-09 01:30] LABS: INR 2.5; Prothrombin Time 27.8 Seconds (9.4-12.1)
[2017-08-09 01:41] LABS: Calcium 9.7 mg/dL (8.6-10.3); Potassium 3.2 mEq/L (3.5-5.1)
[2017-08-09 07:01] VITALS: BP 125/66
[2017-08-09] MEDS: Furosemide 40 MG/4 ML VIAL IVP SCH (08:01)
[2017-08-09] MEDS: Gabapentin 400 MG CAPSULE PO SCH (08:01)
[2017-08-09] MEDS: Dorzolamide/Timolol OPTH 10 ML BOTTLE BOTH EYES SCH (08:02)
[2017-08-09] MEDS: Lidocaine 4% CREAM (LMX) 5 GM TP SCH (08:02)
[2017-08-09] MEDS: Insulin LISPRO 300 UNITS/3 ML VIAL SQ SCH (08:02)
[2017-08-09] MEDS: *HR* HYDROcodone/Acet 5/325 mg TABLET PO PRN (08:09)
[2017-08-09] MEDS ORDERED: Aspirin Enteric Coated 81 MG Tablet PO SCH (09:00)
--- NOTE | 2017-08-09 09:28 | Discharge Summary ---
- NOTES TO OUTPATIENT PROVIDER Notes to Outpatient Provider: Admitted for concerns for bilateral pleural effusion. Treated with IV Lasix. Appears to be resolving. Patient instructed to [facility]. He was found to have hypokalemia, reports this has chronic. Instructed to follow-up with PCP in one week. Additionally, instructed to continue taking potassium supplementation as [facility] the [facility]. Orders not resulted at time of discharge: Pending orders 08/10/17 04:00 PT/INR [Prothrombin Time INR] [COAG] AM 0400 08/11/17 04:00 PT/INR [Prothrombin Time INR] [COAG] AM 0400 08/12/17 04:00 PT/INR [Prothrombin Time INR] [COAG] AM 0400 08/13/17 04:00 PT/INR [Prothrombin Time INR] [COAG] AM 0400 08/14/17 04:00 PT/INR [Prothrombin Time INR] [COAG] AM 0400 Date of Encounter: 08/09/17 Time of Encounter: 09:26 - Discharge Diagnosis (1) CHF (congestive heart failure) Priority: Primary Status: Chronic Assessment and Plan: Acute systolic and diastolic CHF exacerbation with bilateral small pleural effusions per CXR. Appears to be improving, stable from a respiratory perspective. Lungs clear to auscultation throughout, no crackles noted. No extremity edema noted. Net - 250 mL today Patient reports he is feeling much better and requesting to discharge. Clinically he does appear to have improved. He has been instructed to continue Lasix and hydrochlorothiazide at home as prescribed by his [place] primary care team. Additionally has been instructed to follow-up with his PCP within 1 week of discharge; he has also been instructed to get follow-up serum potassium drawn due to hypokalemia. Qualifiers: Heart failure type: combined systolic and diastolic Heart failure chronicity: chronic Qualified Code(s): I50.42 - Chronic combined systolic ( congestive) and diastolic (congestive) heart failure (2) Elevated troponin Priority: Secondary Status: Acute Assessment and Plan: Chronic per review of prior troponins, 0.06 peak. Likely due to demand ischemia. Denies any chest pain/discomfort, or shortness of breath. (3) Afib Priority: Secondary Status: Chronic Assessment and Plan: Continue warfarin upon discharge Qualifiers: Atrial fibrillation type: chronic Qualified Code(s): I48.2 - Chronic atrial fibrillation (4) Exertional dyspnea Priority: Secondary Status: Acute Assessment and Plan: Exertional dyspnea improving. (5) COPD (chronic obstructive pulmonary disease) Priority: Secondary Status: Chronic Assessment and Plan: Not in acute exacerbation, no wheezing or shortness of breath noted. Qualifiers: COPD type: unspecified COPD Qualified Code(s): J44.9 - Chronic obstructive pulmonary disease, unspecified (6) Diabetes Priority: Secondary Status: Chronic Assessment and Plan: History of diabetes. Reports that he does not take insulin or oral hypoglycemic agents at home. Blood glucoses remained stable throughout the stay. 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 (8) CAD (coronary artery disease) Priority: Secondary Status: Acute Assessment and Plan: History of recent CABG, continue aspirin, Lipitor and metoprolol upon discharge Qualifiers: Coronary Disease-Associated Artery/Lesion type: unspecified vessel or lesion type Lummi vs. transplanted heart: nikolai heart Associated angina: angina presence unspecified Qualified Code(s): I25.10 - Atherosclerotic heart disease of nikolai coronary artery without angina pectoris Hospital course: Mr. Briceno is a 82 year old male Discharge discussed with: patient, nurse - Time Spent with Patient Total time spent providing and/or coordinating discharge services: Less than 30 minutes - Discharge Medications Home Medications: Aspirin Enteric Coated [Aspirin EC] 81 mg PO DAILY 01/18/16 [History] Finasteride [Proscar] 5 mg PO QPM 01/18/16 [History] Gabapentin [Neurontin] 800 mg PO BID 01/18/16 [History] Atorvastatin Calcium [Lipitor] 20 mg PO HS 05/30/16 [History] Dorzolamide/Timolol [Cosopt] 2 drop BOTH EYES BID 05/30/16 [History] Furosemide [Lasix] 30 mg PO DAILY 05/30/16 [History] HYDROcodone/Acet 5/325 mg [[place] 5-325 mg] 1 tab PO QID PRN 05/30/16 [History] Latanoprost [Xalatan] 1 drop BOTH EYES HS 05/30/16 [History] Losartan Potassium [Cozaar] 25 mg PO DAILY 05/30/16 [History] Omeprazole [PriLOSEC] 20 mg PO BIDAC 05/30/16 [History] Potassium Chloride [Klor-Con 10] 10 meq PO DAILY 05/30/16 [History] Warfarin [Coumadin] 3 mg PO DAILY 05/30/16 [History] hydroCHLOROthiazide [Hydrochlorothiazide] 25 mg PO DAILY 05/30/16 [History] Lidocaine 4% CRM (LMX) [Lmx 4] 1 appl TP TID 06/06/17 [History] Metoprolol [Lopressor] 50 mg PO BID #60 tablet 06/20/17 [Rx] Minocycline [Minocin] 50 mg PO DAILY 08/08/17 [History] Polyethylene Glycol 3350 [MiraLAX bowel prep] 17 g PO DAILY 08/08/17 [History] Polyvinyl Alcohol [Artificial Tears] 1 drop OP QID PRN 08/08/17 [History] Tamsulosin HCl [Flomax] 0.4 mg PO DAILY 08/08/17 [History] Allergies/Adverse Reactions: 3 Allergy/AdvReac Type Severity Reaction Status Date / Time etodolac AdvReac See Verified 06/06/17 16:32 Comments pregabalin [From Lyrica] AdvReac See Verified 06/06/17 16:32 Comments Date of admission: 08/08/17 14:47 [facility] care physician: [facility] Consults: 08/08/17 17:15 Consult to Refiner Operator [CONS] Routine Reason for SW Consult: patient had open heart in June. No home health set up. Cardiac rehab is to start August 15. Discharging clinician: Bebeto Mendoza Anticipated date of discharge: 08/09/17 - Constitutional Vitals: Temp Pulse Resp BP Pulse Ox 98.0 F 58 16 125/66 91 08/09/17 06:55 08/09/17 06:55 08/09/17 06:55 08/09/17 06:55 08/09/17 06:55 General appearance: Present: A&O X 3 - Head Head exam: Present: atraumatic, normocephalic - Eye Eye exam: Present: PERRL, conjuntiva pink, sclera anicteric Pupils: Present: PERRL - Neck Neck exam general surgery: Present: supple, trachea midline. Absent: lymphadenopathy - Respiratory Respiratory exam: Present: CTAB. Absent: accessory muscle use, rales, rhonchi, wheezes - Cardiovascular Cardiovascular exam: Present: RRR, +S1, +S2. Absent: diastolic murmur, gallop, rubs, systolic murmur - GI/Abdominal GI/Abdominal exam: Present: normal bowel sounds, soft, no peritoneal signs. Absent: distended, tenderness - Extremities Exam Extremities exam: Present: warm, radial pulses palpable and symmetrical. Absent : calf tenderness, cyanotic, pedal edema - Neurological Exam Neurological exam: Present: CN II-XII intact, oriented X3, no focal deficits. Absent: pronater drift, facial droop, speech deficit - Skin Skin exam: Present: dry, intact - Patient Status Disposition: Home, Self-Care Condition: Good Overall status at discharge: patient is back to baseline - Discharge Instructions [facility] With: [facility] Care Provider[facility] -
[2017-08-09] MEDS ORDERED: Naloxone 0.4 MG/ML INJ IVP PRN (11:07)
--- NOTE | 2017-08-09 11:10 | Physician Discharge Referral ---
Home Health/Hosp Referral Info Transfer to: Home Health Provider in Charge Post Discharge: PCP - Diagnosis (1) CHF (congestive heart failure) Priority: Primary Status: Chronic (2) Elevated troponin Priority: Secondary Status: Chronic (3) Afib Priority: Secondary Status: Chronic (4) Exertional dyspnea Priority: Secondary Status: Acute (5) COPD (chronic obstructive pulmonary disease) Priority: Secondary Status: Chronic (6) Diabetes Priority: Secondary Status: Chronic (7) CKD (chronic kidney disease) stage 3, GFR 30-59 ml/min Priority: Secondary Status: Chronic (8) CAD (coronary artery disease) Priority: Secondary Status: Chronic - Respiratory Orders Smoking Cessation: Smoking cessation has been advised. For more information, call the [employer] Tobacco Quit Line at 5-737-VRDQ-NOW. - Diet/Nutrition Diet/Nutrition Orders: No Added Salt (TIM), Cardiac - Activity Activity Orders: Up ad isaias - Services Needed Following services are medically necessary services: Nursing, Physical Therapy, Occupational Therapy - Transfer Medications Home Medications: Aspirin Enteric Coated [Aspirin EC] 81 mg PO DAILY 01/18/16 [History] Finasteride [Proscar] 5 mg PO QPM 01/18/16 [History] Gabapentin [Neurontin] 800 mg PO BID 01/18/16 [History] Atorvastatin Calcium [Lipitor] 20 mg PO HS 05/30/16 [History] Dorzolamide/Timolol [Cosopt] 2 drop BOTH EYES BID 05/30/16 [History] Furosemide [Lasix] 30 mg PO DAILY 05/30/16 [History] HYDROcodone/Acet 5/325 mg [[place] 5-325 mg] 1 tab PO QID PRN 05/30/16 [History] Latanoprost [Xalatan] 1 drop BOTH EYES HS 05/30/16 [History] Losartan Potassium [Cozaar] 25 mg PO DAILY 05/30/16 [History] Omeprazole [PriLOSEC] 20 mg PO BIDAC 05/30/16 [History] Potassium Chloride [Klor-Con 10] 10 meq PO DAILY 05/30/16 [History] Warfarin [Coumadin] 3 mg PO DAILY 05/30/16 [History] hydroCHLOROthiazide [Hydrochlorothiazide] 25 mg PO DAILY 05/30/16 [History] Lidocaine 4% CRM (LMX) [Lmx 4] 1 appl TP TID 06/06/17 [History] Metoprolol [Lopressor] 50 mg PO BID #60 tablet 06/20/17 [Rx] Minocycline [Minocin] 50 mg PO DAILY 08/08/17 [History] Polyethylene Glycol 3350 [MiraLAX bowel prep] 17 g PO DAILY 08/08/17 [History] Polyvinyl Alcohol [Artificial Tears] 1 drop OP QID PRN 08/08/17 [History] Tamsulosin HCl [Flomax] 0.4 mg PO DAILY 08/08/17 [History] Allergies/Adverse Reactions: 3 Allergy/AdvReac Type Severity Reaction Status Date / Time etodolac AdvReac See Verified 06/06/17 16:32 Comments pregabalin [From Lyrica] AdvReac See Verified 06/06/17 16:32 Comments Certification: Further, I certify that my clinical findings support that this patient is homebound (i.e. absences from home require considerable and taxing effort and are for medical reasons or scientology services or infrequently or short duration when for other reasons) because: Homebound Reason: Patient requires assistance of a person or device to safely leave home Attestation: My signature below is to certify that this patient is under my care and that I, or nurse practitioner, or a physician's payroll assistant working with me, has a face-to -face encounter with this patient.
--- NOTE | 2017-08-09 11:12 | Electrocardiograph Report ---
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
[2017-08-09] MEDS ORDERED: *HR* Warfarin 3 MG TABLET PO ONE (18:00)
== END 2017-08-09 11:23 | disposition home or self-care (01) | DRG 291 ==
LOC: EMEROO 11:54 → 3BNU 14:47
PROVIDERS: ADMIT Family Medicine; ATTEND Family Medicine

== ENCOUNTER 2019-08-28 15:50 | Observation (INO) ==
[2019-08-28] MEDS ORDERED: Furosemide 40 MG/4 ML VIAL IVP ONE (16:10)
[2019-08-28 16:28] LABS: Basophils # 0.1 K/mcL (0.0-0.2); Basophils % 0.7 %; Eosinophils # 0.2 K/mcL (0.0-0.6); Eosinophils % 2.8 %; Hematocrit 34.5 % (37.5-50.1); Hemoglobin 10.5 g/dL (12.9-16.9); Immature Granulocytes % 0.4 % (0-4); Lymphocytes # 1.4 K/mcL (0.6-4.6); Lymphocytes % 18.2 %; Mean Corpuscular HGB Conc 30.4 g/dL (31.6-35.5); Mean Corpuscular Volume 95.3 fL (83.0-100.0); Mean Platelet Volume 10.1 fL (9.4-12.4); Monocytes # 0.7 K/mcL (0.0-1.3); Monocytes % 9.5 %; Neutrophils # 5.1 K/mcL (1.6-8.9); Platelet Count 134 K/mcL (140-400); Red Blood Count 3.62 M/mcL (4.19-5.50); Red Cell Distribution Width 17.4 % (11.5-14.5); Segmented Neutrophils % 68.4 %; White Blood Count 7.4 K/mcL (4.3-11.1)
[2019-08-28 16:51] LABS: Albumin 3.9 g/dL (3.5-5.7); Albumin/Globulin Ratio 1.4 (1.1-2.2); Bilirubin,Total 0.9 mg/dL (0.3-1.0); Calcium 9.4 mg/dL (8.6-10.3); Globulin 2.7 g/dL (2.4-3.5); Potassium 3.4 mEq/L (3.5-5.1); Total Protein 6.6 g/dL (6.4-8.9); Troponin I 0.04 ng/mL (< 0.04)
[2019-08-28] MEDS ORDERED: diazePAM 2 MG TABLET PO ONE (18:11)
[2019-08-28] MEDS ORDERED: Naloxone 0.4 MG/ML INJ IVP PRN (18:25)
[2019-08-28] MEDS ORDERED: Ondansetron 4 MG/2 ML VIAL IVP PRN (18:25)
[2019-08-28] MEDS ORDERED: Potassium Chloride Elixir 20 MEQ/15 ML UDC PO ONE (18:47)
[2019-08-28] MEDS ORDERED: GuaiFENesin Liq 200 MG/10 ML UDC PO PRN (18:54)
[2019-08-28] MEDS ORDERED: Perflutren Lipid Microsphere 1.3 ML in 0.9 % Sodium Chloride 8.7 ML IVP ONE (21:30)
[2019-08-28] MEDS: Gabapentin 400 MG CAPSULE PO SCH (22:05)
[2019-08-28] MEDS: Metoprolol XL (24 HR) Succ 50 MG TAB.ER.24H PO SCH (22:06)
[2019-08-28] MEDS: Apixaban 5 MG TABLET PO SCH (22:06)
[2019-08-28] MEDS ORDERED: Lidocaine OINT 35.44 GM TUBE TP ONE (22:54)
[2019-08-29] MEDS ORDERED: *HR* OxyCODONE Immed Rel 5 MG TABLET PO ONE (02:32)
[2019-08-29 06:55] LABS: Basophils % 0.6 %; Eosinophils # 0.1 K/mcL (0.0-0.6); Eosinophils % 1.8 %; Hematocrit 33.1 % (37.5-50.1); Hemoglobin 9.9 g/dL (12.9-16.9); Immature Granulocytes % 0.3 % (0-4); Lymphocytes # 1.1 K/mcL (0.6-4.6); Lymphocytes % 15.1 %; Mean Corpuscular HGB Conc 29.9 g/dL (31.6-35.5); Mean Corpuscular Volume 93.5 fL (83.0-100.0); Mean Platelet Volume 9.4 fL (9.4-12.4); Monocytes # 0.6 K/mcL (0.0-1.3); Monocytes % 8.5 %; Neutrophils # 5.3 K/mcL (1.6-8.9); Platelet Count 125 K/mcL (140-400); Red Blood Count 3.54 M/mcL (4.19-5.50); Red Cell Distribution Width 17.4 % (11.5-14.5); Segmented Neutrophils % 73.7 %; White Blood Count 7.2 K/mcL (4.3-11.1)
[2019-08-29 07:18] LABS: Magnesium 1.7 mg/dL (1.6-2.6); Potassium 3.5 mEq/L (3.5-5.1); Troponin I 0.05 ng/mL (< 0.04)
[2019-08-29] MEDS: Metoprolol XL (24 HR) Succ 50 MG TAB.ER.24H PO SCH (07:31)
[2019-08-29] MEDS: Gabapentin 400 MG CAPSULE PO SCH (07:31)
[2019-08-29] MEDS: Apixaban 5 MG TABLET PO SCH (07:31)
[2019-08-29] MEDS: Furosemide 20 MG/2 ML VIAL IVP SCH ×2 (07:32→11:01)
[2019-08-29] MEDS ORDERED: hydroCHLOROthiazide 25 MG TABLET PO SCH (09:00)
[2019-08-29] MEDS ORDERED: Aspirin Enteric Coated 81 MG Tablet PO SCH (09:00)
[2019-08-29] MEDS ORDERED: Perflutren Lipid Microsphere 1.3 ML in 0.9 % Sodium Chloride 8.7 ML IVP ONE (09:16)
[2019-08-29 10:57] VITALS: BP 134/69
[2019-08-29] MEDS ORDERED: Finasteride 5 MG TABLET PO SCH (18:00)
== END 2019-08-29 13:20 | disposition home health service (06) ==
LOC: 3BNU 15:50 → EMEROOARM 15:50 → SUATTDRO 18:36 → 3BNU 19:40
PROVIDERS: ADMIT Pharmacist; ATTEND Internal Medicine

== ENCOUNTER 2019-11-05 19:30 | Inpatient (IN) ==
[2019-11-05] MEDS ORDERED: Morphine Sulfate Immed Rel 15 MG TABLET PO STA (19:46)
[2019-11-05 23:07] LABS: Basophils % 0.4 %; Eosinophils # 0.1 K/mcL (0.0-0.6); Eosinophils % 1.1 %; Hemoglobin 10.5 g/dL (12.9-16.9); Immature Granulocytes % 0.1 % (0-4); Lymphocytes # 1.3 K/mcL (0.6-4.6); Lymphocytes % 15.8 %; Mean Corpuscular Hemoglobin 26.5 pg (28.0-33.3); Mean Corpuscular Volume 88.4 fL (83.0-100.0); Mean Platelet Volume 10.3 fL (9.4-12.4); Monocytes # 0.8 K/mcL (0.0-1.3); Monocytes % 9.3 %; Neutrophils # 6.2 K/mcL (1.6-8.9); Platelet Count 120 K/mcL (140-400); Red Blood Count 3.96 M/mcL (4.19-5.50); Red Cell Distribution Width 17.7 % (11.5-14.5); Segmented Neutrophils % 73.3 %; White Blood Count 8.4 K/mcL (4.3-11.1)
[2019-11-05 23:29] LABS: Calcium 9.4 mg/dL (8.6-10.3); Potassium 3.3 mEq/L (3.5-5.1)
[2019-11-06] MEDS ORDERED: Naloxone 0.4 MG/ML INJ IVP PRN (00:02)
[2019-11-06] MEDS ORDERED: 0.9 % Sodium Chloride 1,000 ML IVC SCH (00:15)
[2019-11-06] MEDS ORDERED: Acetaminophen 325 MG TABLET PO PRN (02:56)
[2019-11-06 05:24] LABS: Basophils % 0.4 %; Eosinophils # 0.2 K/mcL (0.0-0.6); Hematocrit 34.1 % (37.5-50.1); Hemoglobin 10.2 g/dL (12.9-16.9); Immature Granulocytes % 0.4 % (0-4); Lymphocytes # 1.5 K/mcL (0.6-4.6); Lymphocytes % 19.5 %; Mean Corpuscular HGB Conc 29.9 g/dL (31.6-35.5); Mean Corpuscular Hemoglobin 26.7 pg (28.0-33.3); Mean Corpuscular Volume 89.3 fL (83.0-100.0); Mean Platelet Volume 10.4 fL (9.4-12.4); Monocytes # 0.8 K/mcL (0.0-1.3); Monocytes % 10.1 %; Neutrophils # 5.2 K/mcL (1.6-8.9); Platelet Count 120 K/mcL (140-400); Red Blood Count 3.82 M/mcL (4.19-5.50); Red Cell Distribution Width 17.8 % (11.5-14.5); Segmented Neutrophils % 67.6 %; White Blood Count 7.6 K/mcL (4.3-11.1)
[2019-11-06 05:43] LABS: Calcium 9.4 mg/dL (8.6-10.3); Potassium 2.9 mEq/L (3.5-5.1)
[2019-11-06] MEDS: Budesonide/Formoterol 160/4.5 1 PUFF INH IH SCH ×2 (07:27→19:40)
[2019-11-06] MEDS: Bumetanide 1 MG TABLET PO SCH (07:49)
[2019-11-06] MEDS: Gabapentin 400 MG CAPSULE PO SCH ×2 (07:49→18:33)
[2019-11-06] MEDS: Aspirin Enteric Coated 81 MG Tablet PO SCH (07:49)
[2019-11-06] MEDS ORDERED: Potassium Chloride 40 MEQ, Lidocaine 1% 2 ML in 0.9 % Sodium Chloride 500 ML IVPB ONE (08:09)
[2019-11-06] MEDS ORDERED: hydroCHLOROthiazide 25 MG TABLET PO SCH (09:00)
[2019-11-06] MEDS ORDERED: Metoprolol XL (24 HR) Succ 50 MG TAB.ER.24H PO SCH (09:00)
[2019-11-06] MEDS ORDERED: traZODone 50 MG TABLET PO PRN (15:09)
[2019-11-06] MEDS ORDERED: Ipratropium/Albuterol Neb 3 ML IH PRN (17:00)
[2019-11-06] MEDS: Finasteride 5 MG TABLET PO SCH (18:02)
[2019-11-06 18:55] LABS: Magnesium 2.2 mg/dL (1.6-2.6); Potassium 3.3 mEq/L (3.5-5.1)
[2019-11-06] MEDS: Apixaban 2.5 MG TABLET PO SCH (19:45)
[2019-11-06] MEDS: Latanoprost 2.5 ML BOTTLE BOTH EYES SCH (19:46)
[2019-11-07 05:48] LABS: Basophils % 0.4 %; Eosinophils # 0.3 K/mcL (0.0-0.6); Eosinophils % 3.5 %; Hematocrit 35.3 % (37.5-50.1); Hemoglobin 10.3 g/dL (12.9-16.9); Immature Granulocytes % 0.3 % (0-4); Lymphocytes # 0.9 K/mcL (0.6-4.6); Lymphocytes % 12.6 %; Mean Corpuscular HGB Conc 29.2 g/dL (31.6-35.5); Mean Corpuscular Hemoglobin 26.4 pg (28.0-33.3); Mean Corpuscular Volume 90.5 fL (83.0-100.0); Mean Platelet Volume 9.9 fL (9.4-12.4); Monocytes # 0.8 K/mcL (0.0-1.3); Monocytes % 10.6 %; Neutrophils # 5.2 K/mcL (1.6-8.9); Platelet Count 115 K/mcL (140-400); Red Cell Distribution Width 18.1 % (11.5-14.5); Segmented Neutrophils % 72.6 %; White Blood Count 7.2 K/mcL (4.3-11.1)
[2019-11-07 06:07] LABS: Calcium 9.1 mg/dL (8.6-10.3); Magnesium 2.2 mg/dL (1.6-2.6); Phosphorous 2.5 mg/dL (2.7-4.5); Potassium 4.1 mEq/L (3.5-5.1)
[2019-11-07] MEDS: Budesonide/Formoterol 160/4.5 1 PUFF INH IH SCH ×2 (08:10→20:12)
[2019-11-07] MEDS: Gabapentin 400 MG CAPSULE PO SCH ×2 (08:11→20:20)
[2019-11-07] MEDS: Cyanocobalamin (B-12) 1,000 MCG TABLET PO SCH (08:11)
[2019-11-07] MEDS: Aspirin Enteric Coated 81 MG Tablet PO SCH (08:12)
[2019-11-07] MEDS: Bumetanide 1 MG TABLET PO SCH (08:12)
[2019-11-07] MEDS: Apixaban 2.5 MG TABLET PO SCH (08:12)
[2019-11-07] MEDS: Finasteride 5 MG TABLET PO SCH (17:13)
[2019-11-07] MEDS: Latanoprost 2.5 ML BOTTLE BOTH EYES SCH (20:21)
[2019-11-08 02:35] LABS: Basophils % 0.4 %; Eosinophils # 0.2 K/mcL (0.0-0.6); Eosinophils % 2.5 %; Hematocrit 33.8 % (37.5-50.1); Hemoglobin 10.2 g/dL (12.9-16.9); Immature Granulocytes % 0.2 % (0-4); Lymphocytes # 1.2 K/mcL (0.6-4.6); Mean Corpuscular HGB Conc 30.2 g/dL (31.6-35.5); Mean Corpuscular Volume 89.4 fL (83.0-100.0); Mean Platelet Volume 10.2 fL (9.4-12.4); Monocytes # 0.9 K/mcL (0.0-1.3); Monocytes % 10.8 %; Neutrophils # 6.1 K/mcL (1.6-8.9); Platelet Count 122 K/mcL (140-400); Red Blood Count 3.78 M/mcL (4.19-5.50); Red Cell Distribution Width 18.2 % (11.5-14.5); Segmented Neutrophils % 72.1 %; White Blood Count 8.4 K/mcL (4.3-11.1)
[2019-11-08 02:54] LABS: Calcium 9.5 mg/dL (8.6-10.3); Magnesium 2.1 mg/dL (1.6-2.6); Phosphorous 2.4 mg/dL (2.7-4.5); Potassium 3.5 mEq/L (3.5-5.1)
[2019-11-08] MEDS: Budesonide/Formoterol 160/4.5 1 PUFF INH IH SCH ×2 (07:46→20:09)
[2019-11-08] MEDS: Bumetanide 1 MG TABLET PO SCH (08:46)
[2019-11-08] MEDS: Aspirin Enteric Coated 81 MG Tablet PO SCH (08:46)
[2019-11-08] MEDS: Gabapentin 400 MG CAPSULE PO SCH ×2 (08:47→19:34)
[2019-11-08] MEDS: Cyanocobalamin (B-12) 1,000 MCG TABLET PO SCH (08:47)
[2019-11-08] MEDS ORDERED: Total Joint Mixture (50 ml) INTRAART ONE (12:00)
[2019-11-08] MEDS ORDERED: *HR* Succinylcholine 200 MG/10 ML VIAL IVP ONE (12:51)
[2019-11-08] MEDS ORDERED: Lidocaine -MPF 2% 2 ML VIAL ONE (12:51)
[2019-11-08] MEDS ORDERED: Lidocaine HCL 4 ML Topical Solution (Laryng-O-Jet Kit Sterile Pak) TP ONE (12:51)
[2019-11-08] MEDS ORDERED: *HR* Propofol 200 MG/20 ML VIAL IVP ONE (12:51)
[2019-11-08] MEDS ORDERED: Ondansetron 4 MG/2 ML VIAL ONE (12:51)
[2019-11-08] MEDS ORDERED: Dexamethasone 4 MG/ML VIAL ONE (12:54)
[2019-11-08] MEDS ORDERED: *HR* FentaNYL (PF) 100 MCG/2 ML VIAL ONE ×2 (12:56→14:56)
[2019-11-08] MEDS ORDERED: Ethanol\\Acetic Acid\\Na Ace\\Ben 1,000 ML IRRIG.SOLN IR ONE (12:58)
[2019-11-08] MEDS ORDERED: Vancomycin 1,000 MG VIAL ONE (13:25)
[2019-11-08] MEDS ORDERED: *HR* HYDROmorphone PF 0.5 MG/0.5 ML SYRINGE IVP PRN (14:09)
[2019-11-08] MEDS ORDERED: *HR* FentaNYL (PF) 100 MCG/2 ML VIAL IVP PRN (14:09)
[2019-11-08] MEDS ORDERED: Ondansetron 4 MG/2 ML VIAL IVP ONE ×2 (14:11→18:05)
[2019-11-08] MEDS ORDERED: ceFAZolin 2,000 MG in 0.9 % Sodium Chloride 100 ML IVPB ONE (14:13)
[2019-11-08] MEDS ORDERED: EPHEDrine 50 MG/ML VIAL ONE (14:17)
[2019-11-08] MEDS ORDERED: Albuterol 2.5 MG/3 ML NEBULIZER IH ONE ×2 (16:25→18:05)
[2019-11-08 17:14] LABS: Hemoglobin 9.8 g/dL (12.9-16.9)
[2019-11-08] MEDS ORDERED: Naloxone 0.4 MG/ML INJ IVP PRN (18:05)
[2019-11-08] MEDS ORDERED: Ondansetron 4 MG/2 ML VIAL IVP PRN (18:05)
[2019-11-08] MEDS ORDERED: HYDROcodone BIT/Homatropine 5 MG TABLET PO PRN (18:05)
[2019-11-08] MEDS ORDERED: Acetaminophen 325 MG TABLET PO PRN (18:05)
[2019-11-08] MEDS ORDERED: *HR* Promethazine 25 MG/ML VIAL IVP PRN (18:05)
[2019-11-08] MEDS ORDERED: Ringers Solution, Lactated 1,000 ML IVC SCH (18:05)
[2019-11-08] MEDS ORDERED: Ropivacaine/PF 0.5% 24.62 ML, EPINEPHrine 0.25 MG, cloNIDine 0.04 MG, Ketorolac 15 MG, ... INTRAART ONE (18:05)
[2019-11-08] MEDS ORDERED: traZODone 50 MG TABLET PO PRN (18:05)
[2019-11-08] MEDS ORDERED: MOM Conc 10 ML UD.LIQ PO PRN (18:05)
[2019-11-08] MEDS ORDERED: Sennosides 8.6 MG TABLET PO PRN (18:05)
[2019-11-08] MEDS: *HR* OxyCODONE Immed Rel 5 MG TABLET PO PRN (19:22)
[2019-11-08] MEDS: Ascorbic Acid 500 MG TABLET PO SCH (19:35)
[2019-11-08] MEDS: CeFAZolin 2 GM/120 ML BAG IVPB SCH (22:13)
[2019-11-08] MEDS: Metoprolol XL (24 HR) Succ 50 MG TAB.ER.24H PO SCH (22:13)
[2019-11-09] MEDS: Latanoprost 2.5 ML BOTTLE BOTH EYES SCH ×2 (01:53→20:50)
[2019-11-09] MEDS: CeFAZolin 2 GM/120 ML BAG IVPB SCH (05:15)
[2019-11-09] MEDS: Budesonide/Formoterol 160/4.5 1 PUFF INH IH SCH ×2 (08:12→20:10)
[2019-11-09] MEDS: Gabapentin 400 MG CAPSULE PO SCH ×2 (08:51→20:48)
[2019-11-09] MEDS: Bumetanide 1 MG TABLET PO SCH (08:51)
[2019-11-09] MEDS: Ascorbic Acid 500 MG TABLET PO SCH ×2 (08:52→16:54)
[2019-11-09] MEDS: Metoprolol XL (24 HR) Succ 50 MG TAB.ER.24H PO SCH ×2 (08:53→20:50)
[2019-11-09] MEDS: Multivit/Ca/Min/Fe/FA 1 TAB TABLET PO SCH (08:53)
[2019-11-09] MEDS: Cyanocobalamin (B-12) 1,000 MCG TABLET PO SCH (08:53)
[2019-11-09] MEDS: Aspirin Enteric Coated 81 MG Tablet PO SCH (08:53)
[2019-11-09 10:50] LABS: Calcium 9.1 mg/dL (8.6-10.3); Magnesium 2.1 mg/dL (1.6-2.6); Phosphorous 3.2 mg/dL (2.7-4.5); Potassium 4.9 mEq/L (3.5-5.1)
[2019-11-09] MEDS: Apixaban 2.5 MG TABLET PO SCH ×2 (11:23→20:50)
[2019-11-09] MEDS: *HR* OxyCODONE Immed Rel 5 MG TABLET PO PRN ×3 (11:25→20:49)
[2019-11-09] MEDS: Finasteride 5 MG TABLET PO SCH (16:54)
[2019-11-10] MEDS: Gabapentin 400 MG CAPSULE PO SCH ×2 (08:49→20:06)
[2019-11-10] MEDS: Bumetanide 1 MG TABLET PO SCH (08:50)
[2019-11-10] MEDS: Aspirin Enteric Coated 81 MG Tablet PO SCH (08:50)
[2019-11-10] MEDS: Multivit/Ca/Min/Fe/FA 1 TAB TABLET PO SCH (08:50)
[2019-11-10] MEDS: Apixaban 2.5 MG TABLET PO SCH (08:50)
[2019-11-10] MEDS: Cyanocobalamin (B-12) 1,000 MCG TABLET PO SCH (08:50)
[2019-11-10] MEDS: Metoprolol XL (24 HR) Succ 50 MG TAB.ER.24H PO SCH ×2 (08:50→21:57)
[2019-11-10] MEDS: Ascorbic Acid 500 MG TABLET PO SCH ×2 (08:50→16:44)
[2019-11-10] MEDS: *HR* OxyCODONE Immed Rel 5 MG TABLET PO PRN ×2 (08:53→16:46)
[2019-11-10] MEDS: Budesonide/Formoterol 160/4.5 1 PUFF INH IH SCH ×2 (10:59→19:32)
[2019-11-10 11:01] LABS: Calcium 8.7 mg/dL (8.6-10.3); Magnesium 2.1 mg/dL (1.6-2.6); Potassium 4.1 mEq/L (3.5-5.1)
[2019-11-10 11:36] LABS: Basophils % 0.3 %; Hemoglobin 6.5 g/dL (12.9-16.9); Immature Granulocytes % 0.4 % (0-4); Red Cell Distribution Width 18.7 % (11.5-14.5)
[2019-11-10 11:37] LABS: Eosinophils # 0.2 K/mcL (0.0-0.6); Eosinophils % 2.1 %; Hematocrit 22.1 % (37.5-50.1); Lymphocytes % 10.9 %; Mean Corpuscular HGB Conc 29.4 g/dL (31.6-35.5); Mean Corpuscular Hemoglobin 27.8 pg (28.0-33.3); Mean Corpuscular Volume 94.4 fL (83.0-100.0); Monocytes % 10.6 %; Platelet Count 115 K/mcL (140-400); Red Blood Count 2.34 M/mcL (4.19-5.50); Segmented Neutrophils % 75.7 %; White Blood Count 9.2 K/mcL (4.3-11.1)
[2019-11-10 12:06] LABS: Anisocytosis 1+ (Not Present); Ovalocytes 1+ (Not Present)
[2019-11-10 12:11] LABS: Platelet Estimate Slight Decrease (Normal)
[2019-11-10] MEDS ORDERED: *HR* Dextrose 50 % in Water (Vial) 50 ML VIAL IVP PRN (12:17)
[2019-11-10] MEDS ORDERED: D5% in Water 1,000 ML IVC PRN (12:17)
[2019-11-10] MEDS ORDERED: Dextrose Gel 15 GM/37.5 ML TUBE PO PRN ×2 (12:17)
[2019-11-10] MEDS: Insulin LISPRO 300 UNITS/3 ML VIAL SQ SCH ×2 (12:46→16:46)
[2019-11-10] MEDS ORDERED: 0.9 % Sodium Chloride 250 ML ONE ×2 (13:18→21:47)
[2019-11-10] MEDS: Finasteride 5 MG TABLET PO SCH (16:44)
[2019-11-10 18:27] LABS: Hematocrit 23.4 % (37.5-50.1)
[2019-11-10] MEDS: Latanoprost 2.5 ML BOTTLE BOTH EYES SCH (20:19)
[2019-11-10] MEDS ORDERED: Insulin LISPRO 300 UNITS/3 ML VIAL SQ SCH (21:00)
[2019-11-11 06:03] LABS: Basophils % 0.4 %; Eosinophils # 0.3 K/mcL (0.0-0.6); Eosinophils % 3.2 %; Hematocrit 26.6 % (37.5-50.1); Immature Granulocytes % 0.5 % (0-4); Lymphocytes # 1.2 K/mcL (0.6-4.6); Lymphocytes % 13.8 %; Mean Corpuscular HGB Conc 30.1 g/dL (31.6-35.5); Mean Corpuscular Hemoglobin 27.7 pg (28.0-33.3); Mean Platelet Volume 10.5 fL (9.4-12.4); Monocytes # 0.9 K/mcL (0.0-1.3); Monocytes % 11.2 %; Nucleated Red Blood Cells 0.2 /100 WBC (0); Platelet Count 117 K/mcL (140-400); Red Blood Count 2.89 M/mcL (4.19-5.50); Red Cell Distribution Width 17.9 % (11.5-14.5); Segmented Neutrophils % 70.9 %; White Blood Count 8.4 K/mcL (4.3-11.1)
[2019-11-11 06:24] LABS: Calcium 8.8 mg/dL (8.6-10.3); Magnesium 2.3 mg/dL (1.6-2.6); Phosphorous 2.6 mg/dL (2.7-4.5)
[2019-11-11] MEDS: Bumetanide 1 MG TABLET PO SCH (07:49)
[2019-11-11] MEDS: Ascorbic Acid 500 MG TABLET PO SCH ×2 (07:49→18:40)
[2019-11-11] MEDS: Gabapentin 400 MG CAPSULE PO SCH (07:49)
[2019-11-11] MEDS: Multivit/Ca/Min/Fe/FA 1 TAB TABLET PO SCH (07:50)
[2019-11-11] MEDS: Aspirin Enteric Coated 81 MG Tablet PO SCH (07:50)
[2019-11-11] MEDS: Insulin LISPRO 300 UNITS/3 ML VIAL SQ SCH ×3 (07:50→18:39)
[2019-11-11] MEDS: Cyanocobalamin (B-12) 1,000 MCG TABLET PO SCH (07:50)
[2019-11-11] MEDS: Metoprolol XL (24 HR) Succ 50 MG TAB.ER.24H PO SCH (07:50)
[2019-11-11] MEDS: Budesonide/Formoterol 160/4.5 1 PUFF INH IH SCH (07:57)
[2019-11-11 15:43] VITALS: BP 141/76
[2019-11-11] MEDS: Finasteride 5 MG TABLET PO SCH (18:39)
[2019-11-11] MEDS ORDERED: Apixaban 5 MG TABLET PO SCH (21:00)
== END 2019-11-11 19:07 | DRG 470 ==
LOC: 3NENU 19:30 → EMEROOARM 19:30 → 3NENU 11-06 00:14
PROVIDERS: ADMIT Internal Medicine; ATTEND Internal Medicine

== ENCOUNTER 2020-03-11 01:46 | Inpatient (IN) ==
[2020-03-11 02:50] LABS: Basophils % 0.5 %; Eosinophils % 0.2 %; Hematocrit 36.6 % (37.5-50.1); Hemoglobin 10.9 g/dL (12.9-16.9); Immature Granulocytes % 0.2 % (0-4); Lymphocytes # 1.4 K/mcL (0.6-4.6); Lymphocytes % 16.7 %; Mean Corpuscular HGB Conc 29.8 g/dL (31.6-35.5); Mean Corpuscular Hemoglobin 27.5 pg (28.0-33.3); Mean Corpuscular Volume 92.4 fL (83.0-100.0); Monocytes # 0.8 K/mcL (0.0-1.3); Monocytes % 9.1 %; Neutrophils # 6.2 K/mcL (1.6-8.9); Platelet Count 138 K/mcL (140-400); Red Blood Count 3.96 M/mcL (4.19-5.50); Segmented Neutrophils % 73.3 %; White Blood Count 8.4 K/mcL (4.3-11.1)
[2020-03-11 02:52] LABS: INR 1.3
[2020-03-11 02:54] LABS: Activated Partial Thrombo Time 27.6 Seconds (26.0-36.0)
[2020-03-11 02:56] LABS: Bilirubin,Urine Negative (Negative); Blood,Urine Negative (Negative); Clarity,Urine Clear (Clear); Color,Urine Yellow (Yellow); Glucose,Urine (UA) Normal (Normal); Ketones,Urine 10 mg/dL (Negative); Leukocyte Esterase,Urine Negative (Negative); Nitrite,Urine Negative (Negative); Protein,Urine 100 mg/dL (Neg-Trace); Specific Gravity,Urine 1.024 (1.010-1.025); WBC,Urine 0-3 per hpf (0-3)
[2020-03-11] MEDS ORDERED: Aspirin 81 MG TAB.CHEW PO ONE (03:20)
[2020-03-11 03:21] LABS: Alanine Aminotransferase 10 Units/L (7-52); Albumin 3.7 g/dL (3.5-5.7); Albumin/Globulin Ratio 1.1 (1.1-2.2); Alkaline Phosphatase 70 Units/L (34-104); Aspartate Amino Transferase 19 Units/L (13-39); BUN/Creatinine Ratio 19 (6-26); Bilirubin,Direct 0.5 mg/dL (0.0-0.2); Bilirubin,Indirect 1.1 mg/dL (0.0-1.0); Bilirubin,Total 1.6 mg/dL (0.3-1.0); Blood Urea Nitrogen 20 mg/dL (8-23); Calcium 9.9 mg/dL (8.6-10.3); Carbon Dioxide 24 mEq/L (23-29); Chloride 109 mEq/L (98-107); Globulin 3.4 g/dL (2.4-3.5); Glucose 128 mg/dL (70-105); Osmolality,Calculated 302 (280-300); Potassium 3.8 mEq/L (3.5-5.1); Sodium 144 mEq/L (136-145); Total Protein 7.1 g/dL (6.4-8.9); Troponin I 0.08 ng/mL (< 0.04); eGFR For African Americans > 60 (> 60); eGFR For Non-African Americans > 60 (> 60)
[2020-03-11] MEDS ORDERED: Furosemide 40 MG/4 ML VIAL IVP ONE (03:54)
[2020-03-11] MEDS ORDERED: Naloxone 0.4 MG/ML INJ IVP PRN (04:41)
[2020-03-11] MEDS ORDERED: Ondansetron ODT 4 MG TAB.RAPDIS SL PRN (04:41)
[2020-03-11] MEDS ORDERED: D5% in Water 1,000 ML IVC PRN (04:46)
[2020-03-11] MEDS ORDERED: Dextrose Gel 15 GM/37.5 ML TUBE PO PRN ×2 (04:46)
[2020-03-11] MEDS ORDERED: *HR* Dextrose 50 % in Water (Vial) 50 ML VIAL IVP PRN (04:46)
[2020-03-11 06:28] LABS: Influenza A PCR Negative (Negative); Influenza B PCR Negative (Negative); Resp. Syncytial Virus PCR Negative (Negative)
[2020-03-11 06:29] LABS: SARS-CoV-2 by PCR (In House) Negative (Negative)
[2020-03-11 08:30] LABS: Immature Reticulocyte % 26.8 % (11.0-38.0); Retculocyte # 0.1 M/mcL (0.05-0.10); Reticulocyte % 2.5 % (1.6-2.8)
[2020-03-11 08:47] LABS: Albumin 3.8 g/dL (3.5-5.7); Albumin/Globulin Ratio 1.2 (1.1-2.2); Bilirubin,Direct 0.6 mg/dL (0.0-0.2); Bilirubin,Indirect 1.2 mg/dL (0.0-1.0); Bilirubin,Total 1.8 mg/dL (0.3-1.0); Globulin 3.1 g/dL (2.4-3.5); Total Protein 6.9 g/dL (6.4-8.9); Troponin I 0.09 ng/mL (< 0.04)
[2020-03-11] MEDS ORDERED: *HR* Metoprolol 5 MG/5 ML VIAL IVP ONE ×2 (09:27→09:31)
[2020-03-11] MEDS: Insulin LISPRO 300 UNITS/3 ML VIAL SUBQ SCH ×3 (09:35→16:42)
[2020-03-11] MEDS: Furosemide 40 MG/4 ML VIAL IVP SCH ×2 (09:38→16:27)
[2020-03-12 00:55] LABS: Basophils % 0.2 %; Eosinophils % 0.3 %; Hematocrit 36.4 % (37.5-50.1); Hemoglobin 10.8 g/dL (12.9-16.9); Immature Granulocytes % 0.3 % (0-4); Lymphocytes # 1.4 K/mcL (0.6-4.6); Lymphocytes % 15.1 %; Mean Corpuscular HGB Conc 29.7 g/dL (31.6-35.5); Mean Corpuscular Hemoglobin 28.5 pg (28.0-33.3); Mean Platelet Volume 9.9 fL (9.4-12.4); Monocytes # 0.7 K/mcL (0.0-1.3); Monocytes % 7.1 %; Neutrophils # 7.2 K/mcL (1.6-8.9); Platelet Count 128 K/mcL (140-400); Red Blood Count 3.79 M/mcL (4.19-5.50); White Blood Count 9.4 K/mcL (4.3-11.1)
[2020-03-12 01:31] LABS: BUN/Creatinine Ratio 18 (6-26); Blood Urea Nitrogen 21 mg/dL (8-23); Calcium 9.5 mg/dL (8.6-10.3); Carbon Dioxide 27 mEq/L (23-29); Chloride 103 mEq/L (98-107); Glucose 119 mg/dL (70-105); Magnesium 1.9 mg/dL (1.6-2.6); Osmolality,Calculated 298 (280-300); Potassium 3.5 mEq/L (3.5-5.1); Sodium 142 mEq/L (136-145); eGFR For African Americans > 60 (> 60); eGFR For Non-African Americans 58 (> 60)
[2020-03-12] MEDS: Insulin LISPRO 300 UNITS/3 ML VIAL SUBQ SCH ×3 (10:18→16:11)
[2020-03-12] MEDS: Furosemide 40 MG/4 ML VIAL IVP SCH ×2 (10:19→16:01)
[2020-03-12] MEDS ORDERED: *HR* LORazepam 0.5 MG TABLET PO PRN (11:13)
[2020-03-12] MEDS ORDERED: Perflutren Lipid Microsphere 1.3 ML in 0.9 % Sodium Chloride 8.7 ML IVP PRN (11:17)
[2020-03-12] MEDS: *HR* HYDROcodone/Acet 5/325 mg TABLET PO PRN (13:35)
[2020-03-12] MEDS: Gabapentin 400 MG CAPSULE PO SCH (21:15)
[2020-03-12] MEDS: Apixaban 5 MG TABLET PO SCH (21:16)
[2020-03-12] MEDS: Metoprolol XL (24 HR) Succ 50 MG TAB.ER.24H PO SCH (21:16)
[2020-03-13 03:32] LABS: Basophils % 0.4 %; Eosinophils # 0.1 K/mcL (0.0-0.6); Eosinophils % 1.2 %; Hematocrit 36.8 % (37.5-50.1); Hemoglobin 11.1 g/dL (12.9-16.9); Immature Granulocytes % 0.3 % (0-4); Lymphocytes # 1.7 K/mcL (0.6-4.6); Lymphocytes % 17.8 %; Mean Corpuscular HGB Conc 30.2 g/dL (31.6-35.5); Mean Corpuscular Hemoglobin 28.2 pg (28.0-33.3); Mean Corpuscular Volume 93.6 fL (83.0-100.0); Monocytes # 0.8 K/mcL (0.0-1.3); Monocytes % 8.8 %; Neutrophils # 6.7 K/mcL (1.6-8.9); Platelet Count 139 K/mcL (140-400); Red Blood Count 3.93 M/mcL (4.19-5.50); Red Cell Distribution Width 20.6 % (11.5-14.5); Segmented Neutrophils % 71.5 %; White Blood Count 9.3 K/mcL (4.3-11.1)
[2020-03-13 03:46] LABS: BUN/Creatinine Ratio 22 (6-26); Blood Urea Nitrogen 23 mg/dL (8-23); Calcium 9.1 mg/dL (8.6-10.3); Carbon Dioxide 27 mEq/L (23-29); Chloride 103 mEq/L (98-107); Glucose 112 mg/dL (70-105); Osmolality,Calculated 294 (280-300); Sodium 140 mEq/L (136-145); eGFR For African Americans > 60 (> 60); eGFR For Non-African Americans > 60 (> 60)
[2020-03-13] MEDS: Insulin LISPRO 300 UNITS/3 ML VIAL SUBQ SCH ×3 (07:46→16:22)
[2020-03-13] MEDS: Metoprolol XL (24 HR) Succ 50 MG TAB.ER.24H PO SCH ×2 (08:10→20:16)
[2020-03-13] MEDS: Furosemide 40 MG/4 ML VIAL IVP SCH ×2 (08:10→16:27)
[2020-03-13] MEDS: Gabapentin 400 MG CAPSULE PO SCH ×2 (08:10→20:15)
[2020-03-13] MEDS: Aspirin Enteric Coated 81 MG Tablet PO SCH (08:10)
[2020-03-13] MEDS: Apixaban 5 MG TABLET PO SCH ×2 (08:11→20:14)
[2020-03-13] MEDS: Finasteride 5 MG TABLET PO SCH (08:11)
[2020-03-13] MEDS ORDERED: hydroCHLOROthiazide 25 MG TABLET PO SCH (09:00)
[2020-03-13] MEDS ORDERED: lisinopriL 5 MG TABLET PO SCH (10:30)
[2020-03-14 02:07] LABS: Basophils % 0.5 %; Eosinophils # 0.2 K/mcL (0.0-0.6); Hemoglobin 10.6 g/dL (12.9-16.9); Immature Granulocytes % 0.5 % (0-4); Lymphocytes # 1.6 K/mcL (0.6-4.6); Lymphocytes % 18.1 %; Mean Corpuscular HGB Conc 29.4 g/dL (31.6-35.5); Mean Corpuscular Hemoglobin 27.3 pg (28.0-33.3); Mean Corpuscular Volume 92.8 fL (83.0-100.0); Mean Platelet Volume 11.1 fL (9.4-12.4); Monocytes # 0.6 K/mcL (0.0-1.3); Monocytes % 7.2 %; Neutrophils # 6.4 K/mcL (1.6-8.9); Platelet Count 117 K/mcL (140-400); Red Blood Count 3.88 M/mcL (4.19-5.50); Red Cell Distribution Width 20.7 % (11.5-14.5); Segmented Neutrophils % 71.7 %; White Blood Count 8.9 K/mcL (4.3-11.1)
[2020-03-14 02:30] LABS: Calcium 8.9 mg/dL (8.6-10.3); Potassium 3.7 mEq/L (3.5-5.1)
[2020-03-14] MEDS ORDERED: Furosemide 40 MG/4 ML VIAL IVP SCH (09:00)
[2020-03-14] MEDS: Insulin LISPRO 300 UNITS/3 ML VIAL SUBQ SCH ×3 (09:20→16:23)
[2020-03-14] MEDS: Gabapentin 400 MG CAPSULE PO SCH ×2 (09:21→19:30)
[2020-03-14] MEDS: Finasteride 5 MG TABLET PO SCH (09:21)
[2020-03-14] MEDS: Isosorbide MONOnitrate (24 HR) 30 MG TAB.ER.24H PO SCH (09:22)
[2020-03-14] MEDS: Metoprolol XL (24 HR) Succ 50 MG TAB.ER.24H PO SCH ×2 (09:22→20:13)
[2020-03-14] MEDS: Aspirin Enteric Coated 81 MG Tablet PO SCH (09:22)
[2020-03-14] MEDS: Apixaban 5 MG TABLET PO SCH ×2 (09:22→19:29)
[2020-03-14] MEDS ORDERED: Lidocaine TOPICAL Soln 50 ML BOTTLE TP PRN (09:41)
[2020-03-14] MEDS: *HR* HYDROcodone/Acet 5/325 mg TABLET PO PRN ×2 (10:10→22:51)
[2020-03-14] MEDS: Furosemide 40 MG/4 ML VIAL IVP SCH (10:11)
[2020-03-14] MEDS ORDERED: Lidocaine 5% OINT 35 APPL/35.44 GM TUBE TP PRN (13:05)
[2020-03-15] MEDS: *HR* HYDROcodone/Acet 5/325 mg TABLET PO PRN (04:54)
[2020-03-15 05:07] LABS: Basophils % 0.4 %; Eosinophils # 0.2 K/mcL (0.0-0.6); Hematocrit 33.3 % (37.5-50.1); Immature Granulocytes % 0.4 % (0-4); Lymphocytes # 1.4 K/mcL (0.6-4.6); Lymphocytes % 17.2 %; Mean Corpuscular Hemoglobin 27.8 pg (28.0-33.3); Mean Corpuscular Volume 92.5 fL (83.0-100.0); Mean Platelet Volume 9.5 fL (9.4-12.4); Monocytes # 0.7 K/mcL (0.0-1.3); Monocytes % 8.4 %; Neutrophils # 5.9 K/mcL (1.6-8.9); Nucleated Red Blood Cells 0.2 /100 WBC (0); Platelet Count 128 K/mcL (140-400); Segmented Neutrophils % 71.6 %; White Blood Count 8.2 K/mcL (4.3-11.1)
[2020-03-15 05:24] LABS: Calcium 8.5 mg/dL (8.6-10.3); Potassium 3.7 mEq/L (3.5-5.1)
[2020-03-15] MEDS: Insulin LISPRO 300 UNITS/3 ML VIAL SUBQ SCH ×3 (09:01→16:28)
[2020-03-15] MEDS: Gabapentin 400 MG CAPSULE PO SCH ×2 (09:06→21:26)
[2020-03-15] MEDS: Isosorbide MONOnitrate (24 HR) 30 MG TAB.ER.24H PO SCH (09:06)
[2020-03-15] MEDS: Finasteride 5 MG TABLET PO SCH (09:06)
[2020-03-15] MEDS: Metoprolol XL (24 HR) Succ 50 MG TAB.ER.24H PO SCH ×2 (09:06→21:26)
[2020-03-15] MEDS: Apixaban 5 MG TABLET PO SCH (09:07)
[2020-03-15] MEDS: Aspirin Enteric Coated 81 MG Tablet PO SCH (09:07)
[2020-03-15] MEDS: Furosemide 40 MG/4 ML VIAL IVP SCH (09:07)
[2020-03-16 03:03] LABS: Basophils % 0.4 %; Eosinophils # 0.1 K/mcL (0.0-0.6); Eosinophils % 1.3 %; Immature Granulocytes % 0.4 % (0-4); Lymphocytes # 1.4 K/mcL (0.6-4.6); Lymphocytes % 18.2 %; Mean Corpuscular HGB Conc 30.3 g/dL (31.6-35.5); Mean Corpuscular Hemoglobin 28.6 pg (28.0-33.3); Mean Corpuscular Volume 94.3 fL (83.0-100.0); Mean Platelet Volume 10.2 fL (9.4-12.4); Monocytes # 0.6 K/mcL (0.0-1.3); Monocytes % 8.2 %; Neutrophils # 5.5 K/mcL (1.6-8.9); Platelet Count 129 K/mcL (140-400); Red Cell Distribution Width 20.1 % (11.5-14.5); Segmented Neutrophils % 71.5 %; White Blood Count 7.7 K/mcL (4.3-11.1)
[2020-03-16 03:23] LABS: BUN/Creatinine Ratio 31 (6-26); Blood Urea Nitrogen 40 mg/dL (8-23); Calcium 8.9 mg/dL (8.6-10.3); Carbon Dioxide 27 mEq/L (23-29); Chloride 104 mEq/L (98-107); Glucose 164 mg/dL (70-105); Osmolality,Calculated 297 (280-300); Potassium 3.7 mEq/L (3.5-5.1); Sodium 137 mEq/L (136-145); eGFR For African Americans > 60 (> 60); eGFR For Non-African Americans 54 (> 60)
[2020-03-16 03:24] LABS: Phosphorous 2.6 mg/dL (2.7-4.5)
[2020-03-16] MEDS: Insulin LISPRO 300 UNITS/3 ML VIAL SUBQ SCH ×3 (07:47→17:23)
[2020-03-16] MEDS: Metoprolol XL (24 HR) Succ 50 MG TAB.ER.24H PO SCH (09:25)
[2020-03-16] MEDS: Finasteride 5 MG TABLET PO SCH (09:25)
[2020-03-16] MEDS: Isosorbide MONOnitrate (24 HR) 30 MG TAB.ER.24H PO SCH (09:25)
[2020-03-16] MEDS: Gabapentin 400 MG CAPSULE PO SCH (09:25)
[2020-03-16] MEDS: Aspirin Enteric Coated 81 MG Tablet PO SCH (09:26)
[2020-03-16] MEDS ORDERED: 0.9 % Sodium Chloride 2,000 ML ONE (09:53)
[2020-03-16] MEDS ORDERED: ISOVUE-370 200 ML INFUS..BTL ONE ×2 (09:54→11:02)
[2020-03-16] MEDS ORDERED: *HR* Heparin 10,000 UNIT/10 ML VIAL ONE (09:54)
[2020-03-16] MEDS ORDERED: Nitroglycerin 1,000 MCG/10 ML VIAL IV ONE (09:54)
[2020-03-16] MEDS ORDERED: Heparin 1,000 UNITS/500 mL 500 ML ONE (09:54)
[2020-03-16] MEDS ORDERED: *HR* FentaNYL (PF) 100 MCG/2 ML VIAL ONE (10:21)
[2020-03-16] MEDS ORDERED: *HR* Midazolam HCl 2 MG/2 ML VIAL ONE (10:21)
[2020-03-16 16:02] LABS: Adenovirus Not Detected (Not Detect); Bordetella Pertussis Not Detected (Not Detect); Chlamydophila pneumoniae Not Detected (Not Detect); Coronavirus 229E Not Detected (Not Detect); Coronavirus HKU1 Not Detected (Not Detect); Coronavirus NL63 Not Detected (Not Detect); Coronavirus OC43 Not Detected (Not Detect); Human Metapneumovirus Not Detected (Not Detect); Human Rhinovirus/Enterovirus Not Detected (Not Detect); Influenza A Subtype 2009 H1 Not Detected (Not Detect); Influenza B Not Detected (Not Detect); Mycoplasma pneumoniae Not Detected (Not Detect); Parainfluenza Virus 1 Not Detected (Not Detect); Parainfluenza Virus 2 Not Detected (Not Detect); Parainfluenza Virus 3 Not Detected (Not Detect); Parainfluenza Virus 4 Not Detected (Not Detect); Respiratory Syncytial Virus Not Detected (Not Detect); SARS-CoV-2 Not Detected (Not Detect)
[2020-03-16 16:36] VITALS: BP 123/71
[2020-03-16] MEDS ORDERED: Apixaban 5 MG TABLET PO SCH (21:00)
== END 2020-03-16 17:40 | DRG 280 ==
LOC: CDU 01:46 → EMEROOARM 01:46 → SUATTDRO 06:44 → CDU 07:49 → 2ANU 03-12 17:39
PROVIDERS: ADMIT Student in an Organized Health Care Education/Training Program; ATTEND Internal Medicine

== ENCOUNTER 2020-04-06 14:27 | Observation (INO) ==
[2020-04-06 15:48] LABS: Basophils # 0.1 K/mcL (0.0-0.2); Basophils % 0.6 %; Eosinophils # 0.1 K/mcL (0.0-0.6); Eosinophils % 0.9 %; Hematocrit 33.1 % (37.5-50.1); Hemoglobin 9.8 g/dL (12.9-16.9); Immature Granulocytes % 0.5 % (0-4); Lymphocytes # 1.4 K/mcL (0.6-4.6); Lymphocytes % 17.8 %; Mean Corpuscular HGB Conc 29.6 g/dL (31.6-35.5); Mean Corpuscular Hemoglobin 27.8 pg (28.0-33.3); Mean Corpuscular Volume 93.8 fL (83.0-100.0); Mean Platelet Volume 9.3 fL (9.4-12.4); Monocytes # 0.8 K/mcL (0.0-1.3); Monocytes % 9.8 %; Neutrophils # 5.5 K/mcL (1.6-8.9); Platelet Count 175 K/mcL (140-400); Red Blood Count 3.53 M/mcL (4.19-5.50); Red Cell Distribution Width 21.1 % (11.5-14.5); Segmented Neutrophils % 70.4 %; White Blood Count 7.9 K/mcL (4.3-11.1)
[2020-04-06 16:04] LABS: Troponin I 0.05 ng/mL (< 0.04)
[2020-04-06 16:09] LABS: BUN/Creatinine Ratio 17 (6-26); Blood Urea Nitrogen 17 mg/dL (8-23); Calcium 9.3 mg/dL (8.6-10.3); Carbon Dioxide 22 mEq/L (23-29); Chloride 106 mEq/L (98-107); Glucose 98 mg/dL (70-105); Osmolality,Calculated 290 (280-300); Potassium 4.3 mEq/L (3.5-5.1); Sodium 139 mEq/L (136-145); eGFR For African Americans > 60 (> 60); eGFR For Non-African Americans > 60 (> 60)
[2020-04-06 17:56] LABS: Bacteria,Urine Few per hpf (None-Few); Bilirubin,Urine Negative (Negative); Blood,Urine Trace (Negative); Clarity,Urine Clear (Clear); Color,Urine Yellow (Yellow); Glucose,Urine (UA) Normal (Normal); Ketones,Urine 10 mg/dL (Negative); Leukocyte Esterase,Urine Negative (Negative); Mucus,Urine Few per lpf (None-Few); Nitrite,Urine Negative (Negative); PH,Urine 5.5 pH Units (5.0-8.0); Protein,Urine 50 mg/dL (Neg-Trace); RBC,Urine 0-3 per hpf (0-3); Specific Gravity,Urine 1.026 (1.010-1.025); Squamous Epithelial Cell,Urine Few per hpf (None-Few)
[2020-04-06] MEDS ORDERED: Ondansetron 4 MG/2 ML VIAL IVP PRN (19:40)
[2020-04-06] MEDS ORDERED: Naloxone 0.4 MG/ML INJ IVP PRN (19:40)
[2020-04-06] MEDS ORDERED: Acetaminophen 325 MG TABLET PO PRN (19:40)
[2020-04-06] MEDS ORDERED: Nitroglycerin 0.4 MG TAB.SUBL SL PRN (20:21)
[2020-04-06 21:11] LABS: Albumin 3.6 g/dL (3.5-5.7); Albumin/Globulin Ratio 1.3 (1.1-2.2); Bilirubin,Direct 0.6 mg/dL (0.0-0.2); Bilirubin,Indirect 1.5 mg/dL (0.0-1.0); Bilirubin,Total 2.1 mg/dL (0.3-1.0); Globulin 2.7 g/dL (2.4-3.5); Total Protein 6.3 g/dL (6.4-8.9)
[2020-04-06] MEDS: Apixaban 5 MG TABLET PO SCH (21:55)
[2020-04-07 02:04] LABS: Hematocrit 32.9 % (37.5-50.1); Hemoglobin 9.9 g/dL (12.9-16.9); Mean Corpuscular HGB Conc 30.1 g/dL (31.6-35.5); Mean Corpuscular Hemoglobin 28.6 pg (28.0-33.3); Mean Corpuscular Volume 95.1 fL (83.0-100.0); Mean Platelet Volume 9.1 fL (9.4-12.4); Platelet Count 167 K/mcL (140-400); Red Blood Count 3.46 M/mcL (4.19-5.50); Red Cell Distribution Width 21.1 % (11.5-14.5); White Blood Count 6.8 K/mcL (4.3-11.1)
[2020-04-07 02:24] LABS: BUN/Creatinine Ratio 18 (6-26); Blood Urea Nitrogen 17 mg/dL (8-23); Calcium 8.9 mg/dL (8.6-10.3); Carbon Dioxide 24 mEq/L (23-29); Chloride 105 mEq/L (98-107); Glucose 98 mg/dL (70-105); Osmolality,Calculated 288 (280-300); Potassium 3.6 mEq/L (3.5-5.1); Sodium 138 mEq/L (136-145); eGFR For African Americans > 60 (> 60); eGFR For Non-African Americans > 60 (> 60)
[2020-04-07] MEDS: Aspirin Enteric Coated 81 MG Tablet PO SCH (08:34)
[2020-04-07] MEDS: Isosorbide MONOnitrate (24 HR) 30 MG TAB.ER.24H PO SCH (08:34)
[2020-04-07] MEDS: Apixaban 5 MG TABLET PO SCH ×2 (08:34→20:11)
[2020-04-07] MEDS: Finasteride 5 MG TABLET PO SCH (08:34)
[2020-04-07] MEDS: Bumetanide 1 MG TABLET PO SCH (08:34)
[2020-04-07] MEDS ORDERED: *HR* HYDROcodone/Acet 5/325 mg TABLET PO PRN (08:52)
[2020-04-07] MEDS: Metoprolol XL (24 HR) Succ 50 MG TAB.ER.24H PO SCH ×2 (10:33→20:11)
[2020-04-07] MEDS: Gabapentin 400 MG CAPSULE PO SCH ×2 (10:33→20:11)
[2020-04-07] MEDS: *HR* LORazepam 0.5 MG TABLET PO SCH ×3 (10:33→20:11)
[2020-04-07] MEDS: polyethylene glycoL 3350 17 GM POWD.PACK PO SCH (10:33)
[2020-04-07] MEDS ORDERED: D5% in Water 1,000 ML IVC PRN (12:13)
[2020-04-07] MEDS ORDERED: Dextrose Gel 15 GM/37.5 ML TUBE PO PRN ×2 (12:13)
[2020-04-07] MEDS ORDERED: *HR* Dextrose 50 % in Water (Vial) 50 ML VIAL IVP PRN (12:13)
[2020-04-07] MEDS: Insulin LISPRO 300 UNITS/3 ML VIAL SUBQ SCH ×2 (17:22→21:00)
[2020-04-08 03:18] LABS: Hematocrit 31.8 % (37.5-50.1); Hemoglobin 9.5 g/dL (12.9-16.9); Mean Corpuscular HGB Conc 29.9 g/dL (31.6-35.5); Mean Corpuscular Hemoglobin 28.4 pg (28.0-33.3); Mean Corpuscular Volume 95.2 fL (83.0-100.0); Mean Platelet Volume 9.8 fL (9.4-12.4); Platelet Count 161 K/mcL (140-400); Red Blood Count 3.34 M/mcL (4.19-5.50); Red Cell Distribution Width 20.5 % (11.5-14.5); White Blood Count 6.8 K/mcL (4.3-11.1)
[2020-04-08 03:39] LABS: BUN/Creatinine Ratio 16 (6-26); Blood Urea Nitrogen 16 mg/dL (8-23); Calcium 8.6 mg/dL (8.6-10.3); Carbon Dioxide 24 mEq/L (23-29); Chloride 106 mEq/L (98-107); Glucose 107 mg/dL (70-105); Magnesium 1.9 mg/dL (1.6-2.6); Osmolality,Calculated 288 (280-300); Potassium 3.5 mEq/L (3.5-5.1); Sodium 138 mEq/L (136-145); eGFR For African Americans > 60 (> 60); eGFR For Non-African Americans > 60 (> 60)
[2020-04-08] MEDS: Insulin LISPRO 300 UNITS/3 ML VIAL SUBQ SCH ×4 (07:55→20:16)
[2020-04-08] MEDS: Gabapentin 400 MG CAPSULE PO SCH ×2 (08:25→20:16)
[2020-04-08] MEDS: polyethylene glycoL 3350 17 GM POWD.PACK PO SCH (08:26)
[2020-04-08] MEDS: *HR* LORazepam 0.5 MG TABLET PO SCH ×3 (08:26→20:16)
[2020-04-08] MEDS: Aspirin Enteric Coated 81 MG Tablet PO SCH (08:26)
[2020-04-08] MEDS: Apixaban 5 MG TABLET PO SCH ×2 (08:29→20:16)
[2020-04-08] MEDS: Finasteride 5 MG TABLET PO SCH (08:29)
[2020-04-08] MEDS: Isosorbide MONOnitrate (24 HR) 30 MG TAB.ER.24H PO SCH (08:29)
[2020-04-08] MEDS: Metoprolol XL (24 HR) Succ 50 MG TAB.ER.24H PO SCH ×2 (08:30→20:16)
[2020-04-08] MEDS: Bumetanide 1 MG TABLET PO SCH (08:30)
[2020-04-09] MEDS: Insulin LISPRO 300 UNITS/3 ML VIAL SUBQ SCH ×2 (07:27→11:59)
[2020-04-09 07:32] LABS: Hematocrit 31.6 % (37.5-50.1); Hemoglobin 9.4 g/dL (12.9-16.9); Mean Corpuscular HGB Conc 29.7 g/dL (31.6-35.5); Mean Corpuscular Hemoglobin 28.7 pg (28.0-33.3); Mean Corpuscular Volume 96.6 fL (83.0-100.0); Mean Platelet Volume 9.9 fL (9.4-12.4); Platelet Count 175 K/mcL (140-400); Red Blood Count 3.27 M/mcL (4.19-5.50); Red Cell Distribution Width 20.4 % (11.5-14.5); White Blood Count 7.7 K/mcL (4.3-11.1)
[2020-04-09] MEDS: Gabapentin 400 MG CAPSULE PO SCH (09:00)
[2020-04-09] MEDS: Apixaban 5 MG TABLET PO SCH (09:00)
[2020-04-09] MEDS: polyethylene glycoL 3350 17 GM POWD.PACK PO SCH (09:00)
[2020-04-09] MEDS: Isosorbide MONOnitrate (24 HR) 30 MG TAB.ER.24H PO SCH (09:00)
[2020-04-09] MEDS: Finasteride 5 MG TABLET PO SCH (09:01)
[2020-04-09] MEDS: Bumetanide 1 MG TABLET PO SCH (09:01)
[2020-04-09] MEDS: Aspirin Enteric Coated 81 MG Tablet PO SCH (09:01)
[2020-04-09] MEDS: *HR* LORazepam 0.5 MG TABLET PO SCH (09:01)
[2020-04-09] MEDS: Metoprolol XL (24 HR) Succ 50 MG TAB.ER.24H PO SCH (09:01)
[2020-04-09 16:10] VITALS: BP 122/57
== END 2020-04-09 16:45 ==
LOC: 3BNU 14:27 → EMEROOARM 14:27 → SUATTDRO 19:05 → 3BNU 20:10
PROVIDERS: ADMIT Internal Medicine; ATTEND Internal Medicine